=== PATIENT | male | born 1955 | race Caucasian/White ===

== ENCOUNTER 2018-02-16 09:00 | Outpatient (RCR) | payer OTHER, SELFPAY ==
--- NOTE | 2018-01-04 08:58 | HP.PTEVAL_ITS ---
Patient's Visit Information ROBERTA MOLINA is a 62 year old M referred to Physical Therapy by NITHIN CAST with a diagnosis of SEVERE BILATERAL KNEE PAIN DUE TO OSTEOARTHRITIS. Date of Evaluation: 01/04/18 Physical Therapist: Jamie Bazzi PT, - Visit Plan Frequency: 2x /Week Duration: 4 Weeks Plan: Aquatic PT for ROM ,strength BLE quads /hams ,flexablity,conditioning - Subjective Subjective: This 62 y/o male presents to physicial therapy with severe bilteral knee pain due to OA. Patient has had knee pain many years which has progressivelly worsre. Patient is a canditate with TKR but need to loss weight before surgery. Patient unable to squat,kneeling,standing min,walking 5min , geeting up from chair. Ptient has difficulty with stairs with rails with one steps at time. Sleeping okay at night with sleep pap. Denies paratrhesia/ tingling..Stmptoms better with MEDS.Patient has comorbities with multple myeloma.Patient affects quality of life and and ADL'S. SOCIAL: . VOCATION: retired - Pain Bilateral Knee Pain Intensity (Out of 10): 8 Pain Intensity Range: 10 - Objective POSTURE: mild foward posture ,hips knees flexed,mild valgus. GAIT: Ambulates with foward posture ,hips/knees flexed 2 point gait with slow cadance. EDEMA: 2 + bilateral lower legs ,left knee greater than right ,patient does use compression stockings. PALAPTION: medial joint line. FLEXABLITY: hams mod tight. AROM: 0-115 degrees R,0-120 degrees L. MMT: quads/hams 4-/5,hip 4-/5 flexion,susanna 3+/5 ankle 4/5 - Special Tests R Knee Valgus - MCL: Negative R Knee Varus - LCL: Negative R Knee Patellar Apprehension - PFS: Negative R Knee Patellar Grind - PFS: Negative L Knee Valgus - MCL: Negative L Knee Varus - LCL: Negative L Knee Patellar Apprehension - PFS: Negative L Knee Patellar Grind - PFS: Negative - Goals Goal 1:: Independant with Aquatic PT Goal Time Frame: 4-6 Weeks Goal 2:: Decrease knee pain by 50% or greater to improve function with walking and standing. Goal Time Frame: 4-6 Weeks Goal 3:: Patient improve AROM 5-10 degrres to improve function with walking . Goal Time Frame: 4-6 Weeks Goal 4:: Patient increase strength quads/hams 4/5 to improve function walking and standing. Goal Time Frame: 4-6 Weeks Goal 5:: Patient improve ADL'S and function with standing and walking with min limiations. Goal Time Frame: 4-6 Weeks - Rehabilitation Potential Physical Therapy Diagnosis: This patient has multiple comorbities to include multiple myeloma ,CHF as well as swevere knee pain from DJD with decrease ROM , pain ,strength deficitis which impairs ADL'S with walking and standing Rehabilitation Potential: Good - Anticipated Interventions Patient/Client Instruction: Educate patient on: Condition, Plan of Care For the Purpose of:: To decrease pain, To increase ROM, To improve muscle performance and motor function, To improve ability to perform ADL's, To increase tolerance to activity/condition/position, To improve ability of physical actions for home/community/work/leisure, To improve gait and locomotor functions, To improve health of tissue, To decrease soft tissue restriction, To increase flexibility/ROM, To improve endurance, To improve ability to perform tasks related to life management Therapeutic Exercise to Include: Strength training, Flexibilty training, Gait and locomotor training, In an aquatic setting, Passive ROM, Active ROM Comment: knee For the Purpose of:: To decrease pain, To decrease swelling/inflammation, To increase ROM, To improve muscle performance and motor function, To improve ability to perform ADL's, To increase tolerance to activity/condition/position, To improve performance and independence with ADL's, To improve ability of physical actions for home/community/work/leisure, To improve gait and locomotor functions, To improve health of tissue, To decrease soft tissue restriction, To increase flexibility/ROM, To improve endurance, To improve health and function, To foster healthy habits, To improve ability to perform tasks related to life management Thank you for the opportunity to evaluate your patient. For Medicare and Medicare HMO plans, please review the plan of care and approve it. It will need to be FAXED BACK to us at [phone] for Medicare purposes. Please let me know if there are questions or concerns regarding this plan of care. Physician Signature: Date:
--- NOTE | 2018-02-16 10:46 | HP.PTDCSUM ---
HP - PT D/C Summary It has been my pleasure to treat ROBERTA MOLINA under orders from NITHIN BRENNAN, for the diagnosis of SEVERE BILATERAL KNEE PAIN DUE TO OSTEOARTHRITIS for a total of 9 visit(s). Discharge Date: 02/16/18 Please see the following information for a summary of their discharge status. - Subjective Subjective: NO adverse symptoms after progressions in yesterday's AT visit. - Pain Bilateral Knee Pain Intensity (Out of 10): 7 Lumbar Spine Pain Intensity (Out of 10): 6 Cerv. Spine Pain Intensity (Out of 10): 3 - Overall Improvement % Improvement: 50 - Objective Objective/Function: POSTURE: mild foward posture. GAIT: mild foward antalgic gait with cane. EDEMA:2+ ankle. AROM:0-120 SUPINE KNEE FLEXION. MMT: 4/5 QUADS/HAMS ,HIP 4-/5 . STAIRS: ascend/desend 4 steps with rails - Goals Goal 1:: Independant with Aquatic PT Goal Progress: Goal Met Goal 2:: Decrease knee pain by 50% or greater to improve function with walking and standing. Goal Progress: Progressing Goal 3:: Patient improve AROM 5-10 degrres to improve function with walking . Goal Progress: Progressing Goal 4:: Patient increase strength quads/hams 4/5 to improve function walking and standing. Goal Progress: Progressing Goal 5:: Patient improve ADL'S and function with standing and walking with min limiations. Goal Progress: Progressing - Plan Plan: D/C TO HOME PROGRAM [facility] - D/C Information Discharge Comments: Inderpendant with [facility]. NEEDS TKR If there are questions or concerns regarding this patient's physical therapy, please feel free to call me at [phone]. Thank you for the referral of this patient. Sincerely, Jamie Bazzi, PT,
== END 2018-02-16 19:00 | disposition home or self-care (01) ==
LOC: PT 09:00
DX: M25.569 Pain in unspecified knee (principal)
CPT/HCPCS: 97113; 97162; G8978; G8979

== ENCOUNTER 2018-08-26 02:06 | Observation (INO) | payer OTHER, SELFPAY ==
[2018-08-26] VITALS (17 sets, daily range): BP systolic 108–171; BP diastolic 56–85; PULSE 55–92; RESP 16–30; TEMP 36.6–37.8; O2SAT 94–99; BMI 53.1; BMI 51.1
[2018-08-26 02:31] LABS: Bedside Glucose 140 mg/dL (70-110)
--- NOTE | 2018-08-26 02:33 | CT_ITS ---
HISTORY: Altered Mental Status,fever,recent chemo for multiple myeloma,elevated bpHx:htn,diabetes,a-fib,chf TECHNIQUE: Multiple axial images were obtained of the brain without intravenous contrast. A radiation dose optimization technique was used for this scan. IV Contrast dosage and agent: None. COMPARISON: None FINDINGS: Normal ventricles. Vague areas of decreased attenuation of the left cerebral deep white matter compatible with small vessel chronic ischemic change. No associated mass-effect or sulcal effacement. No intracranial mass, hemorrhage, or acute disease identified. Posterior fossa structures are unremarkable. No suspicious extra-axial fluid collection. Carotid and vertebrobasilar atherosclerotic calcifications. Probable remote fracture of the distal nasal bones. No dominant calvarial lesion in this patient with history of multiple myeloma CT/Brain/Head without Contrast IMPRESSION: 1. No hemorrhage or acute disease identified. 2. White matter chronic ischemic changes. 3. If symptoms persist and remain unexplained, further correlation with MR is recommended. 4. Carotid and vertebrobasilar atherosclerotic calcifications. Individualized dose optimization techniques were used for this CT. at 0410 Reported and signed by: Phi Ram MD Electronically Signed: Phi Ram, at 4:08 EST Tel , Service support ,
--- NOTE | 2018-08-26 02:33 | EKG12_ITS ---
Test Reason : ALT LOC Blood Pressure : / mmHG Vent. Rate : 077 BPM Atrial Rate : 077 BPM P-R Int : 124 ms QRS Dur : 192 ms QT Int : 504 ms P-R-T Axes : 117 267 050 degrees QTc Int : 570 ms Suspect arm lead reversal, interpretation assumes no reversal Normal sinus rhythm Right bundle branch block Septal infarct , age undetermined Lateral infarct , age undetermined Possible Inferior infarct , age undetermined Abnormal ECG Confirmed by GENARO CHRISTIE, ARIS ([id number]), photography editor ETHEL SANDOVAL ([id number]) on 08/30/2018 11:38:10 AM Referred By: JUS Confirmed By:ARIS LAM MD
--- NOTE | 2018-08-26 02:38 | ED.RN ---
NO OLD EKGS IN MUSE
[2018-08-26 02:55] LABS: Absolute Lymphocyte Count 1.63 X10^3/ul (0.83-4.51); Absolute Neutrophil Count 9.8 X10^3/uL (2.0-7.7); Basophil# 0.01 X10^3/uL; Basophil% 0.1 % (0-1); Eosinophil# 0.05 X10^3/uL; Eosinophils% 0.4 % (0-5); Hematocrit 41.2 % (40-54); Lymphocyte # 1.63 X10^3/ul (4.0); Lymphocyte % 13.2 % (19-41); Mean Corp Hgb Conc 31.6 g/gl (32-36); Mean Corpuscular Hgb 32.5 pg (27.0-32.0); Mean Platelet Vol. 11.6 fl (6.2-12.0); Monocyte# 0.82 X10^3/uL; Monocyte% 6.7 % (0-10); Neutrophil # 9.78 X10^3/uL (2.7-7.7); Neutrophil % 79.4 % (47-70); Platelet Count 146 K/mm3 (150-450); RBC Distribution Width CV 15.3 % (11.6-14.6); RBC Distribution Width SD 57.6 fl (35.1-43.9); White Blood Count 12.3 K/mm3 (4.4-11.0)
[2018-08-26 02:56] LABS: POSITIVE COUNT NO; POSITIVE DIFFERENTIAL NO; POSITIVE MORPHOLOGY NO
[2018-08-26] MEDS: Naloxone 0.4 MG/ML Syringe IV (02:56)
[2018-08-26 03:06] LABS: AST(SGOT) 28 U/L (15-37); Alanine Aminotransfer ALT/SGPT 25 U/L (16-61); Albumin, Serum 3.4 g/dL (3.2-5.0); Alkaline Phosphatase 46 U/L (45-117); Anion Gap 6 (5-15); BUN 18 mg/dL (7-18); BUN/Creat Ratio 16.8 RATIO (10-20); Calcium,Total 8.3 mg/dL (8.5-10.1); Chloride 101 mmol/L (98-107); Creatinine, Serum 1.07 mg/dL (0.70-1.30); EST Glomerular Filtration Rate 74 mL/min (>60); Est Glom Filt Rate - Afr Amer 89 mL/min (>60); Estimated Creatinine Clearance 67.48 ml/min; Globulin 3.3 g/dL (2.2-4.2); Glucose 120 mg/dL (74-106); Potassium 3.8 mmol/L (3.5-5.1); Protein, Total 6.7 g/dL (6.4-8.2); Sodium Level 139 mmol/L (136-145)
[2018-08-26 03:07] LABS: Lactic Acid 1.8 mmol/L (0.4-2.0)
[2018-08-26 03:15] LABS: Allen Test POS; Base Excess 8 mmol/L (-2 to +2); Bicarbonate 31.1 mmol/L (22-26); Blood Gas Specimen Type ART; O2 Delivery Device Nasal Can; PO2 84 mmHG (75-100); SITE R Radial; SO2 97 % (95-99); Time Given 310; Total Carbon Dioxide 32 mmol/L; pCO2 39.2 mmHg (35-45); pH 7.51 (7.35-7.45)
--- NOTE | 2018-08-26 03:30 | RAD_ITS ---
HISTORY: PT WITH ALTERED LOC, FEVER. RECENT CHEMO FOR MULTIPLE MYELOMA. SLOW TO ANSWER QUESTIONS BUT A+OX3. EXAM: XR Chest 1 View: Portable COMPARISON: None FINDINGS: Limited portable technique. EKG leads in place. Moderate enlargement of the cardiac silhouette. Pericardial effusion not excluded. Right hemidiaphragm not visualized. Possible small right pleural effusion. No vascular congestion or pulmonary consolidation. Surgical clips within the upper abdomen. Question hiatal hernia. No pneumothorax. RAD/Chest 1 View (Portable) IMPRESSION: 1. Moderate enlargement of the cardiac silhouette. Possible right pleural effusion. 2. No pneumonia or overt CHF. 3. Consider further correlation with cardiac echo. at 5525 Reported and signed by: Phi Ram MD Electronically Signed: Phi Ram, at 4:14 EST Tel , Service support ,
[2018-08-26 03:46] LABS: Mucous, Urine 0 SEEN /hpf (<or=2+); Red Blood Cells-Urine 0 SEEN /hpf (0-5); White Blood Cells 0 SEEN /hpf (0-5)
[2018-08-26 03:47] LABS: Color, Urine Yellow (Yellow); Glucose, Dipstick Normal (Normal); Ketone-Dipstick Negative (Negative); Leukocyte Esterase-Dipstick Negative /ul (Negative); Nitrite-Dipstick Negative (Negative); Occult Blood-Urine Negative /ul (Negative); Protein-Dipstick Negative (Negative); Urine Bilirubin Dipstick Negative (Negative); Urine Clarity Clear (Clear); Urine Urobilinogen Normal (Normal)
--- NOTE | 2018-08-26 03:48 | NURSING ---
PATIENT IS A LOT MORE ALERT AND ANSWERING QUESTIONS MORE QUICKLY WITHOUT PROMPTING. FAMILY IS AT THE BEDSIDE.
[2018-08-26 03:52] LABS: Bacteria RARE /hpf (None Seen); Squamous Epithelial Cells - UA 0-5 SEEN /hpf (0-5)
--- NOTE | 2018-08-26 04:41 | ED.RN ---
Addendum entered by Meng Salas 08/26/18 05:19: FAXED INFORMATION REQUESTED BY KASEY, CONCERNING THIS ADMISSION Original Note: [facility], PER KASEY, ADMIN ON DUTY, THEY ARE UNABLE TO TAKE A TRANSFER AT THIS TIME
--- NOTE | 2018-08-26 04:49 | HP.PCM_ITS ---
Problem List (1) Acute encephalopathy Status: Acute History of Present Illness Date of Admission: 08/26/18 Chief Complaint: unreponsiveness The patient is a 63 year old M with a significant history of ABI on home CPAP; psoriatic arthritis on methadone; multiple myeloma. Diabetes mellitus; hypertension; congestive heart failure; cardioMEM implant; A. fib on Xarelto who presented with decreased response. Family stated that patient was not responding to verbal commands and looked frozen in positions; and one time was tilted to one side. 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 By nighttime about 6 hours after loading in the cold, patient was having shaking chills. He sat in front of the heat and had blankets on but he was still shivering. The EMS found the patient's temperature was 99.2. At the emergency department patient was found to have a T-max of 100.0. At emergency department patient was given Narcan and he began to yawn and was breathing harder. He reported to the emergency department doctor after Narcan administration that he feels agitated. It was assumed that he was withdraw form narcotics because of narcan administration. ED doctor reported pinpoint pupils of patient As stated above patient takes methadone. He also takes gabapentin. Patient has attempted to take an at the ED Family reports of multiple cellulitis with blisters of bilateral legs for which patient has been on multiple antibiotics in the past. Family reported that for since one month patient has not been able to raise his right shoulders right fully and has been complaining of pain in same extremity. Patient follows up with PCP; trade show coordinator and oncologist. Patient's multiple myeloma history in remission but he receives chemotherapy shot every week. His last chemotherapy shot was on 08/22/2018. [facility] doctor called the [facility] to admit patient. However the [facility] did not have any available beds so patient was admitted to the hospital. Past Medical History Past Medical History (Chronic Problems): Chronic Problems (Last Reviewed 08/26/18 @ 06:22 by Len Trinh MD) Degenerative disc disease, cervical (Chronic) Anterolisthesis (Chronic) DDD (degenerative disc disease), lumbar (Chronic) Sleep apnea (Chronic) Psoriasis (Chronic) Morbid obesity (Chronic) Localized, primary osteoarthritis of lower leg (Chronic) Impaired glucose tolerance (Chronic) Hypercholesteremia (Chronic) GERD (gastroesophageal reflux disease) (Chronic) Essential hypertension (Chronic) Cellulitis and abscess of leg (Chronic) Medical History: Medical History (Last Reviewed 08/26/18 @ 06:22 by Len Trinh MD) Degenerative disc disease, cervical (Chronic) M50.30 Anterolisthesis (Chronic) M43.10 DDD (degenerative disc disease), lumbar (Chronic) M51.36 Allergies No Known Allergies Allergy (Verified 08/26/18 02:08) Home Medications: Ambulatory Orders Medication Instructions Recorded Acetaminophen [Tylenol] 975 mg PO TID PRN PRN 08/26/18 Acitretin 25 mg PO DAILY 08/26/18 Allopurinol [Zyloprim] 400 mg PO DAILYCM 08/26/18 Amiodarone HCl 200 mg PO DAILY 08/26/18 Atorvastatin Calcium [Lipitor] 10 mg PO QHS 08/26/18 Calcium Carbonate/Vitamin D3 1 each PO BID 08/26/18 [Calcium 500-Vit D3 200 Tablet] Calcium Carbonate/Vitamin D3 1 each PO DAILY 08/26/18 [Calcium 500-Vit D3 200 Tablet] Carvedilol 12.5 mg PO BID 08/26/18 Cetirizine HCl [Zyrtec] 10 mg PO DAILY 08/26/18 Cholecalciferol (VIT D3) [Vitamin 2,000 unit PO DAILY 08/26/18 D] Clobetasol Propionate [Clobex] 118 ml TP BID 08/26/18 Clobetasol Propionate/Emoll 30 gm TP BID 08/26/18 [Clobetasol Emollient 0.05% Crm] Ferrous Sulfate [Iron] 325 mg PO TID 08/26/18 Fluoxetine [Prozac] 20 mg PO DAILY 08/26/18 Fluticasone 0.05% [Flonase Nasal 2 spray NASAL DAILY 08/26/18 [place]] Gabapentin [Neurontin] 400 mg PO BIDCM 08/26/18 Guaifenesin Dm [Robitussin Dm] 10 ml PO Q6H PRN PRN 08/26/18 Insulin Glargine,Hum.rec.anlog 10 unit SC QHS 08/26/18 [Lantus] Isosorbide Mononitrate [Isosorbide 30 mg PO QHS 08/26/18 Mononitrate ER] Magnesium Oxide 420 mg PO TID 08/26/18 Methadone HCl [(None)] 10 mg PO Q12H 08/26/18 Multivitamin [Multiple Vitamins] 1 each PO DAILY 08/26/18 Multivitamins,Therapeutic 1 tab PO DAILY 08/26/18 [Multivitamin] Omeprazole 40 mg PO BIDCM 08/26/18 Potassium Chloride [K-Dur] 20 meq PO TIDCM 08/26/18 Rivaroxaban [Xarelto] 20 mg PO DAILY 08/26/18 Tamsulosin HCl [Flomax] 0.4 mg PO QHS 08/26/18 Torsemide [Demadex] 40 mg PO DAILY 08/26/18 Triamcinolone 0.1% Cream [Kenalog] 1 applic TOPICAL BID 08/26/18 Surgical History: appendectomy Lives: With Family Smoking Status: Former smoker - *Family History Maternal Family History: Family History (Last Updated 08/26/18 @ 07:06 by Len Trinh MD) Father Hypertension Mother Diabetes Review of Systems Constitutional: Reports: Chills, Fever, Weakness HEENT: Denies: Head Aches, Sinus Congestion, Sinus Drainage Cardiovascular: Denies: Chest Pain, Palpitations Respiratory: Denies: Cough, Shortness of breath at rest, Sputum production Gastrointestinal: Denies: Abdominal Pain, Nausea, Vomiting Genitourinary: Denies: Dysuria Musculoskeletal: Denies: Joint Pain, Joint Tenderness Skin: Denies: Rash, Wounds Neurological: Denies: Numbness, Tingling, Focal weakness Psychiatric: Denies: Anxiety, Depression, Homicidal Ideations, Suicidal Ideations Hematologic/ Lymphatic: Denies: Easy Bruising, Easy Bleeding VTE Information - Inpt Only VTE Present on Admission: No VTE Mechan Device Prophylaxis: None VTE Pharm Prophylaxis ordered?: No Reason prophylaxis not ordered:: Treatment Not Indicated - On Xarelto Patient Problems: Active and Suspected Problems (Last Reviewed 08/26/18 @ 06:22 by Len Trinh MD) Acute encephalopathy (Acute) - Physical Exam General: Oriented x3, Cooperative, Lethargic - Falls back to sleep during history but it is also very early in the morning., - HEENT: Atraumatic, PERRLA, EOMI, Normocephalic Neck: Supple, No JVD, Negative Carotid Bruits Lungs: Clear to auscultation, Normal air movement Cardiovascular: Regular rate, No murmurs Abdomen: Bowel Sounds Present, Soft, Non Tender Extremities: Capillary Refill Less than 3 Seconds, Edema - bilateral legs and feet., - - Decreased ROM of right upper extremities. Skin: Ulcer/ Wound - Multiple excoriations on bilateral legs, - - erythema of bilateral legs. Musculoskeletal: No Tenderness to Palpation of Joints or Extremities Neurological: Neuro grossly intact Psych/Mental Status: Normal Affect, Appropriate Vital Signs Temp Pulse Resp BP Pulse Ox 99.2 F H 76 18 141/62 H 95 08/26/18 03:48 08/26/18 04:24 08/26/18 04:24 08/26/18 04:24 08/26/18 04:24 Oxygen Flow Rate (L/min) 2 Oxygen Delivery Method Nasal Cannula Weight: 158.6 kg Body Mass Index (BMI) 53.1 Finger Stick Blood Glucose 140 Laboratory Tests Past 24 Hrs 08/26/18 08/26/18 08/26/18 02:28 02:28 02:28 WBC 12.3 H RBC 4.00 L Hgb 13.0 Hct 41.2 MCV 103.0 H MCH 32.5 H MCHC 31.6 L RDW 15.3 H RDW Differential 57.6 H Plt Count 146 L MPV 11.6 Immature Gran % (Auto) 0.200 Neut % (Auto) 79.4 H Lymph % (Auto) 13.2 L Mckenzie % (Auto) 6.7 Eos % (Auto) 0.4 Baso % (Auto) 0.1 Absolute Neuts (auto) 9.8 H Absolute Lymphs (auto) 1.63 Total Counted Not Reportable Specimen Type Sample Site pH Bicarbonate Actual POC Total CO2 Base Excess O2 Saturation ABG pCO2 ABG pO2 Enmanuel Test O2 Delivery Device Liter Flow Blood Gas Notified Whom Blood Gas Notified Time Sodium 139 Potassium 3.8 Chloride 101 Carbon Dioxide 32.0 Anion Gap 6 BUN 18 Creatinine 1.07 Estim Creat Clear Calc 67.48 Est GFR (MDRD) Af Amer 89 Est GFR (MDRD) Non-Af 74 BUN/Creatinine Ratio 16.8 Glucose 120 H Lactic Acid 1.8 Calcium 8.3 L Total Bilirubin 0.40 AST 28 ALT 25 Alkaline Phosphatase 46 Total Protein 6.7 Albumin 3.4 Globulin 3.3 Albumin/Globulin Ratio 1.0 Urine Color Urine Clarity Urine pH Ur Specific [place] Urine Protein Urine Glucose (UA) Urine Ketones Urine Occult Blood Urine Nitrite Urine Bilirubin Urine Urobilinogen Ur Leukocyte Esterase Urine RBC Urine WBC Ur Squamous Epith Cells Urine Bacteria Urine Mucus 08/26/18 08/26/18 03:09 03:40 WBC RBC Hgb Hct MCV MCH MCHC RDW RDW Differential Plt Count MPV Immature Gran % (Auto) Neut % (Auto) Lymph % (Auto) Mckenzie % (Auto) Eos % (Auto) Baso % (Auto) Absolute Neuts (auto) Absolute Lymphs (auto) Total Counted Specimen Type ART Sample Site R Radial pH 7.51 H Bicarbonate Actual 31.1 H POC Total CO2 32 Base Excess 8 H O2 Saturation 97 ABG pCO2 39.2 ABG pO2 84 Enmanuel Test POS O2 Delivery Device Nasal Can Liter Flow 2.0 Blood Gas Notified Whom ED Blood Gas Notified Time 310 Sodium Potassium Chloride Carbon Dioxide Anion Gap BUN Creatinine Estim Creat Clear Calc Est GFR (MDRD) Af Amer Est GFR (MDRD) Non-Af BUN/Creatinine Ratio Glucose Lactic Acid Calcium Total Bilirubin AST ALT Alkaline Phosphatase Total Protein Albumin Globulin Albumin/Globulin Ratio Urine Color Yellow Urine Clarity Clear Urine pH 8.0 Ur Specific [place] 1.010 Urine Protein Negative Urine Glucose (UA) Normal Urine Ketones Negative Urine Occult Blood Negative Urine Nitrite Negative Urine Bilirubin Negative Urine Urobilinogen Normal Ur Leukocyte Esterase Negative Urine RBC 0 SEEN Urine WBC 0 SEEN Ur Squamous Epith Cells 0-5 SEEN Urine Bacteria RARE Urine Mucus 0 SEEN POC Glucose 08/26/18 02:25 POC Glucose 140 H Assessment/Plan All Active Problems (Last Reviewed 08/26/18 @ 06:22 by Len Trinh MD) Acute encephalopathy (Acute) Segmental and somatic dysfunction of thoracic region (Acute) Segmental and somatic dysfunction of lumbar region (Acute) Segmental and somatic dysfunction of cervical region (Acute) The patient is a 63 year old M with a significant history of ABI on home CPAP; psoriatic arthritis on methadone; multiple myeloma. Diabetes mellitus; hypertension; congestive heart failure; cardioMEM implant; A. fib on Xarelto who presented with decreased response; low-grade fever and chills in the setting of chronic methadone and gabapentin use. Acute encephalopathy Likely due to overdose of methadone Clinical monitoring As needed Narcan ordered. Gabapentin and methadone will be held at this time. Consider decreasing dose of gabapentin and methadone upon discharge. Fever and chills T-max on admission was 100.0. Patient reportedly had a temperature of 99.2 or 99.6 measured by paramedics No source of infection noted at this time. Chills was transient. Urinalysis was unremarkable Chest x-ray showed increased cardiac silhouette with no noted infiltrate Blood cultures are pending. Bilateral leg shows redness with multiple excoriations on the left side with no indications for infection. Clinical monitoring. Right shoulder pain. No indication for infection. Patient to follow-up outpatient with PCP and trade show coordinator Hypertension Blood pressure at admission was within goal. Continue home Coreg and Imdur Trend blood pressure and adjust blood pressure medication as necessary. Psoriasis Acitretin continued. Clobetasol and triamcinolone continued. Diabetes mellitus Blood glucose on admission was 120 on BMP; acceptable. On home Lantus 10 units at night. We will not order Lantus at this time. Correction scale insulin ordered Excoriations on left leg and left knee Bactroban ordered. CHF Patient is a known CHF patient. Records at the [facility]. likely reduced ejection fraction due to extensive cardiomegaly. Family does not know ejection fraction. CardioMEM in place which transfer readings to providers Independent review of x-ray shows extensive cardiac silhouette. Coreg and Imdur continued Chronic A. fib Amiodarone and Xarelto continued. Gout Allopurinol continued Multiple myeloma Outpatient management. BPH Flomax continued. Hyperlipidemia Lipitor continued GERD Protonix continued Depression Prozac continued DVT prophylaxis Not indicated in the setting of Xarelto use for A. fib. Code Visit OBSV E&M: 21677 Initial observation care L3
--- NOTE | 2018-08-26 04:54 | ED.DCSUM_ITS ---
- ER Visit Summary Date of Service: 08/26/18 Chief Complaint: Altered mental status History of Present Illness: The patient is a 63 M who presents with altered mental status. Only noted at 3 hours ago. They state essentially he was unresponsive. He was not responding to questions. His blood sugar was 128. He has had one episode of recent diarrhea but otherwise review of systems is negative per the family no fever chest pain cough abdominal pain. They asked him if he was dizzy earlier and he stated no. does note that he has often been lethargic at night and spoken to his multiple physicians regarding this without any clear explanation. He is on methadone and gabapentin. He also has a history of multiple myeloma and received a maintenance medication and steroids earlier this week. Physical Examination: Temperature 100.0 vitals otherwise unremarkable Moist mucous membranes Pinpoint pupils Patient is somnolent but arousable to voice he has no focal or lateralizing neurological deficits and NIH stroke scale is 0 patient repetitively falls asleep during exam and questioning Heart is regular rate and rhythm Lungs are clear to auscultation Abdomen soft nontender Test Results: EKG shows sinus rhythm at a rate of 77 with a right bundle branch block no acute ischemic changes. Labs notable for platelets 146, glucose 120, hepatic function urinalysis lactic acid all normal. ABG normal. Chest x-ray shows cardiomegaly and possible right effusion. CT the head shows no acute disease. Emergency Department Course and Treatment: Patient exhibiting signs of an opioid toxidrome. He is on daily opiates so I did not give any large dose of Narcan he was given 0.4 mg of Narcan. Even with low-dose he showed some withdrawal symptoms of tremulousness, anxiety, yawning. However his mental status did significantly improve. At his workup is otherwise unremarkable as above. I do believe his altered mental status is related to polypharmacy and sedating medications. On reevaluation he is again somnolent. Family is concerned about being able to care for him at home and current condition. We did speak to the [facility]. They have no beds available. Patient will be admitted here. Treatment Plan: [] Disposition: Admit Impression: Altered mental status Opioid toxicity This note was generated with [employer] dictation software. It may contain incorrect words, spelling, and punctuation that were not noted in review of the chart prior to signing ED Disposition - Plan for ED Patient: Chief Complaint: Alt LOC Referrals: NOT,DEFINED [Primary Care Provider] -
[2018-08-26 06:55] LABS: Bedside Glucose 120 mg/dL (70-110)
[2018-08-26] MEDS: FLUoxetine 20 MG Capsule PO (08:16)
[2018-08-26] MEDS: Rivaroxaban 20 MG Tablet PO (08:16)
[2018-08-26] MEDS: Carvedilol 12.5 MG Tablet PO ×2 (08:16→21:48)
[2018-08-26] MEDS: Calcium Carb/Vitamin D 1 TABLET Tablet PO ×2 (08:16→16:51)
[2018-08-26] MEDS: Pantoprazole Sodium 40 MG Tablet PO ×2 (08:16→16:50)
[2018-08-26] MEDS: Amiodarone 200 MG Tablet PO (08:16)
[2018-08-26] MEDS: Allopurinol 100 MG Tablet 200 MG PO ×2 (08:16→16:50)
[2018-08-26] MEDS: Loratadine 10 MG Tablet PO (08:16)
[2018-08-26] MEDS: Fluticasone 0.05% 1 SPRAY NASAL.SRY 2 SPRAY NASAL (08:17)
[2018-08-26] MEDS: Clobetasol Propionate 0.05% Cream 1 APPLIC TOPICAL ×2 (08:18→21:47)
[2018-08-26] MEDS: Triamcinolone 0.5% Cream 1 APPLIC TOPICAL ×2 (08:22→21:49)
[2018-08-26] MEDS: Acetaminophen 325 MG Tablet 650 MG PO (09:14)
[2018-08-26] MEDS: Insulin Lispro 100 UNIT/ML INSULN.PEN SQ (12:48)
[2018-08-26 12:51] LABS: Bedside Glucose 165 mg/dL (70-110)
--- NOTE | 2018-08-26 15:45 | PN_ITS ---
Patient Problems: Active and Suspected Problems (Last Reviewed 08/26/18 @ 06:22 by Len Trinh MD) Acute encephalopathy (Acute) Subjective: Feels much better now. Was still very sleepy this am but much less this pm. No changes in doses recently of his pain meds and wears CPAP at home. - Physical Exam General: Alert, Oriented x3, Cooperative, No apparent distress, - - up in chair non-toxic HEENT: Atraumatic, PERRLA, EOMI, Normocephalic, EAC Clear Oral: Moist Mucosa, No Gingival or Mucosal Lesions/ Ulcerations, - - dentures in place, mallampati 4, no thrush Neck: Supple, No JVD, Negative Carotid Bruits, Negative Hepatojugular Reflux, No Nodes, Trachea Midline, Thyroid Normal Size and Texture - thick neck with lg circumfrence Lungs: Clear to auscultation, Normal air movement, No rhonchi, No wheeze, No rales Cardiovascular: Regular rate, Regular Rhythm, Normal S1, Normal S2, No murmurs, No Ectopic Activity, No rub noted, No Gallop, - - distant 22 body habitus Abdomen: Bowel Sounds Present, Soft, Non Tender, Non-Distended, No Hepato- splenomegaly, Obese, No hernias noted Extremities: No clubbing, No cyanosis, Edema - 2-3 + B LE-chronic Skin: No rashes, No breakdown Musculoskeletal: No Tenderness to Palpation of Joints or Extremities, No Muscle Wasting, Arthritic Changes Lymphatic: No Cervical, Supraclavicular, or Inguinal Adenopathy Neurological: Cranial nerves II-XII grossly intact, Deep Tendon Reflexes 2+/4 and Symmetrical, Neuro grossly intact Psych/Mental Status: Normal Affect, Appropriate, - - very pleasant, Alert and oriented to time, place, person, mood and affect Vital Signs Temp Pulse Resp BP Pulse Ox 97.9 F 58 L 16 141/84 H 98 08/26/18 08:27 08/26/18 08:27 08/26/18 08:27 08/26/18 08:27 08/26/18 08:27 Oxygen Flow Rate (L/min) 2 Oxygen Delivery Method Nasal Cannula Weight: 152.5 kg Body Mass Index (BMI) 51.1 Finger Stick Blood Glucose 140 Intake and Output for Last 24 Hours 08/24/18 08/25/18 08/26/18 23:59 23:59 23:59 Intake Total 300 / 300 Balance 300 / 300 Laboratory Tests Past 24 Hrs 08/26/18 08/26/18 08/26/18 02:28 02:28 02:28 WBC 12.3 H RBC 4.00 L Hgb 13.0 Hct 41.2 MCV 103.0 H MCH 32.5 H MCHC 31.6 L RDW 15.3 H RDW Differential 57.6 H Plt Count 146 L MPV 11.6 Immature Gran % (Auto) 0.200 Neut % (Auto) 79.4 H Lymph % (Auto) 13.2 L [place] % (Auto) 6.7 Eos % (Auto) 0.4 Baso % (Auto) 0.1 Absolute Neuts (auto) 9.8 H Absolute Lymphs (auto) 1.63 Total Counted Not Reportable Specimen Type Sample Site pH Bicarbonate Actual POC Total CO2 Base Excess O2 Saturation ABG pCO2 ABG pO2 [place] Test O2 Delivery Device Liter Flow Blood Gas Notified Whom Blood Gas Notified Time Sodium 139 Potassium 3.8 Chloride 101 Carbon Dioxide 32.0 Anion Gap 6 BUN 18 Creatinine 1.07 Estim Creat Clear Calc 67.48 Est GFR (MDRD) Af Amer 89 Est GFR (MDRD) Non-Af 74 BUN/Creatinine Ratio 16.8 Glucose 120 H Lactic Acid 1.8 Calcium 8.3 L Total Bilirubin 0.40 AST 28 ALT 25 Alkaline Phosphatase 46 Total Protein 6.7 Albumin 3.4 Globulin 3.3 Albumin/Globulin Ratio 1.0 Urine Color Urine Clarity Urine pH Ur Specific [place] Urine Protein Urine Glucose (UA) Urine Ketones Urine Occult Blood Urine Nitrite Urine Bilirubin Urine Urobilinogen Ur Leukocyte Esterase Urine RBC Urine WBC Ur Squamous Epith Cells Urine Bacteria Urine Mucus 08/26/18 08/26/18 03:09 03:40 WBC RBC Hgb Hct MCV MCH MCHC RDW RDW Differential Plt Count MPV Immature Gran % (Auto) Neut % (Auto) Lymph % (Auto) [place] % (Auto) Eos % (Auto) Baso % (Auto) Absolute Neuts (auto) Absolute Lymphs (auto) Total Counted Specimen Type ART Sample Site R Radial pH 7.51 H Bicarbonate Actual 31.1 H POC Total CO2 32 Base Excess 8 H O2 Saturation 97 ABG pCO2 39.2 ABG pO2 84 [place] Test POS O2 Delivery Device Nasal Can Liter Flow 2.0 Blood Gas Notified Whom ED Blood Gas Notified Time 310 Sodium Potassium Chloride Carbon Dioxide Anion Gap BUN Creatinine Estim Creat Clear Calc Est GFR (MDRD) Af Amer Est GFR (MDRD) Non-Af BUN/Creatinine Ratio Glucose Lactic Acid Calcium Total Bilirubin AST ALT Alkaline Phosphatase Total Protein Albumin Globulin Albumin/Globulin Ratio Urine Color Yellow Urine Clarity Clear Urine pH 8.0 Ur Specific [place] 1.010 Urine Protein Negative Urine Glucose (UA) Normal Urine Ketones Negative Urine Occult Blood Negative Urine Nitrite Negative Urine Bilirubin Negative Urine Urobilinogen Normal Ur Leukocyte Esterase Negative Urine RBC 0 SEEN Urine WBC 0 SEEN Ur Squamous Epith Cells 0-5 SEEN Urine Bacteria RARE Urine Mucus 0 SEEN POC Glucose 08/26/18 08/26/18 08/26/18 12:45 06:50 02:25 POC Glucose 165 H 120 H 140 H Medical Necessity - Tobacco Use Smoking Status: Former smoker Assessment/Plan All Active Problems (Last Reviewed 08/26/18 @ 06:22 by Len Trinh MD) Acute encephalopathy (Acute) Segmental and somatic dysfunction of thoracic region (Acute) Segmental and somatic dysfunction of lumbar region (Acute) Segmental and somatic dysfunction of cervical region (Acute) 1. Acute Toxic/Metabolic Encephalopathy -suspected from medication issues -Methadone and Gabapentin at home--> pt denies any recent dose changes at home -may need to slightly reduce dose upon d/c -pt state he wears his home CPAP 2. Fever/Chills -blood cx pending -afebrile since admission -WBC with mild elevation -recheck in am -doubt infectiojn 3. R Shld pain -no acute issues 4. Thrombocytopenia -on chemo--> related -recheck in am 5. HTN/HPL -continue home meds 6. Psoriasis -topical creams ordered 7. DM-2 -Lantus 10 u qhs--> order placed -BGT as and hs 8. HF -compensated--> uncertain if systolic/diastolic or both -no records here 9. PAF -currently NSR -continue Amio and NOAC 10. H/O Gout -continue allopurinol 11. Multiple Myeloma -treatment q Tuesday at [place] 12. BPH -continue Flomax 13. Depression -continue Prozac 14. GERD -Continue PPI 15. Chronic Pain 2/2 DDD/Knee OA -restart Methadone at 5 mg BID (home dose 10 mg BID for at least a year now) -restart gabapentin 400 mg BID 16. ABI - bringing in home CPAP--> will order 17. DVT Prophylaxis -NOAC
[2018-08-26] MEDS: Gabapentin 400 MG Capsule PO (16:51)
[2018-08-26 18:06] LABS: Bedside Glucose 119 mg/dL (70-110)
[2018-08-26] MEDS: Mupirocin Ointment 22gm Tube 1 APPLIC TOPICAL (21:47)
[2018-08-26] MEDS: Atorvastatin Calcium 10 MG Tablet PO (21:48)
[2018-08-26] MEDS: Tamsulosin HCl 0.4 MG Capsule PO (21:48)
[2018-08-26] MEDS: Isosorbide Mononitrate 30 MG Tablet PO (21:48)
[2018-08-26] MEDS: 0.9% NaCl Peripheral Flush Adult/Peds IV (21:52)
[2018-08-26 23:00] LABS: Bedside Glucose 122 mg/dL (70-110)
[2018-08-27] VITALS (7 sets, daily range): BP systolic 145–161; BP diastolic 67–97; PULSE 47–65; RESP 16–18; TEMP 36.6–37.2; O2SAT 95–99
[2018-08-27] MEDS: Acetaminophen 325 MG Tablet 650 MG PO (00:16)
[2018-08-27 07:01] LABS: Bedside Glucose 119 mg/dL (70-110)
[2018-08-27] MEDS: Pantoprazole Sodium 40 MG Tablet PO (07:37)
[2018-08-27] MEDS: Carvedilol 12.5 MG Tablet PO (07:37)
[2018-08-27] MEDS: Loratadine 10 MG Tablet PO (07:37)
[2018-08-27] MEDS: Allopurinol 100 MG Tablet 200 MG PO (07:37)
[2018-08-27] MEDS: Calcium Carb/Vitamin D 1 TABLET Tablet PO (07:37)
[2018-08-27] MEDS: Amiodarone 200 MG Tablet PO (07:38)
[2018-08-27] MEDS: FLUoxetine 20 MG Capsule PO (07:38)
[2018-08-27] MEDS: Rivaroxaban 20 MG Tablet PO (07:38)
[2018-08-27] MEDS: Fluticasone 0.05% 1 SPRAY NASAL.SRY 2 SPRAY NASAL (07:39)
[2018-08-27] MEDS: Gabapentin 400 MG Capsule PO (07:40)
[2018-08-27 08:20] LABS: Absolute Lymphocyte Count 0.86 X10^3/ul (0.83-4.51); Absolute Neutrophil Count 7.9 X10^3/uL (2.0-7.7); Basophil# 0.01 X10^3/uL; Basophil% 0.1 % (0-1); Eosinophil# 0.12 X10^3/uL; Eosinophils% 1.3 % (0-5); Hemoglobin 12.2 g/dl (13.0-16.5); Lymphocyte # 0.86 X10^3/ul (4.0); Mean Corp Hgb Conc 31.3 g/gl (32-36); Mean Corpuscular Hgb 32.5 pg (27.0-32.0); Mean Platelet Vol. 11.2 fl (6.2-12.0); Monocyte# 0.67 X10^3/uL; Neutrophil # 7.87 X10^3/uL (2.7-7.7); Neutrophil % 82.5 % (47-70); Platelet Count 139 K/mm3 (150-450); RBC Distribution Width CV 15.5 % (11.6-14.6); RBC Distribution Width SD 58.6 fl (35.1-43.9); Red Blood Count 3.75 M/mm3 (4.6-6.2); White Blood Count 9.5 K/mm3 (4.4-11.0)
[2018-08-27 08:21] LABS: POSITIVE COUNT NO; POSITIVE DIFFERENTIAL NO; POSITIVE MORPHOLOGY NO
[2018-08-27 09:11] LABS: Anion Gap 6 (5-15); BUN 13 mg/dL (7-18); BUN/Creat Ratio 14.5 RATIO (10-20); Calcium,Total 8.7 mg/dL (8.5-10.1); Chloride 105 mmol/L (98-107); EST Glomerular Filtration Rate 91 mL/min (>60); Est Glom Filt Rate - Afr Amer 110 mL/min (>60); Estimated Creatinine Clearance 80.22 ml/min; Glucose 170 mg/dL (74-106); Potassium 3.7 mmol/L (3.5-5.1); Sodium Level 141 mmol/L (136-145)
--- NOTE | 2018-08-27 09:14 | PN_ITS ---
Patient Problems: Active and Suspected Problems (Last Reviewed 08/26/18 @ 06:22 by Len Trinh MD) Acute encephalopathy (Acute) Subjective: Feels well. No issues overnight. Wore CPAP and slept well. Anxious to go home. - Physical Exam General: Alert, Oriented x3, Cooperative, No apparent distress, - - sitting up in chair HEENT: Atraumatic, PERRLA, EOMI, Normocephalic Oral: Moist Mucosa, No Gingival or Mucosal Lesions/ Ulcerations, - - Mallampati 4, no thrush Neck: Supple, No JVD, Negative Carotid Bruits, Negative Hepatojugular Reflux, No Nodes, Trachea Midline, Thyroid Normal Size and Texture, - - lg neck circumfrence Lungs: Clear to auscultation, Normal air movement, No rhonchi, No wheeze, No rales, - - distant 2/2 body habitus Cardiovascular: Regular rate, Regular Rhythm, Normal S1, Normal S2, No murmurs, No Ectopic Activity, No rub noted, No Gallop, - - distant 2/2 Body habitus Abdomen: Bowel Sounds Present, Soft, Non Tender, Non-Distended, No Hepato- splenomegaly, Obese Extremities: No clubbing, No cyanosis, Edema Skin: No rashes, - - venous stasis skin changes B LE Musculoskeletal: No Tenderness to Palpation of Joints or Extremities, No Muscle Wasting, Arthritic Changes Lymphatic: No Cervical, Supraclavicular, or Inguinal Adenopathy Neurological: Cranial nerves II-XII grossly intact, - - ROMERO symmetrically B UE/LE Psych/Mental Status: Normal Affect, Appropriate, - - very pleasant, Alert and oriented to time, place, person, mood and affect Vital Signs Temp Pulse Resp BP Pulse Ox 99 F 64 18 145/67 H 97 08/27/18 07:33 08/27/18 07:33 08/27/18 07:33 08/27/18 07:33 08/27/18 07:33 Oxygen Flow Rate (L/min) 2 Oxygen Delivery Method Room Air Weight: 152.5 kg Body Mass Index (BMI) 51.1 Finger Stick Blood Glucose 140 Intake and Output for Last 24 Hours 08/25/18 08/26/18 08/27/18 23:59 23:59 23:59 Intake Total 300 / 300 500 / 500 Balance 300 / 300 500 / 500 Laboratory Tests Past 24 Hrs 08/27/18 08/27/18 08:00 08:00 WBC 9.5 RBC 3.75 L Hgb 12.2 L Hct 39.0 L MCV 104.0 H MCH 32.5 H MCHC 31.3 L RDW 15.5 H RDW Differential 58.6 H Plt Count 139 L MPV 11.2 Immature Gran % (Auto) 0.100 Neut % (Auto) 82.5 H Lymph % (Auto) 9.0 L [place] % (Auto) 7.0 Eos % (Auto) 1.3 Baso % (Auto) 0.1 Absolute Neuts (auto) 7.9 H Absolute Lymphs (auto) 0.86 Total Counted Not Reportable Sodium Pending Potassium Pending Chloride Pending Carbon Dioxide Pending Anion Gap Pending BUN Pending Creatinine Pending Est GFR (MDRD) Af Amer Pending Est GFR (MDRD) Non-Af Pending BUN/Creatinine Ratio Pending Glucose Pending Calcium Pending POC Glucose 08/27/18 08/26/18 08/26/18 06:54 21:51 16:48 POC Glucose 119 H 122 H 119 H 08/26/18 12:45 POC Glucose 165 H Medical Necessity - Tobacco Use Smoking Status: Former smoker Assessment/Plan All Active Problems (Last Reviewed 08/26/18 @ 06:22 by Len Trinh MD) Acute encephalopathy (Acute) Segmental and somatic dysfunction of thoracic region (Acute) Segmental and somatic dysfunction of lumbar region (Acute) Segmental and somatic dysfunction of cervical region (Acute) 1. Acute Toxic/Metabolic Encephalopathy -suspected from medication issues -Methadone and Gabapentin at home--> pt denies any recent dose changes at home -may need to slightly reduce dose upon d/c -pt state he wears his home CPAP 2. Fever/Chills -blood cx pending-->infection highly doubtful -afebrile since admission -WBC normalized -doubt infection 3. R Shld pain -no acute issues 4. Thrombocytopenia -relatively stable 5. HTN/HPL -continue home meds 6. Psoriasis -topical creams ordered 7. DM-2 -Lantus 10 u qhs -BGT as and hs -blood sugars good 8. HF -compensated--> uncertain if systolic/diastolic or both -no records here 9. PAF -currently NSR -continue Amio and NOAC 10. H/O Gout -continue allopurinol 11. Multiple Myeloma -treatment q Tuesday at [place] 12. BPH -continue Flomax 13. Depression -continue Prozac 14. GERD -Continue PPI 15. Chronic Pain 2/2 DDD/Knee OA -continue Methadone at 7.5 mg BID (home dose 10 mg BID for at least a year now)--> at D/C -continue gabapentin 400 mg BID 16. ABI - bringing in home CPAP--> will order 17. DVT Prophylaxis -NOAC 18. Disposition -D/C Home
--- NOTE | 2018-08-27 09:37 | DS.PCM_ITS ---
Discharge Date and Diagnosis - Problem List Patient Problems: Active and Suspected Problems (Last Reviewed 08/26/18 @ 06:22 by Len Trinh MD) Acute encephalopathy (Acute) Date of Admission: 08/26/18 Date of Discharge: 08/27/18 - Primary Discharge Diagnosis Active and Suspected Problems (Last Reviewed 08/26/18 @ 06:22 by Len Trinh MD) Acute encephalopathy (Acute) - Secondary Discharge Diagnosis Chronic Problems (Last Reviewed 08/26/18 @ 06:22 by Len Trinh MD) Degenerative disc disease, cervical (Chronic) Anterolisthesis (Chronic) DDD (degenerative disc disease), lumbar (Chronic) Sleep apnea (Chronic) Psoriasis (Chronic) Morbid obesity (Chronic) Localized, primary osteoarthritis of lower leg (Chronic) Impaired glucose tolerance (Chronic) Hypercholesteremia (Chronic) GERD (gastroesophageal reflux disease) (Chronic) Essential hypertension (Chronic) Cellulitis and abscess of leg (Chronic) Hospital Course and Treatment Imaging Results: CXR- cardiomegaly/no PNA/no CHF CT Head-no hemorrhage or acute disease/White matter changes c/w chronic ischemic changes NONE Operations: None Procedures: None, EKG Summary of Care Provided: The patient is a 63 year old M who presented to the ED on 08/26/18 after family noted that pt was not responding to verbal commands and looked as if he was frozen in positions and tilted to one side. 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 He was afebrile when the EMS picked him up and in the ED. He is on Methadone and gabapentin at home for chronic pain. Narcan was given in the ED and he did improve although he was agitated from opiate withdrawal. EKG/CT head and CXR were all done and no acute abnormalities were noted. Blood cx were pending at d/c but suspicion was very low for infection and pt was never on ABX during his stay. He was sleepy the initial am he was admitted but by afternoon was feeling like he was back to himself. His Methadone was restarted at 50 % of his home dose and he was discharge on 75% of his home dose with instruction to f/u with his Methadone prescriber regarding this incident. He was discharged in good condition. [] Patient Problems: Active and Suspected Problems (Last Reviewed 08/26/18 @ 06:22 by Len Trinh MD) Acute encephalopathy (Acute) - Physical Exam Vital Signs Temp Pulse Resp BP Pulse Ox 99 F 64 18 145/67 H 97 08/27/18 07:33 08/27/18 07:33 08/27/18 07:33 08/27/18 07:33 08/27/18 07:33 Oxygen Flow Rate (L/min) 2 Oxygen Delivery Method Room Air Weight: 152.5 kg Body Mass Index (BMI) 51.1 Finger Stick Blood Glucose 140 Intake and Output for Last 24 Hours 08/25/18 08/26/18 08/27/18 23:59 23:59 23:59 Intake Total 300 / 300 500 / 500 Balance 300 / 300 500 / 500 Laboratory Tests Past 24 Hrs 08/27/18 08/27/18 08:00 08:00 WBC 9.5 RBC 3.75 L Hgb 12.2 L Hct 39.0 L MCV 104.0 H MCH 32.5 H MCHC 31.3 L RDW 15.5 H RDW Differential 58.6 H Plt Count 139 L MPV 11.2 Immature Gran % (Auto) 0.100 Neut % (Auto) 82.5 H Lymph % (Auto) 9.0 L [place] % (Auto) 7.0 Eos % (Auto) 1.3 Baso % (Auto) 0.1 Absolute Neuts (auto) 7.9 H Absolute Lymphs (auto) 0.86 Total Counted Not Reportable Sodium 141 Potassium 3.7 Chloride 105 Carbon Dioxide 30.0 Anion Gap 6 BUN 13 Creatinine 0.90 Estim Creat Clear Calc 80.22 Est GFR (MDRD) Af Amer 110 Est GFR (MDRD) Non-Af 91 BUN/Creatinine Ratio 14.5 Glucose 170 H Calcium 8.7 POC Glucose 08/27/18 08/26/18 08/26/18 06:54 21:51 16:48 POC Glucose 119 H 122 H 119 H 08/26/18 12:45 POC Glucose 165 H Discharge Diet: Low fat/ Low Cholesterol, Carb Control Diet Discharge Activity: Return to Normal Activity Return to work on:: 08/28/18 May resume sexual activity in: No Restrictions Call your doctor if you observe: Fever of 101 or Higher, Numbness or Tingling, Shortness of breath, Dizziness, Fainting spells Home Medications: Medications to take at Discharge Acetaminophen [Tylenol] 975 mg PO TID PRN PRN 08/26/18 Acitretin 25 mg PO DAILY 08/26/18 Allopurinol [Zyloprim] 400 mg PO DAILYCM 08/26/18 Amiodarone HCl 200 mg PO DAILY 08/26/18 Atorvastatin Calcium [Lipitor] 10 mg PO QHS 08/26/18 Calcium Carbonate/Vitamin D3 [Calcium 500-Vit D3 200 Tablet] 1 each PO BID 08/26/18 Calcium Carbonate/Vitamin D3 [Calcium 500-Vit D3 200 Tablet] 1 each PO DAILY 08/26/18 Carvedilol 12.5 mg PO BID 08/26/18 Cetirizine HCl [Zyrtec] 10 mg PO DAILY 08/26/18 Cholecalciferol (VIT D3) [Vitamin D] 2,000 unit PO DAILY 08/26/18 Clobetasol Propionate [Clobex] 118 ml TP BID 08/26/18 Clobetasol Propionate/Emoll [Clobetasol Emollient 0.05% Crm] 30 gm TP BID 08/26/18 Ferrous Sulfate [Iron] 325 mg PO TID 08/26/18 Fluoxetine [Prozac] 20 mg PO DAILY 08/26/18 Fluticasone 0.05% [Flonase Nasal [place]] 2 spray NASAL DAILY 08/26/18 Gabapentin [Neurontin] 400 mg PO BIDCM 08/26/18 Guaifenesin Dm [Robitussin Dm] 10 ml PO Q6H PRN PRN 08/26/18 Insulin Glargine,Hum.rec.anlog [Lantus] 10 unit SC QHS 08/26/18 Isosorbide Mononitrate [Isosorbide Mononitrate ER] 30 mg PO QHS 08/26/18 Magnesium Oxide 420 mg PO TID 08/26/18 Methadone HCl [(None)] 7.5 mg PO Q12H 08/26/18 Multivitamin [Multiple Vitamins] 1 each PO DAILY 08/26/18 Multivitamins,Therapeutic [Multivitamin] 1 tab PO DAILY 08/26/18 Omeprazole 40 mg PO BIDCM 08/26/18 Potassium Chloride [K-Dur] 20 meq PO TIDCM 08/26/18 Rivaroxaban [Xarelto] 20 mg PO DAILY 08/26/18 Tamsulosin HCl [Flomax] 0.4 mg PO QHS 08/26/18 Torsemide [Demadex] 40 mg PO DAILY 08/26/18 Triamcinolone 0.1% Cream [Kenalog] 1 applic TOPICAL BID 08/26/18 Primary Care Physician: NOT,DEFINED [NON-STAFF] - Medical Necessity - Tobacco Use Smoking Status: Former smoker Meaningful Use Info Meaningful Use Diagnoses (Choose all that apply): None applicable Code Visit Inpatient E&M: 29813 Disch Hosp
--- NOTE | 2018-08-27 09:47 | PCM.DC ---
- Discharge Diagnoses Current Active Problems: Current Active and Chronic Problems (Last Reviewed 08/26/18 @ 06:22 by Len Trinh MD) Acute encephalopathy (Acute) You will use the following diet at home:: Calorie/Carbohydrate Controlled (specify 1200, 1400, etc), Cardiac Your food should be the consistency of: Regular Your liquids should be the consistency of: Regular/Thin Discharge Activity: Return to Normal Activity Return to work on:: 08/28/18 May resume sexual activity in: No Restrictions Call your doctor if you observe: Fever of 101 or Higher, Numbness or Tingling, Shortness of breath, Dizziness, Fainting spells Allergies/Adverse Reactions: Allergies No Known Allergies Allergy (Verified 08/26/18 02:08) Medications to take at Discharge Acetaminophen [Tylenol] 975 mg PO TID PRN PRN 08/26/18 Acitretin 25 mg PO DAILY 08/26/18 Allopurinol [Zyloprim] 400 mg PO DAILYCM 08/26/18 Amiodarone HCl 200 mg PO DAILY 08/26/18 Atorvastatin Calcium [Lipitor] 10 mg PO QHS 08/26/18 Calcium Carbonate/Vitamin D3 [Calcium 500-Vit D3 200 Tablet] 1 each PO BID 08/26/18 Calcium Carbonate/Vitamin D3 [Calcium 500-Vit D3 200 Tablet] 1 each PO DAILY 08/26/18 Carvedilol 12.5 mg PO BID 08/26/18 Cetirizine HCl [Zyrtec] 10 mg PO DAILY 08/26/18 Cholecalciferol (VIT D3) [Vitamin D3] 2,000 unit PO DAILY 08/26/18 Clobetasol Propionate [Clobex] 118 ml TP BID 08/26/18 Clobetasol Propionate/Emoll [Clobetasol Emollient 0.05% Crm] 30 gm TP BID 08/26/18 Ferrous Sulfate [Iron] 325 mg PO TID 08/26/18 Fluoxetine [Prozac] 20 mg PO DAILY 08/26/18 Fluticasone 0.05% [Flonase Nasal [place]] 2 spray NASAL DAILY 08/26/18 Gabapentin [Neurontin] 400 mg PO BIDCM 08/26/18 Guaifenesin Dm [Robitussin Dm] 10 ml PO Q6H PRN PRN 08/26/18 Insulin Glargine,Hum.rec.anlog [Lantus] 10 unit SC QHS 08/26/18 Isosorbide Mononitrate [Isosorbide Mononitrate ER] 30 mg PO QHS 08/26/18 Magnesium Oxide 420 mg PO TID 08/26/18 Multivitamin [Multiple Vitamins] 1 each PO DAILY 08/26/18 Multivitamins,Therapeutic [Multivitamin] 1 tab PO DAILY 08/26/18 Omeprazole 40 mg PO BIDCM 08/26/18 Potassium Chloride [K-Dur] 20 meq PO TIDCM 08/26/18 Rivaroxaban [Xarelto] 20 mg PO DAILY 08/26/18 Tamsulosin HCl [Flomax] 0.4 mg PO QHS 08/26/18 Torsemide [Demadex] 40 mg PO DAILY 08/26/18 Triamcinolone 0.1% Cream [Kenalog] 1 applic TOPICAL BID 08/26/18 Acitretin [Soriatane] 25 mg PO DAILY capsule 08/27/18 Gabapentin [Neurontin] 400 mg PO BIDCM capsule 08/27/18 Methadone HCl 7.5 mg PO BID tablet 08/27/18 Primary Care Physician: NOT,DEFINED [NON-STAFF] - Test Results: Test results from this visit will be discussed in further detail at your follow-up appointment, if applicable.
== END 2018-08-27 11:30 | disposition home or self-care (01) ==
LOC: ED 02:50 → MS3 06:05
PROVIDERS: Admitting Provider Hospitalist; Emergency Provider Emergency Medicine; Visit Provider Internal Medicine
DX: G93.40 Encephalopathy, unspecified (principal); M50.30 Other cervical disc degeneration, unspecified cervical region; K21.9 Gastro-esophageal reflux disease without esophagitis; E66.01 Morbid (severe) obesity due to excess calories; L40.9 Psoriasis, unspecified; C90.00 Multiple myeloma not having achieved remission; R29.700 NIHSS score 0; E11.9 Type 2 diabetes mellitus without complications; I11.0 Hypertensive heart disease with heart failure; I50.9 Heart failure, unspecified; L40.50 Arthropathic psoriasis, unspecified; M99.01 Segmental and somatic dysfunction of cervical region; M99.03 Segmental and somatic dysfunction of lumbar region; M99.02 Segmental and somatic dysfunction of thoracic region; G47.33 Obstructive sleep apnea (adult) (pediatric); M10.9 Gout, unspecified; N40.0 Benign prostatic hyperplasia without lower urinary tract symptoms; E78.5 Hyperlipidemia, unspecified; F32.9 Major depressive disorder, single episode, unspecified; Z68.43 Body mass index [BMI] 50.0-59.9, adult; Z71.3 Dietary counseling and surveillance; Z79.899 Other long term (current) drug therapy; Z79.01 Long term (current) use of anticoagulants; Z87.891 Personal history of nicotine dependence; Z79.891 Long term (current) use of opiate analgesic; D69.59 Other secondary thrombocytopenia; T45.1X5A Adverse effect of antineoplastic and immunosuppressive drugs, initial encounter; I48.0 Paroxysmal atrial fibrillation; G89.29 Other chronic pain
CPT/HCPCS: 36415; 36600; 70450; 71045; 80048; 80053; 81001; 82803; 82962; 83605; 85025; 87040; 93005; 96374; 97110; 97116; 97162; 97166; 99218; 99285; A4216; G0378; G8978; G8979; G8987; G8988; J2310

== ENCOUNTER 2019-04-24 10:28 | Outpatient (RCR) | payer OTHER, SELFPAY ==
[2018-09-21 10:33] VITALS: BMI 51.1
== END 2019-04-24 19:00 | disposition home or self-care (01) ==
LOC: PT 10:28
DX: M48.062 Spinal stenosis, lumbar region with neurogenic claudication (principal)

== ENCOUNTER 2019-12-07 13:15 | Inpatient (IN) | payer MEDICARE, OTHER, SELFPAY ==
[2019-08-01 10:28] VITALS: BMI 51.1
[2019-12-07 13:18] VITALS: BP 162/81; PULSE 95; RESP 22; TEMP 36.7; O2SAT 97; BMI 57.9
--- NOTE | 2019-12-07 13:46 | VDLE_ITS ---
Reason For Study: pain RIGHT LEFT GSV is normal. GSV is normal. CFV is compressible, spontaneous, phasic, CFV is compressible, spontaneous, phasic, competent and demonstrates normal competent, and demonstrates normal augmentation. augmentation. FV is compressible, spontaneous, phasic, FV is compressible, spontaneous, phasic, competent and demonstrates normal competent and demonstrates normal augmentation. augmentation. POP V is compressible, spontaneous, phasic, POP V is compressible, spontaneous, phasic, competent and demonstrates normal competent and demonstrates normal augmentation. augmentation. T/P Trunk is compressible. T/P Trunk is compressible. PTV is compressible. PTV is compressible. RT PerV is compressible. LT PerV is compressible. Procedure Exam performed portable in ED. The exam was diagnostic. A preliminary report was called and/or faxed to the pt's RN. Interpretation Summary No evidence for acute deep venous thrombosis bilateral lower extremities with patent and compressible bilateral great saphenous veins. Ordering Physician: Brandee Isaacs Performed By: Kaleb German RVT
--- NOTE | 2019-12-07 13:48 | ED.VIS.GEN ---
History of Present Illness Chief Complaint: Lower Extremity Injury Detail of Chief Complaint: Bilateral lower extremity pain and swelling Informant: Patient Onset: Days Context: Gradual Onset Narrative: Patient presents with a 3-day history of increasing pain and swelling to his lower extremities. He points to mid thigh and states everything from that point to distal is painful and more swollen. He has a hard time ambulating secondary to pain. Patient was previously on methadone but had some sort of a reaction to it. He has been taken off of all narcotics. He is been taking Tylenol as well as gabapentin. Patient is currently on Xarelto. He denies recent fall. - Past Medical History (1) Segmental and somatic dysfunction of cervical region Status: Chronic (2) Segmental and somatic dysfunction of lumbar region Status: Chronic (3) Segmental and somatic dysfunction of thoracic region Status: Chronic (4) Anterolisthesis Status: Chronic (5) Essential hypertension Status: Chronic (6) GERD (gastroesophageal reflux disease) Status: Chronic (7) Hypercholesteremia Status: Chronic (8) Morbid obesity Status: Chronic (9) Psoriasis Status: Chronic (10) Sleep apnea Status: Chronic Past Medical History - Allergies and Home Meds Allergies/Adverse Reactions: Allergies No Known Allergies Allergy (Verified 12/07/19 13:18) Primary Care Physician: Care Physician,No Primary [NON-STAFF] - Prior records reviewed: Yes Surgical History: appendectomy Lives: With Family Smoking Status: Former smoker Review of Systems General: Denies: Chills, Fever Eyes: Denies: Visual changes - bilaterally ENT: Denies: Bilateral ear pain Cardiovascular: Denies: Chest pain Respiratory: Denies: Dyspnea, Cough Gastrointestinal: Denies: Abdominal pain, Nausea, Vomiting, Diarrhea Musculoskeletal: Reports: Swelling, Extremity Pain. Denies: Neck pain, Back pain Skin: Denies: Rash Neurological: Denies: Headache Allergy: Denies: Uticaria Physical Exam Vital Signs/Narrative: Vital Signs Temp Pulse Resp BP Pulse Ox 12/07/19 13:18 98.1 F 95 22 H 162/81 H 97 Inital Vital Signs reviewed: Yes General: Well nourished, Well developed Head: Normocephalic ENT: Moist mucous membranes Neck: Supple Cardiovascular: Regular rate, Regular rhythm Respiratory: No distress, CTA bilaterally Abdomen: Soft, Nontender Back: - - Mild tenderness in the low lumbar region. Extremities: - - Mild tenderness throughout the lower portion of the lower legs and distal portion of the thighs bilaterally. No focal tenderness at the knee itself. No erythema or warmth. Moderate edema noted. Neurological: Alert, Oriented x3 Psychological: Normal affect Diagnostic/Tx/Re-eval Laboratory Results 12/07/19 12/07/19 12/07/19 14:27 14:27 14:27 WBC 11.6 H RBC 4.18 L Hgb 13.3 Hct 41.6 MCV 99.5 H MCH 31.8 MCHC 32.0 RDW Std Deviation 55.8 H RDW Coeff of Will 15.4 H Plt Count 207 MPV 11.5 Immature Gran % (Auto) 0.700 Neut % (Auto) 77.1 H Lymph % (Auto) 7.6 L [place] % (Auto) 12.6 H Eos % (Auto) 1.7 Baso % (Auto) 0.3 Absolute Neuts (auto) 8.9 H Absolute Lymphs (auto) 0.88 Nucleated RBC % 0 Sodium 141 Potassium 3.5 Chloride 106 Carbon Dioxide 29.0 Anion Gap 6 BUN 18 Creatinine 1.08 Estim Creat Clear Calc 65.97 Est GFR (MDRD) Af Amer 88 Est GFR (MDRD) Non-Af 73 BUN/Creatinine Ratio 16.7 Glucose 146 H Calcium 9.0 B-Natriuretic Peptide 43.2 - Medical Decision Making Patient was given Tylenol for pain. He declines any narcotic due to problems with him in the past. Venous ultrasound of the bilateral lower extremities is unremarkable. Test results discussed with patient and family at bedside. At this time he is unable to get up and ambulate. I have concerns about him falling at home. I will discuss with hospitalist regarding admission and physical therapy evaluation. ED Disposition - Plan for ED Patient: Disposition: Acute Care Hospital [facility] Diagnosis: Unable to ambulate Referrals: Care Physician,No Primary [NON-STAFF] -
[2019-12-07] MEDS: Acetaminophen 500 MG Tablet 1000 MG PO (14:31)
[2019-12-07 14:33] LABS: Absolute Lymphocyte Count 0.88 X10^3/uL (0.83-4.51); Absolute Neutrophil Count 8.9 X10^3/uL (2.0-7.7); Basophil# 0.03 X10^3/uL; Basophil% 0.3 % (0-1); Eosinophils% 1.7 % (0-5); Hematocrit 41.6 % (40-54); Hemoglobin 13.3 g/dL (13.0-16.5); Lymphocyte # 0.88 X10^3/ul (4.0); Lymphocyte % 7.6 % (19-41); Mean Corpuscular Hgb 31.8 pg (27.0-32.0); Mean Corpuscular Volume 99.5 fL (80-94); Mean Platelet Vol. 11.5 fl (6.2-12.0); Monocyte# 1.45 X10^3/uL; Monocyte% 12.6 % (0-10); NRBC Flagged by Analyzer 0 % (0-5); Neutrophil # 8.91 X10^3/uL (2.7-7.7); Neutrophil % 77.1 % (47-70); Platelet Count 207 K/mm3 (150-450); RBC Distribution Width CV 15.4 % (11.6-14.6); RBC Distribution Width SD 55.8 fl (35.1-43.9); Red Blood Count 4.18 M/mm3 (4.6-6.2); White Blood Count 11.6 K/mm3 (4.4-11.0)
[2019-12-07 14:41] LABS: Anion Gap 6 (5-15); BUN 18 mg/dL (7-18); BUN/Creat Ratio 16.7 RATIO (10-20); Chloride 106 mmol/L (98-107); Creatinine, Serum 1.08 mg/dL (0.70-1.30); EST Glomerular Filtration Rate 73 mL/min (>60); Est Glom Filt Rate - Afr Amer 88 mL/min (>60); Estimated Creatinine Clearance 65.97 ml/min; Glucose 146 mg/dL (74-106); Potassium 3.5 mmol/L (3.5-5.1); Sodium Level 141 mmol/L (136-145)
[2019-12-07 14:52] LABS: BNP,B-Type NATRIURETIC PEPTIDE 43.2 pg/mL (0-100)
[2019-12-07 16:25] VITALS: BMI 57.9
--- NOTE | 2019-12-07 16:38 | PCM.HP.STD ---
Problem List (1) Bilateral lower extremity pain Status: Acute (2) PAF (paroxysmal atrial fibrillation) Status: Chronic (3) Chronic pain syndrome Status: Chronic (4) CHF (congestive heart failure) Status: Acute Qualifiers: Heart failure type: unspecified Heart failure chronicity: chronic Qualified Code(s): I50.9 - Heart failure, unspecified (5) BPH (benign prostatic hyperplasia) Status: Chronic Qualifiers: Lower urinary tract symptom presence: unspecified whether lower urinary tract symptoms present Qualified Code(s): N40.0 - Benign prostatic hyperplasia without lower urinary tract symptoms (6) Anemia Status: Chronic Qualifiers: Anemia type: unspecified type Qualified Code(s): D64.9 - Anemia, unspecified (7) Gout Status: Chronic Qualifiers: Gout site: unspecified site Gout etiology: unspecified cause Chronicity: unspecified Qualified Code(s): M10.9 - Gout, unspecified (8) Degenerative disc disease, cervical Status: Chronic (9) DDD (degenerative disc disease), lumbar Status: Chronic (10) Sleep apnea Status: Chronic Qualifiers: Sleep apnea type: unspecified type Qualified Code(s): G47.30 - Sleep apnea, unspecified (11) Psoriasis Status: Chronic (12) Morbid obesity Status: Chronic (13) Hypercholesteremia Status: Chronic (14) GERD (gastroesophageal reflux disease) Status: Chronic Qualifiers: Esophagitis presence: esophagitis presence not specified Qualified Code(s): K21.9 - Gastro-esophageal reflux disease without esophagitis (15) Essential hypertension Status: Chronic History of Present Illness Date of Admission: 12/07/19 Chief Complaint: BL LE pain x 3 days The patient is a 64 y/o M w/ PMHx: Chronic CHF, Chronic back pain following w/ Pain management w/ pending Tuesday routine injection, HTN, HLD, GERD, BPH, Fe Deficiency anemia, Gout, PAF, Diabetes mellitus type II, Multiple myeloma who presents to the [facility] ED on 12/07/19 with history of severe onset BL LE constant shooting BL LE pain, rates 7-10/10, worse with usage and standing he notes with no recent increased LE edema or weight gain, nor any recent lumbar back injury but notes could not even make it to the restroom or wipe himself secondary to the severity of the pain with attempted standing prompting eventual ED presentation. Difficult description per discussion with patient, not specifically radicular but not the best historian regarding the pain. In the ED work-up included T 98.1, HR 95, BP 162/81, RR 22, 97% on RA, CBC w/ WBC 11.6, Hgb 13.3, Plts 207 with L shift, BMP with glucose 136 otherwise unremarkable, BMP 43.2, DVT ultrasound bilateral extremities with no obvious DVT and again on Xarelto therapy. ED patient ministered Tylenol 1000 mg p.o. x1. Patient explicitly requested avoidance of any narcotic therapy. He notes that he was previously on methadone and had a severe reaction and has been attempting to avoid any narcotic therapy. Past Medical History Past Medical History (Chronic Problems): Chronic Problems (Last Reviewed 09/21/18 @ 10:30 by Mayela Mac) PAF (paroxysmal atrial fibrillation) (Chronic) Chronic pain syndrome (Chronic) BPH (benign prostatic hyperplasia) (Chronic) Anemia (Chronic) Gout (Chronic) Segmental and somatic dysfunction of thoracic region (Chronic) Segmental and somatic dysfunction of lumbar region (Chronic) Segmental and somatic dysfunction of cervical region (Chronic) Degenerative disc disease, cervical (Chronic) Anterolisthesis (Chronic) DDD (degenerative disc disease), lumbar (Chronic) Sleep apnea (Chronic) Psoriasis (Chronic) Morbid obesity (Chronic) Localized, primary osteoarthritis of lower leg (Chronic) Impaired glucose tolerance (Chronic) Hypercholesteremia (Chronic) GERD (gastroesophageal reflux disease) (Chronic) Essential hypertension (Chronic) Cellulitis and abscess of leg (Chronic) Medical History: Medical History (Last Reviewed 09/21/18 @ 10:30 by Mayela Mac) Degenerative disc disease, cervical (Chronic) M50.30 Anterolisthesis (Chronic) M43.10 DDD (degenerative disc disease), lumbar (Chronic) M51.36 Allergies No Known Allergies Allergy (Verified 12/07/19 13:18) Home Medications: Ambulatory Orders Medication Instructions Recorded Acetaminophen [Tylenol] 975 mg PO TID PRN PRN 08/26/18 Allopurinol [Zyloprim] 200 mg PO QHS 08/26/18 Amiodarone HCl 200 mg PO DAILY 08/26/18 Atorvastatin Calcium [Lipitor] 10 mg PO QHS 08/26/18 Cholecalciferol (VIT D3) [Vitamin 1,000 unit PO DAILY 08/26/18 D3] Ferrous Sulfate [Iron] 325 mg PO BID 08/26/18 Insulin Glargine,Hum.rec.anlog 12 unit SC QHS 08/26/18 [Lantus] Magnesium Oxide 420 mg PO TID 08/26/18 Multivitamin [Multiple Vitamins] 1 tab PO DAILY 08/26/18 Potassium Chloride [K-Dur] 40 meq PO BID 08/26/18 Rivaroxaban [Xarelto] 20 mg PO DAILY 08/26/18 Tamsulosin HCl [Flomax] 0.4 mg PO QHS 08/26/18 Torsemide [Demadex] 40 mg PO BID 08/26/18 Acyclovir [Zovirax] 400 mg PO BID 12/07/19 Allopurinol [Zyloprim] 300 mg PO DAILY 12/07/19 Calcium (Elemental) [Os-Jason 500] 500 mg PO BID 12/07/19 Carvedilol [Coreg] 12.5 mg PO BID 12/07/19 Omeprazole 40 mg PO BID 12/07/19 Surgical History: appendectomy, - - Hiatal hernia repair, appendectomy, left lower extremity surgery, cataract surgery. Psychiatric History: No pertinent psych hx Lives: With Family - Patient notes that his lives with him as well as 1 of his children, two recently have transition out of the house. Smoking Status: Former smoker - Patient quit cigarette tobacco usage approximate 30 years prior with prior to this 1 to 2 pack/day since he was a teenager and occasionally chewed in the past. Tobacco Use: Non-smoker Alcohol: Occasional Drugs: None - *Family History Maternal Family History: Family History (Last Reviewed 09/21/18 @ 10:30 by Mayela Mac) Father Hypertension Mother Diabetes History Items: Diabetes Paternal Family History: Family History (Last Reviewed 09/21/18 @ 10:30 by Mayela Mac) Father Hypertension Mother Diabetes History Items: Hypertension Review of Systems Constitutional: Reports: Malaise, Weakness, Fatigue. Denies: Anorexia, Chills, Fever, Weight Change HEENT: Denies: Head Aches, Sinus Congestion, Sinus Drainage Cardiovascular: Denies: Chest Pain, Palpitations Respiratory: Denies: Cough, Shortness of breath at rest, Sputum production Gastrointestinal: Denies: Abdominal Pain, Nausea, Vomiting Genitourinary: Denies: Dysuria Musculoskeletal: Reports: Back Pain, Joint Pain, Leg Pain. Denies: Joint Tenderness Skin: Reports: Skin Changes. Denies: Rash, Wounds Neurological: Denies: Numbness, Tingling, Focal weakness Psychiatric: Denies: Anxiety, Depression, Homicidal Ideations, Suicidal Ideations Hematologic/ Lymphatic: Reports: Easy Bruising, Easy Bleeding VTE Information - Inpt Only VTE Present on Admission: No VTE Mechan Device Prophylaxis: SCD's VTE Pharm Prophylaxis ordered?: No Reason prophylaxis not ordered:: Treatment Not Indicated - Continue home eliquis. Patient Problems: Active and Suspected Problems (Last Reviewed 09/21/18 @ 10:30 by Mayela Mac) Unable to ambulate (Acute) Bilateral lower extremity pain (Acute) CHF (congestive heart failure) (Acute) Subjective: Seated upright in ED bed, no acute distress, notes pain is lessened if he is not on his legs but still ongoing continuous discomfort. Objective: Physical Examination: General: awake, alert, oriented x 3 and cooperative, seated upright in the ED bed in no apparent distress notes ongoing discomfort of legs, although lessened is not standing. Skin: normal color, turgor, no icterus, cyanosis except notable bilateral lower extremities venous stasis skin changes. HEENT: AT/NC, EOMI, PERRLA, MMM, no carotid bruits or JVD noted; the, thickened neck makes examination difficult. Lungs: CTA bilaterally, moderate effort, moderate decrease BL bases, no rales, ronchi or wheezing. Heart: Regular rate and rhythm; no gallop, rub audible. Abdomen: soft, morbidly obese, NTTP, ND, normal BS, no obvious HSM; however, habitus makes examination very difficult. Extremities: no cyanosis, clubbing, some mild chronic not markedly pitting edema to the ankles and distal shins, not severe, not increased from baseline. Neurological: patient awake, alert, oriented x 3; cognitive function intact; pupils equally reactive to light and accomodation; cranial nerves II-XII grossly normal, moving all 4 extremities but severely lessened lower extremity activity secondary to severity of bilateral lower extremity pain, strength accordingly severely globally decreased. Psychiatric: affect appears fatigued, otherwise normal, no acute evidence of depressive or anxiety feelings. - Physical Exam Vitals/I&O's: Vital Signs Temp Pulse Resp BP Pulse Ox 98.1 F 95 22 H 162/81 H 97 12/07/19 13:18 12/07/19 13:18 12/07/19 13:18 12/07/19 13:18 12/07/19 13:18 Oxygen Delivery Method Room Air Weight: 381 lb Body Mass Index (BMI) 57.9 Finger Stick Blood Glucose 140 Laboratory Results 12/07/19 14:27: WBC 11.6 H, RBC 4.18 L, Hgb 13.3, Hct 41.6, MCV 99.5 H, MCH 31.8, MCHC 32.0, RDW Std Deviation 55.8 H, RDW Coeff of Will 15.4 H, Plt Count 207, MPV 11.5, Immature Gran % (Auto) 0.700, Neut % (Auto) 77.1 H, Lymph % (Auto) 7.6 L, [place] % (Auto) 12.6 H, Eos % (Auto) 1.7, Baso % (Auto) 0.3, Absolute Neuts (auto) 8.9 H, Absolute Lymphs (auto) 0.88, Nucleated RBC % 0 12/07/19 14:27: Sodium 141, Potassium 3.5, Chloride 106, Carbon Dioxide 29.0, Anion Gap 6, BUN 18, Creatinine 1.08, Estim Creat Clear Calc 65.97, Est GFR (MDRD) Af Amer 88, Est GFR (MDRD) Non-Af 73, BUN/Creatinine Ratio 16.7, Glucose 146 H, Calcium 9.0 12/07/19 14:27: B-Natriuretic Peptide 43.2 Assessment/Plan All Active Problems (Last Reviewed 09/21/18 @ 10:30 by Mayela Mac) Acute encephalopathy (Acute) Unable to ambulate (Acute) Bilateral lower extremity pain (Acute) CHF (congestive heart failure) (Acute) The patient is a 64 y/o M w/ PMHx: Chronic CHF, Chronic back pain following w/ Pain management w/ pending Tuesday routine injection, HTN, HLD, GERD, BPH, Fe Deficiency anemia, Gout, PAF, Diabetes mellitus type II, Multiple myeloma who presents to the [facility] ED on 12/07/19 with history of severe onset BL LE constant shooting BL LE pain, rates 7-10/10, worse with usage and standing he notes with no recent increased LE edema or weight gain, nor any recent lumbar back injury but notes could not even make it to the restroom or wipe himself secondary to the severity of the pain with attempted standing prompting eventual ED presentation. 1. Acute intractable bilateral lower extremity pain, unclear specific etiology: Patient with significant underlying comorbidities, unclear if radicular in nature as patient is compress to stooling, will admit to medical surgical floor, maintain on fall precautions, obtain ANIKA/PVRs, initiate on Medrol Dosepak as possibly radicular, increase patient gabapentin TID regimen, initiate and maintain on low-dose Toradol regimen especially given concurrent Xarelto regimen x5, PT/OT/case management consultation for discharge planning. 2. Chronic back pain: Following with pain management, not on narcotic therapy, routine injections with next pending this Tuesday, will defer narcotic therapy per patient request, maintained currently on low-dose Toradol however need be cautious given the Xarelto usage, PT/OT consultations as noted. 3. PAF: We will continue patient home Xarelto and amiodarone regimen. 4. Chronic anemia, iron deficiency: Admission hemoglobin 13.3, stable, continue iron supplementation. 5. Diabetes mellitus type II: Will continue home insulin regimen, ADA diet, accu checks w/ ISS. 6. Morbid Obesity: Weight loss and lifestyle changes encouraged, nutrition consulted. 7. Hypertension: Continue home regimen including Coreg, torsemide, PRN hydralazine. 8. Hyperlipidemia: Continue home statin regimen. 9. GERD: We will continue home PPI. 10. Gout: We will continue home allopurinol regimen. 11. BPH: We will continue patient on Flomax regimen. 12. History of multiple myeloma: Unclear interventions, noted in history, not on any medication regimen, labs including calcium currently appear appropriate. 13. DVT prophylaxis: SCDs if able to tolerate given lower extremity acute presentation as noted #1, continue home Xarelto regimen. 14. CODE status: Patient LALA is his and living will is not in place, encouraged discussions with case management for assistance. Discussed CODE status at length including difference between FULL code, DNR-CCA and DNR-CC status. Following discussions about the differences in these status, requested full CODE STATUS but notes that if anything needed to be prolonged before then transition to comfort measures only. Advanced Care Planning Face to Face Time: 16 minutes. Code Visit OBSV E&M: 40502 Initial observation care L3 Procedures: 39500 Advncd Care Plan 30 Min
[2019-12-07 16:58] VITALS: BP 123/75; PULSE 68; RESP 14; O2SAT 93
[2019-12-07 17:15] VITALS: BMI 57.2
--- NOTE | 2019-12-07 17:20 | ART_ITS ---
Reason For Study: BLE Pain Procedure A bilateral lower extremity continuous wave Doppler with analog waveform analysis and ankle brachial indexes. Left Segmental Pressures Left brachial= 153mmHg. Left posterior tibial artery = 179mmHg. Left dorsalis pedis artery = 175mmHg. Left digit = 105 mmHg. Right Segmental Pressures Right brachial= 153mmHg. Right posterior tibial artery = 175mmHg. Right dorsalis pedis artery = 173mmHg. Right digit = 69 mmHg. Indices The right ankle brachial index by the posterior tibial artery is 1.14. The right ankle brachial index by the dorsalis pedis is 1.13. The right digital-brachial index is 0.45. The left ankle brachial index by the posterior tibial artery is 1.17. The left ankle brachial index by the dorsalis pedis is 1.14. The left digital-brachial index is 0.69. Interpretation Summary Resting ankle-brachial indices appear bilaterally normal. Abnormal right digital brachial index of 0.45 consistent with possible small vessel disease or temperature effect. Borderline left digital brachial index of 0.69. Clinical correlation would be appropriate. Ordering Physician: Katerin Lee Referring Physician: [facility] Performed By: Svetlana Benítez RDCS/FRANSISCO
[2019-12-07 17:25] VITALS: O2SAT 94
[2019-12-07 17:31] VITALS: BP 135/76; PULSE 75; RESP 18; TEMP 36.6; O2SAT 93
[2019-12-07 17:46] LABS: Bedside Glucose 135 mg/dL (70-110)
[2019-12-07] MEDS: Gabapentin 400 MG Capsule PO (18:19)
[2019-12-07] MEDS: Ketorolac 15 MG/ML Vial IV ×2 (18:20→22:38)
[2019-12-07] MEDS: 0.9% Saline Lock 10 ML Syringe IV ×2 (18:20→22:42)
[2019-12-07] MEDS: Rivaroxaban 20 MG Tablet PO (19:52)
[2019-12-07] MEDS: MethylPREDNISolone DosePak 4 MG BOX PO ×2 (19:59→22:32)
[2019-12-07] MEDS: Atorvastatin Calcium 10 MG Tablet PO (22:33)
[2019-12-07] MEDS: Acyclovir 200 MG Capsule 400 MG PO (22:35)
[2019-12-07] MEDS: Carvedilol 12.5 MG Tablet PO (22:35)
[2019-12-07] MEDS: Calcium (Elemental) 500 MG Tablet PO (22:36)
[2019-12-07] MEDS: Ferrous Sulfate 325 MG Tablet PO (22:36)
[2019-12-07] MEDS: Tamsulosin HCl 0.4 MG Capsule PO (22:36)
[2019-12-07] MEDS: Allopurinol 100 MG Tablet 200 MG PO (22:37)
[2019-12-07] MEDS: Pantoprazole Sodium 40 MG Tablet PO (22:37)
[2019-12-07] MEDS: Nystatin Powder 15gm Bottle 1 APPLIC TOPICAL (22:41)
[2019-12-07] MEDS: Insulin Lispro 100 UNIT/ML INSULN.PEN SC (22:50)
[2019-12-07 22:51] LABS: Bedside Glucose 170 mg/dL (70-110)
[2019-12-07 22:56] VITALS: BP 154/95; PULSE 79; RESP 18; TEMP 37.1; O2SAT 95
[2019-12-07 23:49] VITALS: PULSE 79; RESP 18; O2SAT 95
[2019-12-08] VITALS (8 sets, daily range): BP systolic 142–151; BP diastolic 72–92; PULSE 61–93; RESP 16–23; TEMP 36.6–37.2; O2SAT 84–97
[2019-12-08] MEDS: Acetaminophen 325 MG Tablet 650 MG PO (03:35)
--- NOTE | 2019-12-08 05:48 | CPS ---
Patients pulse ox was 84% during check. FACE BOSS increased flow meter to 2.5L to bleed into AutoPAP machine.
[2019-12-08] MEDS: Ketorolac 15 MG/ML Vial IV ×2 (06:32→13:42)
[2019-12-08] MEDS: 0.9% Saline Lock 10 ML Syringe IV ×2 (06:32→13:42)
[2019-12-08] MEDS: Insulin Lispro 100 UNIT/ML INSULN.PEN SC ×4 (06:37→21:50)
--- NOTE | 2019-12-08 06:37 | CPS ---
Patient was placed on [employer] PAP machine. Pt. did not know home CPAP settings. AutoPAP was therefore setup with EPAP pressures cycling between a low of 15 and 20. Patient did well overnight on these settings, but did require a bled of 2.5L in the middle of the night. Patients pulse ox was reading 92% on 2.5L bled in at 06:17
[2019-12-08 06:51] LABS: Bedside Glucose 169 mg/dL (70-110)
[2019-12-08 07:10] LABS: Absolute Lymphocyte Count 0.64 X10^3/uL (0.83-4.51); Absolute Neutrophil Count 9.3 X10^3/uL (2.0-7.7); Basophil# 0.01 X10^3/uL; Basophil% 0.1 % (0-1); Eosinophil# 0.02 X10^3/uL; Eosinophils% 0.2 % (0-5); Hematocrit 37.7 % (40-54); Hemoglobin 11.6 g/dL (13.0-16.5); Lymphocyte # 0.64 X10^3/ul (4.0); Mean Corp Hgb Conc 30.8 g/dL (32-36); Mean Corpuscular Hgb 30.5 pg (27.0-32.0); Mean Corpuscular Volume 99.2 fL (80-94); Mean Platelet Vol. 11.6 fl (6.2-12.0); Monocyte# 0.61 X10^3/uL; Monocyte% 5.7 % (0-10); NRBC Flagged by Analyzer 0 % (0-5); Neutrophil # 9.26 X10^3/uL (2.7-7.7); Neutrophil % 87.2 % (47-70); Platelet Count 188 K/mm3 (150-450); RBC Distribution Width CV 15.3 % (11.6-14.6); RBC Distribution Width SD 55.6 fl (35.1-43.9); White Blood Count 10.6 K/mm3 (4.4-11.0)
[2019-12-08 07:56] LABS: Anion Gap 6 (5-15); BUN 18 mg/dL (7-18); BUN/Creat Ratio 18.5 RATIO (10-20); Calcium,Total 8.5 mg/dL (8.5-10.1); Chloride 106 mmol/L (98-107); Creatinine, Serum 0.97 mg/dL (0.70-1.30); EST Glomerular Filtration Rate 82 mL/min (>60); Est Glom Filt Rate - Afr Amer 100 mL/min (>60); Estimated Creatinine Clearance 73.45 ml/min; Glucose 176 mg/dL (74-106); Potassium 4.3 mmol/L (3.5-5.1); Sodium Level 138 mmol/L (136-145)
[2019-12-08] MEDS: Gabapentin 400 MG Capsule PO ×3 (08:45→17:00)
[2019-12-08] MEDS: Carvedilol 12.5 MG Tablet PO ×2 (08:45→21:48)
[2019-12-08] MEDS: Ferrous Sulfate 325 MG Tablet PO ×2 (08:45→17:00)
[2019-12-08] MEDS: Pantoprazole Sodium 40 MG Tablet PO ×2 (08:45→21:53)
[2019-12-08] MEDS: Calcium (Elemental) 500 MG Tablet PO ×2 (08:46→17:01)
[2019-12-08] MEDS: Acyclovir 200 MG Capsule 400 MG PO ×2 (08:46→21:47)
[2019-12-08] MEDS: Amiodarone 200 MG Tablet PO (08:46)
[2019-12-08] MEDS: Allopurinol 300 MG Tablet PO (08:47)
[2019-12-08] MEDS: Nystatin Powder 15gm Bottle 1 APPLIC TOPICAL ×2 (08:47→21:49)
[2019-12-08] MEDS: MethylPREDNISolone DosePak 4 MG BOX PO ×4 (08:49→21:50)
[2019-12-08 11:31] LABS: Bedside Glucose 175 mg/dL (70-110)
--- NOTE | 2019-12-08 13:48 | PCM.PN.HOSP ---
Patient Problems: Active and Suspected Problems (Last Reviewed 09/21/18 @ 10:30 by Mayela Mac) Unable to ambulate (Acute) Bilateral lower extremity pain (Acute) CHF (congestive heart failure) (Acute) Reason for Visit: Bilateral lower extremity pain from mid thigh downward. Denies any new neurological symptoms including numbness, tingling or electric sensation. Has chronic back pain but denies any exacerbation. Patient denies new urinary symptoms but has chronic dribbling of urine. Had multiple MRI of the back and it showed degenerative changes, last one about a year or 2 years ago Vitals/I&O's: Vital Signs Temp Pulse Resp BP Pulse Ox 97.9 F 83 18 142/92 H 95 12/08/19 08:40 12/08/19 08:40 12/08/19 08:40 12/08/19 08:40 12/08/19 08:40 Oxygen Flow Rate (L/min) 2.5 Oxygen Delivery Method Room Air Weight: 378 lb 15.594 oz Body Mass Index (BMI) 57.2 Finger Stick Blood Glucose 140 Intake and Output for Last 24 Hours 12/06/19 12/07/19 12/08/19 23:59 23:59 23:59 Intake Total 1397 / 1397 Output Total 450 / 450 Balance 947 / 947 General: Alert, Oriented x3, Cooperative, - - Morbid obesity HEENT: Atraumatic, PERRLA, EOMI, Normocephalic Oral: - - Cannot visualize deep oropharyngeal structures. Neck: Supple, No JVD, Negative Carotid Bruits Lungs: Clear to auscultation, No rhonchi, No wheeze, No rales, Diminished Cardiovascular: Regular rate, Regular Rhythm, Normal S1, Normal S2, No murmurs Abdomen: Bowel Sounds Present, Soft, Non Tender Extremities: No edema, Capillary Refill Less than 3 Seconds Skin: No rashes, No breakdown Musculoskeletal: Arthritic Changes, Tenderness - Tenderness in the thigh muscle. Neurological: Cranial nerves II-XII grossly intact, Neuro grossly intact Psych/Mental Status: Normal Affect, Appropriate Laboratory Results 12/07/19 14:27: WBC 11.6 H, RBC 4.18 L, Hgb 13.3, Hct 41.6, MCV 99.5 H, MCH 31.8, MCHC 32.0, RDW Std Deviation 55.8 H, RDW Coeff of Will 15.4 H, Plt Count 207, MPV 11.5, Immature Gran % (Auto) 0.700, Neut % (Auto) 77.1 H, Lymph % (Auto) 7.6 L, Hemphill % (Auto) 12.6 H, Eos % (Auto) 1.7, Baso % (Auto) 0.3, Absolute Neuts (auto) 8.9 H, Absolute Lymphs (auto) 0.88, Nucleated RBC % 0 12/07/19 14:27: Sodium 141, Potassium 3.5, Chloride 106, Carbon Dioxide 29.0, Anion Gap 6, BUN 18, Creatinine 1.08, Estim Creat Clear Calc 65.97, Est GFR (MDRD) Af Amer 88, Est GFR (MDRD) Non-Af 73, BUN/Creatinine Ratio 16.7, Glucose 146 H, Calcium 9.0 12/07/19 14:27: B-Natriuretic Peptide 43.2 12/07/19 17:38: POC Glucose 135 H 12/07/19 22:47: POC Glucose 170 H 12/08/19 06:37: POC Glucose 169 H 12/08/19 06:49: WBC 10.6, RBC 3.80 L, Hgb 11.6 L, Hct 37.7 L, MCV 99.2 H, MCH 30.5, MCHC 30.8 L, RDW Std Deviation 55.6 H, RDW Coeff of Will 15.3 H, Plt Count 188, MPV 11.6, Immature Gran % (Auto) 0.800, Neut % (Auto) 87.2 H, Lymph % (Auto) 6.0 L, Hemphill % (Auto) 5.7, Eos % (Auto) 0.2, Baso % (Auto) 0.1, Absolute Neuts (auto) 9.3 H, Absolute Lymphs (auto) 0.64 L, Nucleated RBC % 0 12/08/19 06:49: Sodium 138, Potassium 4.3, Chloride 106, Carbon Dioxide 26.0, Anion Gap 6, BUN 18, Creatinine 0.97, Estim Creat Clear Calc 73.45, Est GFR (MDRD) Af Amer 100, Est GFR (MDRD) Non-Af 82, BUN/Creatinine Ratio 18.5, Glucose 176 H, Calcium 8.5 12/08/19 11:23: POC Glucose 175 H Current Medications Acetaminophen (Tylenol) 650 mg PO Q6H PRN PRN PRN Reason: Pain Score 1-10/Temp > 100.7 F Last Admin: 12/08/19 03:35 Dose: 650 mg Documented by: Acyclovir (Zovirax) 400 mg PO BID [facility] Last Admin: 12/08/19 08:46 Dose: 400 mg Documented by: Al Hydroxide/Mg Hydroxide (Mylanta Ii) 30 ml PO Q6H PRN PRN PRN Reason: Gastric Burning Albuterol Sulfate (Ventolin Aerosols) 2.5 mg INHALATION Q2H PRN PRN PRN Reason: Shortness of Breath/Wheezing Allopurinol (Zyloprim) 300 mg PO DAILY [facility] Last Admin: 12/08/19 08:47 Dose: 300 mg Documented by: Allopurinol (Zyloprim) 200 mg PO QHS [facility] Last Admin: 12/07/19 22:37 Dose: 200 mg Documented by: Amiodarone HCl (Cordarone) 200 mg PO DAILY [facility] Last Admin: 12/08/19 08:46 Dose: 200 mg Documented by: Atorvastatin Calcium (Lipitor) 10 mg PO QHS [facility] Last Admin: 12/07/19 22:33 Dose: 10 mg Documented by: [facility]cium Carbon[facility] (Os-Jason 500) [facility] Last Admin: 12/08/19 08:46 Dose: 500 mg Documented by: Carvedilol (Coreg) 12.5 mg PO BID [facility] Last Admin: 12/08/19 08:45 Dose: 12.5 mg Documented by: Cholecalciferol (Vitamin D (25mcg)) 1,000 unit PO DAILY [facility] Last Admin: 12/08/19 08:44 Dose: 1,000 unit Documented by: Ferrous Sulfate (Ferrous Sulfate) 325 mg PO BIDCM [facility] Last Admin: 12/08/19 08:45 Dose: 325 mg Documented by: Gabapentin (Neurontin) 400 mg PO TIDCM [facility] Last Admin: 12/08/19 11:24 Dose: 400 mg Documented by: Glucagon () 1 mg IM .X1 PRN PRN Reason: Hypoglycemia Guaifenesin (Robitussin) 20 ml PO Q4H PRN PRN PRN Reason: COUGH Hydralazine HCl (Apresoline Iv) 10 mg IV Q4H PRN PRN PRN Reason: SBP > 160 Sodium Chloride () 250 mls @ 15 mls/hr IV .[id number] PRN PRN Reason: Saline Flush Sodium Chloride () 250 mls @ 15 mls/hr IV .[id number] PRN PRN Reason: Additional IVPB Infusion Dextrose (Dextrose 10%-Water) 250 mls @ 999 mls/hr IV .Q16M PRN; Protocol PRN Reason: HYPOGLYCEMIA Insulin Glargine (Lantus ([facility])) 12 units SC QHS [facility] Last Admin: 12/07/19 22:51 Dose: 12 u Documented by: Insulin Human Lispro (Humalog Kwikpen ([facility])) [facility]; Protocol Last Admin: 12/08/19 11:24 Dose: 1 u Documented by: Ketorolac Tromethamine (Toradol ([facility])) 15 mg IV Q8 [facility] Stop: 12/08/19 22:01 Last Admin: 12/08/19 13:42 Dose: 15 mg Documented by: Magnesium Hydroxide (Milk Of Magnesia) 30 ml PO DAILY PRN PRN PRN Reason: Constipation Melatonin (Melatonin) 3 mg PO QHS PRN PRN PRN Reason: INSOMNIA Methylprednisolone (Medrol Dosepak) 4 mg PO 0800,1200,1700 [facility]; Taper Stop: 12/12/19 08:59 Last Admin: 12/08/19 11:24 Dose: 4 mg Documented by: Nitroglycerin (Nitrostat) 0.4 mg SUBLINGUAL Q5M PRN PRN Reason: CARDIAC/CHEST PAIN Nystatin (Mycostatin Powder) 1 applic TOPICAL BID [facility]; Protocol Last Admin: 12/08/19 08:47 Dose: 1 applicatio Documented by: Ondansetron HCl (Zofran) 4 mg IV Q8H PRN PRN PRN Reason: NAUSEA/VOMITING Pantoprazole Sodium (Protonix) 40 mg PO BID [facility] Last Admin: 12/08/19 08:45 Dose: 40 mg Documented by: Potassium Chloride (K[facility]Dur) [facility] Last Admin: 12/08/19 08:45 Dose: 40 meq Documented by: Prochlorperazine Edisylate (Compazine Iv) 5 mg IV Q4H PRN PRN PRN Reason: Breakthrough nausea/vomiting Psyllium Hydrophilic Mucilloid (Metamucil) 1 packet PO DAILY PRN PRN PRN Reason: Constipation Rivaroxaban (Xarelto) 20 mg PO DAILY@1700 [facility] Last Admin: 12/07/19 19:52 Dose: 20 mg Documented by: Senna/Docusate Sodium (Senokot-S, Beatriz-Colace) 2 tablet PO BID PRN PRN PRN Reason: Constipation Sodium Chloride () 10 - 40 ml IV UD PRN PRN Reason: SALINE FLUSH Last Admin: 12/08/19 13:42 Dose: 10 ml Documented by: Tamsulosin HCl (Flomax) 0.4 mg PO QHS [facility] Last Admin: 12/07/19 22:36 Dose: 0.4 mg Documented by: Throat Lozenges (Cepacol Sore Throat Lozenge) 1 lozenge MUCOUS MEM Q2H PRN PRN PRN Reason: SORE THROAT Medical Necessity - Tobacco Use Smoking Status: Former smoker Tobacco Use: Non-smoker Assessment/Plan All Active Problems (Last Reviewed 09/21/18 @ 10:30 by Mayela Mac) Acute encephalopathy (Acute) Unable to ambulate (Acute) Bilateral lower extremity pain (Acute) CHF (congestive heart failure) (Acute) The patient is a 64 y/o M with history of CHF, Chronic back pain following w/ Pain management w, HTN, HLD, GERD, BPH, Fe Deficiency anemia, Gout, PAF, Diabetes mellitus type II, Multiple myeloma who was admitted with severe, sudden onset bilateral lower thigh pain with radiation to foot, 7/10 intensity worse with walking and standing. Patient denies any new back pain or exacerbation of chronic back pain but has chronic degenerative changes. 1. Acute intractable bilateral lower extremity pain, unclear specific etiology: Patient is being admitted on MedSurg floor. CPK, aldolase, LFT, DARION and CRP ordered. Check magnesium, phosphorus level. Atorvastatin discontinued. Discontinue Toradol. Patient is on Medrol Dosepak. Patient had venous Doppler of lower extremities which is negative for DVT. On pain medication, gabapentin, low-dose Toradol. Started on Flexeril. PT OT ordered. Cystitis/UTI: Patient started on ampicillin by PCP for presumed UTI. Patient has burning micturition. No outpatient UA or urine culture available. UA with urine culture ordered. Started empirically on IV ceftriaxone after urine collection. 2. Chronic back pain: Patient had multiple MRIs in the back. He denies new neurological symptoms or bladder or bowel incontinence or acute back pain. 3. PAF: home Xarelto and amiodarone regimen. 4. Chronic anemia, iron deficiency: H&H is stable. 5. Diabetes mellitus type II: continue home insulin regimen, ADA diet, accu checks w/ ISS. 6. Morbid Obesity: Exhibit Electrician consulted. 7. Hypertension: On Coreg, torsemide, PRN hydralazine. 8. Hyperlipidemia: Discontinue atorvastatin. 9. GERD: We will continue home PPI. 10. Gout: continue home allopurinol regimen. 11. BPH: continue patient on Flomax regimen. 12. History of multiple myeloma: Outpatient follow-up 13. DVT prophylaxis: Xarelto 14. CODE status: Full code Total time of the visit including total time spent in counseling or coordination of care, (more than 50% of the total time, spent in obtaining medical information from nurses and other ancillary care providers), discussion with nursing staff, review of labs and imaging is 30 minutes Code Visit Inpatient E&M: 48230 Subs Hosp L3
[2019-12-08 14:24] LABS: AST(SGOT) 12 U/L (15-37); Alanine Aminotransfer ALT/SGPT 31 U/L (16-61); Albumin, Serum 2.8 g/dL (3.2-5.0); Alkaline Phosphatase 55 U/L (45-117); Bilirubin, Direct 0.07 mg/dL (0.00-0.30); CPK Total, Creatine Kinase 52 U/L (39-308); Globulin 4.1 g/dL (2.2-4.2); Protein, Total 6.9 g/dL (6.4-8.2)
[2019-12-08] MEDS: cycloBENZAPRine HCl 10 MG Tablet PO ×2 (14:28→21:47)
[2019-12-08] MEDS: Furosemide 80 MG Tablet PO ×2 (14:28→21:47)
[2019-12-08 14:31] LABS: Color, Urine Yellow (Yellow); Glucose, Dipstick Normal (Normal); Ketone-Dipstick Negative (Negative); Leukocyte Esterase-Dipstick 25 /ul (Negative); Nitrite-Dipstick Negative (Negative); Occult Blood-Urine 50 /ul (Negative); Protein-Dipstick 15 mg/dl (Negative); Urine Bilirubin Dipstick Negative (Negative); Urine Clarity Sl. Cloudy (Clear); Urine Urobilinogen Normal (Normal)
[2019-12-08] MEDS: Ceftriaxone 1 GM/50 ML BAG IV (14:36)
[2019-12-08 14:41] LABS: Bacteria RARE /hpf (None Seen); Mucous, Urine RARE /hpf (<or=2+); Red Blood Cells-Urine 0-5 SEEN /hpf (0-5); Squamous Epithelial Cells - UA 0-5 SEEN /hpf (0-5); White Blood Cells 0-5 SEEN /hpf (0-5)
[2019-12-08 14:52] LABS: Magnesium 2.4 mg/dL (1.6-2.6); Phosphorus 2.5 mg/dL (2.5-4.9)
[2019-12-08] MEDS: Rivaroxaban 20 MG Tablet PO (17:00)
[2019-12-08 17:10] LABS: Bedside Glucose 210 mg/dL (70-110)
[2019-12-08] MEDS: Tamsulosin HCl 0.4 MG Capsule PO (21:48)
[2019-12-08] MEDS: Allopurinol 100 MG Tablet 200 MG PO (21:51)
[2019-12-08 22:16] LABS: Bedside Glucose 181 mg/dL (70-110)
[2019-12-09 02:40] VITALS: BP 137/82; PULSE 72; RESP 20; TEMP 36.3; O2SAT 93
[2019-12-09] MEDS: cycloBENZAPRine HCl 10 MG Tablet PO ×3 (06:04→21:41)
[2019-12-09] MEDS: Insulin Lispro 100 UNIT/ML INSULN.PEN SC ×4 (06:54→21:58)
[2019-12-09 07:00] LABS: Bedside Glucose 193 mg/dL (70-110)
[2019-12-09 07:36] VITALS: BP 136/81; PULSE 67; RESP 16; TEMP 36.4; O2SAT 95
[2019-12-09 07:38] VITALS: O2SAT 96
[2019-12-09 07:46] LABS: Absolute Lymphocyte Count 0.66 X10^3/uL (0.83-4.51); Absolute Neutrophil Count 10.9 X10^3/uL (2.0-7.7); Basophil# 0.02 X10^3/uL; Basophil% 0.2 % (0-1); Eosinophil# 0.04 X10^3/uL; Eosinophils% 0.3 % (0-5); Hemoglobin 12.6 g/dL (13.0-16.5); Lymphocyte # 0.66 X10^3/ul (4.0); Lymphocyte % 5.2 % (19-41); Mean Corp Hgb Conc 33.2 g/dL (32-36); Mean Corpuscular Hgb 32.6 pg (27.0-32.0); Mean Corpuscular Volume 98.2 fL (80-94); Mean Platelet Vol. 11.5 fl (6.2-12.0); Monocyte% 7.8 % (0-10); NRBC Flagged by Analyzer 0 % (0-5); Neutrophil # 10.91 X10^3/uL (2.7-7.7); Neutrophil % 85.6 % (47-70); Platelet Count 209 K/mm3 (150-450); RBC Distribution Width CV 15.5 % (11.6-14.6); RBC Distribution Width SD 55.5 fl (35.1-43.9); Red Blood Count 3.87 M/mm3 (4.6-6.2); White Blood Count 12.7 K/mm3 (4.4-11.0)
[2019-12-09] MEDS: Allopurinol 300 MG Tablet PO (07:49)
[2019-12-09] MEDS: Pantoprazole Sodium 40 MG Tablet PO ×2 (07:49→21:44)
[2019-12-09] MEDS: Calcium (Elemental) 500 MG Tablet PO ×2 (07:49→16:28)
[2019-12-09] MEDS: Furosemide 80 MG Tablet PO ×2 (07:49→21:43)
[2019-12-09] MEDS: Acyclovir 200 MG Capsule 400 MG PO ×2 (07:49→21:41)
[2019-12-09] MEDS: DULoxetine Hcl 60 MG Capsule PO (07:49)
[2019-12-09] MEDS: Carvedilol 12.5 MG Tablet PO ×2 (07:50→21:42)
[2019-12-09] MEDS: Amiodarone 200 MG Tablet PO (07:50)
[2019-12-09] MEDS: Ferrous Sulfate 325 MG Tablet PO ×2 (07:50→16:28)
[2019-12-09] MEDS: Gabapentin 400 MG Capsule PO ×3 (07:50→16:28)
[2019-12-09] MEDS: MethylPREDNISolone DosePak 4 MG BOX PO ×4 (07:50→21:45)
[2019-12-09] MEDS: Nystatin Powder 15gm Bottle 1 APPLIC TOPICAL ×2 (07:51→21:43)
--- NOTE | 2019-12-09 07:54 | NURSING ---
all am meds given at this time as pt takes at home per pt request. pain 05/19, will adm ordered tylenol and send communication to dr schwab.
[2019-12-09] MEDS: Acetaminophen 325 MG Tablet 650 MG PO (08:00)
[2019-12-09 08:12] LABS: Anion Gap 8 (5-15); BUN 22 mg/dL (7-18); BUN/Creat Ratio 21.2 RATIO (10-20); Calcium,Total 8.5 mg/dL (8.5-10.1); Chloride 105 mmol/L (98-107); Creatinine, Serum 1.04 mg/dL (0.70-1.30); EST Glomerular Filtration Rate 76 mL/min (>60); Est Glom Filt Rate - Afr Amer 92 mL/min (>60); Estimated Creatinine Clearance 68.51 ml/min; Glucose 180 mg/dL (74-106); Sodium Level 140 mmol/L (136-145)
[2019-12-09] MEDS: Ketorolac 15 MG/ML Vial IM (08:45)
[2019-12-09] MEDS: 0.9% Saline Lock 10 ML Syringe IV ×3 (09:24→10:48)
--- NOTE | 2019-12-09 09:38 | RAD_ITS ---
STUDY: X-RAY - LEFT KNEE REASON FOR EXAM: Male, 64 years old. Intractable bilateral leg pain -- knee and thigh pain, unable to walk -- x 4 days -- NKI TECHNIQUE: 4 view(s) of the knee. COMPARISON: None. FINDINGS: Normal visualized distal femur. Normal visualized proximal tibia and fibula. Normal proximal tibiofibular articulation. There is moderate degenerative arthrosis of the medial femorotibial compartment with moderate joint space narrowing. Normal lateral femorotibial compartment. There is moderate degenerative arthrosis of the patellofemoral articulation. There is a moderate volume joint effusion. Nonspecific soft tissue swelling of the anterior, medial and lateral knee. RAD/Knee 4 or More Views IMPRESSION: 1. Moderate sized joint effusion. No demonstrated fracture. 2. Tricompartmental osteoarthrosis. 3. Nonspecific soft tissue swelling. Electronically Signed: Osorio Pritchett MD ([facility]) at 12:42 EST , Service support ,
--- NOTE | 2019-12-09 09:40 | RAD_ITS ---
STUDY: X-RAY - RIGHT KNEE REASON FOR EXAM: Male, 64 years old. Intractable bilateral leg pain -- knee and thigh pain, unable to walk -- x 4 days -- NKI TECHNIQUE: 4 view(s) of the knee. COMPARISON: None. FINDINGS: Normal visualized distal femur. Normal visualized proximal tibia and fibula. Normal proximal tibiofibular articulation. There is moderate degenerative arthrosis of the medial femorotibial compartment with moderate joint space narrowing. There is mild degenerative arthrosis of the lateral femorotibial compartment. There is moderate degenerative arthrosis of the patellofemoral articulation. There is a moderate volume joint effusion. There is mild anterior soft tissue swelling. RAD/Knee 4 or More Views IMPRESSION: 1. Moderate joint effusion. No demonstrated fracture. 2. Tricompartmental osteoarthrosis. 3. Lateral and anterior soft tissue swelling. Electronically Signed: Osorio Pritchett MD ([place]) at 12:41 EST , Service support ,
[2019-12-09] MEDS: oxyCODONE CR 15 MG Tablet PO ×2 (10:44→21:53)
[2019-12-09] MEDS: Ceftriaxone 1 GM/50 ML BAG IV (10:45)
[2019-12-09] MEDS: Magnesium Oxide 400 MG Tablet PO (10:45)
--- NOTE | 2019-12-09 12:32 | PN_ITS ---
Patient Problems: Active and Suspected Problems (Last Reviewed 09/21/18 @ 10:30 by Mayela Mac) Unable to ambulate (Acute) Bilateral lower extremity pain (Acute) CHF (congestive heart failure) (Acute) Reason for Visit: Bilateral lower extremity pain Objective: Patient is still complaining of pain, intermittently 8 to 10 x 10 intensity currently around the knee joint and lower thigh. Denies any new or excessive back pain. No neurological symptoms. On physical exam General: Alert, Oriented x3, Cooperative, Morbid obesity HEENT: Atraumatic, PERRLA, EOMI, Normocephalic Oral: - - Cannot visualize deep oropharyngeal structures. Neck: Supple, No JVD, Negative Carotid Bruits Lungs: Clear to auscultation, No rhonchi, No wheeze, No rales, air entry bilateral lung bases diminished Cardiovascular: Regular rate, Regular Rhythm, Normal S1, Normal S2, No murmurs Abdomen: Bowel Sounds Present, Soft, Non Tender Extremities: mild ankle edema, Capillary Refill Less than 3 Seconds Skin: No rashes, No breakdown Musculoskeletal: Arthritic Changes, Tenderness around knee joint and lower thigh. Lower extremity, power 4/5 mainly secondary to pain. Neurological: Cranial nerves II-XII grossly intact, Neuro grossly intact Psych/Mental Status: Normal Affect, Appropriate Vitals/I&O's: Vital Signs Temp Pulse Resp BP Pulse Ox 97.6 F L 67 16 136/81 H 96 12/09/19 07:36 12/09/19 07:36 12/09/19 07:36 12/09/19 07:36 12/09/19 07:38 Oxygen Flow Rate (L/min) 2.5 Oxygen Delivery Method Room Air Weight: 378 lb 8.539 oz Body Mass Index (BMI) 57.2 Finger Stick Blood Glucose 140 Intake and Output for Last 24 Hours 12/07/19 12/08/19 12/09/19 23:59 23:59 23:59 Intake Total 1831.75 / 1831.75 Output Total 570 / 1070 750 / 750 Balance 1261.75 / 761.75 -750 / -750 Microbiology Past 72 Hours 12/08/19 14:10 Urine, Clean Catch Urine Culture - Preliminary Gram negative leslie Laboratory Results 12/08/19 13:51: Total Bilirubin 0.20, Direct Bilirubin 0.07, AST 12 L, ALT 31, Alkaline Phosphatase 55, Total Creatine Kinase 52, C-React Prot Ext Range 44.40 H, Total Protein 6.9, Albumin 2.8 L, Globulin 4.1 12/08/19 13:51: Aldolase Pending 12/08/19 13:51: DARION Screen Pending, DELISA-1 Antibody Pending, SS-A/Ro IgG Antibody Pending, SS-B/La IgG Antibody Pending, Sm (Michelle) Antibody Pending, SKIN CARE THERAPIST Antibody Pending, Scl-70 Scleroderma Ab Pending, Double Strand DNA Ab Pending, Centromere B Antibody Pending 12/08/19 13:51: Phosphorus 2.5, Magnesium 2.4 12/08/19 14:10: Urine Color Yellow, Urine Clarity Sl. Cloudy, Urine pH 5.0, Ur Specific [place] 1.020, Urine Protein 15 H, Urine Glucose (UA) Normal, Urine Ketones Negative, Urine Occult Blood 50 H, Urine Nitrite Negative, Urine Bilirubin Negative, Urine Urobilinogen Normal, Ur Leukocyte Esterase 25 H, Urine RBC 0-5 SEEN, Urine WBC 0-5 SEEN, Ur Squamous Epith Cells 0-5 SEEN, Urine Bacteria RARE, Urine Mucus RARE 12/08/19 16:58: POC Glucose 210 H 12/08/19 21:42: POC Glucose 181 H 12/09/19 06:48: POC Glucose 193 H 12/09/19 07:17: WBC 12.7 H, RBC 3.87 L, Hgb 12.6 L, Hct 38.0 L, MCV 98.2 H, MCH 32.6 H, MCHC 33.2 D, RDW Std Deviation 55.5 H, RDW Coeff of Will 15.5 H, Plt Count 209, MPV 11.5, Immature Gran % (Auto) 0.900, Neut % (Auto) 85.6 H, Lymph % (Auto) 5.2 L, [place] % (Auto) 7.8, Eos % (Auto) 0.3, Baso % (Auto) 0.2, Absolute Neuts (auto) 10.9 H, Absolute Lymphs (auto) 0.66 L, Nucleated RBC % 0 12/09/19 07:17: Sodium 140, Potassium 4.0, Chloride 105, Carbon Dioxide 27.0, Anion Gap 8, BUN 22 H, Creatinine 1.04, Estim Creat Clear Calc 68.51, Est GFR (MDRD) Af Amer 92, Est GFR (MDRD) Non-Af 76, BUN/Creatinine Ratio 21.2 H, Glucose 180 H, Calcium 8.5 Current Medications Acetaminophen (Tylenol) 650 mg PO Q6H PRN PRN PRN Reason: Pain Score 1-10/Temp > 100.7 F Last Admin: 12/09/19 08:00 Dose: 650 mg Documented by: Acyclovir (Zovirax) 400 mg PO BID [facility] Last Admin: 12/09/19 07:49 Dose: 400 mg Documented by: Albuterol Sulfate (Ventolin Aerosols) 2.5 mg INHALATION Q2H PRN PRN PRN Reason: Shortness of Breath/Wheezing Allopurinol (Zyloprim) 300 mg PO DAILY [facility] Last Admin: 12/09/19 07:49 Dose: 300 mg Documented by: Allopurinol (Zyloprim) 200 mg PO QHS [facility] Last Admin: 12/08/19 21:51 Dose: 200 mg Documented by: Amiodarone HCl (Cordarone) 200 mg PO DAILY [facility] Last Admin: 12/09/19 07:50 Dose: 200 mg Documented by: Calcium Carbon[facility] ([facility]Nahid [facility]) [facility] Last Admin: 12/09/19 07:49 Dose: 500 mg Documented by: Carvedilol (Coreg) 12.5 mg PO BID [facility] Last Admin: 12/09/19 07:50 Dose: 12.5 mg Documented by: Cholecalciferol (Vitamin D (25mcg)) 1,000 unit PO DAILY [facility] Last Admin: 12/09/19 07:49 Dose: 1,000 unit Documented by: Cyclobenzaprine HCl (Flexeril) 10 mg PO TID [facility] Last Admin: 12/09/19 06:04 Dose: 10 mg Documented by: Duloxetine HCl (Cymbalta) 60 mg PO DAILY [facility] Last Admin: 12/09/19 07:49 Dose: 60 mg Documented by: Ferrous Sulfate (Ferrous Sulfate) 325 mg PO BIDCM [facility] Last Admin: 12/09/19 07:50 Dose: 325 mg Documented by: Furosemide (Lasix) 80 mg PO BID [facility] Last Admin: 12/09/19 07:49 Dose: 80 mg Documented by: Gabapentin (Neurontin) 400 mg PO TIDCM [facility] Last Admin: 12/09/19 10:58 Dose: 400 mg Documented by: Glucagon () 1 mg IM .X1 PRN PRN Reason: Hypoglycemia Guaifenesin (Robitussin) 20 ml PO Q4H PRN PRN PRN Reason: COUGH Hydralazine HCl (Apresoline Iv) 10 mg IV Q4H PRN PRN PRN Reason: SBP > 160 Sodium Chloride () 250 mls @ 15 mls/hr IV .[id number] PRN PRN Reason: Saline Flush Last Infusion: 12/08/19 17:04 Dose: 0 mls/hr Documented by: Sodium Chloride () 250 mls @ 15 mls/hr IV .[id number] PRN PRN Reason: Additional IVPB Infusion Dextrose (Dextrose 10%-Water) 250 mls @ 999 mls/hr IV .Q16M PRN; Protocol PRN Reason: HYPOGLYCEMIA Ceftriaxone Sodium (Rocephin) 1 gm in 50 mls @ 100 mls/hr IV Q24 [facility] Last Admin: 12/09/19 10:45 Dose: 100 mls/hr Documented by: Insulin Glargine (Lantus (Bk)) 12 units SC QHS [facility] Last Admin: 12/08/19 21:48 Dose: 12 u Documented by: Insulin Human Lispro (Humalog Kwikpen ([facility])) 0 unit SC ACHS [facility]; Protocol Last Admin: 12/09/19 10:57 Dose: 2 u Documented by: Magnesium Ox[facility] ([facility]-Ox 400) [facility] Last Admin: 12/09/19 10:45 Dose: 400 mg Documented by: Melatonin (Melatonin) 3 mg PO QHS PRN PRN PRN Reason: INSOMNIA Methylprednisolone (Medrol Dosepak) 4 mg PO 0800,1200,1700,2200 [facility]; Taper Stop: 12/12/19 08:59 Last Admin: 12/09/19 10:58 Dose: 4 mg Documented by: Nitroglycerin (Nitrostat) 0.4 mg SUBLINGUAL Q5M PRN PRN Reason: CARDIAC/CHEST PAIN Nystatin (Mycostatin Powder) 1 applic TOPICAL BID [facility]; Protocol Last Admin: 12/09/19 07:51 Dose: 1 applicatio Documented by: Ondansetron HCl (Zofran) 4 mg IV Q8H PRN PRN PRN Reason: NAUSEA/VOMITING Oxycodone HCl (Oxyir) 10 mg PO Q4H PRN PRN PRN Reason: Pain Score 6-10/10 Oxycodone HCl (Oxycontin) 15 mg PO BID [facility] Last Admin: 12/09/19 10:44 Dose: 15 mg Documented by: Pantoprazole Sodium (Protonix) 40 mg PO BID [facility] Last Admin: 12/09/19 07:49 Dose: 40 mg Documented by: Potassium Chloride (K-Dur) [facility] Last Admin: 12/09/19 07:50 Dose: 40 meq Documented by: Prochlorperazine Edisylate (Compazine Iv) 5 mg IV Q4H PRN PRN PRN Reason: Breakthrough nausea/vomiting Psyllium Hydrophilic Mucilloid (Metamucil) 1 packet PO DAILY PRN PRN PRN Reason: Constipation Rivaroxaban (Xarelto) 20 mg PO DAILY@1700 [facility] Last Admin: 12/08/19 17:00 Dose: 20 mg Documented by: Senna/Docusate Sodium (Senokot-S, Beatriz-Colace) 2 tablet PO BID PRN PRN PRN Reason: Constipation Sodium Chloride () 10 - 40 ml IV UD PRN PRN Reason: SALINE FLUSH Last Admin: 12/09/19 10:48 Dose: 10 ml Documented by: Tamsulosin HCl (Flomax) 0.4 mg PO QHS [facility] Last Admin: 12/08/19 21:48 Dose: 0.4 mg Documented by: Throat Lozenges (Cepacol Sore Throat Lozenge) 1 lozenge MUCOUS MEM Q2H PRN PRN PRN Reason: SORE THROAT Medical Necessity - Tobacco Use Smoking Status: Former smoker Tobacco Use: Non-smoker Assessment/Plan All Active Problems (Last Reviewed 09/21/18 @ 10:30 by Mayela Mac) Acute encephalopathy (Acute) Unable to ambulate (Acute) Bilateral lower extremity pain (Acute) CHF (congestive heart failure) (Acute) The patient is a 64 y/o M with history of CHF, Chronic back pain following w/ Pain management w, HTN, HLD, GERD, BPH, Fe Deficiency anemia, Gout, PAF, Diabetes mellitus type II, Multiple myeloma who was admitted with severe, sudden onset bilateral lower thigh pain with radiation to foot, 7/10 intensity worse with walking and standing. Patient denies any new back pain or exacerbation of chronic back pain but has chronic degenerative changes. 1. Acute intractable bilateral lower extremity pain, unclear specific etiology: Patient is being admitted on [facility] floor. CPK, aldolase, LFT, DARION and CRP ordered. Check magnesium, phosphorus level. Atorvastatin discontinued. Discontinue Toradol. Patient is on Medrol Dosepak. Patient had venous Doppler of lower extremities which is negative for DVT. On pain medication, gabapentin, low-dose Toradol. Started on Flexeril. PT OT to continue. On 12/08: Bilateral knee x-ray was done. It shows chronic degenerative joint disease to bone although official report pending. Mild leukocytosis secondary to steroid. CK level is normal. Aldolase pending. LFT within normal limit. CRP elevated. Autoimmune antibodies pending. Patient follows pain management. Started on oxycodone controlled release 50 mg twice daily and oxycodone IR 10 mg every 4 hourly as needed. Cystitis/UTI: Patient started on ampicillin by PCP for presumed UTI. Patient has burning micturition. No outpatient UA or urine culture available. UA with urine culture ordered. Started empirically on IV ceftriaxone after urine collection. Urine culture shows gram-negative leslie less than 1000; count may be low secondary to post antibiotic urine collection. Continue antibiotic for 5 days. 2. Chronic back pain: Patient had multiple MRIs in the back. He denies new neurological symptoms or bladder or bowel incontinence or acute back pain. No new pain. 3. PAF: home Xarelto and amiodarone regimen. 4. Chronic anemia, iron deficiency: H&H is stable. 5. Diabetes mellitus type II: continue home insulin regimen, ADA diet, accu checks w/ ISS. 6. Morbid Obesity: Non Destructive Evaluation Technician consulted. 7. Hypertension: On Coreg, torsemide, PRN hydralazine. 8. Hyperlipidemia: Discontinue atorvastatin. 9. GERD: We will continue home PPI. 10. Gout: continue home allopurinol regimen. 11. BPH: continue patient on Flomax regimen. 12. History of multiple myeloma: Outpatient follow-up 13. DVT prophylaxis: Xarelto 14. CODE status: Full code Total time of the visit including total time spent in counseling or coordination of care, (more than 50% of the total time, spent in obtaining medical information from nurses and other ancillary care providers), discussion with nursing staff, review of labs and imaging is 30 minutes Discharge plan: PT and OT and possible discharge to SNF if recommended by physi nahid therapist. Outpatient orthopedic surgery follow-up for bilateral knee severe arthritis Code Visit Inpatient E&M: 40154 Subs Hosp L2
[2019-12-09] MEDS: oxyCODONE 5 MG Tablet 10 MG PO (14:25)
[2019-12-09 14:30] VITALS: BP 129/72; PULSE 70; RESP 16; TEMP 36.7; O2SAT 93
[2019-12-09] MEDS: Rivaroxaban 20 MG Tablet PO (16:27)
[2019-12-09 17:31] LABS: Bedside Glucose 161 mg/dL (70-110)
[2019-12-09 20:00] VITALS: BP 141/84; PULSE 80; RESP 16; TEMP 36.9; O2SAT 98
[2019-12-09] MEDS: Tamsulosin HCl 0.4 MG Capsule PO (21:44)
[2019-12-09] MEDS: Allopurinol 100 MG Tablet 200 MG PO (21:44)
[2019-12-09 22:36] LABS: Bedside Glucose 155 mg/dL (70-110)
[2019-12-10 00:06] LABS: Bedside Glucose 205 mg/dL (70-110)
[2019-12-10 02:00] VITALS: BP 122/78; PULSE 76; PULSE 80; RESP 16; TEMP 37; O2SAT 95
[2019-12-10] MEDS: oxyCODONE 5 MG Tablet 10 MG PO ×3 (02:49→19:49)
[2019-12-10] MEDS: cycloBENZAPRine HCl 10 MG Tablet PO ×3 (05:48→21:31)
[2019-12-10 06:34] LABS: Absolute Lymphocyte Count 0.75 X10^3/uL (0.83-4.51); Absolute Neutrophil Count 11.5 X10^3/uL (2.0-7.7); Basophil# 0.02 X10^3/uL; Basophil% 0.1 % (0-1); Eosinophil# 0.09 X10^3/uL; Eosinophils% 0.7 % (0-5); Hematocrit 38.6 % (40-54); Hemoglobin 12.2 g/dL (13.0-16.5); Lymphocyte # 0.75 X10^3/ul (4.0); Lymphocyte % 5.5 % (19-41); Mean Corp Hgb Conc 31.6 g/dL (32-36); Mean Corpuscular Hgb 31.6 pg (27.0-32.0); Mean Platelet Vol. 11.4 fl (6.2-12.0); Monocyte# 1.14 X10^3/uL; Monocyte% 8.4 % (0-10); NRBC Flagged by Analyzer 0 % (0-5); Neutrophil # 11.53 X10^3/uL (2.7-7.7); Neutrophil % 84.5 % (47-70); Platelet Count 202 K/mm3 (150-450); RBC Distribution Width CV 15.7 % (11.6-14.6); RBC Distribution Width SD 57.7 fl (35.1-43.9); Red Blood Count 3.86 M/mm3 (4.6-6.2); White Blood Count 13.6 K/mm3 (4.4-11.0)
[2019-12-10 06:44] LABS: Anion Gap 8 (5-15); BUN 27 mg/dL (7-18); BUN/Creat Ratio 24.8 RATIO (10-20); Calcium,Total 8.8 mg/dL (8.5-10.1); Chloride 103 mmol/L (98-107); Creatinine, Serum 1.09 mg/dL (0.70-1.30); EST Glomerular Filtration Rate 72 mL/min (>60); Est Glom Filt Rate - Afr Amer 87 mL/min (>60); Estimated Creatinine Clearance 65.37 ml/min; Glucose 169 mg/dL (74-106); Magnesium 2.2 mg/dL (1.6-2.6); Potassium 3.8 mmol/L (3.5-5.1); Sodium Level 140 mmol/L (136-145)
[2019-12-10 07:50] LABS: Bedside Glucose 150 mg/dL (70-110)
--- NOTE | 2019-12-10 08:20 | PN_ITS ---
Patient Problems: Active and Suspected Problems (Last Reviewed 09/21/18 @ 10:30 by Mayela Mac) Unable to ambulate (Acute) Bilateral lower extremity pain (Acute) CHF (congestive heart failure) (Acute) Reason for Visit: Follow-up on bilateral lower extremities pain Subjective: Patient was seen and examined. He complains of severe pain in the posterior right knee. He denies fever, chills. Objective: Physical exam: Vitals/I&O's: Vital Signs Temp Pulse Resp BP Pulse Ox 98.6 F 80 16 122/78 H 95 12/10/19 02:00 12/10/19 02:00 12/10/19 02:00 12/10/19 02:00 12/10/19 02:00 Oxygen Flow Rate (L/min) 2.5 Oxygen Delivery Method CPAP Weight: 171.7 kg Body Mass Index (BMI) 57.2 Finger Stick Blood Glucose 140 Intake and Output for Last 24 Hours 12/08/19 12/09/19 12/10/19 23:59 23:59 23:59 Intake Total 1831.75 / 1831.75 550 / 550 Output Total 570 / 1070 1390 / 1390 1200 / 1200 Balance 1261.75 / 761.75 -840 / -840 -1200 / -1200 General: Alert, Oriented x3, Cooperative, No apparent distress, - - morbidly obese HEENT: Atraumatic, PERRLA, EOMI, Normocephalic Oral: Moist Mucosa Neck: Supple Lungs: Clear to auscultation, Normal air movement Cardiovascular: Regular rate, Regular Rhythm, Normal S1, Normal S2, No murmurs Abdomen: Bowel Sounds Present, Soft, Non Tender, Non-Distended, No Hepato- splenomegaly Extremities: Edema - +2-3, bilaterally with erythema of bilateral duvall, no differential warmth, likely hyperpigmentation from chronic venous stasis Skin: No rashes, No breakdown Musculoskeletal: No Tenderness to Palpation of Joints or Extremities Lymphatic: No Cervical, Supraclavicular, or Inguinal Adenopathy Neurological: Cranial nerves II-XII grossly intact, Neuro grossly intact Psych/Mental Status: Normal Affect, Appropriate Microbiology Past 72 Hours 12/08/19 14:10 Urine, Clean Catch Urine Culture - Preliminary Gram negative leslie Laboratory Results 12/09/19 10:56: POC Glucose 205 H 12/09/19 16:19: POC Glucose 161 H 12/09/19 21:57: POC Glucose 155 H 12/10/19 06:07: WBC 13.6 H, RBC 3.86 L, Hgb 12.2 L, Hct 38.6 L, MCV 100.0 H, MCH 31.6, MCHC 31.6 L, RDW Std Deviation 57.7 H, RDW Coeff of Will 15.7 H, Plt Count 202, MPV 11.4, Immature Gran % (Auto) 0.800, Neut % (Auto) 84.5 H, Lymph % (Auto) 5.5 L, [place] % (Auto) 8.4, Eos % (Auto) 0.7, Baso % (Auto) 0.1, Absolute Neuts (auto) 11.5 H, Absolute Lymphs (auto) 0.75 L, Nucleated RBC % 0 12/10/19 06:07: Sodium 140, Potassium 3.8, Chloride 103, Carbon Dioxide 29.0, Anion Gap 8, BUN 27 H, Creatinine 1.09, Estim Creat Clear Calc 65.37, Est GFR (MDRD) Af Amer 87, Est GFR (MDRD) Non-Af 72, BUN/Creatinine Ratio 24.8 H, Glucose 169 H, Calcium 8.8, Magnesium 2.2 12/10/19 06:49: POC Glucose 150 H Current Medications Acetaminophen (Tylenol) 650 mg PO Q6H PRN PRN PRN Reason: Pain Score 1-10/Temp > 100.7 F Last Admin: 12/09/19 08:00 Dose: 650 mg Documented by: Acyclovir (Zovirax) 400 mg PO BID [facility] Last Admin: 12/09/19 21:41 Dose: 400 mg Documented by: Albuterol Sulfate (Ventolin Aerosols) 2.5 mg INHALATION Q2H PRN PRN PRN Reason: Shortness of Breath/Wheezing Allopurinol (Zyloprim) 300 mg PO DAILY [facility] Last Admin: 12/09/19 07:49 Dose: 300 mg Documented by: Allopurinol (Zyloprim) 200 mg PO QHS [facility] Last Admin: 12/09/19 21:44 Dose: 200 mg Documented by: Amiodarone HCl (Cordarone) 200 mg PO DAILY [facility] Last Admin: 03/01/20 07:50 Dose: 200 mg Documented by: Calcium Carbonate (Os-Jason 500) [facility] Last Admin: 12/09/19 16:28 Dose: 500 mg Documented by: Carvedilol (Coreg) 12.5 mg PO BID [facility] Last Admin: 12/09/19 21:42 Dose: 12.5 mg Documented by: Cholecalciferol (Vitamin D (25mcg)) 1,000 unit PO DAILY [facility] Last Admin: 12/09/19 07:49 Dose: 1,000 unit Documented by: Cyclobenzaprine HCl (Flexeril) 10 mg PO TID [facility] Last Admin: 12/10/19 05:48 Dose: 10 mg Documented by: Duloxetine HCl (Cymbalta) 60 mg PO DAILY [facility] Last Admin: 12/09/19 07:49 Dose: 60 mg Documented by: Ferrous Sulfate (Ferrous Sulfate) [facility] Last Admin: 12/09/19 16:28 Dose: 325 mg Documented by: Furosemide (Lasix) 80 mg PO BID [facility] Last Admin: 12/09/19 21:43 Dose: 80 mg Documented by: Gabapentin (Neurontin) 400 mg PO TIDCM [facility] Last Admin: 12/09/19 16:28 Dose: 400 mg Documented by: Glucagon () 1 mg IM .X1 PRN PRN Reason: Hypoglycemia Guaifenesin (Robitussin) 20 ml PO Q4H PRN PRN PRN Reason: COUGH Hydralazine HCl (Apresoline Iv) 10 mg IV Q4H PRN PRN PRN Reason: SBP > 160 Sodium Chloride () 250 mls @ 15 mls/hr IV .[id number] PRN PRN Reason: Saline Flush Last Infusion: 12/08/19 17:04 Dose: 0 mls/hr Documented by: Sodium Chloride () 250 mls @ 15 mls/hr IV .[id number] PRN PRN Reason: Additional IVPB Infusion Dextrose (Dextrose 10%-Water) 250 mls @ 999 mls/hr IV .Q16M PRN; Protocol PRN Reason: HYPOGLYCEMIA Ceftriaxone Sodium (Rocephin) 1 gm in 50 mls @ 100 mls/hr IV Q24 [facility] Last Infusion: 12/09/19 11:15 Dose: Infused Documented by: Insulin Glargine (Lantus (Bkc)) 12 units SC QHS [facility] Last Admin: 12/09/19 21:58 Dose: 12 u Documented by: Insulin Human Lispro (Humalog Kwikpen ([facility])) 0 unit SC [facility]; Protocol Last Admin: 12/10/19 07:54 Dose: Not Given Documented by: Magnesium Oxide (Mag-Ox 400) [facility] Last Admin: 12/09/19 10:45 Dose: 400 mg Documented by: Melatonin (Melatonin) 3 mg PO QHS PRN PRN PRN Reason: INSOMNIA Methylprednisolone (Medrol Dosepak) 4 mg PO 0800,1200,2200 [facility]; Taper Stop: 12/12/19 08:59 Last Admin: 12/09/19 21:45 Dose: 4 mg Documented by: Nitroglycerin (Nitrostat) 0.4 mg SUBLINGUAL Q5M PRN PRN Reason: CARDIAC/CHEST PAIN Nystatin (Mycostatin Powder) 1 applic TOPICAL BID [facility]; Protocol Last Admin: 12/09/19 21:43 Dose: 1 applicatio Documented by: Ondansetron HCl (Zofran) 4 mg IV Q8H PRN PRN PRN Reason: NAUSEA/VOMITING Oxycodone HCl (Oxyir) 10 mg PO Q4H PRN PRN PRN Reason: Pain Score 6-10/10 Last Admin: 12/10/19 02:49 Dose: 10 mg Documented by: Oxycodone HCl (Oxycontin) 15 mg PO BID [facility] Last Admin: 12/09/19 21:53 Dose: 15 mg Documented by: Pantoprazole Sodium (Protonix) 40 mg PO BID [facility] Last Admin: 12/09/19 21:44 Dose: 40 mg Documented by: Potassium Chloride (K-Dur) [facility] Last Admin: 12/09/19 16:28 Dose: 40 meq Documented by: Prochlorperazine Edisylate (Compazine Iv) 5 mg IV Q4H PRN PRN PRN Reason: Breakthrough nausea/vomiting Psyllium Hydrophilic Mucilloid (Metamucil) 1 packet PO DAILY PRN PRN PRN Reason: Constipation Rivaroxaban (Xarelto) 20 mg PO DAILY@1700 [facility] Last Admin: 12/09/19 16:27 Dose: 20 mg Documented by: Senna/Docusate Sodium (Senokot-S, Beatriz-Colace) 2 tablet PO BID PRN PRN PRN Reason: Constipation Sodium Chloride () 10 - 40 ml IV UD PRN PRN Reason: SALINE FLUSH Last Admin: 12/09/19 10:48 Dose: 10 ml Documented by: Tamsulosin HCl (Flomax) 0.4 mg PO QHS [facility] Last Admin: 12/09/19 21:44 Dose: 0.4 mg Documented by: Throat Lozenges (Cepacol Sore Throat Lozenge) 1 lozenge MUCOUS MEM Q2H PRN PRN PRN Reason: SORE THROAT Medical Necessity - Tobacco Use Smoking Status: Former smoker Tobacco Use: Non-smoker Assessment/Plan All Active Problems (Last Reviewed 09/21/18 @ 10:30 by Mayela Mac) Acute encephalopathy (Acute) Unable to ambulate (Acute) Bilateral lower extremity pain (Acute) CHF (congestive heart failure) (Acute) 1. Acute intractable bilateral lower extremities pain, right knee more painful than left, history of gout, on allopurinol DVT ruled out. History of the knee showed chronic disease changes with moderate effusion of both knees Less likely to be septic arthritis, patient is on IV ceftriaxone for UTI Orthopedics consulted, s/p bilateral arthrocentesis Continue on Medrol Dosepak for now pending results of arthrocentesis 2. Gram negative rods cystitis, continue on IV ceftriaxone 3. Asthma atrial fibrillation, continue on Xarelto, carvedilol, amiodarone 4. Type II DM, blood sugars are controlled, continue on Lantus with insulin sliding scale 5. Hypertension, continue on Coreg 6. Morbid obesity, BMI 57.6, lifestyle modification recommended 7. DVT PPx- Xarelto Code Visit Inpatient E&M: 61297 Subs Hosp L2
[2019-12-10 09:00] VITALS: BP 136/66; PULSE 78; RESP 18; TEMP 36.6; O2SAT 99
[2019-12-10] MEDS: Ferrous Sulfate 325 MG Tablet PO ×2 (09:14→16:05)
[2019-12-10] MEDS: MethylPREDNISolone DosePak 4 MG BOX PO ×3 (09:14→21:31)
[2019-12-10] MEDS: Acyclovir 200 MG Capsule 400 MG PO ×2 (09:14→21:31)
[2019-12-10] MEDS: Magnesium Oxide 400 MG Tablet PO (09:15)
[2019-12-10] MEDS: Furosemide 80 MG Tablet PO ×2 (09:15→21:31)
[2019-12-10] MEDS: oxyCODONE CR 15 MG Tablet PO ×2 (09:15→21:33)
[2019-12-10] MEDS: Allopurinol 300 MG Tablet PO (09:16)
[2019-12-10] MEDS: Amiodarone 200 MG Tablet PO (09:16)
[2019-12-10] MEDS: Calcium (Elemental) 500 MG Tablet PO ×2 (09:16→16:05)
[2019-12-10] MEDS: Pantoprazole Sodium 40 MG Tablet PO ×2 (09:16→21:31)
[2019-12-10] MEDS: DULoxetine Hcl 60 MG Capsule PO (09:16)
[2019-12-10] MEDS: Gabapentin 400 MG Capsule PO ×3 (09:16→16:05)
[2019-12-10] MEDS: Carvedilol 12.5 MG Tablet PO ×2 (09:16→21:31)
[2019-12-10] MEDS: Nystatin Powder 15gm Bottle 1 APPLIC TOPICAL ×2 (09:17→21:31)
[2019-12-10] MEDS: Ceftriaxone 1 GM/50 ML BAG IV (09:54)
[2019-12-10] MEDS: 0.9% Saline Lock 10 ML Syringe IV (09:55)
[2019-12-10 11:32] VITALS: O2SAT 93
[2019-12-10 11:56] LABS: Bedside Glucose 142 mg/dL (70-110)
[2019-12-10 13:40] LABS: Body Fluid QC Type(s) BF2Q; Source- Body Fluid SYNOVIAL
[2019-12-10] MEDS: Bupivacaine Mpf 0.5% 30 ML VIAL INFILT (13:40)
[2019-12-10] MEDS: MethylPREDNISolone Acetate 40 MG/ML Vial 80 MG IM (13:40)
[2019-12-10 13:46] VITALS: BP 149/85; PULSE 88; RESP 18; TEMP 36.2; O2SAT 97
--- NOTE | 2019-12-10 14:03 | CON.PCM_ITS ---
Reason for Consult Date of Consultation: 12/10/19 Reason for Consultation: bilateral knee pain History of Present Illness: The patient is a 64 year old M obese diabetic with multiple myeloma and history of gout with known [id number] arthritis in his knees had increased pain in his knees over the past week. He has had injections in the remote past denies fevers chills. He has been treated with oral steroids and pain medication. No injury. Past Medical History Past Medical History (Chronic Problems): Chronic Problems (Last Reviewed 09/21/18 @ 10:30 by Mayela Mac) PAF (paroxysmal atrial fibrillation) (Chronic) Chronic pain syndrome (Chronic) BPH (benign prostatic hyperplasia) (Chronic) Anemia (Chronic) Gout (Chronic) Segmental and somatic dysfunction of thoracic region (Chronic) Segmental and somatic dysfunction of lumbar region (Chronic) Segmental and somatic dysfunction of cervical region (Chronic) Degenerative disc disease, cervical (Chronic) Anterolisthesis (Chronic) DDD (degenerative disc disease), lumbar (Chronic) Sleep apnea (Chronic) Psoriasis (Chronic) Morbid obesity (Chronic) Localized, primary osteoarthritis of lower leg (Chronic) Impaired glucose tolerance (Chronic) Hypercholesteremia (Chronic) GERD (gastroesophageal reflux disease) (Chronic) Essential hypertension (Chronic) Cellulitis and abscess of leg (Chronic) Medical History: Medical History (Last Reviewed 09/21/18 @ 10:30 by Mayela Mac) Degenerative disc disease, cervical (Chronic) M50.30 Anterolisthesis (Chronic) M43.10 DDD (degenerative disc disease), lumbar (Chronic) M51.36 Allergies No Known Allergies Allergy (Verified 12/07/19 13:18) Home Medications: Ambulatory Orders Medication Instructions Recorded Acetaminophen [Tylenol] 975 mg PO TID PRN PRN 08/26/18 Allopurinol [Zyloprim] 200 mg PO QHS 08/26/18 Amiodarone HCl 200 mg PO DAILY 08/26/18 Atorvastatin Calcium [Lipitor] 10 mg PO QHS 08/26/18 Cholecalciferol (VIT D3) [Vitamin 1,000 unit PO DAILY 08/26/18 D3] Ferrous Sulfate [Iron] 325 mg PO BID 08/26/18 Insulin Glargine,Hum.rec.anlog 12 unit SC QHS 08/26/18 [Lantus] Magnesium Oxide 420 mg PO TID 08/26/18 Multivitamin [Multiple Vitamins] 1 tab PO DAILY 08/26/18 Potassium Chloride [K-Dur] 40 meq PO BID 08/26/18 Rivaroxaban [Xarelto] 20 mg PO DAILY 08/26/18 Tamsulosin HCl [Flomax] 0.4 mg PO QHS 08/26/18 Torsemide [Demadex] 40 mg PO BID 08/26/18 Acyclovir [Zovirax] 400 mg PO BID 12/07/19 Allopurinol [Zyloprim] 300 mg PO DAILY 12/07/19 Calcium (Elemental) [Os-Jason 500] 500 mg PO BID 12/07/19 Carvedilol [Coreg] 12.5 mg PO BID 12/07/19 Omeprazole 40 mg PO BID 12/07/19 Ampicillin [Omnipen-N] 500 mg PO Q6H 12/08/19 Duloxetine HCl 60 mg PO DAILY 12/08/19 Gabapentin [Neurontin] 400 mg PO BID 12/08/19 Surgical History: appendectomy, - - Hiatal hernia repair, appendectomy, left lower extremity surgery, cataract surgery. Psychiatric History: No pertinent psych hx Lives: With Family - Patient notes that his lives with him as well as 1 of his children, two recently have transition out of the house. Smoking Status: Former smoker Tobacco Use: Non-smoker Alcohol: Occasional Drugs: None - *Family History Maternal Family History: Family History (Last Reviewed 09/21/18 @ 10:30 by Mayela Mac) Father Hypertension Mother Diabetes History Items: Diabetes Paternal Family History: Family History (Last Reviewed 09/21/18 @ 10:30 by Mayela Mac) Father Hypertension Mother Diabetes History Items: Hypertension Patient Problems: Active and Suspected Problems (Last Reviewed 09/21/18 @ 10:30 by Mayela Mac) Unable to ambulate (Acute) Bilateral lower extremity pain (Acute) CHF (congestive heart failure) (Acute) Objective: X-ray is bilateral knees show [id number] DJD - Physical Exam Vitals/I&O's: Vital Signs Temp Pulse Resp BP Pulse Ox 97.1 F L 88 18 149/85 H 97 12/10/19 13:46 12/10/19 13:46 12/10/19 13:46 12/10/19 13:46 12/10/19 13:46 Oxygen Flow Rate (L/min) 2.5 Oxygen Delivery Method Room Air Weight: 378 lb 8.539 oz Body Mass Index (BMI) 57.2 Finger Stick Blood Glucose 140 Intake and Output for Last 24 Hours 12/08/19 12/09/19 12/10/19 23:59 23:59 23:59 Intake Total 1831.75 / 1831.75 550 / 550 650 / 650 Output Total 570 / 1070 1390 / 1390 1999 Balance 1261.75 / 761.75 -840 / -840 -1350 / -1350 General: Alert, Oriented x3, Cooperative, No apparent distress Extremities: - - No erythema. No increased warmth there is joint effusion in both compartments soft no ligament laxity Range of motion 0-95 bilaterally intact extensor mechanism bilaterally Microbiology Past 72 Hours 12/08/19 14:10 Urine, Clean Catch Urine Culture - Final Gram negative leslie Laboratory Results 12/09/19 10:56: POC Glucose 205 H 12/09/19 16:19: POC Glucose 161 H 12/09/19 21:57: POC Glucose 155 H 12/10/19 06:07: WBC 13.6 H, RBC 3.86 L, Hgb 12.2 L, Hct 38.6 L, MCV 100.0 H, MCH 31.6, MCHC 31.6 L, RDW Std Deviation 57.7 H, RDW Coeff of Will 15.7 H, Plt Count 202, MPV 11.4, Immature Gran % (Auto) 0.800, Neut % (Auto) 84.5 H, Lymph % (Auto) 5.5 L, [place] % (Auto) 8.4, Eos % (Auto) 0.7, Baso % (Auto) 0.1, Absolute Neuts (auto) 11.5 H, Absolute Lymphs (auto) 0.75 L, Nucleated RBC % 0 12/10/19 06:07: Sodium 140, Potassium 3.8, Chloride 103, Carbon Dioxide 29.0, Anion Gap 8, BUN 27 H, Creatinine 1.09, Estim Creat Clear Calc 65.37, Est GFR (MDRD) Af Amer 87, Est GFR (MDRD) Non-Af 72, BUN/Creatinine Ratio 24.8 H, Glucose 169 H, Calcium 8.8, Magnesium 2.2 12/10/19 06:49: POC Glucose 150 H 12/10/19 11:48: POC Glucose 142 H 12/10/19 13:00: Fluid Crystals SEE PATH REV, Fluid Crystal Source SYNOVIAL, Fl Crystal Path Review Will follow Current Medications Acetaminophen (Tylenol) 650 mg PO Q6H PRN PRN PRN Reason: Pain Score 1-10/Temp > 100.7 F Last Admin: 12/09/19 08:00 Dose: 650 mg Documented by: Acyclovir (Zovirax) 400 mg PO BID [facility] Last Admin: 12/10/19 09:14 Dose: 400 mg Documented by: Albuterol Sulfate (Ventolin Aerosols) 2.5 mg INHALATION Q2H PRN PRN PRN Reason: Shortness of Breath/Wheezing Allopurinol (Zyloprim) 300 mg PO DAILY [facility] Last Admin: 12/10/19 09:16 Dose: 300 mg Documented by: Allopurinol (Zyloprim) 200 mg PO QHS [facility] Last Admin: 12/09/19 21:44 Dose: 200 mg Documented by: Amiodarone HCl (Cordarone) 200 mg PO DAILY [facility] Last Admin: 12/10/19 09:16 Dose: 200 mg Documented by: [facility]Jason 500[facility] Last Admin: 12/10/19 09:16 Dose: 500 mg Documented by: Carvedilol (Coreg) 12.5 mg PO BID [facility] Last Admin: 12/10/19 09:16 Dose: 12.5 mg Documented by: Cholecalciferol (Vitamin D (25mcg)) 1,000 unit PO DAILY [facility] Last Admin: 12/10/19 09:16 Dose: 1,000 unit Documented by: Cyclobenzaprine HCl (Flexeril) 10 mg PO TID [facility] Last Admin: 12/10/19 13:41 Dose: 10 mg Documented by: Duloxetine HCl (Cymbalta) 60 mg PO DAILY [facility] Last Admin: 12/10/19 09:16 Dose: 60 mg Documented by: Ferrous Sulfate (Ferrous Sulfate) 325 mg PO BIDCM [facility] Last Admin: 12/10/19 09:14 Dose: 325 mg Documented by: Furosemide (Lasix) 80 mg PO BID [facility] Last Admin: 12/10/19 09:15 Dose: 80 mg Documented by: Gabapentin (Neurontin) 400 mg PO TIDCM [facility] Last Admin: 12/10/19 12:20 Dose: 400 mg Documented by: Glucagon () 1 mg IM .X1 PRN PRN Reason: Hypoglycemia Guaifenesin (Robitussin) 20 ml PO Q4H PRN PRN PRN Reason: COUGH Hydralazine HCl (Apresoline Iv) 10 mg IV Q4H PRN PRN PRN Reason: SBP > 160 Sodium Chloride () 250 mls @ 15 mls/hr IV .[id number] PRN PRN Reason: Saline Flush Last Infusion: 12/08/19 17:04 Dose: 0 mls/hr Documented by: Sodium Chloride () 250 mls @ 15 mls/hr IV .[id number] PRN PRN Reason: Additional IVPB Infusion Dextrose (Dextrose 10%-Water) 250 mls @ 999 mls/hr IV .Q16M PRN; Protocol PRN Reason: HYPOGLYCEMIA Ceftriaxone Sodium (Rocephin) 1 gm in 50 mls @ 100 mls/hr IV Q24 [facility] Last Infusion: 12/10/19 10:24 Dose: Infused Documented by: Insulin Glargine (Lantus ([facility])) 12 units SC QHS [facility] Last Admin: 12/09/19 21:58 Dose: 12 u Documented by: Insulin Human Lispro (Humalog Kwikpen ([facility])) 0 unit SC ACHS [facility]; Protocol Last Admin: 12/10/19 11:57 Dose: Not Given Documented by: Magn[facility] ([facility]-Ox 400) [facility] Last Admin: 12/10/19 09:15 Dose: 400 mg Documented by: Melatonin (Melatonin) 3 mg PO QHS PRN PRN PRN Reason: INSOMNIA Methylprednisolone (Medrol Dosepak) 4 mg PO 0800,1200,2200 [facility]; Taper Stop: 12/12/19 08:59 Last Admin: 12/10/19 12:20 Dose: 4 mg Documented by: Nitroglycerin (Nitrostat) 0.4 mg SUBLINGUAL Q5M PRN PRN Reason: CARDIAC/CHEST PAIN Nystatin (Mycostatin Powder) 1 applic TOPICAL BID [facility]; Protocol Last Admin: 12/10/19 09:17 Dose: 1 applicatio Documented by: Ondansetron HCl (Zofran) 4 mg IV Q8H PRN PRN PRN Reason: NAUSEA/VOMITING Oxycodone HCl (Oxyir) 10 mg PO Q4H PRN PRN PRN Reason: Pain Score 6-10/10 Last Admin: 12/10/19 13:44 Dose: 10 mg Documented by: Oxycodone HCl (Oxycontin) 15 mg PO BID [facility] Last Admin: 12/10/19 09:15 Dose: 15 mg Documented by: Pantoprazole Sodium (Protonix) 40 mg PO BID [facility] Last Admin: 12/10/19 09:16 Dose: 40 mg Documented by: Potassium Chlor[facility] (K-Dur) [facility] Last Admin: 12/10/19 09:14 Dose: 40 meq Documented by: Prochlorperazine Edisylate (Compazine Iv) 5 mg IV Q4H PRN PRN PRN Reason: Breakthrough nausea/vomiting Psyllium Hydrophilic Mucilloid (Metamucil) 1 packet PO DAILY PRN PRN PRN Reason: Constipation Rivaroxaban (Xarelto) 20 mg PO DAILY@1700 [facility] Last Admin: 12/09/19 16:27 Dose: 20 mg Documented by: Senna/Docusate Sodium (Senokot-S, Beatriz-Colace) 2 tablet PO BID PRN PRN PRN Reason: Constipation Sodium Chloride () 10 - 40 ml IV UD PRN PRN Reason: SALINE FLUSH Last Admin: 12/10/19 09:55 Dose: 10 ml Documented by: Tamsulosin HCl (Flomax) 0.4 mg PO QHS [facility] Last Admin: 12/09/19 21:44 Dose: 0.4 mg Documented by: Throat Lozenges (Cepacol Sore Throat Lozenge) 1 lozenge MUCOUS MEM Q2H PRN PRN PRN Reason: SORE THROAT Assessment/Plan All Active Problems (Last Reviewed 09/21/18 @ 10:30 by Mayela Mac) Acute encephalopathy (Acute) Unable to ambulate (Acute) Bilateral lower extremity pain (Acute) CHF (congestive heart failure) (Acute) After verbal consent obtained aspiration arthrocentesis of bilateral knees was performed from the superior lateral position with the leg extended 120 cc of sli ghtly cloudy yellow synovial was aspirated from the right knee 150 cc was aspirated from the left they were injected through the operation needle with 40 mg Depo-Medrol and 4 cc of 0.5% Marcaine plain. Aspirate had a consistency of gout and was sent for crystal analysis. Dietary gout recommendation sheet will be faxed over to the nursing floor to be given to patient.
[2019-12-10 15:49] LABS: Body Fluid Mononuclear WBC % 50.4 %; Body Fluid Polynuclear WBC % 49.6 %; Red Cell Count/Body Fluid 0.003 10^6/ul
[2019-12-10] MEDS: Insulin Lispro 100 UNIT/ML INSULN.PEN SC ×2 (16:04→21:38)
[2019-12-10] MEDS: Rivaroxaban 20 MG Tablet PO (16:05)
[2019-12-10 16:10] LABS: Bedside Glucose 215 mg/dL (70-110)
[2019-12-10 16:13] LABS: White Blood Count/Body Fluid 16.286 10^3/uL
[2019-12-10 16:46] LABS: Appearance/Body Fluid CLOUDY; Auto B Fluid Analyzer BKGD Ct COUNTS W/IN LIMITS (W/IN LIMITS); Color/Body Fluid YELLOW; Source- Body Fluid OTHER
[2019-12-10 17:34] LABS: Lymphocytes 30 %; Monocytes 35 %; Neutrophil (Segs) 35 %
[2019-12-10 17:35] LABS: Body Fluid QC Type(s) BF3Q
[2019-12-10 19:43] VITALS: BP 126/82; PULSE 80; RESP 18; TEMP 36.9; O2SAT 95
[2019-12-10] MEDS: Tamsulosin HCl 0.4 MG Capsule PO (21:31)
[2019-12-10] MEDS: Allopurinol 100 MG Tablet 200 MG PO (21:31)
[2019-12-10 22:01] LABS: Bedside Glucose 193 mg/dL (70-110)
[2019-12-11 01:56] VITALS: BP 146/82; PULSE 61; RESP 18; TEMP 36.4; O2SAT 95
[2019-12-11] MEDS: oxyCODONE 5 MG Tablet 10 MG PO ×2 (02:13→14:40)
[2019-12-11] MEDS: cycloBENZAPRine HCl 10 MG Tablet PO ×2 (06:43→14:36)
[2019-12-11] MEDS: Insulin Lispro 100 UNIT/ML INSULN.PEN SC ×2 (06:45→11:10)
[2019-12-11 06:56] LABS: Bedside Glucose 167 mg/dL (70-110)
[2019-12-11 09:00] VITALS: BP 122/62; PULSE 77; RESP 17; TEMP 36.4; O2SAT 94
[2019-12-11] MEDS: 0.9% Saline Lock 10 ML Syringe IV (09:36)
[2019-12-11] MEDS: oxyCODONE CR 15 MG Tablet PO (09:36)
[2019-12-11] MEDS: Ceftriaxone 1 GM/50 ML BAG IV (09:36)
[2019-12-11] MEDS: Furosemide 80 MG Tablet PO (09:36)
[2019-12-11] MEDS: Magnesium Oxide 400 MG Tablet PO (09:36)
[2019-12-11] MEDS: Acyclovir 200 MG Capsule 400 MG PO (09:36)
[2019-12-11] MEDS: DULoxetine Hcl 60 MG Capsule PO (09:37)
[2019-12-11] MEDS: MethylPREDNISolone DosePak 4 MG BOX PO (09:37)
[2019-12-11] MEDS: Pantoprazole Sodium 40 MG Tablet PO (09:37)
[2019-12-11] MEDS: Gabapentin 400 MG Capsule PO ×2 (09:37→11:11)
[2019-12-11] MEDS: Ferrous Sulfate 325 MG Tablet PO (09:37)
[2019-12-11] MEDS: Calcium (Elemental) 500 MG Tablet PO (09:37)
[2019-12-11] MEDS: Carvedilol 12.5 MG Tablet PO (09:38)
[2019-12-11] MEDS: Amiodarone 200 MG Tablet PO (09:38)
[2019-12-11] MEDS: Nystatin Powder 15gm Bottle 1 APPLIC TOPICAL (09:38)
[2019-12-11] MEDS: Allopurinol 300 MG Tablet PO (09:38)
[2019-12-11 10:19] LABS: ANTINUCLEAR ANTIBODIES DIRECT Negative (Negative)
[2019-12-11 11:30] LABS: Bedside Glucose 173 mg/dL (70-110)
--- NOTE | 2019-12-11 14:00 | CASEMGMT ---
RN KACIE Face to Face with patient for initial transition planning/care coordination assessment. RN CM introduced self and role at [facility]. Patient sitting in chair, alert and oriented, family at bedside. Patient willing to participate in assessment and is able to answer all questions appropriately. Care providers, pharmacy, and demographics verified. Patient wishes to discharge home, denies need for home health at this time. Patient states he has no further needs or concerns at this time. CM to follow for discharge planning needs that may arise. [place], [facility] Prescription Benefit: yes Living Will/HPOA: none LNOK: , daughter, son Living Arrangements: Patient lives with family in ranch style home with 2 steps to enter the home. Patient states he is independent at home. Transportation: self, family DME/HHC: patient has shower chair, raised toilet, cane, walker, rollator, wheelchair, grab bars, hand held shower, scooter chair. Disposition Plan: Patient to discharge home with family support and follow-up plans in place. Mary WILLIAMSON, RN, CM
[2019-12-11 14:35] VITALS: BP 137/83; PULSE 76; RESP 18; TEMP 36.8; O2SAT 97
--- NOTE | 2019-12-11 15:40 | PCM.DC ---
- Discharge Diagnoses Current Active Problems: Current Active and Chronic Problems (Last Reviewed 09/21/18 @ 10:30 by Mayela Mac) Unable to ambulate (Acute) Bilateral lower extremity pain (Acute) PAF (paroxysmal atrial fibrillation) (Chronic) Chronic pain syndrome (Chronic) CHF (congestive heart failure) (Acute) BPH (benign prostatic hyperplasia) (Chronic) Anemia (Chronic) Gout (Chronic) Reason(s) for Visit for Discharge Instructions: Bilateral knee pain You will use the following diet at home:: Calorie/Carbohydrate Controlled (specify 1200, 1400, etc), Cardiac Your food should be the consistency of: Regular Your liquids should be the consistency of: Regular/Thin Discharge Activity: Return to Normal Activity Instructions: What Is Gout?, Treating Gout Attacks, Eating to Prevent Gout, Uric Acid Synovial Fluid, Reducing Knee Pain and Swelling, Back Exercises: Knee Lift, Understanding Urinary Tract Infections (UTIs) Additional Instructions: Continue to follow a low fat, low salt, low cab diet. Continue to be active. Allergies/Adverse Reactions: Allergies No Known Allergies Allergy (Verified 12/07/19 13:18) Medications to take at Discharge Allopurinol [Zyloprim] 200 mg PO QHS 08/26/18 Amiodarone HCl 200 mg PO DAILY 08/26/18 Atorvastatin Calcium [Lipitor] 10 mg PO QHS 08/26/18 Cholecalciferol (VIT D3) [Vitamin D3] 1,000 unit PO DAILY 08/26/18 Ferrous Sulfate [Iron] 325 mg PO BID 08/26/18 Insulin Glargine,Hum.rec.anlog [Lantus] 12 unit SC QHS 08/26/18 Magnesium Oxide 420 mg PO TID 08/26/18 Multivitamin [Multiple Vitamins] 1 tab PO DAILY 08/26/18 Potassium Chloride [K-Dur] 40 meq PO BID 08/26/18 Rivaroxaban [Xarelto] 20 mg PO DAILY 08/26/18 Tamsulosin HCl [Flomax] 0.4 mg PO QHS 08/26/18 Torsemide [Demadex] 40 mg PO BID 08/26/18 Acyclovir [Zovirax] 400 mg PO BID 12/07/19 Allopurinol [Zyloprim] 300 mg PO DAILY 12/07/19 Calcium (Elemental) [Os-Jason 500] 500 mg PO BID 12/07/19 Carvedilol [Coreg] 12.5 mg PO BID 12/07/19 Omeprazole 40 mg PO BID 12/07/19 Duloxetine HCl 60 mg PO DAILY 12/08/19 Gabapentin [Neurontin] 400 mg PO BID 12/08/19 Acetaminophen [Tylenol Extra Strength] 1,000 mg PO TID 30 Days #90 tab 12/11/19 Cefdinir [Omnicef [equiv]] 300 mg PO Q12H 4 Days #8 cap 12/11/19 The following prescriptions were given: Cefdinir [Omnicef [equiv]] 300 mg PO Q12H 4 Days #8 cap Transmission Status: Pending to [facility] Acetaminophen [Tylenol Extra Strength] 1,000 mg PO TID 30 Days #90 tab Transmission Status: Pending to [facility] Please follow up with your Primary Care Physician in: within 1-2 weeks Test Results: Test results from this visit will be discussed in further detail at your follow-up appointment, if applicable. Please Follow Up With: Len Chanel DO When: scheduled as needed Proposed Discharge Date: 12/11/19
--- NOTE | 2019-12-11 15:43 | PCM.DC.SUM ---
Discharge Date and Diagnosis Date of Admission: 12/07/19 Date of Discharge: 12/11/19 - Primary Discharge Diagnosis Active and Suspected Problems (Last Reviewed 09/21/18 @ 10:30 by Mayela Mac) Acute intractable bilateral knee pain Bilateral knee effusions Gram-negative leslie UTI - Secondary Discharge Diagnosis Chronic Problems (Last Reviewed 09/21/18 @ 10:30 by Mayela Mac) PAF (paroxysmal atrial fibrillation) (Chronic) Chronic pain syndrome (Chronic) BPH (benign prostatic hyperplasia) (Chronic) Anemia (Chronic) Gout (Chronic) Segmental and somatic dysfunction of thoracic region (Chronic) Segmental and somatic dysfunction of lumbar region (Chronic) Segmental and somatic dysfunction of cervical region (Chronic) Degenerative disc disease, cervical (Chronic) Anterolisthesis (Chronic) DDD (degenerative disc disease), lumbar (Chronic) Sleep apnea (Chronic) Psoriasis (Chronic) Morbid obesity (Chronic) Localized, primary osteoarthritis of lower leg (Chronic) Impaired glucose tolerance (Chronic) Hypercholesteremia (Chronic) GERD (gastroesophageal reflux disease) (Chronic) Essential hypertension (Chronic) Cellulitis and abscess of leg (Chronic) Hospital Course and Treatment Imaging Results: Clinical Impression(s) from Imaging Studies Knee X-Ray 12/09/19 09:38 IMPRESSION: 1. Moderate sized joint effusion. No demonstrated fracture. 2. Tricompartmental osteoarthrosis. 3. Nonspecific soft tissue swelling. Electronically Signed: Osorio Pritchett MD (Brooks) at 12:42 EST , Service support , Knee X-Ray 12/09/19 09:40 IMPRESSION: 1. Moderate joint effusion. No demonstrated fracture. 2. Tricompartmental osteoarthrosis. 3. Lateral and anterior soft tissue swelling. Electronically Signed: Osorio Pritchett MD (Brooks) at 12:41 EST , Service support , Orthopedics Operations: None Procedures: - - Bilateral knee arthro-synthesis 12/10/19 Summary of Care Provided: The patient is a 64 year old M multiple comorbidities including morbid obesity, chronic CHF, ABI, type II DM, history of multiple myeloma who presented with bilateral knee pain ongoing for 3 days. Patient has previously been on methadone and had a severe reaction and did not want to be on any narcotic medication. Admitted and managed as intractable bilateral lower extremity pain of unclear etiology. He was managed on low-dose Toradol as well as gabapentin. Per ultrasound of both lower extremities was negative for acute DVT. He was started on Medrol Dosepak, Flexeril with no improvement in his pain. Patient had x-rays of the knee which showed bilateral chronic degenerative joint disease with moderate joint effusion. Patient had work-up for CK, aldolase, LFTs, CRP and autoimmune profile which were negative. He was started on OxyContin and oxycodone for intractable pain. Orthopedics was consulted and performed bedside bilateral knee arthrocentesis with steroid injection to the knee. Helped improve pain to the knees. Patient was also managed as acute UTI started on IV ceftriaxone. He was given a prescription for outpatient therapy to assist with his bilateral knee osteoarthritis. He was continued on his allopurinol for gout. He will finish off his Medrol Dosepak. He will complete 1 week of antibiotics with oral cefdinir for 4 more days. Patient explicitly requested avoidance of any narcotic therapy. He notes that he was previously on methadone and had a severe reaction and has been attempting to avoid ANY NARCOTIC TREATMENT Subjective: On the day of discharge, patient was seen and examined. He denied any new complaints. Pain is much improved. Objective: Physical exam: General: Alert, Oriented x3, Cooperative, No apparent distress, - - morbidly obese HEENT: Atraumatic, PERRLA, EOMI, Normocephalic Oral: Moist Mucosa Neck: Supple Lungs: Clear to auscultation, Normal air movement Cardiovascular: Regular rate, Regular Rhythm, Normal S1, Normal S2, No murmurs Abdomen: Bowel Sounds Present, Soft, Non Tender, Non-Distended, No Hepato-splenomegaly Extremities: Edema - +2-3, bilaterally with erythema of bilateral duvall, no differential warmth, likely hyperpigmentation from chronic venous stasis Skin: No rashes, No breakdown Musculoskeletal: No Tenderness to Palpation of Joints or Extremities Lymphatic: No Cervical, Supraclavicular, or Inguinal Adenopathy Neurological: Cranial nerves II-XII grossly intact, Neuro grossly intact Psych/Mental Status: Normal Affect, Appropriate - Physical Exam Vitals/I&O's: Vital Signs Temp Pulse Resp BP Pulse Ox 98.2 F 76 18 137/83 H 97 12/11/19 14:35 12/11/19 14:35 12/11/19 14:35 12/11/19 14:35 12/11/19 14:35 Oxygen Flow Rate (L/min) 2 Oxygen Delivery Method Room Air Weight: 173.3 kg Body Mass Index (BMI) 57.2 Finger Stick Blood Glucose 140 Intake and Output for Last 24 Hours 12/09/19 12/10/19 12/11/19 23:59 23:59 23:59 Intake Total 550 / 550 1300 / 1300 830 / 830 Output Total 1390 / 1390 3800 / 3800 1575 / 1575 Balance -840 / -840 -2500 / -2500 -745 / -745 Microbiology Past 72 Hours 12/10/19 13:00 Fluid - Synovial (joint) Gram Stain - Final 12/10/19 13:00 Fluid - Synovial (joint) Body Fluid Culture - Preliminary No growth-Final to follow 12/08/19 14:10 Urine, Clean Catch Urine Culture - Final Gram negative leslie Laboratory Results 12/08/19 13:51: DARION Screen Negative 12/10/19 13:00: Fluid Source OTHER, Fluid Color YELLOW, Fluid Appearance CLOUDY, Fluid WBC 16.286, Fluid RBC 0.003, Fluid Tot Cell Count 16.400, Fld Polynuclear WBCs # 7.790, Fld Polynuclear WBCs % 49.6, Fluid Mononuclear WBCs 7.930, Fld Mononuclear WBCs % 50.4, Fluid Neutrophils 35, Fluid Lymphocytes 30, Fluid Monocytes 35, Fl Pathologist Comment May follow, Fluid Comment 2 Not Reportable 12/10/19 16:00: POC Glucose 215 H 12/10/19 21:37: POC Glucose 193 H 12/11/19 06:45: POC Glucose 167 H 12/11/19 11:10: POC Glucose 173 H Current Medications Acetaminophen (Tylenol) 650 mg PO Q6H PRN PRN PRN Reason: Pain Score 1-10/Temp > 100.7 F Last Admin: 12/09/19 08:00 Dose: 650 mg Documented by: Acyclovir (Zovirax) 400 mg PO BID LEYDA Last Admin: 12/11/19 09:36 Dose: 400 mg Documented by: Albuterol Sulfate (Ventolin Aerosols) 2.5 mg INHALATION Q2H PRN PRN PRN Reason: Shortness of Breath/Wheezing Allopurinol (Zyloprim) 300 mg PO DAILY [facility] Last Admin: 12/11/19 09:38 Dose: 300 mg Documented by: Allopurinol (Zyloprim) 200 mg PO QHS [facility] Last Admin: 12/10/19 21:31 Dose: 200 mg Documented by: Amiodarone HCl (Cordarone) 200 mg PO DAILY [facility] Last Admin: 12/11/19 09:38 Dose: 200 mg Documented by: [facility]Jason 500[facility] Last Admin: 12/11/19 09:37 Dose: 500 mg Documented by: Carvedilol (Coreg) 12.5 mg PO BID [facility] Last Admin: 12/11/19 09:38 Dose: 12.5 mg Documented by: Cholecalciferol (Vitamin D (25mcg)) 1,000 unit PO DAILY [facility] Last Admin: 12/11/19 09:38 Dose: 1,000 unit Documented by: Cyclobenzaprine HCl (Flexeril) 10 mg PO TID [facility] Last Admin: 12/11/19 14:36 Dose: 10 mg Documented by: Duloxetine HCl (Cymbalta) 60 mg PO DAILY [facility] Last Admin: 12/11/19 09:37 Dose: 60 mg Documented by: Ferrous Sulf[facility] ([facility]ous Sulfate) [facility] Last Admin: 12/11/19 09:37 Dose: 325 mg Documented by: Furosemide (Lasix) 80 mg PO BID [facility] Last Admin: 12/11/19 09:36 Dose: 80 mg Documented by: Gabapentin (Neurontin) 400 mg PO TIDCM [facility] Last Admin: 12/11/19 11:11 Dose: 400 mg Documented by: Glucagon () 1 mg IM .X1 PRN PRN Reason: Hypoglycemia Guaifenesin (Robitussin) 20 ml PO Q4H PRN PRN PRN Reason: COUGH Hydralazine HCl (Apresoline Iv) 10 mg IV Q4H PRN PRN PRN Reason: SBP > 160 Sodium Chloride () 250 mls @ 15 mls/hr IV .[id number] PRN PRN Reason: Saline Flush Last Infusion: 12/08/19 17:04 Dose: 0 mls/hr Documented by: Sodium Chloride () 250 mls @ 15 mls/hr IV .[id number] PRN PRN Reason: Additional IVPB Infusion Dextrose (Dextrose 10%-Water) 250 mls @ 999 mls/hr IV .Q16M PRN; Protocol PRN Reason: HYPOGLYCEMIA Ceftriaxone Sodium (Rocephin) 1 gm in 50 mls @ 100 mls/hr IV Q24 [facility] Last Infusion: 12/11/19 10:06 Dose: Infused Documented by: Insulin Glargine (Lantus ([facility])) 12 units SC QHS [facility] Last Admin: 12/10/19 21:38 Dose: 12 u Documented by: Insulin Human Lispro (Humalog Kwikpen ([facility])) 0 unit SC ACHS [facility]; Protocol Last Admin: 12/11/19 11:10 Dose: 1 u Documented by: Magn[facility] (Mag-Ox 400) [facility] Last Admin: 12/11/19 09:36 Dose: 400 mg Documented by: Melatonin (Melatonin) 3 mg PO QHS PRN PRN PRN Reason: INSOMNIA Methylprednisolone (Medrol Dosepak) 4 mg PO 0800,2200 [facility]; Taper Stop: 12/12/19 08:59 Last Admin: 12/11/19 09:37 Dose: 4 mg Documented by: Nitroglycerin (Nitrostat) 0.4 mg SUBLINGUAL Q5M PRN PRN Reason: CARDIAC/CHEST PAIN Nystatin (Mycostatin Powder) 1 applic TOPICAL BID [facility]; Protocol Last Admin: 12/11/19 09:38 Dose: 1 applicatio Documented by: Ondansetron HCl (Zofran) 4 mg IV Q8H PRN PRN PRN Reason: NAUSEA/VOMITING Oxycodone HCl (Oxyir) 10 mg PO Q4H PRN PRN PRN Reason: Pain Score 6-10/10 Last Admin: 12/11/19 14:40 Dose: 10 mg Documented by: Oxycodone HCl (Oxycontin) 15 mg PO BID [facility] Last Admin: 12/11/19 09:36 Dose: 15 mg Documented by: Pantoprazole Sodium (Protonix) 40 mg PO BID [facility] Last Admin: 12/11/19 09:37 Dose: 40 mg Documented by: Potassium Chloride (K-Dur) [facility] Last Admin: 12/11/19 09:37 Dose: 40 meq Documented by: Prochlorperazine Edisylate (Compazine Iv) 5 mg IV Q4H PRN PRN PRN Reason: Breakthrough nausea/vomiting Psyllium Hydrophilic Mucilloid (Metamucil) 1 packet PO DAILY PRN PRN PRN Reason: Constipation Rivaroxaban (Xarelto) 20 mg PO DAILY@1700 [facility] Last Admin: 12/10/19 16:05 Dose: 20 mg Documented by: Senna/Docusate Sodium (Senokot-S, Beatriz-Colace) 2 tablet PO BID PRN PRN PRN Reason: Constipation Sodium Chloride () 10 - 40 ml IV UD PRN PRN Reason: SALINE FLUSH Last Admin: 12/11/19 09:36 Dose: 10 ml Documented by: Tamsulosin HCl (Flomax) 0.4 mg PO QHS [facility] Last Admin: 12/10/19 21:31 Dose: 0.4 mg Documented by: Throat Lozenges (Cepacol Sore Throat Lozenge) 1 lozenge MUCOUS MEM Q2H PRN PRN PRN Reason: SORE THROAT Discharge Diet: Low fat/ Low Cholesterol, 2000 mg Sodium Diet, Carb Control Diet Discharge Activity: Return to Normal Activity Home Medications: Medications to take at Discharge Allopurinol [Zyloprim] 200 mg PO QHS 08/26/18 Amiodarone HCl 200 mg PO DAILY 08/26/18 Atorvastatin Calcium [Lipitor] 10 mg PO QHS 08/26/18 Cholecalciferol (VIT D3) [Vitamin D3] 1,000 unit PO DAILY 08/26/18 Ferrous Sulfate [Iron] 325 mg PO BID 08/26/18 Insulin Glargine,Hum.rec.anlog [Lantus] 12 unit SC QHS 08/26/18 Magnesium Oxide 420 mg PO TID 08/26/18 Multivitamin [Multiple Vitamins] 1 tab PO DAILY 08/26/18 Potassium Chloride [K-Dur] 40 meq PO BID 08/26/18 Rivaroxaban [Xarelto] 20 mg PO DAILY 08/26/18 Tamsulosin HCl [Flomax] 0.4 mg PO QHS 08/26/18 Torsemide [Demadex] 40 mg PO BID 08/26/18 Acyclovir [Zovirax] 400 mg PO BID 12/07/19 Allopurinol [Zyloprim] 300 mg PO DAILY 12/07/19 Calcium (Elemental) [Os-Jason 500] 500 mg PO BID 12/07/19 Carvedilol [Coreg] 12.5 mg PO BID 12/07/19 Omeprazole 40 mg PO BID 12/07/19 Duloxetine HCl 60 mg PO DAILY 12/08/19 Gabapentin [Neurontin] 400 mg PO BID 12/08/19 Acetaminophen [Tylenol Extra Strength] 1,000 mg PO TID 30 Days #90 tab 12/11/19 Cefdinir [Omnicef [equiv]] 300 mg PO Q12H 4 Days #8 cap 12/11/19 Following Prescrptions Were Given to Patient: Cefdinir [Omnicef [equiv]] 300 mg PO Q12H 4 Days #8 cap Transmission Status: Received by [facility] Acetaminophen [Tylenol Extra Strength] 1,000 mg PO TID 30 Days #90 tab Transmission Status: Received by [facility] - Please follow up with your Primary Care Physician in: within 1-2 weeks Please Follow Up With: Len Chanel DO When: scheduled as needed Patient Instructions: Uric Acid Synovial Fluid, Understanding Urinary Tract Infections (UTIs), What Is Gout?, Treating Gout Attacks, Reducing Knee Pain and Swelling, Eating to Prevent Gout, Back Exercises: Knee Lift Disposition: Home Minutes spent on discharge:: 40 Patient Condition:: Stable Medical Necessity - Tobacco Use Smoking Status: Former smoker Tobacco Use: Non-smoker Meaningful Use Info Meaningful Use Diagnoses (Choose all that apply): None applicable Code Visit Inpatient E&M: 74866 Disch Hosp
[2019-12-11 17:06] LABS: Bedside Glucose 149 mg/dL (70-110)
[2019-12-11 18:34] LABS: Aldolase 8.8 U/L (3.3-10.3)
[2019-12-12 10:18] LABS: Pathologist Review Reviewed
[2019-12-12 10:19] LABS: Pathologist Comment/Body Fluid Reviewed
--- NOTE | 2019-12-13 15:51 | CASEMGMT ---
Addendum entered by Neeta Cesar 12/13/19 16:07: Discharge instructions and summary faxed to [facility] at this time. Original Note: REECE HESTER Discharge Follow-Up Phone Call. Lucy: Franck Strata: 3 Discharge Date: 12/11/19 Adm Dx: Intractable BL LE pain Call to pt to inquire about how he has been doing since being discharged from the hospital. Pt states, My leg still hurts a little, but it is better than it was. Pt reports the ES Tylenol has been helping to alleviate the discomfort some. He states he did get the antibiotic before leaving the hospital and denies having any questions about it or the other medications. REECE HESTER instructed pt on the importance of taking the antibiotic through completion and he voices understanding. He denies having any questions about the other discharge instructions. Pt did inquire if his records could be faxed to the [place]. REECE HESTER informed pt that this would be done. Pt voices appreciation. REECE HESTER thanked pt for choosing [facility]. Salina WILLIAMSON RN, CM
== END 2019-12-11 17:06 | disposition home or self-care (01) | DRG 556 ==
LOC: ED 16:49 → MS3 16:57
PROVIDERS: Internal Medicine; Orthopaedic Surgery; Admitting Provider Family Medicine; Emergency Provider Emergency Medicine; Visit Provider Internal Medicine
DX: M79.605 Pain in left leg (principal); Z68.43 Body mass index [BMI] 50.0-59.9, adult; M79.604 Pain in right leg; M54.9 Dorsalgia, unspecified; I48.0 Paroxysmal atrial fibrillation; D50.9 Iron deficiency anemia, unspecified; E11.9 Type 2 diabetes mellitus without complications; E66.01 Morbid (severe) obesity due to excess calories; E78.5 Hyperlipidemia, unspecified; N40.0 Benign prostatic hyperplasia without lower urinary tract symptoms; K21.9 Gastro-esophageal reflux disease without esophagitis; M10.9 Gout, unspecified; N30.90 Cystitis, unspecified without hematuria; B96.89 Other specified bacterial agents as the cause of diseases classified elsewhere; G89.4 Chronic pain syndrome; I11.0 Hypertensive heart disease with heart failure; I50.9 Heart failure, unspecified; G47.33 Obstructive sleep apnea (adult) (pediatric); M17.0 Bilateral primary osteoarthritis of knee; M25.462 Effusion, left knee; M25.461 Effusion, right knee; M99.03 Segmental and somatic dysfunction of lumbar region; Z79.02 Long term (current) use of antithrombotics/antiplatelets; Z85.79 Personal history of other malignant neoplasms of lymphoid, hematopoietic and related tissues; Z79.4 Long term (current) use of insulin; M99.02 Segmental and somatic dysfunction of thoracic region; Z87.891 Personal history of nicotine dependence; M99.01 Segmental and somatic dysfunction of cervical region; M51.36 Other intervertebral disc degeneration, lumbar region; E78.00 Pure hypercholesterolemia, unspecified
CPT/HCPCS: 36415; 73564; 80048; 80076; 81001; 82085; 82550; 82962; 83735; 83880; 84100; 85025; 86038; 86140; 86225; 86235; 87070; 87075; 87086; 87088; 87205; 89050; 89060; 93922; 93970; 94660; 97110; 97116; 97162; 97166; 97530; 97535; 97802; 99251; 99284; 99406; J7050; A4216; G0463

== ENCOUNTER 2019-12-17 13:08 | Emergency (ER) | payer MEDICARE, OTHER, SELFPAY ==
[2019-12-17 13:08] VITALS: BP 158/87; PULSE 89; RESP 18; TEMP 36.1; O2SAT 98; BMI 59.3
--- NOTE | 2019-12-17 13:42 | ED.VISSUMM ---
- ER Visit Summary Date of Service: 12/17/19 Chief Complaint: [Bilateral knee pain] History of Present Illness: The patient is a 64 M [presents to the emergency department complaint of bilateral knee pain is been severe for several weeks. Patient was admitted about 2 weeks ago for difficulty ambulating and was seen by orthopedics and had both knees drained. The fluid was negative for crystals however initially it was thought that his symptoms were due to gout. Patient was treated with steroids. Patient also had steroids injected into the knees at the time of the arthrocentesis. Patient was to follow-up with rheumatology today but they would not see him because they could not get the medical records from his last visit to our ER. Patient still continues to complain of pain with walking that severe. He denies any falls or injuries. Patient states that he has severe arthritis in both knees and is [id number] but cannot have surgery until he loses weight. Patient states that he has had a hard time losing weight because he cannot move because of his knees being painful. Patient also with history of CHF, hypertension, gout, A. fib, history of multiple myeloma that is in remission. Patient is on rivaroxaban.] Physical Examination: [HEENT-PERRLA, EOMI. Cranial nerves II through XII grossly intact. TMs clear. Mucous membranes moist. No adenopathy. Cardiovascular-regular rate and rhythm without murmur or ectopy Lungs-clear to auscultation, chest wall stable without crepitus or subcu emphysema Abdomen-normoactive bowel sounds, soft, nontender, no rebound or rigidity, no peritoneal signs. Extremities-intact ?4, normal range of motion, normal pulses. Patient has small effusions bilateral knees. Patient has very large but body habitus. She got pain with range of motion flexion extension of the knees. No evidence of cellulitis. He is neurovascular intact distally. No warmth noted. Test Results: [None indicated] Emergency Department Course and Treatment: [Discussed possible treatment options with patient including admission and evaluation by social work for possible placement to rehab facility. I also discussed treating his pain and [facility]. At this time he does not want to be admitted and would just like to have his pain treated and he will make [facility] for [facility].] Treatment Plan: [facility] Patient will be given a prescription for oxycodone.] Disposition: [Discharged home in stable condition] Impression: [Exacerbation of chronic knee pain] This note was generated with [employer] dictation software. It may contain incorrect words, spelling, and punctuation that were not noted in review of the chart prior to signing ED Disposition - Plan for ED Patient: [facility] [Primary [facility] Provider] -
--- NOTE | 2019-12-17 13:46 | ED.DEP ---
ED Disposition - Plan for ED Patient: Instructions: KNEE PAIN, Uncertain Cause Prescriptions: Oxycodone HCl/Acetaminophen [Percocet 5/325] 1 tablet PO Q6H PRN PRN 3 Days #12 tablet PRN Reason: Pain Transmission Status: Sent to [facility] [Primary [facility] Provider] - 3-5 Days
--- NOTE | 2019-12-17 14:58 | ED.RN ---
pt's family was expressing concerns about pt being able to be at home safely. social services specialist involved
--- NOTE | 2019-12-17 15:00 | CM.ED ---
SOCIAL WORK INFORMANT: RNRAZA REASON FOR REFERRAL: RESOURCES/HOME HEALTH REFERRAL MET WITH PATIENT AND FAMILY IN ROOM. INTRODUCED ROLE. FAMILY INQUIRING ABOUT HOME HEALTH SERVICES AND DME. PATIENT HOPING TO HAVE A BEDSIDE COMMODE FOR HOME GOING. PATIENT PROVIDED WITH INFORMATION ON HOME HEALTH AND GIVEN LIST OF AGENCIES. FAMILY AND PATIENT REQUESTED REFERRAL TO [facility]. INFORMED FAMILY THIS WORKER WILL OBTAIN SCRIPT FOR DR. CHILEL FOR BEDSIDE COMMODE. FAMILY/PATIENT OK WITH OBTAINING NEEDED DME THROUGH [facility]. FAMILY INQUIRED ABOUT OTHER DME AND STATES [facility]. ALL QUESTIONS ANSWERED. INTERVENTIONS: CALL TO MICHELE WITH [facility], LEFT MESSAGE REGARDING REFERRAL. SCRIPT FOR BARIATRIC BEDSIDE COMMODE OBTAINED FROM DR. CHILEL AND FAXED/CALLED TO [facility]. FAMILY ABLE TO MOLDER CLOSED MOLDS COMMODE AFTER DISCHARGE. RESOURCES ON ADDITIONAL TANGIBLE PERSONAL PROPERTY [employer] SERVICES PROVIDED IF NEEDED IN THE FUTURE. REQUEST FOR INFORMATION SIGNED BY PATIENT AND CLINICAL INFORMATION FROM HOSPITAL FAXED TO [facility] PER PATIENT'S REQUEST FOR FOLLOW UP APPOINTMENT TOMORROW. PLAN: HOME WITH RESOURCES PROVIDED. Woo FIGUEREDO MSW, DIESEL AUTOMOTIVE TECHNICIAN.
[2019-12-17 15:37] VITALS: BP 148/90; PULSE 66; RESP 17; O2SAT 93
== END 2019-12-17 15:38 | disposition home or self-care (01) ==
LOC: ED 13:49
PROVIDERS: Emergency Provider Emergency Medicine
DX: M25.561 Pain in right knee (principal); M25.562 Pain in left knee; G89.29 Other chronic pain; M17.0 Bilateral primary osteoarthritis of knee; I11.0 Hypertensive heart disease with heart failure; I50.9 Heart failure, unspecified; I48.91 Unspecified atrial fibrillation; M10.9 Gout, unspecified; K21.9 Gastro-esophageal reflux disease without esophagitis; Z79.01 Long term (current) use of anticoagulants; Z79.4 Long term (current) use of insulin; Z79.899 Other long term (current) drug therapy; C90.01 Multiple myeloma in remission
CPT/HCPCS: 99282

== ENCOUNTER 2021-09-23 22:31 | Emergency (ER) | payer OTHER, SELFPAY ==
[2021-09-23 22:32] VITALS: BP 137/114; PULSE 98; RESP 21; TEMP 38.3; O2SAT 91; BMI 58.6
--- NOTE | 2021-09-23 22:56 | EKG12_ITS ---
Test Reason : WEAKNESS Blood Pressure : / mmHG Vent. Rate : 096 BPM Atrial Rate : 096 BPM P-R Int : 170 ms QRS Dur : 138 ms QT Int : 378 ms P-R-T Axes : 062 -83 030 degrees QTc Int : 477 ms Sinus rhythm with Premature atrial complexes Left axis deviation Right bundle branch block Abnormal ECG Confirmed by DANNY CHRISTIE, SHANIA ([id number]), social media editor BOBY COLINDRES ([id number]) on 09/25/2021 10:44:23 AM Referred By: MIKEY Confirmed By:SHANIA DELGADO MD
--- NOTE | 2021-09-23 22:56 | RAD_ITS ---
STUDY: X-RAY CHEST REASON FOR EXAM: Male, 66 years old. cough TECHNIQUE: Single AP portable view of the chest. COMPARISON: 08/26/2018 FINDINGS: The lungs are clear and expanded. There is no demonstrated pleural abnormality. There is mild cardiac enlargement. Normal mediastinum and lance. Normal visualized pulmonary arteries. Normal visualized aortic arch and descending thoracic aorta. Normal visualized thoracic spine. Normal visualized ribs, clavicles, and shoulders. There is no demonstrated abnormality of the visualized soft tissue structures of the upper abdomen. RAD/Chest 1 View (Portable) IMPRESSION: Cardiomegaly. Lungs are clear. Electronically Signed: Melecio Briones DO at 23:38 EST Tel , Service support ,
[2021-09-23 23:03] LABS: Absolute Neutrophil Count 6.8 X10^3/uL (2.0-7.7); Basophil# 0.02 X10^3/uL; Basophil% 0.2 % (0-1); Eosinophil# 0.04 X10^3/uL; Eosinophils% 0.5 % (0-5); Hematocrit 42.4 % (40-54); Hemoglobin 13.8 g/dL (13.0-16.5); Lymphocyte % 6.8 % (19-41); Mean Corp Hgb Conc 32.5 g/dL (32-36); Mean Corpuscular Hgb 32.7 pg (27.0-32.0); Mean Corpuscular Volume 100.5 fL (80-94); Mean Platelet Vol. 10.9 fl (6.2-12.0); Monocyte# 1.34 X10^3/uL; Monocyte% 15.2 % (0-10); NRBC Flagged by Analyzer 0 % (0-5); Neutrophil # 6.75 X10^3/uL (2.7-7.7); Neutrophil % 76.8 % (47-70); POSITIVE DIFFERENTIAL YES; Platelet Count 197 K/mm3 (150-450); RBC Distribution Width CV 15.6 % (11.6-14.6); RBC Distribution Width SD 57.2 fl (35.1-43.9); Red Blood Count 4.22 M/mm3 (4.6-6.2); White Blood Count 8.8 K/mm3 (4.4-11.0)
[2021-09-23] MEDS: Acetaminophen 500 MG Tablet 1000 MG PO (23:03)
[2021-09-23 23:09] LABS: Differential Indicated SCAN CRITERIA MET
--- NOTE | 2021-09-23 23:34 | ED.RN ---
Multiple attempts tried to get labs. Unsuccessful. Lab called and asked to come up and draw remaining labs.
[2021-09-23 23:36] VITALS: BP 137/77; PULSE 92; RESP 24; O2SAT 92
[2021-09-23 23:41] LABS: BNP,B-Type NATRIURETIC PEPTIDE 46.8 pg/mL (0-100)
[2021-09-24 00:06] VITALS: TEMP 37.7; O2SAT 93
[2021-09-24 00:18] VITALS: BP 137/77; PULSE 92; RESP 24; TEMP 37.7; O2SAT 93
[2021-09-24 00:48] LABS: Anion Gap 4 (5-15); BUN 13 mg/dL (7-18); Calcium,Total 8.5 mg/dL (8.5-10.1); Chloride 103 mmol/L (98-107); Creatinine, Serum 1.08 mg/dL (0.70-1.30); EST Glomerular Filtration Rate 72 mL/min (>60); Est Glom Filt Rate - Afr Amer 88 mL/min (>60); Estimated Creatinine Clearance 64.21 ml/min; Glucose 157 mg/dL (74-106); Magnesium 2.1 mg/dL (1.6-2.6); Potassium 4.2 mmol/L (3.5-5.1); Sodium Level 137 mmol/L (136-145); Troponin-I HS 10 pg/mL (3.0-78.0)
[2021-09-24 00:53] LABS: Lactic Acid 0.7 mmol/L (0.4-1.9)
[2021-09-24 01:00] VITALS: BP 97/58; PULSE 89; RESP 18; TEMP 37.7; O2SAT 92
[2021-09-24 02:20] VITALS: BP 106/62; PULSE 92; RESP 24; TEMP 37; O2SAT 96
[2021-09-24 02:23] VITALS: O2SAT 91
--- NOTE | 2021-09-24 02:35 | EX.ED.DYSGE1 ---
HPI History of Present Illness Chief Complaint: Weakness Narrative Narrative: Patient is a 66-year-old male who states for the past 3 to 4 days he has had congestion and cough and shortness of breath as well as generalized weakness. Son states that today the patient was walking towards the bathroom and because of his weakness and shortness of breath sensation collapsed to the ground. Son states that the patient seemed out of it for a few seconds and because of this EMS was called. Son denies any type of seizure activity. Patient denies any known sick contacts but states he is also not vaccinated against Covid. Therefore with his increasing generalized weakness as well as cough and congestion he presents for evaluation [facility] Medical History (Updated 09/24/21 @ 02:[address] Rafael Mcdonald, DO) Anterolisthesis DDD (degenerative disc disease), lumbar Degenerative disc disease, cervical Home Medications allopurinol 200 mg PO QHS 08/26/18 [History Last Taken 12/06/19] amiodarone 200 mg PO DAILY 08/26/18 [History Last Taken 12/07/19] atorvastatin 10 mg PO QHS 08/26/18 [History Last Taken 12/06/19] cholecalciferol (vitamin D3) [Vitamin D3] 1,000 unit PO DAILY 08/26/18 [History Last Taken 12/07/19] ferrous sulfate [Iron (ferrous sulfate)] 325 mg PO BID 08/26/18 [History Last Taken 12/07/19] insulin glargine [Lantus U-100 Insulin] 12 unit SUBCUT QHS 08/26/18 [History Last Taken 12/06/19] magnesium oxide 420 mg PO TID 08/26/18 [History Last Taken 12/07/19] multivitamin [Multiple Vitamins] 1 tab PO DAILY 08/26/18 [History Last Taken 12/07/19] potassium chloride [Klor-Con M20] 40 meq PO BID 08/26/18 [History Last Taken 12/07/19] rivaroxaban [Xarelto] 20 mg PO DAILY 08/26/18 [History Last Taken 12/06/19] tamsulosin [Flomax] 0.4 mg PO QHS 08/26/18 [History Last Taken 12/06/19] torsemide 40 mg PO BID 08/26/18 [History Last Taken 12/07/19] acyclovir 400 mg PO BID 12/07/19 [History Last Taken 12/07/19] allopurinol 300 mg PO DAILY 12/07/19 [History Last Taken 12/07/19] calcium carbonate 500 mg PO BID 12/07/19 [History Last Taken 12/07/19] carvedilol 12.5 mg PO BID 12/07/19 [History Last Taken 12/07/19] omeprazole 40 mg PO BID 12/07/19 [History Last Taken 12/07/19] duloxetine 60 mg PO DAILY 12/08/19 [History Last Taken Unknown] gabapentin 400 mg PO BID 12/08/19 [History Last Taken Unknown] azelastine 2 spray INTRANASAL BID #30 ml 09/24/21 [Rx Last Taken Unknown] azelastine 2 spray INTRANASAL BID #30 ml 09/24/21 [Rx Last Taken Unknown] benzonatate 200 mg PO TID PRN #30 cap 09/24/21 [Rx Last Taken Unknown] benzonatate 200 mg PO TID PRN #30 cap 09/24/21 [Rx Last Taken Unknown] Allergy/AdvReac Type Severity Reaction Status Date / Time No Known Allergies Allergy Verified 09/23/21 22:36 Family History Father Hypertension Mother Diabetes Social History (Updated 09/21/18 @ 10:[address] Christina Love, [place]) Smoking Status: Former smoker alcohol intake: current alcohol intake frequency: 0-2 drinks per day substance use type: does not use what type of physical activity do you participate in: walking frequency: 1-2 times per week [facility] ED Constitutional Constitutional ED: Reports chills and fever(s) ENT ENT ED: Reports rhinorrhea and sore throat Cardiovascular Cardiovascular: Denies chest pain Respiratory/Chest Respiratory/Chest: Reports dyspnea; Denies cough Gastrointestinal Gastrointestinal: Reports nausea; Denies abdominal pain, diarrhea or vomiting Genitourinary Genitourinary ED: Denies dysuria Musculoskeletal Musculoskeletal: Reports myalgias Integumentary Denies rash Neurologic Neurologic: Denies headache(s) Hematologic/Lymphatic Hematologic/Lymphatic: Denies easy bleeding or easy bruising EXAM Physical Exam Const Vital Signs: 09/23/21 22:32 09/23/21 22:39 09/23/21 23:36 Temperature 101.0 F H Temperature Source Oral Pulse Rate 98 92 Respiratory Rate 21 H 24 H Respiratory Effort Short of Breath Respiratory Pattern Tachypnea Blood Pressure 137/114 H 137/77 H Blood Pressure Mean 121 97 Pulse Ox 91 92 Oxygen Delivery Method Room Air Room Air 09/24/21 00:06 09/24/21 00:18 09/24/21 01:00 Temperature 99.8 F H 99.8 F H 99.8 F H Temperature Source Oral Oral Oral Pulse Rate 92 89 Respiratory Rate 24 H 18 Respiratory Effort Respiratory Pattern Blood Pressure 137/77 H 97/58 L Blood Pressure Mean 97 71 Pulse Ox 93 93 92 Oxygen Delivery Method Room Air Room Air Room Air 09/24/21 02:20 09/24/21 02:52 Temperature 98.6 F Temperature Source Oral Pulse Rate 92 89 Respiratory Rate 24 H 18 Respiratory Effort Respiratory Pattern Blood Pressure 106/62 Blood Pressure Mean 76 Pulse Ox 96 95 Oxygen Delivery Method Room Air Positive well nourished, well developed and obese General Appearance ED: well developed Nutritional Appearance: obese HEENT Reports moist mucous membranes HEENT Narrative: Cobblestoning the posterior pharynx consistent with sinus drainage but no airway edema or compromise Eyes PERRL and EOMs intact bilaterally Neck supple and no JVD Neck Narrative: Positive anterior cervical lymphadenopathy Chest Wall palpation of chest normal Resp Resp Narrative: Patient has mild tachypnea and his breath sounds are diminished throughout with diffuse expiratory wheeze and faint rhonchi in bilateral bases Cardio regular rate and regular rhythm Rate: other Other Details: Radial pulses are plus 2 out of 4 bilaterally are equal and symmetric GI normal to inspection, nondistended, normoactive bowel sounds, non-tender, non-distended and no masses GI Narrative: No voluntary guarding or rigidity no pulsatile mass Auscultation: normoactive bowel sounds Palpation: soft Extremity Extremity Narrative: Trace to +1 pitting edema to the bilateral lower extremities. Negative Homans' sign bilaterally Neuro oriented x3 and CN's II-XII intact bilaterally Sensorium / Orientation: alert Motor Exam: strength 5/5 throughout Psych mental status grossly normal Skin Skin Narrative: Patient has chronic stasis changes to bilateral lower legs but no secondary changes to suggest infection MDM MDM MDM Narrative Medical decision making narrative: Patient presented to the ER awake and alert in no acute respiratory distress but he was febrile at 101. With his report of congestion cough and shortness of breath there is concern he may have pneumonia or have developed Covid. Secondary to this a work-up was obtained. Patient's white blood cell count is normal he has no elevation to his proBNP and his lactic acid is also normal. Covid and influenza swabs were negative and chest x-ray revealed no acute infiltrate or fluid overload. EKG showed sinus rhythm and patient's troponin is normal going against any type of cardiac damage. He was given a small fluid bolus as well as Tylenol and his temperature improved and he reported feeling better. The patient's oxygen level has maintained above 90% on room air. He was ambulated and was able to walk with a walker and his pulse ox remained above 90%. Therefore at this time he is not hypoxic and therefore not requiring supplemental oxygen he is able to ambulate and he has no signs of fluid overload sepsis or cardiac damage. Therefore at this time I do feel patient has a viral infection leading to his symptoms but as they are not causing cardiac damage the need for supplemental oxygen or severe weakness where he cannot ambulate there is no need to keep him in the hospital and he can be discharged home Lab Data Attestation: I reviewed the patient's lab results. Labs: Laboratory Results - last 24 hr 09/23/21 09/23/21 09/23/21 22:40 22:40 22:40 WBC 8.8 RBC 4.22 L Hgb 13.8 Hct 42.4 MCV 100.5 H MCH 32.7 H MCHC 32.5 RDW Std Deviation 57.2 H RDW Coeff of Will 15.6 H Plt Count 197 MPV 10.9 Immature Gran % (Auto) 0.500 Neut % (Auto) 76.8 H Lymph % (Auto) 6.8 L [place] % (Auto) 15.2 H Eos % (Auto) 0.5 Baso % (Auto) 0.2 Absolute Neuts (auto) 6.8 Absolute Lymphs (auto) 0.60 L Nucleated RBC % 0 Sodium Cancelled Potassium Cancelled Chloride Cancelled Carbon Dioxide Cancelled Anion Gap Cancelled BUN Cancelled Creatinine Cancelled Estim Creat Clear Calc Cancelled Est GFR (MDRD) Af Amer Cancelled Est GFR (MDRD) Non-Af Cancelled BUN/Creatinine Ratio Cancelled Glucose Cancelled Lactic Acid Calcium Cancelled Magnesium Cancelled Troponin I High Sens Cancelled B-Natriuretic Peptide 46.8 09/23/21 09/24/21 09/24/21 23:05 00:19 00:19 WBC RBC Hgb Hct MCV MCH MCHC RDW Std Deviation RDW Coeff of Will Plt Count MPV Immature Gran % (Auto) Neut % (Auto) Lymph % (Auto) [place] % (Auto) Eos % (Auto) Baso % (Auto) Absolute Neuts (auto) Absolute Lymphs (auto) Nucleated RBC % Sodium 137 Potassium 4.2 Chloride 103 Carbon Dioxide 30.0 Anion Gap 4 L BUN 13 Creatinine 1.08 Estim Creat Clear Calc 64.21 Est GFR (MDRD) Af Amer 88 Est GFR (MDRD) Non-Af 72 BUN/Creatinine Ratio 12.0 Glucose 157 H Lactic Acid Cancelled 0.7 Calcium 8.5 Magnesium 2.1 Troponin I High Sens 10 B-Natriuretic Peptide Radiography Diagnostic Testing: Clinical Impression(s) from Imaging Studies Chest X-Ray 09/23/21 22:56 IMPRESSION: Cardiomegaly. Lungs are clear. Electronically Signed: Melecio Briones DO at 23:38 EST Tel , Service support , Discharge Plan Triage Chief Complaint: Weakness ED Provider: Rafael Mcdonald Dx/Rx/DC Orders Clinical Impression: Viral upper respiratory illness Instructions: ED URI, Viral W/ Wheezing (Adult) Prescriptions: New benzonatate 200 mg capsule 200 mg PO TID PRN (Reason: cough) Qty: 30 RF: 0 azelastine 137 mcg (0.1 %) aerosol,spray 2 spray intranasal BID Qty: 30 RF: 0 azelastine 137 mcg (0.1 %) aerosol,spray 2 spray intranasal BID Qty: 30 RF: 0 benzonatate 200 mg capsule 200 mg PO TID PRN (Reason: cough) Qty: 30 RF: 0 No Action atorvastatin 10 MG tablet 10 mg PO QHS RF: 0 amiodarone 200 MG tablet 200 mg PO DAILY RF: 0 allopurinol 100 MG tablet 200 mg PO QHS RF: 0 tamsulosin [Flomax] 0.4 MG capsule 0.4 mg PO QHS RF: 0 rivaroxaban [Xarelto] 20 MG tablet 20 mg PO DAILY RF: 0 multivitamin [Multiple Vitamins] 1 EACH tablet 1 tab PO DAILY RF: 0 insulin glargine [Lantus U-100 Insulin] 100 UNIT/ML solution 12 unit subcut QHS RF: 0 magnesium oxide 420 MG tablet 420 mg PO TID RF: 0 torsemide 20 MG tablet 40 mg PO BID RF: 0 potassium chloride [Klor-Con M20] 20 MEQ tablet 40 meq PO BID RF: 0 ferrous sulfate [Iron (ferrous sulfate)] 325 MG tablet 325 mg PO BID RF: 0 cholecalciferol (vitamin D3) [Vitamin D3] 1,000 UNIT tablet 1,000 unit PO DAILY RF: 0 carvedilol 12.5 MG tablet 12.5 mg PO BID RF: 0 acyclovir 400 MG tablet 400 mg PO BID RF: 0 omeprazole 40 MG capsule,delayed release(DR/EC) 40 mg PO BID RF: 0 calcium carbonate 500 MG tablet 500 mg PO BID RF: 0 allopurinol 300 MG tablet 300 mg PO DAILY RF: 0 gabapentin 400 MG capsule 400 mg PO BID RF: 0 duloxetine 60 MG capsule,delayed release(DR/EC) 60 mg PO DAILY RF: 0 [facility] [place] [facility] [Primary Care Provider] - Activity Restrictions/Additional Instructions: Please use your walker to help with ambulation and continue to take Tylenol 3-4 times a day for the next few days to keep your fever under control Disposition Disposition: Home, Self Care Discharge Date/Time: 09/24/21 02:52
[2021-09-24 02:52] VITALS: PULSE 89; RESP 18; O2SAT 95
== END 2021-09-24 02:52 | disposition home or self-care (01) ==
PROVIDERS: Emergency Provider Emergency Medicine
DX: J06.9 Acute upper respiratory infection, unspecified (principal); Z20.822 Contact with and (suspected) exposure to COVID-19; R59.0 Localized enlarged lymph nodes; R55 Syncope and collapse; R06.02 Shortness of breath; E66.9 Obesity, unspecified; Z79.4 Long term (current) use of insulin; Z79.01 Long term (current) use of anticoagulants; Z79.899 Other long term (current) drug therapy; Z87.891 Personal history of nicotine dependence
CPT/HCPCS: 36415; 71045; 80048; 83605; 83735; 83880; 84484; 85025; 87426; 87804; 93005; 96360; 96361; 99285; A4216

== ENCOUNTER 2021-09-27 10:09 | Inpatient (IN) | payer OTHER, SELFPAY ==
[2021-09-27] VITALS (18 sets, daily range): BP systolic 94–142; BP diastolic 47–80; PULSE 69–90; RESP 19–26; TEMP 36.9–38.4; O2SAT 90–96; BMI 59.3; BMI 55.9
--- NOTE | 2021-09-27 10:24 | EKG12_ITS ---
Test Reason : SOB Blood Pressure : / mmHG Vent. Rate : 086 BPM Atrial Rate : 086 BPM P-R Int : 154 ms QRS Dur : 144 ms QT Int : 402 ms P-R-T Axes : 052 -68 026 degrees QTc Int : 481 ms Normal sinus rhythm Right bundle branch block Left anterior fascicular block Bifascicular block Abnormal ECG Confirmed by DANNY CHRISTIE, SHANIA ([id number]), graphics editor BOBY COLINDRES ([id number]) on 09/28/2021 9:45:05 AM Referred By: RU Confirmed By:SHANIA DELGADO MD
--- NOTE | 2021-09-27 10:25 | EX.ED.DYSGE1 ---
HPI History of Present Illness Chief Complaint: Weakness Detail of Chief Complaint: Weakness and shortness of breath Informant: patient and EMS Narrative Narrative: Patient brought to the emergency department by EMS from home. Patient apparently slid out of his chair this morning around 5 AM and could not get back up. Family members found him on the ground and they were unable to help him up so they called EMS. Patient has been sick and was seen in the emergency department 2 days ago for upper respiratory infection and tested negative for Covid and influenza at that time. Patient continues to cough and bring up some yellow sputum. He has had fevers. Generally feels weak. Patient states that others in the home have similar symptoms. Patient has been vaccinated against Covid but has not had the booster. [facility] Medical History (Updated 09/27/21 @ 12:[address] Octavia Burroughs DO) Anterolisthesis DDD (degenerative disc disease), lumbar Degenerative disc disease, cervical Home Medications Lantus U-100 Insulin 12 unit SUBCUT QHS 08/26/18 [History Last Taken 12/06/19] Xarelto 20 mg PO DAILY 08/26/18 [History Last Taken 12/06/19] allopurinol 200 mg PO QHS 08/26/18 [History Last Taken 12/06/19] amiodarone 200 mg PO DAILY 08/26/18 [History Last Taken 12/07/19] atorvastatin 10 mg PO QHS 08/26/18 [History Last Taken 12/06/19] cholecalciferol (vitamin D3) [Vitamin D3] 1,000 unit PO DAILY 08/26/18 [History Last Taken 12/07/19] ferrous sulfate [Iron (ferrous sulfate)] 325 mg PO BID 08/26/18 [History Last Taken 12/07/19] magnesium oxide 420 mg PO TID 08/26/18 [History Last Taken 12/07/19] multivitamin [Multiple Vitamins] 1 tab PO DAILY 08/26/18 [History Last Taken 12/07/19] potassium chloride [Klor-Con M20] 40 meq PO BID 08/26/18 [History Last Taken 12/07/19] tamsulosin [Flomax] 0.4 mg PO QHS 08/26/18 [History Last Taken 12/06/19] torsemide 40 mg PO BID 08/26/18 [History Last Taken 12/07/19] acyclovir 400 mg PO BID 12/07/19 [History Last Taken 12/07/19] allopurinol 300 mg PO DAILY 12/07/19 [History Last Taken 12/07/19] calcium carbonate 500 mg PO BID 12/07/19 [History Last Taken 12/07/19] carvedilol 12.5 mg PO BID 12/07/19 [History Last Taken 12/07/19] omeprazole 40 mg PO BID 12/07/19 [History Last Taken 12/07/19] duloxetine 60 mg PO DAILY 12/08/19 [History Last Taken Unknown] gabapentin 400 mg PO BID 12/08/19 [History Last Taken Unknown] azelastine 2 spray INTRANASAL BID #30 ml 09/24/21 [Rx Last Taken Unknown] azelastine 2 spray INTRANASAL BID #30 ml 09/24/21 [Rx Last Taken Unknown] benzonatate 200 mg PO TID PRN #30 cap 09/24/21 [Rx Last Taken Unknown] benzonatate 200 mg PO TID PRN #30 cap 09/24/21 [Rx Last Taken Unknown] Allergy/AdvReac Type Severity Reaction Status Date / Time No Known Allergies Allergy Verified 09/27/21 10:15 Family History Father Hypertension Mother Diabetes Social History (Updated 09/21/18 @ 10:[address] Christina Love, [place]) Smoking Status: Former smoker alcohol intake: current alcohol intake frequency: 0-2 drinks per day substance use type: does not use what type of physical activity do you participate in: walking frequency: 1-2 times per week ROS ROS ED Constitutional Constitutional ED: Reports systems reviewed and no addt'l complaints, except as documented and fever(s); Denies body ache(s), change in weight or chills Eyes Eyes: Denies acute decrease in peripheral vision, change in vision, double vision or loss of vision ENT ENT ED: Reports none; Denies ear pain, lip swelling, loss taste/smell, neck pain, otalgia or sore throat Cardiovascular Cardiovascular: Reports none; Denies abdominal pain, chest pain with activity, leg edema, lightheadedness, palpitations, rapid heart rate or syncope Respiratory/Chest Respiratory/Chest: Reports none, cough, dyspnea, dyspnea on exertion and sputum; Denies change in mental status, dry cough, hemoptysis, shortness of breath at rest or shortness of breath with exertion Gastrointestinal Gastrointestinal: Reports none; Denies abdominal pain, change in stool character, diarrhea, hematemesis, hematochezia, melena, rectal bleeding or vomiting Genitourinary Genitourinary ED: Reports none; Denies abdominal discomfort, anuria, dysuria, genital pain or polyuria Musculoskeletal Musculoskeletal: Reports none; Denies arthralgias, back pain, difficulty walking, extremity pain, muscle weakness or myalgias Integumentary Reports none; Denies abscess or rash Neurologic Neurologic: Reports none; Denies abnormal gait, confusion, focal weakness, frequent falls, headache(s), loss of vision, numbness, paresthesias, radicular pain, vertigo or weakness Psychiatric Psychiatric: Reports systems reviewed and no addt'l complaints, except as documented and none; Denies behavioral changes, confusion, difficulty concentrating, hallucinations, suicidal ideation, tactile hallucinations or visual hallucinations Endocrine Endocrinology: Denies none, cold intolerance, excessive sweating, fatigue or heat intolerance Hematologic/Lymphatic Hematologic/Lymphatic: Reports none; Denies anemia, easy bleeding or easy bruising Allergic/Immunologic Allergic/Immunologic ED: Denies as per HPI, none, lip swelling, mouth swelling, throat swelling, tongue swelling or hives EXAM Physical Exam Const Vital Signs: 09/27/21 10:10 09/27/21 10:17 09/27/21 10:18 Temperature 99.5 F H 99.5 F H Temperature Source Temporal Temporal Pulse Rate 85 85 Respiratory Rate 25 H 25 H Respiratory Effort Short of Breath Labored Respiratory Pattern Tachypnea Blood Pressure 118/64 Blood Pressure Mean 82 Pulse Ox 95 95 Oxygen Delivery Method Non-Rebreather Non-Rebreather Oxygen Flow Rate (L/min) 15 15 09/27/21 10:41 09/27/21 10:42 09/27/21 11:36 Temperature 99.8 F H Temperature Source Temporal Pulse Rate 86 90 Respiratory Rate 25 H 24 H Respiratory Effort Respiratory Pattern Tachypnea Blood Pressure 118/72 Blood Pressure Mean 87 Pulse Ox 91 92 Oxygen Delivery Method Nasal Cannula Nasal Cannula Oxygen Flow Rate (L/min) 5 6 09/27/21 12:00 09/27/21 13:00 Temperature 99.8 F H 99.1 F Temperature Source Temporal Temporal Pulse Rate 89 83 Respiratory Rate 24 H 26 H Respiratory Effort Respiratory Pattern Blood Pressure 123/47 H 135/72 H Blood Pressure Mean 72 93 Pulse Ox 91 93 Oxygen Delivery Method Nasal Cannula Nasal Cannula Oxygen Flow Rate (L/min) 6 6 Positive well nourished and well developed General Appearance ED: well developed and NAD HEENT Reports TM's clear and moist mucous membranes normocephalic and atraumatic; Negative for trauma or tenderness Tympanic Membrane ED: Yes TM's clear Eyes PERRL and EOMs intact bilaterally General Eye ED: Negative for pale conjunctiva or scleral icterus Neck no lymphadenopathy, supple and no JVD General: Negative for tenderness Chest Wall inspection of chest normal and palpation of chest normal Chest: Negative for tenderness Resp normal respiratory effort and clear to auscultation bilaterally Effort and Inspection: Negative for respiratory distress or pain with movement Auscultation: rales, rhonchi and wheezes; Negative for diminished lung sounds Cardio regular rate, regular rhythm, S1 normal heart sound, S2 normal heart sound and no murmurs Peripheral Pulses: pulses 2+ throughout GI normal to inspection, nondistended, normoactive bowel sounds, soft to palpation, non-tender, non-distended and no masses GI Narrative: Patient is morbidly obese. Abdomen nontender. Back/Spine no CVA tenderness and no thoracic nor lumbar tenderness Extremity normal to inspection General Extremety ED: Negative for edema General Extremity: Negative for edema Neuro oriented x3, CN's II-XII intact bilaterally, no sensory deficits noted and gait normal Sensorium / Orientation: awake, alert, oriented to person, oriented to place and oriented to time Motor Exam: strength 5/5 throughout and strength abnormal Psych mental status grossly normal Skin no rashes or lesions noted and no wounds MDM MDM MDM Narrative Medical decision making narrative: IV line established on arrival. Patient placed on a cardiac technician. PCR Covid test was positive. Patient received a DuoNeb aerosol on arrival. Patient was given Decadron p.o. Case will be discussed with hospitalist evaluate for admission Lab Data Attestation: I reviewed the patient's lab results. Labs: Laboratory Results - last 24 hr 09/27/21 09/27/21 09/27/21 10:32 11:26 11:26 WBC 5.0 RBC 4.05 L Hgb 12.6 L Hct 39.1 L MCV 96.5 H MCH 31.1 MCHC 32.2 RDW Std Deviation 53.8 H RDW Coeff of Will 15.0 H Plt Count 159 MPV 10.4 Immature Gran % (Auto) 0.400 Neut % (Auto) 78.0 H Lymph % (Auto) 11.3 L [place] % (Auto) 10.1 H Eos % (Auto) 0.2 Baso % (Auto) 0.0 Absolute Neuts (auto) 3.9 Absolute Lymphs (auto) 0.57 L Nucleated RBC % 0 Sodium 135 L Potassium 3.3 L Chloride 101 Carbon Dioxide 26.0 Anion Gap 8 BUN 22 H Creatinine 1.20 Estim Creat Clear Calc 57.79 Est GFR (MDRD) Af Amer 78 Est GFR (MDRD) Non-Af 64 BUN/Creatinine Ratio 18.3 Glucose 145 H Lactic Acid Calcium 8.7 Troponin I High Sens 16 B-Natriuretic Peptide COVID-19 ([facility]) Positive 09/27/21 09/27/21 11:26 11:26 WBC RBC Hgb Hct MCV MCH MCHC RDW Std Deviation RDW Coeff of Will Plt Count MPV Immature Gran % (Auto) Neut % (Auto) Lymph % (Auto) [place] % (Auto) Eos % (Auto) Baso % (Auto) Absolute Neuts (auto) Absolute Lymphs (auto) Nucleated RBC % Sodium Potassium Chloride Carbon Dioxide Anion Gap BUN Creatinine Estim Creat Clear Calc Est GFR (MDRD) Af Amer Est GFR (MDRD) Non-Af BUN/Creatinine Ratio Glucose Lactic Acid 0.7 Calcium Troponin I High Sens B-Natriuretic Peptide 29.9 COVID-19 ([facility]) Radiography Chest X-Ray - ED: 1 View Diagnostic Testing: Clinical Impression(s) from Imaging Studies Chest X-Ray 09/27/21 11:40 IMPRESSION: Mild congestive heart failure. Electronically Signed: Alec Sepulveda MD at 12:13 EST Tel , Service support , 1 view chest x-ray obtained interpreted by myself as increased markings to both lung bases with cardiomegaly. Radiology felt patient had mild CHF. EKG Initial EKG: Attestation: I personally reviewed and interpreted this EKG as follows: Comments: Sinus rhythm with a rate of 86 bpm with a right bundle branch block and left anterior fascicular block Discharge Plan Dx/Rx/DC Orders Clinical Impression: COVID-19, Hypoxemia Disposition Disposition: Acute Care Hospital [facility]
[2021-09-27] MEDS: Ipratropium/Albuterol Sulfate 3 ML AMPUL.NEB INHALATION (10:41)
--- NOTE | 2021-09-27 10:45 | ED.RN ---
UNABLE TO OBTAIN BLOOD WORK X 2. CALLED LAB.
[2021-09-27 11:38] LABS: Absolute Lymphocyte Count 0.57 X10^3/uL (0.83-4.51); Absolute Neutrophil Count 3.9 X10^3/uL (2.0-7.7); Eosinophil# 0.01 X10^3/uL; Eosinophils% 0.2 % (0-5); Hematocrit 39.1 % (40-54); Hemoglobin 12.6 g/dL (13.0-16.5); Lymphocyte # 0.57 X10^3/ul (0.83-4.51); Lymphocyte % 11.3 % (19-41); Mean Corp Hgb Conc 32.2 g/dL (32-36); Mean Corpuscular Hgb 31.1 pg (27.0-32.0); Mean Corpuscular Volume 96.5 fL (80-94); Mean Platelet Vol. 10.4 fl (6.2-12.0); Monocyte# 0.51 X10^3/uL; Monocyte% 10.1 % (0-10); NRBC Flagged by Analyzer 0 % (0-5); Neutrophil # 3.93 X10^3/uL (2.7-7.7); POSITIVE DIFFERENTIAL YES; Platelet Count 159 K/mm3 (150-450); RBC Distribution Width SD 53.8 fl (35.1-43.9); Red Blood Count 4.05 M/mm3 (4.6-6.2)
[2021-09-27 11:39] LABS: Differential Indicated SCAN CRITERIA MET
--- NOTE | 2021-09-27 11:40 | RAD_ITS ---
STUDY: X-RAY CHEST REASON FOR EXAM: Male, 66 years old. SOB TECHNIQUE: Single AP portable view of the chest. COMPARISON: 09/23/2021 FINDINGS: The lungs are clear and expanded. There is no demonstrated pleural abnormality. There is severe cardiac enlargement. Normal mediastinum and lance. 63 Normal visualized aortic arch and descending thoracic aorta. Normal visualized thoracic spine. Normal visualized ribs, clavicles, and shoulders. There is no demonstrated abnormality of the visualized soft tissue structures of the upper abdomen. RAD/Chest 1 View (Portable) IMPRESSION: Mild congestive heart failure. Electronically Signed: Alec Sepulveda MD at 12:13 EST Tel , Service support ,
[2021-09-27 11:55] LABS: BNP,B-Type NATRIURETIC PEPTIDE 29.9 pg/mL (0-100)
[2021-09-27 11:58] LABS: Anion Gap 8 (5-15); BUN 22 mg/dL (7-18); BUN/Creat Ratio 18.3 RATIO (10-20); Calcium,Total 8.7 mg/dL (8.5-10.1); Chloride 101 mmol/L (98-107); EST Glomerular Filtration Rate 64 mL/min (>60); Est Glom Filt Rate - Afr Amer 78 mL/min (>60); Estimated Creatinine Clearance 57.79 ml/min; Glucose 145 mg/dL (74-106); Potassium 3.3 mmol/L (3.5-5.1); Sodium Level 135 mmol/L (136-145); Troponin-I HS 16 pg/mL (3.0-78.0)
[2021-09-27 12:17] LABS: Lactic Acid 0.7 mmol/L (0.4-1.9)
--- NOTE | 2021-09-27 13:09 | HP.PCM.HOS_ITS ---
HPI - General General Date of Admission: 09/27/21 HPI Narrative ROBERTA MOLINA, is a 66 M who presents with an extensive PMH as outlined. He was admitted via the ED on 09/27/2021 with a complaint of weakness and shortness of breath which started ~ 5-6 days ago. He had a negative rapid COVID test and negative influenza screen 2 days ago. He continued feeling weak and shortness of breath at home. He is vaccinated for covid, before December 2020. His family members found him on the floor today, and they couldnt get him up. They therefore brought him to the ED. he had a cough but denied any chest pain, palpitations, dizziness, nausea vomiting. Review of systems otherwise negative. Upon review in the ED, temperature was 99.8 Fahrenheit with respiratory rate of 24, pulse rate of 90 and blood pressure of 118/72. He was saturating at 92% on 6 L of oxygen. Covid PCR test was positive. CBC showed WBC of 5 with hemoglobin of 12.6 and platelets of 159. Chemistry showed sodium of 135 with potassium of 3.3 and creatinine of 1.2. Chest x-ray showed evidence of mild congestive heart failure. He has been admitted to manage acute hypoxic respiratory failure due to COVID-19 pneumonia. [facility] Medical History (Updated 09/27/21 @ 15:15 by Shantel Bhatt) Anterolisthesis DDD (degenerative disc disease), lumbar Degenerative disc disease, cervical Diabetes Hypertension Home Medications Lantus U-100 Insulin 12 unit SUBCUT QHS 08/26/18 [History Last Taken 12/06/19] Xarelto 20 mg PO DAILY 08/26/18 [History Last Taken 12/06/19] allopurinol 200 mg PO QHS 08/26/18 [History Last Taken 12/06/19] amiodarone 200 mg PO DAILY 08/26/18 [History Last Taken 12/07/19] atorvastatin 10 mg PO QHS 08/26/18 [History Last Taken 12/06/19] cholecalciferol (vitamin D3) [Vitamin D3] 1,000 unit PO DAILY 08/26/18 [History Last Taken 12/07/19] ferrous sulfate [Iron (ferrous sulfate)] 325 mg PO BID 08/26/18 [History Last Taken 12/07/19] magnesium oxide 420 mg PO TID 08/26/18 [History Last Taken 12/07/19] multivitamin [Multiple Vitamins] 1 tab PO DAILY 08/26/18 [History Last Taken 12/07/19] potassium chloride [Klor-Con M20] 40 meq PO BID 08/26/18 [History Last Taken 12/07/19] tamsulosin [Flomax] 0.4 mg PO QHS 08/26/18 [History Last Taken 12/06/19] torsemide 40 mg PO BID 08/26/18 [History Last Taken 12/07/19] acyclovir 400 mg PO BID 12/07/19 [History Last Taken 12/07/19] allopurinol 300 mg PO DAILY 12/07/19 [History Last Taken 12/07/19] calcium carbonate 500 mg PO BID 12/07/19 [History Last Taken 12/07/19] carvedilol 12.5 mg PO BID 12/07/19 [History Last Taken 12/07/19] omeprazole 40 mg PO BID 12/07/19 [History Last Taken 12/07/19] duloxetine 60 mg PO DAILY 12/08/19 [History Last Taken Unknown] gabapentin 400 mg PO BID 12/08/19 [History Last Taken Unknown] azelastine 2 spray INTRANASAL BID #30 ml 09/24/21 [Rx Last Taken Unknown] azelastine 2 spray INTRANASAL BID #30 ml 09/24/21 [Rx Last Taken Unknown] benzonatate 200 mg PO TID PRN #30 cap 09/24/21 [Rx Last Taken Unknown] benzonatate 200 mg PO TID PRN #30 cap 09/24/21 [Rx Last Taken Unknown] Allergy/AdvReac Type Severity Reaction Status Date / Time No Known Allergies Allergy Verified 09/27/21 10:15 Family History Father Hypertension Mother Diabetes Surgical History (Updated 09/27/21 @ 15:16 by Shantel Bhatt) History of appendectomy Social History Smoking Status: Former smoker alcohol intake: current alcohol intake frequency: 0-2 drinks per day substance use type: does not use what type of physical activity do you participate in: walking frequency: 1-2 times per week ROS Review of Systems ROS Unobtainable: Denies due to encephalopathy Constitutional Constitutional: Reports fatigue, malaise and weakness; Denies chills or fever(s) Eyes Eyes: Denies change in vision ENT HEENT: Reports sore throat; Denies dysphagia, headache(s), hearing loss, nasal congestion, nasal discharge or sinus pressure Cardiovascular Cardiovascular: Reports dyspnea on exertion, orthopnea and paroxysmal nocturnal dyspnea; Denies chest pain, edema, lightheadedness, palpitations, rapid heart rate or syncope Respiratory/Chest Respiratory/Chest: Reports cough, dyspnea, productive cough, shortness of breath at rest and shortness of breath with exertion; Denies excessive phlegm production, hemoptysis or wheezing Gastrointestinal Gastrointestinal: Denies abdominal pain, coffee ground emesis, constipation, diarrhea, nausea or vomiting Genitourinary Genitourinary: Denies burning urination or dysuria Neurologic Neurologic: Denies confusion, dizziness, focal weakness, headache(s), numbness or syncope Psychiatric Psychiatric: Denies anxiety Hematologic/Lymphatic Hematologic/Lymphatic: Reports anemia Vital Signs Vital Signs Vital Signs: 09/27/21 10:10 09/27/21 10:17 09/27/21 10:18 Temperature 99.5 F H 99.5 F H Temperature Source Temporal Temporal Pulse Rate 85 85 Respiratory Rate 25 H 25 H Respiratory Effort Short of Breath Labored Respiratory Pattern Tachypnea Blood Pressure 118/64 Blood Pressure Mean 82 Pulse Ox 95 95 Oxygen Delivery Method Non-Rebreather Non-Rebreather Oxygen Flow Rate (L/min) 15 15 09/27/21 10:41 09/27/21 10:42 09/27/21 11:36 Temperature 99.8 F H Temperature Source Temporal Pulse Rate 86 90 Respiratory Rate 25 H 24 H Respiratory Effort Respiratory Pattern Tachypnea Blood Pressure 118/72 Blood Pressure Mean 87 Pulse Ox 91 92 Oxygen Delivery Method Nasal Cannula Nasal Cannula Oxygen Flow Rate (L/min) 5 6 09/27/21 12:00 09/27/21 13:00 Temperature 99.8 F H 99.1 F Temperature Source Temporal Temporal Pulse Rate 89 83 Respiratory Rate 24 H 26 H Respiratory Effort Respiratory Pattern Blood Pressure 123/47 H 135/72 H Blood Pressure Mean 72 93 Pulse Ox 91 93 Oxygen Delivery Method Nasal Cannula Nasal Cannula Oxygen Flow Rate (L/min) 6 6 Weight Weight: 389 lb 15.964 oz Body Mass Index (BMI) 59.3 Physical Exam Const alert and oriented x3 Constitutional Narrative: super morbid obesity General Appearance: cooperative Orientation / Consciousness: lethargic HEENT normocephalic, head/scalp atraumatic and moist oral mucous membranes Eyes PERRL, EOMs intact bilaterally and conjunctivae normal Neck no lymphadenopathy Resp Resp Narrative: Tachypneic. Diminished breath sounds bibasilarly. No wheezes no crackles. on 6L of oxygen by nasal canula Cardio regular rate, regular rhythm, S1 normal heart sound and S2 normal heart sound GI normal to inspection, nondistended, normoactive bowel sounds, soft to palpation, non-tender and non-distended Extremity normal to inspection, full ROM and no clubbing, cyanosis or edema Peripheral Pulses: Yes pulses 2+ throughout Skin no rashes or lesions noted Neuro oriented x3, CN's II-XII intact bilaterally and moves all extremities Sensorium / Orientation: awake and alert Psych affect normal Results Lab / Micro Data Result Diagrams: 09/27/21 11:26 09/27/21 11:26 Labs: Laboratory Results - last 24 hr 09/27/21 10:32: COVID-19 (ARTURO) Positive 09/27/21 11:26: WBC 5.0, RBC 4.05 L, Hgb 12.6 L, Hct 39.1 L, MCV 96.5 H, MCH 31.1, MCHC 32.2, RDW Std Deviation 53.8 H, RDW Coeff of Will 15.0 H, Plt Count 159, MPV 10.4, Immature Gran % (Auto) 0.400, Neut % (Auto) 78.0 H, Lymph % (Auto) 11.3 L, [place] % (Auto) 10.1 H, Eos % (Auto) 0.2, Baso % (Auto) 0.0, Absolute Neuts (auto) 3.9, Absolute Lymphs (auto) 0.57 L, Nucleated RBC % 0 09/27/21 11:26: Sodium 135 L, Potassium 3.3 L, Chloride 101, Carbon Dioxide 2 6.0, Anion Gap 8, BUN 22 H, Creatinine 1.20, Estim Creat Clear Calc 57.79, Est GFR (MDRD) Af Amer 78, Est GFR (MDRD) Non-Af 64, BUN/Creatinine Ratio 18.3, Glucose 145 H, Calcium 8.7, Troponin I High Sens 16 09/27/21 11:26: B-Natriuretic Peptide 29.9 09/27/21 11:26: Lactic Acid 0.7 Radiology Impression Chest X-Ray 09/27/21 11:40 IMPRESSION: Mild congestive heart failure. Electronically Signed: Alec Sepulveda MD at 12:13 EST Tel , Service support , Assessment & Plan Assessment/Plan (1) Hypoxemia: (2) COVID-19: PLAN: #Acute hypoxic respiratory failure due to COVID-19 pneumonia * Admit to PCU * Start on remdesivir and Decadron. * Breathing treatments with bronchodilators. * Titrate oxygen to maintain saturation above 90%. * Diuresed with IV Lasix as chest x-ray showed evidence of mild congestive heart failure * #A. fib: Currently rate controlled. On amiodarone and carvedilol. Also on Xar elto #GERD: On PPI #Type 2 diabetes mellitus: On Lantus 12 units nightly. Insulin sliding scale. Accu-Cheks AC at bedtime. #Chronic heart failure. * EF unknown as no echo on file * Chest x-ray showed evidence of mild congestive heart failure. * BNP was only 29, so no evidence of heart failure though CXR showed fluid overload * Will diurese with IV Lasix for now in light of respiratory failure and CXR findings. * #Super morbid obesity: Complicates acute care, recovery and expected prognosis #BPH: on flomax #Hyperlipidemia: On statin DVT prophylaxis: Not indicated as patient is on Xarelto CODE STATUS: Full code * Patient counseled extensively about different types of CODE STATUS including full code, DNR CCA and DNR CCA. Patient elects to be full code. * Total jevn-ep-thdg time 17 minutes. Charges/Coding Visit Charges Inpatient E&M: 23721 Init Hosp L3 Procedures Hospitalists Procedures: 10351 Advncd Care Plan 30 Min
[2021-09-27] MEDS: dexAMETHasone 4 MG Tablet 6 MG PO (13:44)
--- NOTE | 2021-09-27 13:51 | NURSING ---
LEFT A MESSAGE WITH JOHNNA MONTEIRO ADMISSION LINE THAT PT NEEDS ADMITTED
--- NOTE | 2021-09-27 15:04 | PCS.PANDOC ---
PANDEMIC DOCUMENTATION INITIATED: Date: 05/25/2021 Time: 190
[2021-09-27 16:17] LABS: CPK Total, Creatine Kinase 390 U/L (39-308); LDH 354 U/L (87-241)
[2021-09-27 16:57] LABS: Lactic Acid 1.1 mmol/L (0.4-1.9)
[2021-09-27 17:03] LABS: Procalcitonin 0.15 ng/mL (0.00-0.09)
[2021-09-27] MEDS: Acetaminophen 325 MG Tablet 650 MG PO (17:06)
[2021-09-27] MEDS: Gabapentin 400 MG Capsule PO (17:07)
[2021-09-27] MEDS: Calcium (Elemental) 500 MG Tablet PO (17:07)
[2021-09-27] MEDS: Rivaroxaban 20 MG Tablet PO (17:07)
[2021-09-27] MEDS: Ferrous Sulfate 325 MG Tablet PO (17:07)
[2021-09-27] MEDS: Tamsulosin HCl 0.4 MG Capsule PO (17:07)
[2021-09-27] MEDS: Furosemide 40 MG/4 ML Vial IV (17:07)
[2021-09-27] MEDS: Potassium Chloride Oral Tablet 20 MEQ 40 MEQ PO (17:07)
[2021-09-27] MEDS: Azelastine HCl NASAL.SRY 2 SPRAY NASAL (21:13)
[2021-09-27] MEDS: Atorvastatin Calcium 10 MG Tablet PO (21:14)
[2021-09-27] MEDS: Carvedilol 12.5 MG Tablet PO (21:14)
[2021-09-27] MEDS: Acyclovir 200 MG Capsule 400 MG PO (21:14)
[2021-09-27] MEDS: Pantoprazole Sodium 40 MG Tablet PO (21:14)
[2021-09-27] MEDS: Allopurinol 100 MG Tablet 200 MG PO (21:15)
[2021-09-27] MEDS: Magnesium Chloride 64 MG Delay Rel.Tablet 128 MG PO (21:19)
[2021-09-27] MEDS: Benzonatate 100 MG Capsule 200 MG PO (23:56)
[2021-09-28] VITALS (23 sets, daily range): BP systolic 102–131; BP diastolic 48–79; PULSE 61–84; RESP 14–27; TEMP 36.4–37.1; O2SAT 90–97
[2021-09-28 00:36] LABS: Bedside Glucose 267 mg/dL (70-110)
[2021-09-28 06:46] LABS: Absolute Lymphocyte Count 0.41 X10^3/uL (0.83-4.51); Absolute Neutrophil Count 3.7 X10^3/uL (2.0-7.7); Hematocrit 39.4 % (40-54); Hemoglobin 12.7 g/dL (13.0-16.5); Lymphocyte # 0.41 X10^3/ul (0.83-4.51); Lymphocyte % 9.1 % (19-41); Mean Corp Hgb Conc 32.2 g/dL (32-36); Mean Corpuscular Hgb 31.2 pg (27.0-32.0); Mean Corpuscular Volume 96.8 fL (80-94); Mean Platelet Vol. 10.7 fl (6.2-12.0); Monocyte# 0.41 X10^3/uL; Monocyte% 9.1 % (0-10); NRBC Flagged by Analyzer 0 % (0-5); Neutrophil # 3.67 X10^3/uL (2.7-7.7); Neutrophil % 81.4 % (47-70); POSITIVE DIFFERENTIAL YES; Platelet Count 179 K/mm3 (150-450); RBC Distribution Width CV 14.7 % (11.6-14.6); RBC Distribution Width SD 52.8 fl (35.1-43.9); Red Blood Count 4.07 M/mm3 (4.6-6.2); White Blood Count 4.5 K/mm3 (4.4-11.0)
[2021-09-28 07:14] LABS: Differential Indicated SCAN CRITERIA MET
[2021-09-28 07:15] LABS: Anion Gap 6 (5-15); BUN 22 mg/dL (7-18); BUN/Creat Ratio 21.4 RATIO (10-20); Calcium,Total 9.3 mg/dL (8.5-10.1); Chloride 103 mmol/L (98-107); Creatinine, Serum 1.03 mg/dL (0.70-1.30); EST Glomerular Filtration Rate 76 mL/min (>60); Est Glom Filt Rate - Afr Amer 92 mL/min (>60); Estimated Creatinine Clearance 67.33 ml/min; Glucose 201 mg/dL (74-106); Potassium 4.5 mmol/L (3.5-5.1); Sodium Level 137 mmol/L (136-145)
[2021-09-28] MEDS: Magnesium Chloride 64 MG Delay Rel.Tablet 128 MG PO ×3 (09:51→21:29)
[2021-09-28] MEDS: 0.9% Saline Lock 10 ML Syringe IV ×2 (09:51→16:33)
[2021-09-28] MEDS: Carvedilol 12.5 MG Tablet PO (09:51)
[2021-09-28] MEDS: Calcium (Elemental) 500 MG Tablet PO ×2 (09:51→16:32)
[2021-09-28] MEDS: Acyclovir 200 MG Capsule 400 MG PO ×2 (09:51→21:29)
[2021-09-28] MEDS: Allopurinol 300 MG Tablet PO (09:51)
[2021-09-28] MEDS: Cholecalciferol (VIT D3) 25 MCG TABLET (1,000 UNITS) PO (09:51)
[2021-09-28] MEDS: Amiodarone 200 MG Tablet PO (09:52)
[2021-09-28] MEDS: Multivitamins,Therapeutic Tablet 1 TABLET PO (09:52)
[2021-09-28] MEDS: Azelastine HCl NASAL.SRY 2 SPRAY NASAL ×2 (09:52→21:28)
[2021-09-28] MEDS: Potassium Chloride Oral Tablet 20 MEQ 40 MEQ PO ×2 (09:52→16:32)
[2021-09-28] MEDS: Ferrous Sulfate 325 MG Tablet PO ×2 (09:52→16:31)
[2021-09-28] MEDS: dexAMETHasone 4 MG Tablet 6 MG PO (09:52)
[2021-09-28] MEDS: Furosemide 40 MG/4 ML Vial IV ×2 (09:52→16:33)
[2021-09-28] MEDS: Pantoprazole Sodium 40 MG Tablet PO ×2 (09:52→21:29)
[2021-09-28] MEDS: Gabapentin 400 MG Capsule PO ×2 (09:52→16:32)
[2021-09-28] MEDS: DULoxetine Hcl 60 MG Capsule PO (09:52)
[2021-09-28] MEDS: Benzonatate 100 MG Capsule 200 MG PO (10:04)
[2021-09-28] MEDS: Acetaminophen 325 MG Tablet 650 MG PO (10:04)
--- NOTE | 2021-09-28 10:30 | CASEMGMT ---
REECE HESTER Assessment: Initial transition planning/care coordination assessment. REECE HESTER introduced self and role at [facility], pt voices understanding and consents to assessment. Pt is on 15L nc, speaks in full sentences with no distress. Pt is A/Ox4 and answers all questions appropriately. Pt is vaccinated for COVID and states is also positive and states no concerns getting groceries/resources. Care providers, pharmacy, and demographics verified. Presentation: Pt c/o weakness and slid off chair, unable to get up with sat in 70's, seen in ED 3 days ago for same Admitting dx: COVID, resp failure [facility] Specialists: Pt states has multiple specialists, [facility]. [facility]acy: [facility]: [facility] A[facility]B Prescription Benefit: [facility] Living Will/HPOA: Pt has LW/HPOA and states his , Nataly Valencia, is HPOA. Pt is aware that they are not on file at [facility]. LNOK: Nataly Valencia, ; Felix Valencia, son Living Arrangements: Pt lives with , son, and daughters in 1 story home and states no concerns at home. Pt is independent with ADL's. Transportation: Pt states son drives and states no transportation concerns. DME/HHC: Pt has the following DME: walker and cpap thru [facility]. Pt denies need for any further DME, but states would like [facility] for home oxygen, if qualifies. Pt states no hx of SNF but has had HHC thru [facility] in past. Pt states no concerns with going home at time of discharge. Pt is retired. Pt states does not smoke cigarettes but occasionally drinks ETOH. Pt voices no further concerns/needs. CM to follow for home oxygen need, therapy notes, and any further discharge planning/needs. Advised pt to ask for CM if any further questions/concerns/needs, voices understanding. Pt Goal: Home Plan: Home, pending home oxygen testing, therapy. S[place]en REECE HESTER
[2021-09-28] MEDS: Rivaroxaban 20 MG Tablet PO (16:31)
[2021-09-28] MEDS: Tamsulosin HCl 0.4 MG Capsule PO (16:32)
--- NOTE | 2021-09-28 17:00 | PN.HOSP_ITS ---
Subjective Subjective short of breath. on 10l. Objective Data Objective Data Vital Signs: Vital Signs Temp Pulse Resp BP Pulse Ox 36.9 C 70 16 129/72 H 93 09/28/21 16:41 09/28/21 16:41 09/28/21 16:41 09/28/21 16:41 09/28/21 16:41 Oxygen Flow Rate (L/min) 13 Oxygen Delivery Method High Flow Weight: 166.95 kg Body Mass Index (BMI) 55.9 Intake & Output: Intake and Output for Last 24 Hours 09/26/21 09/27/21 09/28/21 23:59 23:59 23:59 Intake Total 360 / 360 Output Total 400 / 750 350 / 350 Balance -40 / -390 -350 / -350 Medical Nutrition Assessment Dietitian: Malnutrition Criteria Met Start: 09/28/21 11:48 Freq: Status: Active Protocol: Document 09/28/21 11:49 SLA (Rec: 09/28/21 11:49 [facility] [id number]) Nutrition Malnutrition Evidence of Malnutrition Exists Yes Malnutrition (severe): Acute Illness/Injury Evidenced By Suboptimal Energy Intake ( Severe),Weight Loss (Severe) Clinical Problem Acute Disease or Injury Related Malnutrition Etiology related to acute illness and weakened sense of smell making it difficult for pt to consume adequate nutrition to meet est nutritional needs Signs/Symptoms as evidenced by <50% po intake and wt loss 4.4% in past 10 days Status Active Problem Altered Nutrient-Related Laboratory Values Etiology related to diabetes and steroid administration Signs/Symptoms as evidenced by gluc 201 Status Active Problem Recommendation Dietitian Recommendations/Changes Will change diet to CHO Control/ Cardiac d/t pmhx Will provide 4 oz glucerna shake w/ meals tid for increased nutrition if consumed Lab / Micro Data Result Diagrams: 09/28/21 06:10 09/28/21 06:10 Labs: Laboratory Results - last 24 hr 09/27/21 16:15: Procalcitonin 0.15 H 09/27/21 21:17: POC Glucose 267 H 09/28/21 06:10: WBC 4.5, RBC 4.07 L, Hgb 12.7 L, Hct 39.4 L, MCV 96.8 H, MCH 31.2, MCHC 32.2, RDW Std Deviation 52.8 H, RDW Coeff of Will 14.7 H, Plt Count 179, MPV 10.7, Immature Gran % (Auto) 0.400, Neut % (Auto) 81.4 H, Lymph % (Auto) 9.1 L, [place] % (Auto) 9.1, Eos % (Auto) 0.0, Baso % (Auto) 0.0, Absolute Neuts (auto) 3.7, Absolute Lymphs (auto) 0.41 L, Nucleated RBC % 0, Differential Comment COMMENT 09/28/21 06:10: Sodium 137, Potassium 4.5, Chloride 103, Carbon Dioxide 28.0, Anion Gap 6, BUN 22 H, Creatinine 1.03, Estim Creat Clear Calc 67.33, Est GFR (MDRD) Af Amer 92, Est GFR (MDRD) Non-Af 76, BUN/Creatinine Ratio 21.4 H, Glucose 201 H, Calcium 9.3 Micro: Microbiology 09/28/21 10:00 Sputum, Expectorated/Coughed Gram Stain - Final 09/27/21 17:30 Urine, Clean Catch Legionella Antigen - Final 09/27/21 17:30 Urine, Clean Catch Streptococcus pneumoniae Antigen (M - Final Physical Exam Const alert and no apparent distress Resp normal respiratory effort and no retractions Resp Narrative: coarse breath sounds Cardio regular rate, regular rhythm, S1 normal heart sound and S2 normal heart sound GI normal to inspection, nondistended, normoactive bowel sounds and soft to palpation Extremity normal to inspection Assessment & Plan Assessment/Plan (1) Hypoxemia: (2) COVID-19: PLAN: 1. Acute hypoxic respiratory failure * due to COVID-19 pneumonia * Admit to PCU * Start on remdesivir and Decadron. * Breathing treatments with bronchodilators. * Titrate oxygen to maintain saturation above 90%. * Diuresed with IV Lasix as chest x-ray showed evidence of mild congestive heart failure * vaccinated with Moderna (no booster) * cardiomegaly on CXR, check echo * furosemide 2. Acute COVID 19 pneumonia * as above 3. A. fib: Currently rate controlled. On amiodarone and carvedilol. Also on Xarelto 5. GERD: On PPI 6. Type 2 diabetes mellitus: On Lantus 12 units nightly. Insulin sliding scale. Accu-Cheks AC at bedtime. 7. Chronic heart failure. * EF unknown as no echo on file * Chest x-ray showed evidence of mild congestive heart failure. * BNP was only 29, so no evidence of heart failure though CXR showed fluid overload * Will diurese with IV Lasix for now in light of respiratory failure and CXR findings. 8. Super morbid obesity: * Complicates acute care, recovery and expected prognosis 9. BPH: on flomax 10. Hyperlipidemia: On statin 11. DVT prophylaxis: Not indicated as patient is on Xarelto 12. CODE STATUS: Full code Charges/Coding Visit Charges Inpatient E&M: 55392 Subs Hosp L2
--- NOTE | 2021-09-28 17:05 | ECHOLC_ITS ---
Reason For Study: CHF Procedure This was a limited 2D transthoracic echocardiogram. The study was technically difficult. Contrast injection was performed. Limited views were obtained. Exam performed portable in patient room. The exam was abbreviated due to the COVID 19 protocol. Left Ventricle Based upon the contrast images obtained there appears to be grossly normal left ventricular wall motion and systolic function. The estimated ejection fraction is 55 %. Medication Diluted definity 7.0ml given slow IV push to enhance endocardial definition. ECHO/Echo Limited w/Contrast Interpretation Summary The study was technically difficult. Contrast injection was performed. Limited views were obtained. Based upon the contrast images obtained there appears to be grossly normal left ventricular wall motion and systolic function. The estimated ejection fraction is 55 %. Ordering Physician: Nithin Garner Referring Physician: [facility] Performed By: Renetta Almeida, DIANE, RVT
[2021-09-28] MEDS: Allopurinol 100 MG Tablet 200 MG PO (21:29)
[2021-09-28] MEDS: Atorvastatin Calcium 10 MG Tablet PO (21:29)
[2021-09-28 21:41] LABS: Bedside Glucose 264 mg/dL (70-110)
[2021-09-29] VITALS (26 sets, daily range): BP systolic 103–135; BP diastolic 53–78; PULSE 67–92; RESP 14–40; TEMP 35.6–37.7; O2SAT 90–96
--- NOTE | 2021-09-29 02:41 | CPS ---
Placed pt on own Cpap machine with a 15L oxygen bleed in at approx 10:30pm.. about an hour later RN called to tell me pt is satting in high 80s. Placed pt on hospital bipap around 11:30pm 70-80% fio2
[2021-09-29] MEDS: Magnesium Chloride 64 MG Delay Rel.Tablet 128 MG PO ×3 (06:10→22:00)
[2021-09-29] MEDS: Menthol/Lanolin/Calamine/Znox 113 GM Tube 1 APPLIC TOPICAL ×3 (06:16→22:07)
[2021-09-29] MEDS: Nystatin Powder 15gm Bottle 1 APPLIC TOPICAL ×3 (06:17→22:07)
[2021-09-29 06:40] LABS: Bedside Glucose 143 mg/dL (70-110)
[2021-09-29 07:27] LABS: Absolute Lymphocyte Count 0.35 X10^3/uL (0.83-4.51); Absolute Neutrophil Count 9.9 X10^3/uL (2.0-7.7); Hematocrit 39.2 % (40-54); Hemoglobin 12.9 g/dL (13.0-16.5); Lymphocyte # 0.35 X10^3/ul (0.83-4.51); Lymphocyte % 3.2 % (19-41); Mean Corp Hgb Conc 32.9 g/dL (32-36); Mean Corpuscular Hgb 31.9 pg (27.0-32.0); Mean Corpuscular Volume 96.8 fL (80-94); Mean Platelet Vol. 10.4 fl (6.2-12.0); Monocyte# 0.54 X10^3/uL; NRBC Flagged by Analyzer 0 % (0-5); Neutrophil # 9.92 X10^3/uL (2.7-7.7); Neutrophil % 91.2 % (47-70); POSITIVE DIFFERENTIAL YES; Platelet Count 184 K/mm3 (150-450); RBC Distribution Width CV 14.7 % (11.6-14.6); RBC Distribution Width SD 52.5 fl (35.1-43.9); Red Blood Count 4.05 M/mm3 (4.6-6.2); White Blood Count 10.9 K/mm3 (4.4-11.0)
[2021-09-29 07:29] LABS: Differential Indicated SCAN CRITERIA MET
[2021-09-29 08:18] LABS: ALB/GLOB Ratio 0.5 RATIO (0.9-2.4); AST(SGOT) 34 U/L (15-37); Alanine Aminotransfer ALT/SGPT 27 U/L (16-61); Albumin, Serum 2.3 g/dL (3.2-5.0); Alkaline Phosphatase 47 U/L (45-117); Anion Gap 6 (5-15); BUN 17 mg/dL (7-18); BUN/Creat Ratio 17.2 RATIO (10-20); Calcium,Total 9.1 mg/dL (8.5-10.1); Chloride 101 mmol/L (98-107); Creatinine, Serum 0.99 mg/dL (0.70-1.30); EST Glomerular Filtration Rate 80 mL/min (>60); Est Glom Filt Rate - Afr Amer 97 mL/min (>60); Estimated Creatinine Clearance 70.05 ml/min; Globulin 4.2 g/dL (2.2-4.2); Glucose 140 mg/dL (74-106); Potassium 4.7 mmol/L (3.5-5.1); Protein, Total 6.5 g/dL (6.4-8.2); Sodium Level 135 mmol/L (136-145)
[2021-09-29] MEDS: Potassium Chloride Oral Tablet 20 MEQ 40 MEQ PO ×2 (09:39→17:10)
[2021-09-29] MEDS: Furosemide 40 MG/4 ML Vial IV ×2 (09:39→17:10)
[2021-09-29] MEDS: Allopurinol 300 MG Tablet PO (09:39)
[2021-09-29] MEDS: dexAMETHasone 4 MG Tablet 6 MG PO (09:39)
[2021-09-29] MEDS: Acyclovir 200 MG Capsule 400 MG PO ×2 (09:40→22:01)
[2021-09-29] MEDS: Ferrous Sulfate 325 MG Tablet PO ×2 (09:40→17:10)
[2021-09-29] MEDS: Multivitamins,Therapeutic Tablet 1 TABLET PO (09:40)
[2021-09-29] MEDS: Pantoprazole Sodium 40 MG Tablet PO ×2 (09:40→22:05)
[2021-09-29] MEDS: 0.9% Saline Lock 10 ML Syringe IV (09:40)
[2021-09-29] MEDS: DULoxetine Hcl 60 MG Capsule PO (09:40)
[2021-09-29] MEDS: Carvedilol 12.5 MG Tablet PO ×2 (09:41→22:01)
[2021-09-29] MEDS: Calcium (Elemental) 500 MG Tablet PO ×2 (09:41→17:10)
[2021-09-29] MEDS: Cholecalciferol (VIT D3) 25 MCG TABLET (1,000 UNITS) PO (09:41)
[2021-09-29] MEDS: Amiodarone 200 MG Tablet PO (09:41)
[2021-09-29] MEDS: Azelastine HCl NASAL.SRY 2 SPRAY NASAL (09:42)
[2021-09-29] MEDS: Gabapentin 400 MG Capsule PO ×2 (09:42→17:10)
--- NOTE | 2021-09-29 15:08 | PN.HOSP_ITS ---
Subjective Subjective Worse overnight. On BiPAP. Objective Data Objective Data Vital Signs: Vital Signs Temp Pulse Resp BP Pulse Ox 36.6 C 72 37 H 135/78 H 91 09/29/21 14:58 09/29/21 14:58 09/29/21 14:58 09/29/21 14:58 09/29/21 14:58 Oxygen Flow Rate (L/min) 15 Oxygen Delivery Method Bi-pap Weight: 166.95 kg Body Mass Index (BMI) 55.9 Intake & Output: Intake and Output for Last 24 Hours 09/27/21 09/28/21 09/29/21 23:59 23:59 23:59 Intake Total 360 / 360 400 / 600 1200 / 1200 Output Total 400 / 750 1100 / 1350 250 / 250 Balance -40 / -390 -700 / -750 950 / 950 Medical Nutrition Assessment Dietitian: Malnutrition Criteria Met Start: 09/28/21 11:48 Freq: Status: Active Protocol: Document 09/28/21 11:49 LAZ (Rec: 09/28/21 11:49 SLA [id number]) Nutrition Malnutrition Evidence of Malnutrition Exists Yes Malnutrition (severe): Acute Illness/Injury Evidenced By Suboptimal Energy Intake ( Severe),Weight Loss (Severe) Clinical Problem Acute Disease or Injury Related Malnutrition Etiology related to acute illness and weakened sense of smell making it difficult for pt to consume adequate nutrition to meet est nutritional needs Signs/Symptoms as evidenced by <50% po intake and wt loss 4.4% in past 10 days Status Active Problem Altered Nutrient-Related Laboratory Values Etiology related to diabetes and steroid administration Signs/Symptoms as evidenced by gluc 201 Status Active Problem Recommendation Dietitian Recommendations/Changes Will change diet to CHO Control/ Cardiac d/t pmhx Will provide 4 oz glucerna shake w/ meals tid for increased nutrition if consumed Lab / Micro Data Result Diagrams: 09/29/21 07:10 09/29/21 07:10 Labs: Laboratory Results - last 24 hr 09/28/21 21:22: POC Glucose 264 H 09/29/21 06:20: POC Glucose 143 H 09/29/21 07:10: WBC 10.9, RBC 4.05 L, Hgb 12.9 L, Hct 39.2 L, MCV 96.8 H, MCH 31.9, MCHC 32.9, RDW Std Deviation 52.5 H, RDW Coeff of Will 14.7 H, Plt Count 1 84, MPV 10.4, Immature Gran % (Auto) 0.600, Neut % (Auto) 91.2 H, Lymph % (Auto) 3.2 L, [place] % (Auto) 5.0, Eos % (Auto) 0.0, Baso % (Auto) 0.0, Absolute Neuts (auto) 9.9 H, Absolute Lymphs (auto) 0.35 L, Nucleated RBC % 0 09/29/21 07:10: Sodium 135 L, Potassium 4.7, Chloride 101, Carbon Dioxide 28.0, Anion Gap 6, BUN 17, Creatinine 0.99, Estim Creat Clear Calc 70.05, Est GFR (MDRD) Af Amer 97, Est GFR (MDRD) Non-Af 80, BUN/Creatinine Ratio 17.2, Glucose 140 H, Calcium 9.1, Total Bilirubin 0.30, AST 34, ALT 27, Alkaline Phosphatase 47, Total Protein 6.5, Albumin 2.3 L, Globulin 4.2, Albumin/Globulin Ratio 0.5 L Micro: Microbiology 09/28/21 10:00 Sputum, Expectorated/Coughed Gram Stain - Final 09/28/21 10:00 Sputum, Expectorated/Coughed Respiratory Culture - Preliminary Staphylococcus aureus 09/27/21 11:26 Blood Culture (Wb) - Anticubital Left Blood Culture - Preliminary No growth in 48 hours. 09/27/21 17:30 Urine, Clean Catch Legionella Antigen - Final 09/27/21 17:30 Urine, Clean Catch Streptococcus pneumoniae Antigen (M - Final Radiography Diagnostic Testing: Radiology Impression Echocardiogram 09/28/21 17:05 Interpretation Summary The study was technically difficult. Contrast injection was performed. Limited views were obtained. Based upon the contrast images obtained there appears to be grossly normal left ventricular wall motion and systolic function. The estimated ejection fraction is 55 %. Ordering Physician: Nithin Garner Referring Physician: [facility] Performed By: eRnetta Almeida, DIANE, RVT Physical Exam Const alert Resp normal respiratory effort Cardio regular rate, regular rhythm, S1 normal heart sound and S2 normal heart sound GI normal to inspection, nondistended, normoactive bowel sounds, soft to palpation, non-tender and non-distended Extremity General Extremity: edema Assessment & Plan Assessment/Plan (1) Hypoxemia: (2) COVID-19: PLAN: 1. Acute hypoxic respiratory failure * due to COVID-19 pneumonia (rapid negative, PCR +) + staph pnuemonia +/- CHF * Admit to PCU * Start on remdesivir and Decadron. * Breathing treatments with bronchodilators. * Titrate oxygen to maintain saturation above 90%. * Diuresed with IV Lasix as chest x-ray showed evidence of mild congestive heart failure * vaccinated with Moderna (no booster) * cardiomegaly on CXR, check echo * add vanc. pulm toilet * concern could worsen * consult pulm 2. Acute COVID 19 pneumonia * as above 3. A. fib: Currently rate controlled. On amiodarone and carvedilol. Also on Xarelto 5. GERD: On PPI 6. Type 2 diabetes mellitus: On Lantus 12 units nightly. Insulin sliding scale. Accu-Cheks AC at bedtime. 7. Acute HFpEF * EF 55% * Chest x-ray showed evidence of mild congestive heart failure. * BNP was only 29, so no evidence of heart failure though CXR showed fluid overload * Will diurese with IV Lasix for now in light of respiratory failure and CXR findings. 8. Super morbid obesity: * Complicates acute care, recovery and expected prognosis 9. BPH: on flomax 10. Hyperlipidemia: On statin 11. DVT prophylaxis: Not indicated as patient is on Xarelto 12. CODE STATUS: Full code verified with patient that is what he wants. Charges/Coding Visit Charges Inpatient E&M: 55918 Subs Hosp L2
--- NOTE | 2021-09-29 15:51 | PHA.PHARE_ITS ---
Consult Type of Consult: New start Suspected Infection: Pneumonia Labs: Sodium 135 mmol/L (136-145) L 09/29/21 07:10 Potassium 4.7 mmol/L (3.5-5.1) 09/29/21 07:10 Chloride 101 mmol/L (98-107) 09/29/21 07:10 Carbon Dioxide 28.0 mmol/L (21.0-32.0) 09/29/21 07:10 Anion Gap 6 (5-15) 09/29/21 07:10 BUN 17 mg/dL (7-18) 09/29/21 07:10 Creatinine 0.99 mg/dL (0.70-1.30) 09/29/21 07:10 Est GFR (MDRD) Af Amer 97 mL/min (>60) 09/29/21 07:10 Est GFR (MDRD) Non-Af 80 mL/min (>60) 09/29/21 07:10 BUN/Creatinine Ratio 17.2 RATIO (10-20) 09/29/21 07:10 Glucose 140 mg/dL (74-106) H 09/29/21 07:10 Microbiology: Microbiology 09/28/21 10:00 Sputum, Expectorated/Coughed Gram Stain - Final 09/28/21 10:00 Sputum, Expectorated/Coughed Respiratory Culture - Pr eliminary Staphylococcus aureus 09/27/21 11:26 Blood Culture (Wb) - Anticubital Left Blood Culture - Preliminary No growth in 48 hours. 09/27/21 17:30 Urine, Clean Catch Legionella Antigen - Final 09/27/21 17:30 Urine, Clean Catch Streptococcus pneumoniae Antigen (M - Final Weight used for dosin.8 kg - Adjusted Body Weight Estimated Creatinine Clearance: 70 ml/min Goal Trough: 15-20 mcg/mL Pharmacy Plan for Drug Dosing: NEW START IV VANCOMYCIN Consulting Physician: DR. LOPEZ Indication: COVID PNA Goal Trough: 15-20 SrCr: 0.99 CrCl: 70.1 ML/MIN (ADJUSTED BODY WEIGHT) Comments: 2000MG LOADING DOSE TO BE GIVEN @ 1600 09/29/21 Vancomcyin Dose: 1500MG Q12H TO START @ 0400 09/30/21 Pending Level: VANCOMYCIN TROUGH @ 0330 10/01/21 Pharmacy Service will continue to monitor and adjust dosing as required. Labs to be done on [date and time ordered]: VANCOMYCIN TROUGH @ 0330 10/01/21
[2021-09-29] MEDS: Rivaroxaban 20 MG Tablet PO (17:10)
[2021-09-29] MEDS: Tamsulosin HCl 0.4 MG Capsule PO (17:17)
[2021-09-29 22:25] LABS: Bedside Glucose 219 mg/dL (70-110)
[2021-09-30] VITALS (43 sets, daily range): BP systolic 91–129; BP diastolic 47–100; PULSE 62–75; RESP 1–40; TEMP 35.6–37.3; O2SAT 86–97
[2021-09-30 05:06] LABS: Absolute Neutrophil Count 7.7 X10^3/uL (2.0-7.7); Basophil# 0.01 X10^3/uL; Basophil% 0.1 % (0-1); Hematocrit 40.3 % (40-54); Hemoglobin 13.4 g/dL (13.0-16.5); Lymphocyte % 3.5 % (19-41); Mean Corp Hgb Conc 33.3 g/dL (32-36); Mean Corpuscular Hgb 32.3 pg (27.0-32.0); Mean Corpuscular Volume 97.1 fL (80-94); Mean Platelet Vol. 10.2 fl (6.2-12.0); Monocyte# 0.52 X10^3/uL; NRBC Flagged by Analyzer 0 % (0-5); Neutrophil % 89.5 % (47-70); POSITIVE DIFFERENTIAL YES; Platelet Count 192 K/mm3 (150-450); RBC Distribution Width CV 14.6 % (11.6-14.6); RBC Distribution Width SD 52.7 fl (35.1-43.9); Red Blood Count 4.15 M/mm3 (4.6-6.2); White Blood Count 8.6 K/mm3 (4.4-11.0)
[2021-09-30 05:09] LABS: Differential Indicated SCAN CRITERIA MET
[2021-09-30] MEDS: Menthol/Lanolin/Calamine/Znox 113 GM Tube 1 APPLIC TOPICAL ×3 (05:23→20:14)
[2021-09-30] MEDS: Nystatin Powder 15gm Bottle 1 APPLIC TOPICAL ×3 (05:23→20:14)
[2021-09-30 05:27] LABS: ALB/GLOB Ratio 0.5 RATIO (0.9-2.4); AST(SGOT) 34 U/L (15-37); Alanine Aminotransfer ALT/SGPT 35 U/L (16-61); Albumin, Serum 2.3 g/dL (3.2-5.0); Alkaline Phosphatase 49 U/L (45-117); Anion Gap 8 (5-15); BUN 20 mg/dL (7-18); BUN/Creat Ratio 20.8 RATIO (10-20); Calcium,Total 9.1 mg/dL (8.5-10.1); Chloride 100 mmol/L (98-107); Creatinine, Serum 0.96 mg/dL (0.70-1.30); EST Glomerular Filtration Rate 83 mL/min (>60); Est Glom Filt Rate - Afr Amer 100 mL/min (>60); Estimated Creatinine Clearance 72.24 ml/min; Globulin 4.5 g/dL (2.2-4.2); Glucose 188 mg/dL (74-106); Potassium 4.8 mmol/L (3.5-5.1); Protein, Total 6.8 g/dL (6.4-8.2); Sodium Level 137 mmol/L (136-145)
[2021-09-30 05:44] LABS: Differential Comment SCANNED
--- NOTE | 2021-09-30 08:13 | NURSING ---
This RN called and gave report to REECE Mackenzie IN ICU.
--- NOTE | 2021-09-30 08:26 | NURSING ---
This RN called the pt's and daughter, Augustin and let them know the pt was being transferred to ICU and will be intubated.
[2021-09-30] MEDS: Furosemide 40 MG/4 ML Vial IV ×2 (10:04→17:14)
[2021-09-30] MEDS: Carvedilol 12.5 MG Tablet GT ×2 (10:05→20:15)
[2021-09-30] MEDS: Cholecalciferol (VIT D3) 25 MCG TABLET (1,000 UNITS) GT (10:05)
[2021-09-30] MEDS: Amiodarone 200 MG Tablet GT (10:05)
[2021-09-30] MEDS: DULoxetine Hcl 60 MG Capsule PO (10:06)
[2021-09-30] MEDS: Allopurinol 300 MG Tablet GT (10:07)
[2021-09-30] MEDS: Acyclovir 200 MG Capsule 400 MG GT ×2 (10:08→20:16)
[2021-09-30] MEDS: 0.9% Saline Lock 10 ML Syringe IV (10:08)
--- NOTE | 2021-09-30 11:39 | EX.PCM.CONCC ---
Assessment & Plan Assessment/Plan (1) Acute respiratory failure with hypoxia: (2) COVID-19: (3) CHF (congestive heart failure): QUALIFIERS: Heart failure type: unspecified Heart failure chronicity: chronic Qualified Code(s): I50.9 - Heart failure, unspecified (4) Morbid obesity: (5) Staphylococcus aureus pneumonia: (6) Sleep apnea: QUALIFIERS: Sleep apnea type: unspecified type Qualified Code(s): G47.30 - Sleep apnea, unspecified (7) PAF (paroxysmal atrial fibrillation): PLAN: RECOMMENDATIONS: 1. Continue Decadron (10/12/2021). Agree with Remdesivir. Await decision on baricitinib 2. High potential for intubation later today 3. [facility] 4. Continue systemic anticoagulation 5. Potentially increase diuretic therapy tomorrow 6. Continue vancomycin pending culture results IMPRESSIONS: 1. Acute hypoxic respiratory failure Multifactorial etiology is suspected. Patient does have COVID-19, sputum positive for staph aureus and significant lower extremity swelling suggestive of congestive heart failure. Patient has been receiving diuretics and Decadron therapy. Vancomycin was initiated yesterday after positive culture. Patient is requiring BiPAP rescue at this time with marginal response. [facility] to see if patient normally uses a higher EPAP setting as this may help the BiPAP be more effective. Could not exclude the need for intubation in the next 12 to 24 hours. Continue to wean oxygen as tolerated. Thankfully, patient was vaccinated, which should help his overall condition. 2. Acute diastolic CHF/A. fib Patient with significant lower extremity edema at baseline. Clinical suspicion for an element of pulmonary hypertension. Patient is already on amiodarone and carvedilol. Patient also is fully anticoagulated. Low clinical suspicion for concomitant PE complicating problem #1. We will continue to address rate control to optimize cardiac function. Potentially transition to 3 times daily Lasix tomorrow. 3. Diabetes mellitus type 2?insulin-dependent Patient is appropriately on Decadron secondary to problem #1. However, anticipate significant difficulty in controlling hyperglycemia given size and previous insulin requirements. Continue to check blood sugars. Will likely need to increase Lantus. Patient has been n.p.o. for 2 days secondary to BiPAP therapy. Anticipate control will be worse if patient requires tube feeds. 4. BPH/hyperlipidemia/super morbid obesity/psoriasis/ABI/chronic pain syndrome/decreased mobility Complicates care, management, recovery and prognosis. Patient would likely benefit from a Conway catheter given limited ability to move. Will verify patient's ABI settings. Will have to watch narcotics closely as patient is at risk for hypercapnic respiratory failure. If Conway placed, Flomax can likely be discontinued. TIME: 45 minutes critical care time spent addressing patient's acute hypoxic respiratory failure, CHF, diabetes mellitus, discussion of CODE STATUS, review of all data and collaboration with care team HPI Consult Data Date of Consult: 09/30/21 HPI Narrative HPI Narrative: ROBERTA MOLINA is a 66 M, with past medical history listed below, who presented to [facility] on 09/27/2021 secondary to sliding out of a chair and an inability to get up. Patient was brought in by EMS following family members finding him with an inability to get back into the chair. Patient had reportedly been having respiratory symptoms for 2 to 4 days prior to this event. Patient had tested negative for Covid and influenza at that time. Patient states he had a cough and was bringing up yellow sputum, subjective fevers and generalized weakness. Patient did state that other members of the family had similar type symptoms. Patient was vaccinated against COVID-19, but did not receive a booster. Patient is on anticoagulation at baseline and states this had been continued. [facility] In the ER, patient was noted to have a temperature of 99.8 ?F, tachypneic at 26 breaths/min and initially requiring a nonrebreather to maintain saturations. Blood pressure was adequate. Laboratory work-up showed a white blood cell count of 5, hemoglobin 12.6 and platelets of 159. Potassium was 3.3 with a creatinine of 1.2 and lactate of 0.7. BNP was within normal limits. Chest x-ray showed bilateral patchy infiltrates and EKG showed a sinus rhythm with no significant ST changes. Patient was noted to be PCR positive for COVID-19. Patient was given a DuoNeb, p.o. Decadron and admitted to the hospital for further evaluation. Since being on the floor, patient has had progressive worsening in overall status despite Remdesivir and Decadron therapy. Patient was given IV Lasix twice daily. Patient was noted to be in A. fib and was requiring increase Lantus secondary to hyperglycemia. Patient was placed on BiPAP secondary to hypoxia and today was transferred to the intensive care unit for further evaluation and possible intubation. Patient reports a complex past medical history. Patient does have a history of congestive heart failure with chronic lower extremity swelling. Patient had admitted to some increased salt intake recently, but felt that his legs were normal. Patient does state that he wears compression hose most of the time and these had not been continued. Patient also reports that he has obstructive sleep apnea. The patient states he wears a CPAP, but his states that she believes it is a BiPAP. This is routinely monitored by the [place] out of [facility]. They are not aware of his settings. Patient does have a smoking history, but states he normally only uses an inhaler when he is sick. Patient does not carry a formal diagnosis of asthma or COPD. Patient does not use supplemental oxygen at baseline. Patient does state that he is willing to do what ever it takes. Patient is aware that intubation may be necessary and is open for this intervention. Patient is also open for a PICC line. Patient's interview included patient's daughter, video call with other family members and his . Review of systems otherwise negative from a constitutional, HEENT, respiratory, cardiovascular, GI, genitourinary, musculoskeletal, skin, neurologic, psychiatric and hematologic system unless stated above. [facility] Medical History Anterolisthesis DDD (degenerative disc disease), lumbar Degenerative disc disease, cervical Diabetes Hypertension Home Medications Lantus U-100 Insulin 12 unit SUBCUT QHS 08/26/18 [History Last Taken 12/06/19] Xarelto 20 mg PO DAILY 08/26/18 [History Last Taken 09/26/21] allopurinol 200 mg PO QHS 08/26/18 [History Last Taken 09/25/21] amiodarone 200 mg PO DAILY 08/26/18 [History Last Taken 09/25/21] atorvastatin 10 mg PO QHS 08/26/18 [History Last Taken 09/25/21] cholecalciferol (vitamin D3) [Vitamin D3] 1,000 unit PO DAILY 08/26/18 [History Last Taken 09/25/21] ferrous sulfate [Iron (ferrous sulfate)] 325 mg PO BID 08/26/18 [History Last Taken 09/25/21] magnesium oxide 420 mg PO TID 08/26/18 [History Last Taken 09/25/21] multivitamin [Multiple Vitamins] 1 tab PO DAILY 08/26/18 [History Last Taken 09/25/21] potassium chloride [Klor-Con M20] 40 meq PO BID 08/26/18 [History Last Taken 09/25/21] tamsulosin [Flomax] 0.4 mg PO QHS 08/26/18 [History Last Taken 09/25/21] torsemide 40 mg PO BID 08/26/18 [History Last Taken 09/25/21] acyclovir 400 mg PO BID 12/07/19 [History Last Taken 09/25/21] allopurinol 300 mg PO DAILY 12/07/19 [History Last Taken 09/25/21] calcium carbonate 500 mg PO BID 12/07/19 [History Last Taken 09/25/21] carvedilol 12.5 mg PO BID 12/07/19 [History Last Taken 09/25/21] omeprazole 40 mg PO BID 12/07/19 [History Last Taken 09/25/21] duloxetine 60 mg PO DAILY 12/08/19 [History Last Taken 09/25/21] gabapentin 400 mg PO BID 12/08/19 [History Last Taken 09/25/21] azelastine 2 spray INTRANASAL BID #30 ml 09/24/21 [Rx Last Taken Unknown] benzonatate 200 mg PO TID PRN #30 cap 09/24/21 [Rx Last Taken Unknown] Allergy/AdvReac Type Severity Reaction Status Date / Time No Known Allergies Allergy Verified 09/27/21 10:15 Family History Father Hypertension Mother Diabetes Surgical History History of appendectomy Social History Smoking Status: Former smoker alcohol intake: current alcohol intake frequency: 0-2 drinks per day substance use type: does not use what type of physical activity do you participate in: walking frequency: 1-2 times per week ROS ROS Narrative See HPI Physical Exam Const alert and oriented x3 General Appearance: in distress Positive for moderate, anxious and appears older than stated age Nutritional Appearance: morbidly obese HEENT normocephalic and head/scalp atraumatic HEENT Narrative: Mallampati 4. Thick neck. Eyes Sclera: sclera abnormal Positive for bilateral Details: scleral injection Lymph Lymphatic: no lymphadenopathy noted Chest inspection of chest normal Chest: symmetrical chest wall rise; Negative for crepitus Resp Resp Narrative: On BiPAP Auscultation: diminished lung sounds; Negative for rales, rhonchi or wheezes Cardio regular rate, regular rhythm, S1 normal heart sound and S2 normal heart sound GI normal to inspection, nondistended, normoactive bowel sounds, soft to palpation, non-tender and non-distended Extremity Extremity Narrative: Mild lichenification of the lower extremities General Extremity: edema bilateral (3+) lower extremity; Negative for clubbing or cyanosis Skin Skin Narrative: Venous stasis changes bilateral lower extremities Neuro oriented x3, moves all extremities and no focal motor deficits Psych Mood & Affect: anxious and tearful Medical Records Data Medical Nutrition Assessment Dietitian: Malnutrition Criteria Met Start: 09/28/21 11:48 Freq: Status: Active Protocol: Document 09/30/21 10:11 (Rec: 09/30/21 10:11 [id number]) Nutrition Malnutrition Evidence of Malnutrition Exists Yes Malnutrition (severe): Acute Illness/Injury Evidenced By Suboptimal Energy Intake ( Severe),Weight Loss (Severe) Clinical Problem Acute Disease or Injury Related Malnutrition Etiology related to decreased appetite w/ acute illness, Signs/Symptoms as evidenced by estimated PO intake meeting less than <50% of estimated nutritional needs >5 days; unintentional wt loss of 10.9kg/6.3% since onset of acute illness (less than 2 weeks) Status Active Problem Altered Nutrient-Related Laboratory Values Etiology - Signs/Symptoms - Status Inactive Problem Recommendation Dietitian Recommendations/Changes NPO d/t resp. status. If pt is intubated, recommend Vital HP via OGT at goal rate of 70mL/hour w/ 50mL H2O flush every 4 hours to provide 1680 calories, 146 g protein, and 1704mL total fluid/day. Would start at 20mL/hour and increase by 15mL/hour every 8- 12 hours as tolerated until goal rate is achieved. If appropriate for PO diet, recommend CHO controlled/ cardiac diet. Lab / Micro Data Result Diagrams: 09/30/21 04:48 09/30/21 04:48 Labs: Laboratory Results - last 24 hr 09/29/21 21:55: POC Glucose 219 H 09/30/21 04:48: WBC 8.6, RBC 4.15 L, Hgb 13.4, Hct 40.3, MCV 97.1 H, MCH 32.3 H, MCHC 33.3, RDW Std Deviation 52.7 H, RDW Coeff of Will 14.6, Plt Count 192, MPV 10.2, Immature Gran % (Auto) 0.900, Neut % (Auto) 89.5 H, Lymph % (Auto) 3.5 L, [place] % (Auto) 6.0, Eos % (Auto) 0.0, Baso % (Auto) 0.1, Absolute Neuts (auto) 7.7, Absolute Lymphs (auto) 0.30 L, Nucleated RBC % 0, Differential Comment SCANNED 09/30/21 04:48: Sodium 137, Potassium 4.8, Chloride 100, Carbon Dioxide 29.0, Anion Gap 8, BUN 20 H, Creatinine 0.96, Estim Creat Clear Calc 72.24, Est GFR (MDRD) Af Amer 100, Est GFR (MDRD) Non-Af 83, BUN/Creatinine Ratio 20.8 H, Glucose 188 H, Calcium 9.1, Total Bilirubin 0.40, AST 34, ALT 35, Alkaline Phosphatase 49, Total Protein 6.8, Albumin 2.3 L, Globulin 4.5 H, Albumin/Globulin Ratio 0.5 L Micro: Microbiology 09/28/21 10:00 Sputum, Expectorated/Coughed Gram Stain - Final 09/28/21 10:00 Sputum, Expectorated/Coughed Respiratory Culture - Preliminary Staphylococcus aureus 09/27/21 11:26 Blood Culture (Wb) - Anticubital Left Blood Culture - Preliminary No growth in 48 hours. Charges/Coding Procedures Hospitalists Procedures: [id number] [facility]
--- NOTE | 2021-09-30 11:49 | PN.HOSP_ITS ---
Subjective Subjective worse overnight. Sats dropped to 86% on 100% FiO2. Transferred to ICU, where was able to be kept on BiPAP and weaned down to 95% FiO2. Objective Data Objective Data Vital Signs: Vital Signs Temp Pulse Resp BP Pulse Ox 36.1 C L 65 34 H 119/81 H 94 09/30/21 08:46 09/30/21 11:45 09/30/21 11:00 09/30/21 11:00 09/30/21 11:00 Oxygen Flow Rate (L/min) 15 Oxygen Delivery Method Bi-pap Weight: 163.7 kg Body Mass Index (BMI) 55.9 Intake & Output: Intake and Output for Last 24 Hours 09/28/21 09/29/21 09/30/21 23:59 23:59 23:59 Intake Total 400 / 600 1840 / 1940 765 / 765 Output Total 1100 / 1350 650 / 650 700 / 700 Balance -700 / -750 1190 / 1290 65 / 65 Medical Nutrition Assessment Dietitian: Malnutrition Criteria Met Start: 09/28/21 11:48 Freq: Status: Active Protocol: Document 09/30/21 10:11 AG (Rec: 09/30/21 10:11 [id number]) Nutrition Malnutrition Evidence of Malnutrition Exists Yes Malnutrition (severe): Acute Illness/Injury Evidenced By Suboptimal Energy Intake ( Severe),Weight Loss (Severe) Clinical Problem Acute Disease or Injury Related Malnutrition Etiology related to decreased appetite w/ acute illness, Signs/Symptoms as evidenced by estimated PO intake meeting less than <50% of estimated nutritional needs >5 days; unintentional wt loss of 10.9kg/6.3% since onset of acute illness (less than 2 weeks) Status Active Problem Altered Nutrient-Related Laboratory Values Etiology - Signs/Symptoms - Status Inactive Problem Recommendation Dietitian Recommendations/Changes NPO d/t resp. status. If pt is intubated, recommend Vital HP via OGT at goal rate of 70mL/hour w/ 50mL H2O flush every 4 hours to provide 1680 calories, 146 g protein, and 1704mL total fluid/day. Would start at 20mL/hour and increase by 15mL/hour every 8- 12 hours as tolerated until goal rate is achieved. If appropriate for PO diet, recommend CHO controlled/ cardiac diet. Lab / Micro Data Result Diagrams: 09/30/21 04:48 09/30/21 04:48 Labs: Laboratory Results - last 24 hr 09/29/21 21:55: POC Glucose 219 H 09/30/21 04:48: WBC 8.6, RBC 4.15 L, Hgb 13.4, Hct 40.3, MCV 97.1 H, MCH 32.3 H, MCHC 33.3, RDW Std Deviation 52.7 H, RDW Coeff of Will 14.6, Plt Count 192, MPV 10.2, Immature Gran % (Auto) 0.900, Neut % (Auto) 89.5 H, Lymph % (Auto) 3.5 L, [place] % (Auto) 6.0, Eos % (Auto) 0.0, Baso % (Auto) 0.1, Absolute Neuts (auto) 7.7, Absolute Lymphs (auto) 0.30 L, Nucleated RBC % 0, Differential Comment SCANNED 09/30/21 04:48: Sodium 137, Potassium 4.8, Chloride 100, Carbon Dioxide 29.0, Anion Gap 8, BUN 20 H, Creatinine 0.96, Estim Creat Clear Calc 72.24, Est GFR (MDRD) Af Amer 100, Est GFR (MDRD) Non-Af 83, BUN/Creatinine Ratio 20.8 H, Glucose 188 H, Calcium 9.1, Total Bilirubin 0.40, AST 34, ALT 35, Alkaline Phosphatase 49, Total Protein 6.8, Albumin 2.3 L, Globulin 4.5 H, Albumin/Globulin Ratio 0.5 L Micro: Microbiology 09/28/21 10:00 Sputum, Expectorated/Coughed Gram Stain - Final 09/28/21 10:00 Sputum, Expectorated/Coughed Respiratory Culture - Prel iminary Staphylococcus aureus 09/27/21 11:26 Blood Culture (Wb) - Anticubital Left Blood Culture - Preliminary No growth in 48 hours. 09/27/21 17:30 Urine, Clean Catch Legionella Antigen - Final 09/27/21 17:30 Urine, Clean Catch Streptococcus pneumoniae Antigen (M - Final Physical Exam Const alert and no apparent distress Resp normal respiratory effort and no retractions Resp Narrative: coarse BS bilaterally. Cardio regular rate, regular rhythm, S1 normal heart sound and S2 normal heart sound GI normal to inspection, nondistended, normoactive bowel sounds, soft to palpation, non-tender and non-distended Extremity normal to inspection Assessment & Plan Assessment/Plan (1) Hypoxemia: (2) COVID-19: PLAN: 1. Acute hypoxic respiratory failure * due to COVID-19 pneumonia (rapid negative, PCR +) + staph pnuemonia +/- CHF * Admit to PCU * Start on remdesivir and Decadron. * Breathing treatments with bronchodilators. * Titrate oxygen to maintain saturation above 90%. * Diuresed with IV Lasix as chest x-ray showed evidence of mild congestive heart failure * vaccinated with Moderna (no booster) * cardiomegaly on CXR, check echo * add vanc. pulm toilet * concern could worsen * consult pulm 2. Acute COVID 19 pneumonia * as above 3. A. fib: Currently rate controlled. On amiodarone and carvedilol. Also on Xarelto 5. GERD: On PPI 6. Type 2 diabetes mellitus: On Lantus 12 units nightly. Insulin sliding scale. Accu-Cheks AC at bedtime. 7. Acute HFpEF * EF 55% * Chest x-ray showed evidence of mild congestive heart failure. * BNP was only 29, so no evidence of heart failure though CXR showed fluid overload * Will diurese with IV Lasix for now in light of respiratory failure and CXR findings. 8. Super morbid obesity: * Complicates acute care, recovery and expected prognosis 9. BPH: on flomax 10. Hyperlipidemia: On statin 11. DVT prophylaxis: Not indicated as patient is on Xarelto 12. CODE STATUS: Full code verified with patient that is what he wants. Charges/Coding Visit Charges Inpatient E&M: 20237 Subs Hosp L2
[2021-09-30] MEDS: Ferrous Sulfate 325 MG Tablet GT (17:15)
[2021-09-30] MEDS: Potassium Chloride Oral Tablet 20 MEQ 40 MEQ GT (17:15)
[2021-09-30] MEDS: Gabapentin 400 MG Capsule GT (17:16)
[2021-09-30] MEDS: Calcium (Elemental) 500 MG Tablet GT (17:17)
[2021-09-30] MEDS: Rivaroxaban 20 MG Tablet GT (17:19)
[2021-09-30] MEDS: Atorvastatin Calcium 10 MG Tablet GT (20:15)
[2021-09-30] MEDS: Allopurinol 100 MG Tablet 200 MG GT (20:15)
[2021-10-01] VITALS (33 sets, daily range): BP systolic 80–147; BP diastolic 57–96; PULSE 60–75; RESP 14–42; TEMP 37.1–37.7; O2SAT 87–98
[2021-10-01] MEDS: Menthol/Lanolin/Calamine/Znox 113 GM Tube 1 APPLIC TOPICAL ×2 (04:19→23:26)
[2021-10-01] MEDS: Nystatin Powder 15gm Bottle 1 APPLIC TOPICAL ×2 (04:20→23:42)
[2021-10-01 04:30] LABS: Absolute Lymphocyte Count 0.36 X10^3/uL (0.83-4.51); Absolute Neutrophil Count 7.1 X10^3/uL (2.0-7.7); Basophil# 0.02 X10^3/uL; Basophil% 0.2 % (0-1); Eosinophil# 0.03 X10^3/uL; Eosinophils% 0.4 % (0-5); Hemoglobin 13.5 g/dL (13.0-16.5); Lymphocyte # 0.36 X10^3/ul (0.83-4.51); Lymphocyte % 4.3 % (19-41); Mean Corp Hgb Conc 32.9 g/dL (32-36); Mean Corpuscular Hgb 31.9 pg (27.0-32.0); Mean Corpuscular Volume 96.9 fL (80-94); Mean Platelet Vol. 10.4 fl (6.2-12.0); Monocyte# 0.82 X10^3/uL; Monocyte% 9.8 % (0-10); NRBC Flagged by Analyzer 0 % (0-5); Neutrophil # 7.07 X10^3/uL (2.7-7.7); Neutrophil % 84.5 % (47-70); POSITIVE DIFFERENTIAL YES; Platelet Count 215 K/mm3 (150-450); RBC Distribution Width CV 14.6 % (11.6-14.6); RBC Distribution Width SD 52.7 fl (35.1-43.9); Red Blood Count 4.23 M/mm3 (4.6-6.2); White Blood Count 8.4 K/mm3 (4.4-11.0)
[2021-10-01 04:46] LABS: Differential Indicated SCAN CRITERIA MET
[2021-10-01 04:52] LABS: ALB/GLOB Ratio 0.5 RATIO (0.9-2.4); AST(SGOT) 27 U/L (15-37); Alanine Aminotransfer ALT/SGPT 37 U/L (16-61); Albumin, Serum 2.3 g/dL (3.2-5.0); Alkaline Phosphatase 55 U/L (45-117); Anion Gap 8 (5-15); BUN 22 mg/dL (7-18); Chloride 102 mmol/L (98-107); Creatinine, Serum 0.88 mg/dL (0.70-1.30); EST Glomerular Filtration Rate 92 mL/min (>60); Est Glom Filt Rate - Afr Amer 111 mL/min (>60); Estimated Creatinine Clearance 78.81 ml/min; Globulin 4.4 g/dL (2.2-4.2); Glucose 171 mg/dL (74-106); Potassium 4.2 mmol/L (3.5-5.1); Protein, Total 6.7 g/dL (6.4-8.2); Sodium Level 142 mmol/L (136-145)
[2021-10-01 05:05] LABS: Differential Comment SCANNED
[2021-10-01] MEDS: Furosemide 40 MG/4 ML Vial IV ×3 (06:37→18:05)
[2021-10-01] MEDS: Propofol 10MG/Ml 1,000 MG/100 ML Bottle 10 MG CONT INF (09:55)
--- NOTE | 2021-10-01 10:06 | PCM.PN.INT ---
Assessment & Plan Assessment/Plan (1) Acute respiratory failure with hypoxia: (2) COVID-19: (3) CHF (congestive heart failure): QUALIFIERS: Heart failure type: unspecified Heart failure chronicity: chronic Qualified Code(s): I50.9 - Heart failure, unspecified (4) Morbid obesity: (5) Staphylococcus aureus pneumonia: (6) Sleep apnea: QUALIFIERS: Sleep apnea type: unspecified type Qualified Code(s): G47.30 - Sleep apnea, unspecified (7) PAF (paroxysmal atrial fibrillation): PLAN: RECOMMENDATIONS: 1. Continue Decadron (10/12/2021). Consult ID. Await decision on baricitinib 2. Propofol and fentanyl for sedation/vent synchrony. SAT/SBT per protocol 3. Possible need for paralyzation 4. Continue systemic anticoagulation 5. Increase diuretic therapy tomorrow 6. Defer antibiotic selection to infectious disease IMPRESSIONS: 1. Acute hypoxic respiratory failure Multifactorial etiology is suspected. Patient does have COVID-19, sputum positive for staph aureus and significant lower extremity swelling suggestive of congestive heart failure. Patient has been receiving diuretics and Decadron therapy. Vancomycin was initiated 2 days ago after positive culture. Patient is requiring BiPAP rescue at this time with marginal response. Transition to higher BiPAP settings were not successful. Patient successfully intubated. Titrate PEEP and FiO2 as necessary. Continue to wean oxygen as tolerated. Thankfully, patient was vaccinated, which should help his overall condition. Infectious disease will be consulted for antibiotic selection and possible baricitinib 2. Acute diastolic CHF/A. fib Patient with significant lower extremity edema at baseline. Clinical suspicion for an element of pulmonary hypertension. Patient is already on amiodarone and carvedilol. Patient also is fully anticoagulated. Low clinical suspicion for concomitant PE complicating problem #1. We will continue to address rate control to optimize cardiac function. Transition to 3 times daily Lasix 3. Diabetes mellitus type 2?insulin-dependent Patient is appropriately on Decadron secondary to problem #1. However, anticipate significant difficulty in controlling hyperglycemia given size and previous insulin requirements. Continue to check blood sugars. Will likely need to increase Lantus. Patient has been n.p.o. for 2 days secondary to BiPAP therapy. Start blood sugar checks. Okay to feed with tube feeds 4. BPH/hyperlipidemia/super morbid obesity/psoriasis/ABI/chronic pain syndrome/decreased mobility Complicates care, management, recovery and prognosis. Patient would likely benefit from a Conway catheter given limited ability to move. Will verify patient's ABI settings. Will have to watch narcotics closely as patient is at risk for hypercapnic respiratory failure. If Conway placed, Flomax can likely be discontinued. TIME: 55 minutes critical care time spent addressing patient's acute hypoxic respiratory failure, CHF, diabetes mellitus, discussion of CODE STATUS, review of all data and collaboration with care team Subjective Subjective Patient did okay overnight. No acute issues were reported. Patient subjectively felt unchanged compared to yesterday. Patient had remained on 100% FiO2 throughout the evening on BiPAP. No p.o. intake was taken. Objective Data Objective Data Intubation Indication: Hypoxic respiratory failure Consent was obtained from: Patient and family The patient was placed in the appropriate sniffing position. Preoxygenated sedation via BiPAP was provided for a minimum of 3 minutes. The patient had continuous cardiac as well as pulse oximetry monitoring during the procedure. Procedure sedation was provided by the administration of 20 mg of etomidate and 100 of socks. Video laryngoscopy was then performed using a number 4 blade, which revealed a grade 1 view. Mucosa was very dry with maceration and some dried blood. A 8 mm endotracheal tube was visualized advancing between the cords to the level of 25 cm at the lip. The stylette was then removed and discarded. Tube placement was confirmed by fogging in the tube along with equal and bilateral breath sounds. Colorimetric change was visualized on the CO2 meter. The cuff was then inflated and the tube secured using a commercially available device. A good pulse oximetry waveform was seen on the monitor throughout the procedure. A portable chest x-ray has been ordered to confirm appropriate placement. The patient tolerated the procedure well. Vital Signs: Vital Signs Temp Pulse Resp BP Pulse Ox 37.2 C 69 30 H 146/86 H 93 10/01/21 09:00 10/01/21 09:00 10/01/21 09:00 10/01/21 09:00 10/01/21 09:00 Oxygen Flow Rate (L/min) 15 Oxygen Delivery Method Bi-pap Weight: 160.2 kg Body Mass Index (BMI) 55.9 Intake & Output: Intake and Output for Last 24 Hours 09/29/21 09/30/21 10/01/21 23:59 23:59 23:59 Intake Total 1840 / 1940 1455 / 1455 640 / 640 Output Total 650 / 650 2450 / 2450 250 / 250 Balance 1190 / 1290 -995 / -995 390 / 390 Medical Nutrition Assessment Dietitian: Malnutrition Criteria Met Start: 09/28/21 11:48 Freq: Status: Active Protocol: Document 09/30/21 10:11 AG (Rec: 09/30/21 10:11 AG [id number]) Nutrition Malnutrition Evidence of Malnutrition Exists Yes Malnutrition (severe): Acute Illness/Injury Evidenced By Suboptimal Energy Intake ( Severe),Weight Loss (Severe) Clinical Problem Acute Disease or Injury Related Malnutrition Etiology related to decreased appetite w/ acute illness, Signs/Symptoms as evidenced by estimated PO intake meeting less than <50% of estimated nutritional needs >5 days; unintentional wt loss of 10.9kg/6.3% since onset of acute illness (less than 2 weeks) Status Active Problem Altered Nutrient-Related Laboratory Values Etiology - Signs/Symptoms - Status Inactive Problem Recommendation Dietitian Recommendations/Changes NPO d/t resp. status. If pt is intubated, recommend Vital HP via OGT at goal rate of 70mL/hour w/ 50mL H2O flush every 4 hours to provide 1680 calories, 146 g protein, and 1704mL total fluid/day. Would start at 20mL/hour and increase by 15mL/hour every 8- 12 hours as tolerated until goal rate is achieved. If appropriate for PO diet, recommend CHO controlled/ cardiac diet. Lab / Micro Data Result Diagrams: 10/01/21 04:20 10/01/21 04:20 Labs: Laboratory Results - last 24 hr 10/01/21 04:20: WBC 8.4, RBC 4.23 L, Hgb 13.5, Hct 41.0, MCV 96.9 H, MCH 31.9, MCHC 32.9, RDW Std Deviation 52.7 H, RDW Coeff of Will 14.6, Plt Count 215, MPV 10.4, Immature Gran % (Auto) 0.800, Neut % (Auto) 84.5 H, Lymph % (Auto) 4.3 L, [place] % (Auto) 9.8, Eos % (Auto) 0.4, Baso % (Auto) 0.2, Absolute Neuts (auto) 7.1, Absolute Lymphs (auto) 0.36 L, Nucleated RBC % 0, Differential Comment SCANNED 10/01/21 04:20: Sodium 142, Potassium 4.2, Chloride 102, Carbon Dioxide 32.0, Anion Gap 8, BUN 22 H, Creatinine 0.88, Estim Creat Clear Calc 78.81, Est GFR (MDRD) Af Amer 111, Est GFR (MDRD) Non-Af 92, BUN/Creatinine Ratio 25.0 H, Glucose 171 H, Calcium 9.0, Total Bilirubin 0.60, AST 27, ALT 37, Alkaline Phosphatase 55, Total Protein 6.7, Albumin 2.3 L, Globulin 4.4 H, Albumin/Globulin Ratio 0.5 L Micro: Microbiology 09/28/21 10:00 Sputum, Expectorated/Coughed Gram Stain - Final 09/28/21 10:00 Sputum, Expectorated/Coughed Respiratory Culture - Preliminary Staphylococcus aureus Alpha Hemolytic Streptococcus 09/27/21 11:26 Blood Culture (Wb) - Anticubital Left Blood Culture - Preliminary No growth in 48 hours. 09/27/21 17:30 Urine, Clean Catch Legionella Antigen - Final 09/27/21 17:30 Urine, Clean Catch Streptococcus pneumoniae Antigen (M - Final Physical Exam Const alert and oriented x3 Constitutional Narrative: Intubated following initial evaluation General Appearance: in distress Positive for moderate, anxious, appears older than stated age and on BiPAP Nutritional Appearance: morbidly obese HEENT normocephalic and head/scalp atraumatic HEENT Narrative: Mallampati 4. Thick neck. Eyes Sclera: sclera abnormal Positive for bilateral Details: scleral injection Lymph Lymphatic: no lymphadenopathy noted Chest inspection of chest normal Chest: symmetrical chest wall rise; Negative for crepitus Resp Resp Narrative: On BiPAP. Significant coughing noted Auscultation: diminished lung sounds; Negative for rales, rhonchi or wheezes Cardio regular rate, regular rhythm, S1 normal heart sound and S2 normal heart sound GI normal to inspection, nondistended, normoactive bowel sounds, soft to palpation, non-tender and non-distended Extremity Extremity Narrative: Mild lichenification of the lower extremities. Improved edema compared to yesterday General Extremity: edema bilateral (3+) lower extremity; Negative for clubbing or cyanosis Skin Skin Narrative: Venous stasis changes bilateral lower extremities Neuro oriented x3, moves all extremities and no focal motor deficits Psych Mood & Affect: anxious and tearful Charges/Coding Procedures Hospitalists Procedures: 09635 Critial Care 1st Hr
--- NOTE | 2021-10-01 10:20 | RAD_ITS ---
STUDY: X-RAY CHEST REASON FOR EXAM: Male, 66 years old. Placement tube TECHNIQUE: Single AP portable view of the chest. COMPARISON: Comparison is made with prior examination dated 09/27/2021. FINDINGS: An endotracheal tube is in situ. The tip is at 2.6 cm proximal to the prieto. The tip of the orogastric tube is in the region of the gastroesophageal junction. Stable bilateral pulmonary infiltrates. There is no demonstrated pleural abnormality. RAD/Chest 1 View (Portable) IMPRESSION: The tip of the endotracheal tube is at 2.6 cm approximately the prieto. The tip of the orogastric tube is in the region of the gastroesophageal junction. Electronically Signed: Hi Damico MD at 11:02 EST , Service support ,
--- NOTE | 2021-10-01 10:38 | RAD_ITS ---
STUDY: X-RAY CHEST REASON FOR EXAM: Male, 66 years old. Tube placement TECHNIQUE: Single AP portable view of the chest. COMPARISON: Comparison is made with prior study 10/01/2021 at 10:16 AM. FINDINGS: An endotracheal tube is visualized. The tip is at 4.7 cm proximal to the prieto. The tip of the orogastric tube is in the region of the gastroesophageal junction. Stable bilateral pulmonary infiltrates. RAD/Chest 1 View (Portable) IMPRESSION: The tip of the endotracheal tube is at 4.7 sinus proximal to the prieto. The tip of the orogastric tube is at the level of the gastroesophageal junction. Electronically Signed: Hi Damico MD at 10:57 EST , Service support ,
[2021-10-01] MEDS: Acyclovir 200 MG Capsule 400 MG GT ×2 (10:47→23:41)
[2021-10-01] MEDS: dexAMETHasone 4 MG Tablet 6 MG GT (10:47)
[2021-10-01] MEDS: Cholecalciferol (VIT D3) 25 MCG TABLET (1,000 UNITS) GT ×2 (10:48→10:53)
[2021-10-01] MEDS: Potassium Chloride Oral Tablet 20 MEQ 40 MEQ GT (10:49)
[2021-10-01] MEDS: Allopurinol 300 MG Tablet GT (10:51)
[2021-10-01] MEDS: DULoxetine Hcl 60 MG Capsule PO (10:51)
[2021-10-01] MEDS: Carvedilol 12.5 MG Tablet GT ×2 (10:52→23:41)
[2021-10-01] MEDS: Ferrous Sulfate 325 MG Tablet GT ×2 (10:52→18:05)
[2021-10-01] MEDS: Amiodarone 200 MG Tablet GT (10:52)
[2021-10-01] MEDS: Calcium (Elemental) 500 MG Tablet GT ×2 (10:52→18:09)
[2021-10-01] MEDS: Multivitamins,Therapeutic Tablet 1 TABLET GT (10:53)
[2021-10-01] MEDS: Gabapentin 400 MG Capsule GT ×2 (10:54→18:04)
--- NOTE | 2021-10-01 11:15 | NURSING ---
0950 etomidate 20mg given, 52 versed 2mg given, 53 succ 100mg given, 0954 pt intubated, 25 at the lip #8, 0955 propofol drip and fentanyl started per DEC, OG placed, 1015 succ 100mg given to obtain cxr.
[2021-10-01] MEDS: Insulin Lispro 100 UNIT/ML INSULN.PEN SC ×3 (12:28→23:42)
[2021-10-01 12:35] LABS: Bedside Glucose 163 mg/dL (70-110)
[2021-10-01] MEDS: Propofol 10MG/Ml 1,000 MG/100 ML Bottle 50.1 MG CONT INF ×2 (12:42→14:47)
--- NOTE | 2021-10-01 13:04 | PN.HOSP_ITS ---
Subjective Subjective Intubated this AM after failure to progress on BiPAP. Objective Data Objective Data Vital Signs: Vital Signs Temp Pulse Resp BP Pulse Ox 37.7 C H 75 15 92/65 96 10/01/21 13:00 10/01/21 13:00 10/01/21 13:00 10/01/21 13:00 10/01/21 13:00 Oxygen Flow Rate (L/min) 15 Oxygen Delivery Method Mechanical Ventilator Weight: 160.2 kg Body Mass Index (BMI) 55.9 Intake & Output: Intake and Output for Last 24 Hours 09/29/21 09/30/21 10/01/21 23:59 23:59 23:59 Intake Total 1840 / 1940 1455 / 1455 748.33 / 748.33 Output Total 650 / 650 2450 / 2450 1250 / 1250 Balance 1190 / 1290 -995 / -995 -501.67 / -501.67 Medical Nutrition Assessment Dietitian: Malnutrition Criteria Met Start: 09/28/21 11:48 Freq: Status: Active Protocol: Document 09/30/21 10:11 (Rec: 09/30/21 10:11 [id number]) Nutrition Malnutrition Evidence of Malnutrition Exists Yes Malnutrition (severe): Acute Illness/Injury Evidenced By Suboptimal Energy Intake ( Severe),Weight Loss (Severe) Clinical Problem Acute Disease or Injury Related Malnutrition Etiology related to decreased appetite w/ acute illness, Signs/Symptoms as evidenced by estimated PO intake meeting less than <50% of estimated nutritional needs >5 days; unintentional wt loss of 10.9kg/6.3% since onset of acute illness (less than 2 weeks) Status Active Problem Altered Nutrient-Related Laboratory Values Etiology - Signs/Symptoms - Status Inactive Problem Recommendation Dietitian Recommendations/Changes NPO d/t resp. status. If pt is intubated, recommend Vital HP via OGT at goal rate of 70mL/hour w/ 50mL H2O flush every 4 hours to provide 1680 calories, 146 g protein, and 1704mL total fluid/day. Would start at 20mL/hour and increase by 15mL/hour every 8- 12 hours as tolerated until goal rate is achieved. If appropriate for PO diet, recommend CHO controlled/ cardiac diet. Lab / Micro Data Result Diagrams: 10/01/21 04:20 10/01/21 04:20 Labs: Laboratory Results - last 24 hr 12/23/21 04:20: WBC 8.4, RBC 4.23 L, Hgb 13.5, Hct 41.0, MCV 96.9 H, MCH 31.9, MCHC 32.9, RDW Std Deviation 52.7 H, RDW Coeff of Will 14.6, Plt Count 215, MPV 10.4, Immature Gran % (Auto) 0.800, Neut % (Auto) 84.5 H, Lymph % (Auto) 4.3 L, [place] % (Auto) 9.8, Eos % (Auto) 0.4, Baso % (Auto) 0.2, Absolute Neuts (auto) 7.1, Absolute Lymphs (auto) 0.36 L, Nucleated RBC % 0, Differential Comment SCANNED 10/01/21 04:20: Sodium 142, Potassium 4.2, Chloride 102, Carbon Dioxide 32.0, Anion Gap 8, BUN 22 H, Creatinine 0.88, Estim Creat Clear Calc 78.81, Est GFR (MDRD) Af Amer 111, Est GFR (MDRD) Non-Af 92, BUN/Creatinine Ratio 25.0 H, Glucose 171 H, Calcium 9.0, Total Bilirubin 0.60, AST 27, ALT 37, Alkaline Phosphatase 55, Total Protein 6.7, Albumin 2.3 L, Globulin 4.4 H, Albumin/Globulin Ratio 0.5 L 10/01/21 12:26: POC Glucose 163 H Micro: Microbiology 09/28/21 10:00 Sputum, Expectorated/Coughed Gram Stain - Final 09/28/21 10:00 Sputum, Expectorated/Coughed Respiratory Culture - Preliminary Staphylococcus aureus Alpha Hemolytic Streptococcus 09/27/21 11:26 Blood Culture (Wb) - Anticubital Left Blood Culture - Preliminary No growth in 48 hours. 09/27/21 17:30 Urine, Clean Catch Legionella Antigen - Final 09/27/21 17:30 Urine, Clean Catch Streptococcus pneumoniae Antigen (M - Final Radiography Diagnostic Testing: Radiology Impression Chest X-Ray 10/01/21 10:20 IMPRESSION: The tip of the endotracheal tube is at 2.6 cm approximately the prieto. The tip of the orogastric tube is in the region of the gastroesophageal junction. Electronically Signed: Hi Damico MD at 11:02 EST , Service support , Chest X-Ray 10/01/21 10:38 IMPRESSION: The tip of the endotracheal tube is at 4.7 sinus proximal to the prieto. The tip of the orogastric tube is at the level of the gastroesophageal junction. Electronically Signed: Hi Damico MD at 10:57 EST , Service support , Physical Exam Const Constitutional Narrative: intubated and sedated. Resp normal respiratory effort, no retractions, no use of accessory muscles and clear to auscultation bilaterally Cardio regular rate, regular rhythm, S1 normal heart sound and S2 normal heart sound GI normal to inspection, nondistended, normoactive bowel sounds, soft to palpation and non-tender Assessment & Plan Assessment/Plan (1) Hypoxemia: (2) COVID-19: PLAN: 1. Acute hypoxic respiratory failure * due to COVID-19 pneumonia (rapid negative, PCR +) + staph pnuemonia +/- CHF * Admit to PCU * Decadron, correction was not ordered remdesivir * Breathing treatments with bronchodilators. * Titrate oxygen to maintain saturation above 90%. * Diuresed with IV Lasix as chest x-ray showed evidence of mild congestive heart failure * vaccinated with Moderna (no booster) * cardiomegaly on CXR, check echo 2. Acute COVID 19 pneumonia * as above * ID consult 3. A. fib: Currently rate controlled. On amiodarone and carvedilol. Also on Xarelto 5. GERD: On PPI 6. Type 2 diabetes mellitus: On Lantus 12 units nightly. Insulin sliding scale. Accu-Cheks AC at bedtime. 7. Acute HFpEF * EF 55% * Chest x-ray showed evidence of mild congestive heart failure. * BNP was only 29, so no evidence of heart failure though CXR showed fluid overload * diuresis 8. Super morbid obesity: * Complicates acute care, recovery and expected prognosis 9. BPH: on flomax 10. Hyperlipidemia: On statin 11. DVT prophylaxis: Not indicated as patient is on Xarelto 12. CODE STATUS: Full code verified with patient that is what he wants. Charges/Coding Visit Charges Inpatient E&M: 23444 Subs Hosp L2
[2021-10-01 14:11] LABS: Allen Test Positive; Base Excess 7 mmol/L (-2 to +2); Bicarbonate 32.3 mmol/L (22-26); Blood Gas Specimen Type ART; FI02 80; Mode AC; O2 Delivery Device Adult Vent; PEEP 14; PO2 77 mmHG (75-100); RR 14; SITE R Radial; SO2 95 % (95-99); Total Carbon Dioxide 34 mmol/L; Vt 500; pCO2 55.4 mmHg (35-45); pH 7.37 (7.35-7.45)
[2021-10-01] MEDS: Vital High Protein 1,000 ML 20 ML GT (14:15)
--- NOTE | 2021-10-01 15:41 | EKG12_ITS ---
Test Reason : EKG CHANGE Blood Pressure : / mmHG Vent. Rate : 075 BPM Atrial Rate : 075 BPM P-R Int : 000 ms QRS Dur : 132 ms QT Int : 440 ms P-R-T Axes : 000 -74 028 degrees QTc Int : 491 ms Sinus rhythm , PAC'S Right bundle branch block Left anterior fascicular block Bifascicular block Lateral infarct , age undetermined Confirmed by GENARO CHRISTIE, ARIS ([id number]), assistant production editor BOBY COLINDRES ([id number]) on 10/06/2021 10:15:23 AM Referred By: EUGENIO Confirmed By:ARIS LAM MD
[2021-10-01 16:00] LABS: Vancomycin, Trough Level 19.9 ug/mL (5.0-15.0)
[2021-10-01 17:05] LABS: Anion Gap 5 (5-15); BUN 29 mg/dL (7-18); BUN/Creat Ratio 19.9 RATIO (10-20); Calcium,Total 8.2 mg/dL (8.5-10.1); Chloride 103 mmol/L (98-107); Creatinine, Serum 1.46 mg/dL (0.70-1.30); EST Glomerular Filtration Rate 51 mL/min (>60); Est Glom Filt Rate - Afr Amer 62 mL/min (>60); Glucose 193 mg/dL (74-106); Phosphorus 3.6 mg/dL (2.5-4.9); Potassium 5.3 mmol/L (3.5-5.1); Sodium Level 137 mmol/L (136-145)
[2021-10-01] MEDS: Propofol 10MG/Ml 1,000 MG/100 ML Bottle 30.1 MG CONT INF (18:00)
[2021-10-01] MEDS: Rivaroxaban 20 MG Tablet GT (18:06)
[2021-10-01 19:06] LABS: Bedside Glucose 186 mg/dL (70-110)
--- NOTE | 2021-10-01 20:59 | PCM.RX.CS ---
Consult Pharmacy has been consulted to manage selected antiobiotic: Vancomycin Type of Consult: Follow-up Prior Doses of Antibiotics Received/Current Regimen: Medications Vancomycin HCl 1,500 mg/ (Sodium Chloride) 530 mls @ 250 mls/hr IV Q12H LEYDA Last Admin: 10/01/21 17:34 Dose: 250 mls/hr Documented by: Labs: Sodium 137 mmol/L (136-145) 10/01/21 16:15 Potassium 5.3 mmol/L (3.5-5.1) H 10/01/21 16:15 Chloride 103 mmol/L (98-107) 10/01/21 16:15 Carbon Dioxide 29.0 mmol/L (21.0-32.0) 10/01/21 16:15 Anion Gap 5 (5-15) 10/01/21 16:15 BUN 29 mg/dL (7-18) H 10/01/21 16:15 Creatinine 1.46 mg/dL (0.70-1.30) H 10/01/21 16:15 Est GFR (MDRD) Af Amer 62 mL/min (>60) 10/01/21 16:15 Est GFR (MDRD) Non-Af 51 mL/min (>60) L 10/01/21 16:15 BUN/Creatinine Ratio 19.9 RATIO (10-20) 10/01/21 16:15 Glucose 193 mg/dL (74-106) H 10/01/21 16:15 Vancomycin Trough 19.9 ug/mL (5.0-15.0) H 10/01/21 15:30 Microbiology: Microbiology 10/01/21 10:00 Sputum, Induced/[place] Gram Stain - Final 09/28/21 10:00 Sputum, Expectorated/Coughed Gram Stain - Final 09/28/21 10:00 Sputum, Expectorated/Coughed Respiratory Culture - Preliminary Staphylococcus aureus Alpha Hemolytic Streptococcus 09/27/21 11:26 Blood Culture (Wb) - Anticubital Left Blood Culture - Preliminary No growth in 48 hours. 09/27/21 17:30 Urine, Clean Catch Legionella Antigen - Final 09/27/21 17:30 Urine, Clean Catch Streptococcus pneumoniae Antigen (M - Final Goal Trough: 15-20 mcg/mL Pharmacy Plan for Drug Dosing: Trough at upper end of goal. Recommend to continue but recheck in 2 days. Pharmacy Service will continue to monitor and adjust dosing as required. Follow-Up Labs: Trough Vancomycin - 10/03 @ 1530
[2021-10-01] MEDS: Propofol 10MG/Ml 1,000 MG/100 ML Bottle 25 MG CONT INF (23:00)
[2021-10-01 23:36] LABS: Bedside Glucose 197 mg/dL (70-110)
[2021-10-01] MEDS: Atorvastatin Calcium 10 MG Tablet GT (23:41)
[2021-10-01] MEDS: Allopurinol 100 MG Tablet 200 MG GT (23:43)
[2021-10-02] VITALS (41 sets, daily range): BP systolic 91–117; BP diastolic 55–77; PULSE 51–71; RESP 13–19; TEMP 36.8–37.4; O2SAT 83–97
[2021-10-02] MEDS: Propofol 10MG/Ml 1,000 MG/100 ML Bottle 25 MG CONT INF ×6 (01:10→22:20)
[2021-10-02 01:16] LABS: Bedside Glucose 203 mg/dL (70-110)
[2021-10-02] MEDS: Furosemide 40 MG/4 ML Vial IV ×3 (03:27→18:29)
[2021-10-02] MEDS: 0.9% Saline Lock 10 ML Syringe IV (03:32)
[2021-10-02 03:45] LABS: Absolute Lymphocyte Count 0.27 X10^3/uL (0.83-4.51); Absolute Neutrophil Count 8.2 X10^3/uL (2.0-7.7); Basophil# 0.02 X10^3/uL; Basophil% 0.2 % (0-1); Eosinophil# 0.01 X10^3/uL; Eosinophils% 0.1 % (0-5); Hematocrit 39.2 % (40-54); Hemoglobin 12.8 g/dL (13.0-16.5); Lymphocyte # 0.27 X10^3/ul (0.83-4.51); Lymphocyte % 2.9 % (19-41); Mean Corp Hgb Conc 32.7 g/dL (32-36); Mean Corpuscular Hgb 32.9 pg (27.0-32.0); Mean Corpuscular Volume 100.8 fL (80-94); Mean Platelet Vol. 10.4 fl (6.2-12.0); Monocyte# 0.68 X10^3/uL; Monocyte% 7.2 % (0-10); NRBC Flagged by Analyzer 0 % (0-5); Neutrophil # 8.24 X10^3/uL (2.7-7.7); Neutrophil % 87.9 % (47-70); POSITIVE DIFFERENTIAL YES; Platelet Count 209 K/mm3 (150-450); RBC Distribution Width CV 14.8 % (11.6-14.6); RBC Distribution Width SD 54.8 fl (35.1-43.9); Red Blood Count 3.89 M/mm3 (4.6-6.2); White Blood Count 9.4 K/mm3 (4.4-11.0)
[2021-10-02 03:52] LABS: Differential Indicated SCAN CRITERIA MET
[2021-10-02 03:59] LABS: Differential Comment SCANNED
[2021-10-02 04:44] LABS: Anion Gap 8 (5-15); BUN 36 mg/dL (7-18); BUN/Creat Ratio 20.8 RATIO (10-20); Calcium,Total 7.8 mg/dL (8.5-10.1); Chloride 99 mmol/L (98-107); Creatinine, Serum 1.73 mg/dL (0.70-1.30); EST Glomerular Filtration Rate 42 mL/min (>60); Est Glom Filt Rate - Afr Amer 51 mL/min (>60); Estimated Creatinine Clearance 40.09 ml/min; Glucose 192 mg/dL (74-106); Potassium 5.3 mmol/L (3.5-5.1); Sodium Level 137 mmol/L (136-145)
[2021-10-02] MEDS: Insulin Lispro 100 UNIT/ML INSULN.PEN SC ×4 (05:10→22:33)
[2021-10-02 05:35] LABS: Bedside Glucose 180 mg/dL (70-110)
[2021-10-02] MEDS: Menthol/Lanolin/Calamine/Znox 113 GM Tube 1 APPLIC TOPICAL ×3 (05:53→22:17)
[2021-10-02] MEDS: Nystatin Powder 15gm Bottle 1 APPLIC TOPICAL ×3 (05:54→22:16)
--- NOTE | 2021-10-02 07:37 | PHA.PHARE_ITS ---
Consult Pharmacy has been consulted to manage selected antiobiotic: Vancomycin Type of Consult: Follow-up Prior Doses of Antibiotics Received/Current Regimen: currently on vanc 1500mg IV q12h Labs: Sodium 137 mmol/L (136-145) 10/02/21 03:30 Potassium 5.3 mmol/L (3.5-5.1) H 10/02/21 03:30 Chloride 99 mmol/L (98-107) 10/02/21 03:30 Carbon Dioxide 30.0 mmol/L (21.0-32.0) 10/02/21 03:30 Anion Gap 8 (5-15) 10/02/21 03:30 BUN 36 mg/dL (7-18) H 10/02/21 03:30 Creatinine 1.73 mg/dL (0.70-1.30) H 10/02/21 03:30 Est GFR (MDRD) Af Amer 51 mL/min (>60) L 10/02/21 03:30 Est GFR (MDRD) Non-Af 42 mL/min (>60) L 10/02/21 03:30 BUN/Creatinine Ratio 20.8 RATIO (10-20) H 10/02/21 03:30 Glucose 192 mg/dL (74-106) H 10/02/21 03:30 Vancomycin Trough 19.9 ug/mL (5.0-15.0) H 10/01/21 15:30 Microbiology: Microbiology 10/01/21 10:00 Sputum, Induced/[place] Gram Stain - Final 09/28/21 10:00 Sputum, Expectorated/Coughed Gram Stain - Final 09/28/21 10:00 Sputum, Expectorated/Coughed Respiratory Culture - Preliminary Staphylococcus aureus Alpha Hemolytic Streptococcus 09/27/21 11:26 Blood Culture (Wb) - Anticubital Left Blood Culture - Preliminary No growth in 48 hours. 09/27/21 17:30 Urine, Clean Catch Legionella Antigen - Final 09/27/21 17:30 Urine, Clean Catch Streptococcus pneumoniae Antigen (M - Final Weight used for dosin kg Estimated Creatinine Clearance: 61ML/MIN Goal Trough: 15-20 mcg/mL Pharmacy Plan for Drug Dosing: The patient's SCr has increased to 1.73 today (up from 0.88 and then 1.46 yes terday) so due to this acute increase in SCr will schedule a vanc trough level to be drawn before the next scheduled dose this afternoon, per [facility] vanc protocol. Will hold next dose until the result of that level is available. Pharmacy Service will continue to monitor and adjust dosing as required. Follow-Up Labs: Trough Vancomycin Labs to be done on [date and time ordered]: 10/02/21 15:30
[2021-10-02] MEDS: Acyclovir 200 MG Capsule 400 MG GT (08:14)
[2021-10-02] MEDS: Calcium (Elemental) 500 MG Tablet GT ×2 (08:14→17:09)
[2021-10-02] MEDS: Multivitamins,Therapeutic Tablet 1 TABLET GT (08:15)
[2021-10-02] MEDS: Allopurinol 300 MG Tablet GT (08:15)
[2021-10-02] MEDS: Carvedilol 12.5 MG Tablet GT ×2 (08:15→22:20)
[2021-10-02] MEDS: dexAMETHasone 4 MG Tablet 6 MG GT (08:16)
[2021-10-02] MEDS: Ferrous Sulfate 325 MG Tablet GT ×2 (08:16→17:09)
[2021-10-02] MEDS: Gabapentin 400 MG Capsule GT ×2 (08:17→17:09)
[2021-10-02] MEDS: Amiodarone 200 MG Tablet GT (08:18)
[2021-10-02] MEDS: DULoxetine Hcl 60 MG Capsule PO (08:52)
[2021-10-02] MEDS: Senna/Docusate Sodium 1 Tablet 2 TABLET GT ×2 (09:09→22:19)
[2021-10-02] MEDS: Chlorhexidine 15 ML PO ×2 (09:09→22:16)
--- NOTE | 2021-10-02 09:50 | PN.CC_ITS ---
Assessment & Plan Assessment/Plan (1) Acute respiratory failure with hypoxia: (2) COVID-19: (3) CHF (congestive heart failure): QUALIFIERS: Heart failure type: unspecified Heart failure chronicity: chronic Qualified Code(s): I50.9 - Heart failure, unspecified (4) Morbid obesity: (5) Staphylococcus aureus pneumonia: (6) Sleep apnea: QUALIFIERS: Sleep apnea type: unspecified type Qualified Code(s): G47.30 - Sleep apnea, unspecified (7) PAF (paroxysmal atrial fibrillation): PLAN: RECOMMENDATIONS: 1. Continue Decadron (10/12/2021). Await ID. Await decision on baricitinib 2. Propofol and fentanyl for sedation/vent synchrony. SAT/SBT per protocol 3. APRV versus paralyzation if oxygenation continues to worsen 4. Continue systemic anticoagulation 5. Decrease diuretic therapy given worsening renal function 6. Empiric Zosyn pending ID decision IMPRESSIONS: 1. Acute hypoxic respiratory failure Multifactorial etiology is suspected. Patient does have COVID-19, sputum positive for staph aureus and significant lower extremity swelling suggestive of congestive heart failure. Patient has been receiving diuretics and Decadron therapy. Vancomycin was initiated 2 days ago after positive culture. Following intubation, patient now with 3+ staph aureus and a gram-negative. Will add Zosyn for gram-negative coverage pending infectious disease evaluation. Defer to infectious disease on baricitinib. 2. Acute diastolic CHF/A. fib Patient with significant lower extremity edema at baseline. Clinical suspicion for an element of pulmonary hypertension. Patient is already on ami odarone and carvedilol. Patient also is fully anticoagulated. Low clinical suspicion for concomitant PE complicating problem #1. We will continue to address rate control to optimize cardiac function. Decrease diuresis given elevated creatinine 3. Diabetes mellitus type 2?insulin-dependent Patient is appropriately on Decadron secondary to problem #1. However, anticipate significant difficulty in controlling hyperglycemia given size and previous insulin requirements. Continue to check blood sugars. Will likely need to increase Lantus. Patient has been n.p.o. for 2 days secondary to BiPAP therapy. Continue blood sugar checks and tube feeds 4. BPH/hyperlipidemia/super morbid obesity/psoriasis/ABI/chronic pain syndrome/decreased mobility Complicates care, management, recovery and prognosis. Patient would likely benefit from a Conway catheter given limited ability to move. Discontinue Astelin given intubation. TIME: 35 minutes critical care time spent addressing patient's acute hypoxic respiratory failure, CHF, diabetes mellitus, discussion of CODE STATUS, review of all data and collaboration with care team Subjective Subjective TachPatient was okay overnight. Patient has been tolerating tube feeds, but no bowel movement is noted. Patient has had to go up on PEEP to maintain saturations. Objective Data Objective Data Vital Signs: Vital Signs Temp Pulse Resp BP Pulse Ox 36.9 C 63 14 105/66 97 10/02/21 07:00 10/02/21 07:39 10/02/21 07:21 10/02/21 07:00 10/02/21 07:21 Oxygen Flow Rate (L/min) 15 Oxygen Delivery Method Mechanical Ventilator Weight: 160 kg Body Mass Index (BMI) 55.9 Intake & Output: Intake and Output for Last 24 Hours 09/30/21 10/01/21 10/02/21 23:59 23:59 23:59 Intake Total 1455 / 1455 2147.83 / 2187.83 1089.00 / 1089.00 Output Total 2450 / 2450 1850 / 1850 100 / 100 Balance -995 / -995 297.83 / 337.83 989.00 / 989.00 Medical Nutrition Assessment Dietitian: Malnutrition Criteria Met Start: 09/28/21 11:48 Freq: Status: Active Protocol: Document 09/30/21 10:11 (Rec: 09/30/21 10:11 [id number]) Nutrition Malnutrition Evidence of Malnutrition Exists Yes Malnutrition (severe): Acute Illness/Injury Evidenced By Suboptimal Energy Intake ( Severe),Weight Loss (Severe) Clinical Problem Acute Disease or Injury Related Malnutrition Etiology related to decreased appetite w/ acute illness, Signs/Symptoms as evidenced by estimated PO intake meeting less than <50% of estimated nutritional needs >5 days; unintentional wt loss of 10.9kg/6.3% since onset of acute illness (less than 2 weeks) Status Active Problem Altered Nutrient-Related Laboratory Values Etiology - Signs/Symptoms - Status Inactive Problem Recommendation Dietitian Recommendations/Changes NPO d/t resp. status. If pt is intubated, recommend Vital HP via OGT at goal rate of 70mL/hour w/ 50mL H2O flush every 4 hours to provide 1680 calories, 146 g protein, and 1704mL total fluid/day. Would start at 20mL/hour and increase by 15mL/hour every 8- 12 hours as tolerated until goal rate is achieved. If appropriate for PO diet, recommend CHO controlled/ cardiac diet. Lab / Micro Data Result Diagrams: 10/02/21 03:30 10/02/21 03:30 Labs: Laboratory Results - last 24 hr 09/30/21 20:10: POC Glucose 186 H 10/01/21 12:26: POC Glucose 163 H 10/01/21 15:30: Vancomycin Trough 19.9 H 10/01/21 16:15: Sodium 137, Potassium 5.3 H, Chloride 103, Carbon Dioxide 29.0, Anion Gap 5, BUN 29 H, Creatinine 1.46 H, Estim Creat Clear Calc 47.50, Est GFR (MDRD) Af Amer 62, Est GFR (MDRD) Non-Af 51 L, BUN/Creatinine Ratio 19.9, Glucose 193 H, Calcium 8.2 L, Phosphorus 3.6, Magnesium 2.0 10/01/21 18:03: POC Glucose 197 H 10/01/21 23:40: POC Glucose 203 H 10/02/21 03:30: WBC 9.4, RBC 3.89 L, Hgb 12.8 L, Hct 39.2 L, MCV 100.8 H, MCH 32.9 H, MCHC 32.7, RDW Std Deviation 54.8 H, RDW Coeff of Will 14.8 H, Plt Count 209, MPV 10.4, Immature Gran % (Auto) 1.700 H, Neut % (Auto) 87.9 H, Lymph % (Auto) 2.9 L, [place] % (Auto) 7.2, Eos % (Auto) 0.1, Baso % (Auto) 0.2, Absolute Neuts (auto) 8.2 H, Absolute Lymphs (auto) 0.27 L, Nucleated RBC % 0, Differe ntial Comment SCANNED 10/02/21 03:30: Sodium 137, Potassium 5.3 H, Chloride 99, Carbon Dioxide 30.0, Anion Gap 8, BUN 36 H, Creatinine 1.73 H, Estim Creat Clear Calc 40.09, Est GFR (MDRD) Af Amer 51 L, Est GFR (MDRD) Non-Af 42 L, BUN/Creatinine Ratio 20.8 H, Glucose 192 H, Calcium 7.8 L 10/02/21 05:09: POC Glucose 180 H Micro: Microbiology 10/01/21 10:00 Sputum, Induced/Lukens Gram Stain - Final 10/01/21 10:00 Sputum, Induced/Lukens Respiratory Culture - Preliminary Staphylococcus aureus Gram negative leslie 09/28/21 10:00 Sputum, Expectorated/Coughed Gram Stain - Final 09/28/21 10:00 Sputum, Expectorated/Coughed Respiratory Culture - Preliminary Staphylococcus aureus Alpha Hemolytic Streptococcus 09/27/21 11:26 Blood Culture (Wb) - Anticubital Left Blood Culture - Preliminary No growth in 48 hours. 09/27/21 17:30 Urine, Clean Catch Legionella Antigen - Final 09/27/21 17:30 Urine, Clean Catch Streptococcus pneumoniae Antigen (M - Final ABG Data ABG results: ABG 10/01/21 14:02 Specimen Type ART Sample Site R Radial pH 7.37 Bicarbonate Actual 32.3 H Total CO2 34 Base Excess 7 H O2 Saturation 95 O2 % 80 ABG pCO2 55.4 H ABG pO2 77 Enmanuel Test Positive Respiration Rate 14 O2 Delivery Device Adult Vent Vent Mode AC Tidal Volume 500 POC PEEP 14 Radiography Diagnostic Testing: Radiology Impression Chest X-Ray 10/01/21 10:20 IMPRESSION: The tip of the endotracheal tube is at 2.6 cm approximately the prieto. The tip of the orogastric tube is in the region of the gastroesophageal junction. Electronically Signed: Hi Damico MD at 11:02 EST , Service support , Chest X-Ray 10/01/21 10:38 IMPRESSION: The tip of the endotracheal tube is at 4.7 sinus proximal to the prieto. The tip of the orogastric tube is at the level of the gastroesophageal junction. Electronically Signed: Hi Damico MD at 10:57 EST , Service support , Physical Exam Const Constitutional Narrative: Good vent synchrony General Appearance: appears older than stated age, intubated and patient mechanically ventilated Nutritional Appearance: morbidly obese HEENT normocephalic and head/scalp atraumatic HEENT Narrative: Mallampati 4. Thick neck. Eyes Sclera: sclera abnormal Positive for bilateral Details: scleral injection Lymph Lymphatic: no lymphadenopathy noted Chest inspection of chest normal Chest: symmetrical chest wall rise; Negative for crepitus Resp Auscultation: diminished lung sounds; Negative for rales, rhonchi or wheezes Cardio regular rate, regular rhythm, S1 normal heart sound and S2 normal heart sound GI normal to inspection, nondistended, normoactive bowel sounds, soft to palpation, non-tender and non-distended Extremity Extremity Narrative: Mild lichenification of the lower extremities. Improved edema compared to yesterday General Extremity: edema bilateral (3+) lower extremity; Negative for clubbing or cyanosis Skin Skin Narrative: Venous stasis changes bilateral lower extremities Neuro oriented x3, moves all extremities and no focal motor deficits Psych Mood & Affect: anxious and tearful Charges/Coding Procedures Hospitalists Procedures: 02301 Critial Care 1st Hr
--- NOTE | 2021-10-02 10:04 | PCM.CONS.GEN ---
Assessment & Plan Assessment/Plan (1) COVID-19: PLAN: Patient with acute respiratory failure with COVID-19 pneumonia, multiple comorbidities including morbid obesity and diabetes mellitus. I agree with low-dose dexamethasone. Patient does have MSSA isolated from his respiratory tract and currently on Zosyn. Will discontinue parenteral vancomycin. Given his worsening renal function we will also discontinue acyclovir. HPI Consult Data Date of Consult: 10/02/21 HPI Narrative HPI Narrative: ROBERTA MOLINA, is a 66 M who presents on September 27 with progressive shortness of breath and found to have acute respiratory failure. Patient is currently on a ventilator on high FiO2 requirements and high PEEP requirements. COVID-19 positive. Patient has multiple comorbidities including diabetes mellitus and morbid obesity. Patient has been vaccinated against COVID-19 earlier this year. Chest x-ray I personally reviewed shows cardiomegaly with bilateral interstitial infiltrates. Microbiology data reviewed. Patient currently on low-dose dexamethasone, parenteral vancomycin as well as Zosyn started this morning. Patient also appears to be on chronic acyclovir treatment which is continued. Of note patient has had worsening renal function over last 24 hours. [facility] Medical History Anterolisthesis DDD (degenerative disc disease), lumbar Degenerative disc disease, cervical Diabetes Hypertension Home Medications Lantus U-100 Insulin 12 unit SUBCUT QHS 08/26/18 [History Last Taken 12/06/19] Xarelto 20 mg PO DAILY 08/26/18 [History Last Taken 09/26/21] allopurinol 200 mg PO QHS 08/26/18 [History Last Taken 09/25/21] amiodarone 200 mg PO DAILY 08/26/18 [History Last Taken 09/25/21] atorvastatin 10 mg PO QHS 08/26/18 [History Last Taken 09/25/21] cholecalciferol (vitamin D3) [Vitamin D3] 1,000 unit PO DAILY 08/26/18 [History Last Taken 09/25/21] ferrous sulfate [Iron (ferrous sulfate)] 325 mg PO BID 08/26/18 [History Last Taken 09/25/21] magnesium oxide 420 mg PO TID 08/26/18 [History Last Taken 09/25/21] multivitamin [Multiple Vitamins] 1 tab PO DAILY 11/17/18 [History Last Taken 09/25/21] potassium chloride [Klor-Con M20] 40 meq PO BID 08/26/18 [History Last Taken 09/25/21] tamsulosin [Flomax] 0.4 mg PO QHS 08/26/18 [History Last Taken 09/25/21] torsemide 40 mg PO BID 08/26/18 [History Last Taken 09/25/21] acyclovir 400 mg PO BID 12/07/19 [History Last Taken 09/25/21] allopurinol 300 mg PO DAILY 12/07/19 [History Last Taken 09/25/21] calcium carbonate 500 mg PO BID 12/07/19 [History Last Taken 09/25/21] carvedilol 12.5 mg PO BID 12/07/19 [History Last Taken 09/25/21] omeprazole 40 mg PO BID 12/07/19 [History Last Taken 09/25/21] duloxetine 60 mg PO DAILY 12/08/19 [History Last Taken 09/25/21] gabapentin 400 mg PO BID 12/08/19 [History Last Taken 09/25/21] azelastine 2 spray INTRANASAL BID #30 ml 09/24/21 [Rx Last Taken Unknown] benzonatate 200 mg PO TID PRN #30 cap 09/24/21 [Rx Last Taken Unknown] Allergy/AdvReac Type Severity Reaction Status Date / Time No Known Allergies Allergy Verified 09/27/21 10:15 Family History Father Hypertension Mother Diabetes Surgical History History of appendectomy Social History Smoking Status: Former smoker alcohol intake: current alcohol intake frequency: 0-2 drinks per day substance use type: does not use what type of physical activity do you participate in: walking frequency: 1-2 times per week Physical Exam Narrative Patient sedated on the ventilator lungs with some scattered rhonchi heart exam S1-S2 abdomen is obese but soft. Medical Records Data Medical Nutrition Assessment Dietitian: Malnutrition Criteria Met Start: 09/28/21 11:48 Freq: Status: Active Protocol: Document 09/30/21 10:11 AG (Rec: 09/30/21 10:11 [id number]) Nutrition Malnutrition Evidence of Malnutrition Exists Yes Malnutrition (severe): Acute Illness/Injury Evidenced By Suboptimal Energy Intake ( Severe),Weight Loss (Severe) Clinical Problem Acute Disease or Injury Related Malnutrition Etiology related to decreased appetite w/ acute illness, Signs/Symptoms as evidenced by estimated PO intake meeting less than <50% of estimated nutritional needs >5 days; unintentional wt loss of 10.9kg/6.3% since onset of acute illness (less than 2 weeks) Status Active Problem Altered Nutrient-Related Laboratory Values Etiology - Signs/Symptoms - Status Inactive Problem Recommendation Dietitian Recommendations/Changes NPO d/t resp. status. If pt is intubated, recommend Vital HP via OGT at goal rate of 70mL/hour w/ 50mL H2O flush every 4 hours to provide 1680 calories, 146 g protein, and 1704mL total fluid/day. Would start at 20mL/hour and increase by 15mL/hour every 8- 12 hours as tolerated until goal rate is achieved. If appropriate for PO diet, recommend CHO controlled/ cardiac diet. Lab / Micro Data Result Diagrams: 10/02/21 03:30 10/02/21 03:30 Labs: Laboratory Results - last 24 hr 09/30/21 20:10: POC Glucose 186 H 10/01/21 12:26: POC Glucose 163 H 10/01/21 15:30: Vancomycin Trough 19.9 H 10/01/21 16:15: Sodium 137, Potassium 5.3 H, Chloride 103, Carbon Dioxide 29.0, Anion Gap 5, BUN 29 H, Creatinine 1.46 H, Estim Creat Clear Calc 47.50, Est GFR (MDRD) Af Amer 62, Est GFR (MDRD) Non-Af 51 L, BUN/Creatinine Ratio 19.9, Glucose 193 H, Calcium 8.2 L, Phosphorus 3.6, Magnesium 2.0 10/01/21 18:03: POC Glucose 197 H 10/01/21 23:40: POC Glucose 203 H 10/02/21 03:30: WBC 9.4, RBC 3.89 L, Hgb 12.8 L, Hct 39.2 L, MCV 100.8 H, MCH 32.9 H, MCHC 32.7, RDW Std Deviation 54.8 H, RDW Coeff of Will 14.8 H, Plt Count 209, MPV 10.4, Immature Gran % (Auto) 1.700 H, Neut % (Auto) 87.9 H, Lymph % (Auto) 2.9 L, [place] % (Auto) 7.2, Eos % (Auto) 0.1, Baso % (Auto) 0.2, Absolute Neuts (auto) 8.2 H, Absolute Lymphs (auto) 0.27 L, Nucleated RBC % 0, Differential Comment SCANNED 10/02/21 03:30: Sodium 137, Potassium 5.3 H, Chloride 99, Carbon Dioxide 30.0, Anion Gap 8, BUN 36 H, Creatinine 1.73 H, Estim Creat Clear Calc 40.09, Est GFR (MDRD) Af Amer 51 L, Est GFR (MDRD) Non-Af 42 L, BUN/Creatinine Ratio 20.8 H, Glucose 192 H, Calcium 7.8 L 10/02/21 05:09: POC Glucose 180 H Micro: Microbiology 10/01/21 10:00 Sputum, Induced/Lukens Gram Stain - Final 10/01/21 10:00 Sputum, Induced/Lukens Respiratory Culture - Preliminary Staphylococcus aureus Gram negative leslie 09/28/21 10:00 Sputum, Expectorated/Coughed Gram Stain - Final 09/28/21 10:00 Sputum, Expectorated/Coughed Respiratory Culture - Preliminary Staphylococcus aureus Alpha Hemolytic Streptococcus ABG Data ABG results: ABG 10/01/21 14:02 Specimen Type ART Sample Site R Radial pH 7.37 Bicarbonate Actual 32.3 H Total CO2 34 Base Excess 7 H O2 Saturation 95 O2 % 80 ABG pCO2 55.4 H ABG pO2 77 Enmanuel Test Positive Respiration Rate 14 O2 Delivery Device Adult Vent Vent Mode AC Tidal Volume 500 POC PEEP 14 Radiology Impression Chest X-Ray 10/01/21 10:20 IMPRESSION: The tip of the endotracheal tube is at 2.6 cm approximately the prieto. The tip of the orogastric tube is in the region of the gastroesophageal junction. Electronically Signed: Hi Damico MD at 11:02 EST , Service support , Chest X-Ray 10/01/21 10:38 IMPRESSION: The tip of the endotracheal tube is at 4.7 sinus proximal to the prieto. The tip of the orogastric tube is at the level of the gastroesophageal junction. Electronically Signed: Hi Damico MD at 10:57 EST , Service support ,
[2021-10-02 11:10] LABS: Bedside Glucose 213 mg/dL (70-110)
[2021-10-02] MEDS: Piperacil/Tazobactam 3.375 GM Q8 PREMIX IV ×2 (11:13→23:15)
--- NOTE | 2021-10-02 13:08 | PN.HOSP_ITS ---
Subjective Subjective Still requiring 100% FiO2. Objective Data Objective Data Vital Signs: Vital Signs Temp Pulse Resp BP Pulse Ox 37.3 C 63 14 111/72 96 10/02/21 12:00 10/02/21 12:00 10/02/21 12:00 10/02/21 12:00 10/02/21 12:00 Oxygen Flow Rate (L/min) 15 Oxygen Delivery Method Mechanical Ventilator Weight: 160 kg Body Mass Index (BMI) 55.9 Intake & Output: Intake and Output for Last 24 Hours 09/30/21 10/01/21 10/02/21 23:59 23:59 23:59 Intake Total 1455 / 1455 2147.83 / 2187.83 1297.25 / 1297.25 Output Total 2450 / 2450 1850 / 1850 600 / 600 Balance -995 / -995 297.83 / 337.83 697.25 / 697.25 Medical Nutrition Assessment Dietitian: Malnutrition Criteria Met Start: 09/28/21 11:48 Freq: Status: Active Protocol: Document 10/02/21 10:09 LAZ (Rec: 10/02/21 10:09 [facility] [id number]) Nutrition Malnutrition Evidence of Malnutrition Exists Yes Malnutrition (severe): Acute Illness/Injury Evidenced By Suboptimal Energy Intake ( Severe),Weight Loss (Severe) Clinical Problem Acute Disease or Injury Related Malnutrition Etiology related to decreased appetite w/ acute illness, Signs/Symptoms as evidenced by estimated PO intake meeting less than <50% of estimated nutritional needs >5 days; unintentional wt loss of ~10.9kg/6.3% since onset of acute illness (less than 2 weeks) Status Active Problem Altered Nutrient-Related Laboratory Values Etiology - Signs/Symptoms - Status Inactive Problem Recommendation Dietitian Recommendations/Changes NPO;Will continue Vital HP via OGT at goal rate of 70mL/hour w/ 50mL H2O flush every 4 hours to provide 1680 calories , 146 g protein, and 1704mL total fluid/day. Continue to increase by 15mL/hour every 8- 12 hours as tolerated until goal rate is achieved. Lab / Micro Data Result Diagrams: 10/02/21 03:30 10/02/21 03:30 Labs: Laboratory Results - last 24 hr 09/30/21 20:10: POC Glucose 186 H 10/01/21 15:30: Vancomycin Trough 19.9 H 10/01/21 16:15: Sodium 137, Potassium 5.3 H, Chloride 103, Carbon Dioxide 29.0, Anion Gap 5, BUN 29 H, Creatinine 1.46 H, Estim Creat Clear Calc 47.50, Est GFR (MDRD) Af Amer 62, Est GFR (MDRD) Non-Af 51 L, BUN/Creatinine Ratio 19.9, Glucose 193 H, Calcium 8.2 L, Phosphorus 3.6, Magnesium 2.0 10/01/21 18:03: POC Glucose 197 H 10/01/21 23:40: POC Glucose 203 H 10/02/21 03:30: WBC 9.4, RBC 3.89 L, Hgb 12.8 L, Hct 39.2 L, MCV 100.8 H, MCH 32.9 H, MCHC 32.7, RDW Std Deviation 54.8 H, RDW Coeff of Will 14.8 H, Plt Count 209, MPV 10.4, Immature Gran % (Auto) 1.700 H, Neut % (Auto) 87.9 H, Lymph % (Auto) 2.9 L, [place] % (Auto) 7.2, Eos % (Auto) 0.1, Baso % (Auto) 0.2, Absolute Neuts (auto) 8.2 H, Absolute Lymphs (auto) 0.27 L, Nucleated RBC % 0, Diffe rential Comment SCANNED 10/02/21 03:30: Sodium 137, Potassium 5.3 H, Chloride 99, Carbon Dioxide 30.0, Anion Gap 8, BUN 36 H, Creatinine 1.73 H, Estim Creat Clear Calc 40.09, Est GFR (MDRD) Af Amer 51 L, Est GFR (MDRD) Non-Af 42 L, BUN/Creatinine Ratio 20.8 H, Glucose 192 H, Calcium 7.8 L 10/02/21 05:09: POC Glucose 180 H 10/02/21 11:01: POC Glucose 213 H Micro: Microbiology 09/27/21 11:26 Blood Culture (Wb) - Anticubital Left Blood Culture - Final No growth in 5 days. 09/28/21 10:00 Sputum, Expectorated/Coughed Gram Stain - Final 09/28/21 10:00 Sputum, Expectorated/Coughed Respiratory Culture - Final Staphylococcus aureus Streptococcus pneumoniae 10/01/21 10:00 Sputum, Induced/Lukens Gram Stain - Final 10/01/21 10:00 Sputum, Induced/Lukens Respiratory Culture - Preliminary Staphylococcus aureus Gram negative leslie 09/27/21 17:30 Urine, Clean Catch Legionella Antigen - Final 09/27/21 17:30 Urine, Clean Catch Streptococcus pneumoniae Antigen (M - Final ABG Data ABG results: ABG 10/01/21 14:02 Specimen Type ART Sample Site R Radial pH 7.37 Bicarbonate Actual 32.3 H Total CO2 34 Base Excess 7 H O2 Saturation 95 O2 % 80 ABG pCO2 55.4 H ABG pO2 77 Enmanuel Test Positive Respiration Rate 14 O2 Delivery Device Adult Vent Vent Mode AC Tidal Volume 500 POC PEEP 14 Physical Exam Const no apparent distress Constitutional Narrative: intubated and sedated. Resp Resp Narrative: coarse breath sounds Cardio regular rate, regular rhythm and S1 normal heart sound GI normal to inspection, nondistended, normoactive bowel sounds, soft to palpation and non-tender Assessment & Plan Assessment/Plan (1) COVID-19: (2) Acute respiratory failure with hypoxia: (3) Gram-negative pneumonia: (4) Staphylococcus aureus pneumonia: PLAN: 1. Acute hypoxic respiratory failure * due to COVID-19 pneumonia (rapid negative, PCR +) + staph pnuemonia, strep pneumonia and gram negative pneumonia + obesity hypoventilation +/- CHF * Admit to PCU * Decadron, correction was not ordered remdesivir * Breathing treatments with bronchodilators. * Titrate oxygen to maintain saturation above 90%. * Diuresed with IV Lasix as chest x-ray showed evidence of mild congestive heart failure * vaccinated with Moderna (no booster) * cardiomegaly on CXR, check echo * 10/01: intubated * 10/02: 100% FiO2 2. Acute COVID 19 pneumonia * as above * ID consult * on dexamethasone 3. bacterial pneumonia * 2/2 Staph, GNR, strep * continue vanc and pip/tazo 3. A. fib: Currently rate controlled. On amiodarone and carvedilol. Also on Xarelto 5. GERD: On PPI 6. Type 2 diabetes mellitus: On Lantus 12 units nightly. Insulin sliding scale. Accu-Cheks AC at bedtime. 7. Acute HFpEF * EF 55% * Chest x-ray showed evidence of mild congestive heart failure. * BNP was only 29, so no evidence of heart failure though CXR showed fluid overload * diuresis 8. Super morbid obesity: * Complicates acute care, recovery and expected prognosis 9. BPH: on flomax 10. Hyperlipidemia: On statin 11. DVT prophylaxis: Not indicated as patient is on Xarelto 12. CODE STATUS: Full code previously verified with patient that is what he wants. Greater than 40 minutes of which greater than 50% of time was discussing with the patient's daughter who is at bedside. She had a lot of questions about a variety of issues. She is very concerned that his oxygen requirements may fluctuate throughout the day. Reassured her that that is not uncommon for oxyg en requirements to fluctuate during the day and to increase oxygen does not necessarily portend a an overall worse prognosis but would need more time to verify that. He at this point time is stable but his condition is very guarded and tenuous at present. I tried to reassure her to understand that there are medical providers who are following this patient and that if alarms to call off for her not to necessarily be concerned but to rely on the expertise of the people that are caring for her father to assess what may be a developing emergency or not. She was overall very concerned about waking the patient up. I told her with his sedation that that would not be happening. I told her that he may open his eyes and he may or may not recognize her. But the medication that he is on to sedate him would prohibit her from being fully awake. Charges/Coding Visit Charges Inpatient E&M: 98822 Subs Hosp L3
--- NOTE | 2021-10-02 13:54 | RAD_ITS ---
INDICATION: Change in oxygen status EXAMINATION/TECHNIQUE: X-RAY - XR Chest 1 View COMPARISON: 10/01/2021 FINDINGS: LIFE-SUPPORT AND LINES: 1. ET tube has been repositioned the interval, projecting along the inferior aspect of the aortic knob, however approximately 2.7 cm above the level of the prieto. 2. NG tube extends below the LEFT hemidiaphragm. 3. No pneumothorax. HEART AND VESSELS: Cardiac silhouette is large. There is vascular congestion. LUNGS AND PLEURAL SPACES: Bibasilar atelectasis and infiltrate greater on the RIGHT than LEFT with areas of airspace consolidation volume loss noted. Findings appear stable. No pulmonary mass is noted. MEDIASTINUM AND HILAR REGIONS: No masses adenopathy noted. No areas of calcification. Visualized upper airway is normal in position. BONY ELEMENTS: No acute bony changes noted. RAD/Chest 1 View (Portable) IMPRESSION: 1. ET tube is been repositioned, currently projecting approximately 2.7 cm above the prieto in normal position. 2. NG tube projects below LEFT hemidiaphragm. 3. No evidence of pneumothorax. 4. Stable cardiomegaly and vascular congestion and bibasilar and perihilar infiltrates. Electronically Signed: Alec Thompson MD at 14:32 EST Tel , Service support ,
[2021-10-02] MEDS: Rivaroxaban 20 MG Tablet GT (17:09)
[2021-10-02 17:11] LABS: Bedside Glucose 232 mg/dL (70-110)
[2021-10-02] MEDS: Allopurinol 100 MG Tablet 200 MG GT (22:19)
[2021-10-02] MEDS: Atorvastatin Calcium 10 MG Tablet GT (22:20)
[2021-10-03] VITALS (31 sets, daily range): BP systolic 99–129; BP diastolic 57–71; PULSE 47–90; RESP 14–19; TEMP 37.1–37.6; O2SAT 60–98
[2021-10-03 00:11] LABS: Bedside Glucose 235 mg/dL (70-110)
[2021-10-03] MEDS: Propofol 10MG/Ml 1,000 MG/100 ML Bottle 25 MG CONT INF ×6 (04:00→22:30)
--- NOTE | 2021-10-03 04:01 | NURSING ---
Propofol bottle not fully infused at 0300. Bottle changed at 0400.
[2021-10-03 04:08] LABS: Absolute Lymphocyte Count 0.42 X10^3/uL (0.83-4.51); Absolute Neutrophil Count 9.9 X10^3/uL (2.0-7.7); Basophil# 0.04 X10^3/uL; Basophil% 0.3 % (0-1); Eosinophil# 0.01 X10^3/uL; Eosinophils% 0.1 % (0-5); Hematocrit 39.1 % (40-54); Hemoglobin 11.9 g/dL (13.0-16.5); Lymphocyte # 0.42 X10^3/ul (0.83-4.51); Lymphocyte % 3.5 % (19-41); Mean Corp Hgb Conc 30.4 g/dL (32-36); Mean Corpuscular Hgb 30.8 pg (27.0-32.0); Mean Corpuscular Volume 101.3 fL (80-94); Mean Platelet Vol. 10.6 fl (6.2-12.0); Monocyte# 1.14 X10^3/uL; Monocyte% 9.6 % (0-10); NRBC Flagged by Analyzer 0 % (0-5); Neutrophil # 9.94 X10^3/uL (2.7-7.7); POSITIVE DIFFERENTIAL YES; Platelet Count 234 K/mm3 (150-450); RBC Distribution Width CV 14.6 % (11.6-14.6); RBC Distribution Width SD 54.7 fl (35.1-43.9); Red Blood Count 3.86 M/mm3 (4.6-6.2); White Blood Count 11.9 K/mm3 (4.4-11.0)
[2021-10-03 04:21] LABS: Differential Indicated SCAN CRITERIA MET
[2021-10-03 04:45] LABS: ALB/GLOB Ratio 0.5 RATIO (0.9-2.4); AST(SGOT) 12 U/L (15-37); Alanine Aminotransfer ALT/SGPT 26 U/L (16-61); Albumin, Serum 2.1 g/dL (3.2-5.0); Alkaline Phosphatase 49 U/L (45-117); Anion Gap 9 (5-15); BUN 48 mg/dL (7-18); BUN/Creat Ratio 22.2 RATIO (10-20); Chloride 103 mmol/L (98-107); Creatinine, Serum 2.16 mg/dL (0.70-1.30); EST Glomerular Filtration Rate 33 mL/min (>60); Est Glom Filt Rate - Afr Amer 39 mL/min (>60); Estimated Creatinine Clearance 32.11 ml/min; Glucose 232 mg/dL (74-106); Potassium 4.3 mmol/L (3.5-5.1); Protein, Total 6.1 g/dL (6.4-8.2); Sodium Level 142 mmol/L (136-145)
[2021-10-03 05:58] LABS: Differential Comment SCANNED
[2021-10-03] MEDS: Nystatin Powder 15gm Bottle 1 APPLIC TOPICAL ×3 (06:40→22:24)
[2021-10-03] MEDS: Menthol/Lanolin/Calamine/Znox 113 GM Tube 1 APPLIC TOPICAL ×3 (06:40→22:24)
[2021-10-03] MEDS: Insulin Lispro 100 UNIT/ML INSULN.PEN SC ×4 (06:43→22:33)
--- NOTE | 2021-10-03 06:52 | PN.CC_ITS ---
Assessment & Plan Assessment/Plan (1) Acute respiratory failure with hypoxia: (2) COVID-19: (3) CHF (congestive heart failure): QUALIFIERS: Heart failure type: unspecified Heart failure chronicity: chronic Qualified Code(s): I50.9 - Heart failure, unspecified (4) Morbid obesity: (5) Staphylococcus aureus pneumonia: (6) Sleep apnea: QUALIFIERS: Sleep apnea type: unspecified type Qualified Code(s): G47.30 - Sleep apnea, unspecified (7) PAF (paroxysmal atrial fibrillation): PLAN: RECOMMENDATIONS: 1. Continue Decadron (10/12/2021). No baricitinib per infectious disease 2. Propofol and fentanyl for sedation/vent synchrony. SAT/SBT per protocol 3. APRV versus paralyzation if oxygenation worsens 4. Continue systemic anticoagulation 5. Decrease diuretic therapy given worsening renal function 6. Anticipate 7 to 10 days of antibiotics IMPRESSIONS: 1. Acute hypoxic respiratory failure Multifactorial etiology is suspected. Patient does have COVID-19, sputum positive for staph aureus and significant lower extremity swelling suggestive of congestive heart failure. Patient has been receiving diuretics and Decadron therapy. Vancomycin was initiated 2 days ago after positive culture. Following intubation, patient now with 3+ staph aureus and a gram-negative. Patient has remained on Zosyn for the polymicrobial pneumonia including MSSA, pneumococcus and a gram-negative. Patient with some improvement over the last 24 hours. Unfortunately, diuretics will need to be held given renal function. 2. Acute diastolic CHF/A. fib Patient with significant lower extremity edema at baseline. Clinical suspicion for an element of pulmonary hypertension. Patient is already on amiodarone and carvedilol. Patient also is fully anticoagulated. Low clinical suspicion for concomitant PE complicating problem #1. We will continue to address rate control to optimize cardiac function. Discontinue diuresis given elevated creatinine 3. Diabetes mellitus type 2?insulin-dependent Patient is appropriately on Decadron secondary to problem #1. However, anticipate significant difficulty in controlling hyperglycemia given size and previous insulin requirements. Continue to check blood sugars. Will likely need to increase Lantus. Blood sugars have been relatively controlled thus far. Continue blood sugar checks and tube feeds 4. BPH/hyperlipidemia/super morbid obesity/psoriasis/ABI/chronic pain syndrome/decreased mobility Complicates care, management, recovery and prognosis. Patient would likely benefit from a Conway catheter given limited ability to move. Discontinue Astelin given intubation. TIME: 32 minutes critical care time spent addressing patient's acute hypoxic res piratory failure, CHF, diabetes mellitus, discussion of CODE STATUS, review of all data and collaboration with care team Subjective Subjective Patient did okay overnight. Patient has had some improvement in oxygen demands. Patient remains very sedated to accomplish vent synchrony. Patient's last bowel movement documented on 09/30/2021. Blood sugars have been controlled Objective Data Objective Data Vital Signs: Vital Signs Temp Pulse Resp BP Pulse Ox 37.1 C 54 L 14 105/58 L 93 10/03/21 02:00 10/03/21 04:57 10/03/21 04:57 10/03/21 02:00 10/03/21 04:57 Oxygen Flow Rate (L/min) 15 Oxygen Delivery Method Mechanical Ventilator Weight: 162.4 kg Body Mass Index (BMI) 55.9 Intake & Output: Intake and Output for Last 24 Hours 10/01/21 10/02/21 10/03/21 23:59 23:59 23:59 Intake Total 2147.83 / 2187.83 1875.00 / 2015.00 1502.83 / 1502.83 Output Total 1850 / 1850 725 / 1325 1050 / 1050 Balance 297.83 / 337.83 1150.00 / 690.00 452.83 / 452.83 Medical Nutrition Assessment Dietitian: Malnutrition Criteria Met Start: 09/28/21 11:48 Freq: Status: Active Protocol: Document 10/02/21 10:09 LAZ (Rec: 10/02/21 10:09 LAZ [id number]) Nutrition Malnutrition Evidence of Malnutrition Exists Yes Malnutrition (severe): Acute Illness/Injury Evidenced By Suboptimal Energy Intake ( Severe),Weight Loss (Severe) Clinical Problem Acute Disease or Injury Related Malnutrition Etiology related to decreased appetite w/ acute illness, Signs/Symptoms as evidenced by estimated PO intake meeting less than <50% of estimated nutritional needs >5 days; unintentional wt loss of ~10.9kg/6.3% since onset of acute illness (less than 2 weeks) Status Active Problem Altered Nutrient-Related Laboratory Values Etiology - Signs/Symptoms - Status Inactive Problem Recommendation Dietitian Recommendations/Changes NPO;Will continue Vital HP via OGT at goal rate of 70mL/hour w/ 50mL H2O flush every 4 hours to provide 1680 calories , 146 g protein, and 1704mL total fluid/day. Continue to increase by 15mL/hour every 8- 12 hours as tolerated until goal rate is achieved. Lab / Micro Data Result Diagrams: 10/03/21 03:50 10/03/21 03:50 Labs: Laboratory Results - last 24 hr 10/02/21 11:01: POC Glucose 213 H 10/02/21 17:02: POC Glucose 232 H 10/02/21 22:30: POC Glucose 235 H 10/03/21 03:50: WBC 11.9 H, RBC 3.86 L, Hgb 11.9 L, Hct 39.1 L, MCV 101.3 H, MCH 30.8, MCHC 30.4 L D, RDW Std Deviation 54.7 H, RDW Coeff of Will 14.6, Plt Count 234, MPV 10.6, Immature Gran % (Auto) 2.500 H, Neut % (Auto) 84.0 H, Lymph % (Auto) 3.5 L, [place] % (Auto) 9.6, Eos % (Auto) 0.1, Baso % (Auto) 0.3, Absolute Neuts (auto) 9.9 H, Absolute Lymphs (auto) 0.42 L, Nucleated RBC % 0, Differential Comment SCANNED 10/03/21 03:50: Sodium 142, Potassium 4.3, Chloride 103, Carbon Dioxide 30.0, Anion Gap 9, BUN 48 H, Creatinine 2.16 H, Estim Creat Clear Calc 32.11, Est GFR (MDRD) Af Amer 39 L, Est GFR (MDRD) Non-Af 33 L, BUN/Creatinine Ratio 22.2 H, Glucose 232 H, Calcium 8.0 L, Total Bilirubin 0.50, AST 12 L, ALT 26, Alkaline Phosphatase 49, Total Protein 6.1 L, Albumin 2.1 L, Globulin 4.0, Albumin/Globulin Ratio 0.5 L Micro: Microbiology 09/27/21 11:26 Blood Culture (Wb) - Anticubital Left Blood Culture - Final No growth in 5 days. 09/28/21 10:00 Sputum, Expectorated/Coughed Gram Stain - Final 09/28/21 10:00 Sputum, Expectorated/Coughed Respiratory Culture - Final Staphylococcus aureus Streptococcus pneumoniae 10/01/21 10:00 Sputum, Induced/Lukens Gram Stain - Final 10/01/21 10:00 Sputum, Induced/Lukens Respiratory Culture - Preliminary Staphylococcus aureus Gram negative leslie 09/27/21 17:30 Urine, Clean Catch Legionella Antigen - Final 09/27/21 17:30 Urine, Clean Catch Streptococcus pneumoniae Antigen (M - Final Radiography Diagnostic Testing: Radiology Impression Chest X-Ray 10/02/21 13:54 IMPRESSION: 1. ET tube is been repositioned, currently projecting approximately 2.7 cm above the prieto in normal position. 2. NG tube projects below LEFT hemidiaphragm. 3. No evidence of pneumothorax. 4. Stable cardiomegaly and vascular congestion and bibasilar and perihilar infiltrates. Electronically Signed: Alec Thompson MD at 14:32 EST Tel , Service support , Physical Exam Const Constitutional Narrative: Good vent synchrony General Appearance: appears older than stated age, intubated and patient mechanically ventilated Nutritional Appearance: morbidly obese HEENT normocephalic and head/scalp atraumatic HEENT Narrative: Mallampati 4. Thick neck. Eyes Sclera: sclera abnormal Positive for bilateral Details: scleral injection Lymph Lymphatic: no lymphadenopathy noted Chest inspection of chest normal Chest: symmetrical chest wall rise; Negative for crepitus Resp Auscultation: diminished lung sounds; Negative for rales, rhonchi or wheezes Cardio regular rate, regular rhythm, S1 normal heart sound and S2 normal heart sound GI normal to inspection, nondistended, normoactive bowel sounds, soft to palpation, non-tender and non-distended Extremity Extremity Narrative: Mild lichenification of the lower extremities. Stable edema compared to yesterday General Extremity: edema bilateral (3+) lower extremity; Negative for clubbing or cyanosis Skin Skin Narrative: Venous stasis changes bilateral lower extremities Neuro oriented x3, moves all extremities and no focal motor deficits Psych Mood & Affect: anxious and tearful Charges/Coding Procedures Hospitalists Procedures: 50301 Critial Care 1st Hr
[2021-10-03 06:55] LABS: Bedside Glucose 192 mg/dL (70-110)
[2021-10-03] MEDS: Piperacil/Tazobactam 3.375 GM Q8 PREMIX IV ×3 (07:05→22:00)
[2021-10-03] MEDS: Chlorhexidine 15 ML PO ×2 (09:37→21:15)
[2021-10-03] MEDS: Senna/Docusate Sodium 1 Tablet 2 TABLET GT (09:38)
[2021-10-03] MEDS: Gabapentin 400 MG Capsule GT ×2 (09:39→18:10)
[2021-10-03] MEDS: DULoxetine Hcl 60 MG Capsule PO (09:39)
[2021-10-03] MEDS: Multivitamins,Therapeutic Tablet 1 TABLET GT (09:40)
[2021-10-03] MEDS: Carvedilol 12.5 MG Tablet GT ×2 (09:40→22:23)
[2021-10-03] MEDS: Ferrous Sulfate 325 MG Tablet GT ×2 (09:41→18:10)
[2021-10-03] MEDS: Amiodarone 200 MG Tablet GT (09:41)
[2021-10-03] MEDS: Calcium (Elemental) 500 MG Tablet GT ×2 (09:42→18:10)
[2021-10-03] MEDS: Allopurinol 300 MG Tablet GT (09:42)
[2021-10-03] MEDS: Cholecalciferol (VIT D3) 25 MCG TABLET (1,000 UNITS) GT (09:42)
[2021-10-03] MEDS: dexAMETHasone 10 MG/ML Vial 6 MG IV (09:43)
[2021-10-03 11:45] LABS: Bedside Glucose 178 mg/dL (70-110)
--- NOTE | 2021-10-03 12:41 | PN.HOSP_ITS ---
Subjective Subjective Requiring 100% FiO2. Objective Data Objective Data Vital Signs: Vital Signs Temp Pulse Resp BP Pulse Ox 37.6 C H 60 14 118/65 96 10/03/21 12:00 10/03/21 12:03 10/03/21 12:03 10/03/21 12:00 10/03/21 12:03 Oxygen Flow Rate (L/min) 15 Oxygen Delivery Method Mechanical Ventilator Weight: 162.4 kg Body Mass Index (BMI) 55.9 Intake & Output: Intake and Output for Last 24 Hours 10/01/21 10/02/21 10/03/21 23:59 23:59 23:59 Intake Total 2147.83 / 2187.83 1875.00 / 2015.00 1724.08 / 1724.08 Output Total 1850 / 1850 725 / 1325 1050 / 1050 Balance 297.83 / 337.83 1150.00 / 690.00 674.08 / 674.08 Medical Nutrition Assessment Dietitian: Malnutrition Criteria Met Start: 09/28/21 11:48 Freq: Status: Active Protocol: Document 10/02/21 10:09 LAZ (Rec: 10/02/21 10:09 LAZ [id number]) Nutrition Malnutrition Evidence of Malnutrition Exists Yes Malnutrition (severe): Acute Illness/Injury Evidenced By Suboptimal Energy Intake ( Severe),Weight Loss (Severe) Clinical Problem Acute Disease or Injury Related Malnutrition Etiology related to decreased appetite w/ acute illness, Signs/Symptoms as evidenced by estimated PO intake meeting less than <50% of estimated nutritional needs >5 days; unintentional wt loss of ~10.9kg/6.3% since onset of acute illness (less than 2 weeks) Status Active Problem Altered Nutrient-Related Laboratory Values Etiology - Signs/Symptoms - Status Inactive Problem Recommendation Dietitian Recommendations/Changes NPO;Will continue Vital HP via OGT at goal rate of 70mL/hour w/ 50mL H2O flush every 4 hours to provide 1680 calories , 146 g protein, and 1704mL total fluid/day. Continue to increase by 15mL/hour every 8- 12 hours as tolerated until goal rate is achieved. Lab / Micro Data Result Diagrams: 10/03/21 03:50 10/03/21 03:50 Labs: Laboratory Results - last 24 hr 10/02/21 17:02: POC Glucose 232 H 10/02/21 22:30: POC Glucose 235 H 10/03/21 03:50: WBC 11.9 H, RBC 3.86 L, Hgb 11.9 L, Hct 39.1 L, MCV 101.3 H, MCH 30.8, MCHC 30.4 L D, RDW Std Deviation 54.7 H, RDW Coeff of Will 14.6, Plt Count 234, MPV 10.6, Immature Gran % (Auto) 2.500 H, Neut % (Auto) 84.0 H, Lymph % (Auto) 3.5 L, [place] % (Auto) 9.6, Eos % (Auto) 0.1, Baso % (Auto) 0.3, Absolute Neuts (auto) 9.9 H, Absolute Lymphs (auto) 0.42 L, Nucleated RBC % 0, Differential Comment SCANNED 10/03/21 03:50: Sodium 142, Potassium 4.3, Chloride 103, Carbon Dioxide 30.0, Anion Gap 9, BUN 48 H, Creatinine 2.16 H, Estim Creat Clear Calc 32.11, Est GFR (MDRD) Af Amer 39 L, Est GFR (MDRD) Non-Af 33 L, BUN/Creatinine Ratio 22.2 H, Gl ucose 232 H, Calcium 8.0 L, Total Bilirubin 0.50, AST 12 L, ALT 26, Alkaline Phosphatase 49, Total Protein 6.1 L, Albumin 2.1 L, Globulin 4.0, Albumin/Globulin Ratio 0.5 L 10/03/21 06:42: POC Glucose 192 H 10/03/21 11:27: POC Glucose 178 H Micro: Microbiology 10/01/21 10:00 Sputum, Induced/Lukens Gram Stain - Final 10/01/21 10:00 Sputum, Induced/Lukens Respiratory Culture - Final Staphylococcus aureus Serratia marcescens 09/27/21 11:26 Blood Culture (Wb) - Anticubital Left Blood Culture - Final No growth in 5 days. 09/28/21 10:00 Sputum, Expectorated/Coughed Gram Stain - Final 09/28/21 10:00 Sputum, Expectorated/Coughed Respiratory Culture - Final Staphylococcus aureus Streptococcus pneumoniae 09/27/21 17:30 Urine, Clean Catch Legionella Antigen - Final 09/27/21 17:30 Urine, Clean Catch Streptococcus pneumoniae Antigen (M - Final Radiography Diagnostic Testing: Radiology Impression Chest X-Ray 10/02/21 13:54 IMPRESSION: 1. ET tube is been repositioned, currently projecting approximately 2.7 cm above the prieto in normal position. 2. NG tube projects below LEFT hemidiaphragm. 3. No evidence of pneumothorax. 4. Stable cardiomegaly and vascular congestion and bibasilar and perihilar infiltrates. Electronically Signed: Alec Thompson MD at 14:32 EST Tel , Service support , Physical Exam Const Constitutional Narrative: intubatate and sedated Resp normal respiratory effort, no retractions, no use of accessory muscles and clear to auscultation bilaterally Cardio regular rate, regular rhythm, S1 normal heart sound and S2 normal heart sound GI normal to inspection, nondistended, normoactive bowel sounds, soft to palpation, non-tender and non-distended Extremity normal to inspection Assessment & Plan Assessment/Plan (1) COVID-19: (2) Acute respiratory failure with hypoxia: (3) Gram-negative pneumonia: (4) Staphylococcus aureus pneumonia: PLAN: 1. Acute hypoxic respiratory failure * due to COVID-19 pneumonia (rapid negative, PCR +) + staph pnuemonia, strep pneumonia and gram negative pneumonia + obesity hypoventilation +/- CHF * Admit to PCU * Decadron, correction was not ordered remdesivir * Breathing treatments with bronchodilators. * Titrate oxygen to maintain saturation above 90%. * Diuresed with IV Lasix as chest x-ray showed evidence of mild congestive heart failure * vaccinated with Moderna (no booster) * cardiomegaly on CXR, check echo * 10/01: intubated * 10/02: 100% FiO2 2. Acute COVID 19 pneumonia * as above * ID consult * on dexamethasone 3. bacterial pneumonia * 2/2 Staph, GNR, strep * continue vanc and pip/tazo 3. A. fib: Currently rate controlled. On amiodarone and carvedilol. Also on Xarelto 5. GERD: On PPI 6. Type 2 diabetes mellitus: On Lantus 12 units nightly. Insulin sliding scale. Accu-Cheks AC at bedtime. 7. Acute HFpEF * EF 55% * Chest x-ray showed evidence of mild congestive heart failure. * BNP was only 29, so no evidence of heart failure though CXR showed fluid overload * diuresis 8. Super morbid obesity: * Complicates acute care, recovery and expected prognosis 9. BPH: on flomax 10. Hyperlipidemia: On statin 11. DVT prophylaxis: Not indicated as patient is on Xarelto 12. CODE STATUS: Full code previously verified with patient that is what he wants. Greater than 35 minutes of which greater than 50% of time was discussing with the patient's daughter who is at bedside. She again had a lot of questions about a variety of issues. She is very concerned that his oxygen drops when he is moved. This previously was explained to her by nursing, then by me that this can happen. She is clearly overwhelmed and relays information to her siblings, who apparently have COVID 19. Charges/Coding Visit Charges Inpatient E&M: 80224 Subs Hosp L3
[2021-10-03 17:41] LABS: Bedside Glucose 257 mg/dL (70-110)
--- NOTE | 2021-10-03 20:00 | NURSING ---
Fentanyl running at 150 at start of shift. Verified with dayshift RN that that was the correct rate. Charting on MAR differs from current running rate.
[2021-10-03] MEDS: Vital High Protein 1,000 ML 50 ML GT (21:15)
[2021-10-03] MEDS: Rivaroxaban 20 MG Tablet GT (22:23)
[2021-10-03] MEDS: Allopurinol 100 MG Tablet 200 MG GT (22:23)
[2021-10-03] MEDS: Atorvastatin Calcium 10 MG Tablet GT (22:24)
[2021-10-03 23:05] LABS: Bedside Glucose 221 mg/dL (70-110)
[2021-10-04] VITALS (32 sets, daily range): BP systolic 106–126; BP diastolic 56–81; PULSE 52–92; RESP 14–26; TEMP 37.3–38.2; O2SAT 87–96
[2021-10-04] MEDS: Propofol 10MG/Ml 1,000 MG/100 ML Bottle 25 MG CONT INF ×7 (00:40→23:30)
[2021-10-04] MEDS: Piperacil/Tazobactam 3.375 GM Q8 PREMIX IV ×3 (06:35→22:45)
[2021-10-04] MEDS: Acetaminophen 650 MG/20 ML UDC GT (06:37)
[2021-10-04] MEDS: Menthol/Lanolin/Calamine/Znox 113 GM Tube 1 APPLIC TOPICAL ×3 (06:38→22:48)
[2021-10-04] MEDS: Nystatin Powder 15gm Bottle 1 APPLIC TOPICAL ×3 (06:38→22:48)
[2021-10-04] MEDS: Insulin Lispro 100 UNIT/ML INSULN.PEN SC ×4 (06:40→23:00)
[2021-10-04 07:09] LABS: Absolute Lymphocyte Count 0.29 X10^3/uL (0.83-4.51); Absolute Neutrophil Count 11.7 X10^3/uL (2.0-7.7); Basophil# 0.03 X10^3/uL; Basophil% 0.2 % (0-1); Eosinophil# 0.01 X10^3/uL; Eosinophils% 0.1 % (0-5); Hematocrit 38.4 % (40-54); Hemoglobin 12.4 g/dL (13.0-16.5); Lymphocyte # 0.29 X10^3/ul (0.83-4.51); Lymphocyte % 2.1 % (19-41); Mean Corp Hgb Conc 32.3 g/dL (32-36); Mean Corpuscular Volume 102.1 fL (80-94); Mean Platelet Vol. 11.2 fl (6.2-12.0); Monocyte# 1.16 X10^3/uL; Monocyte% 8.5 % (0-10); NRBC Flagged by Analyzer 0.1 % (0-5); Neutrophil # 11.72 X10^3/uL (2.7-7.7); Neutrophil % 86.2 % (47-70); POSITIVE DIFFERENTIAL YES; Platelet Count 228 K/mm3 (150-450); RBC Distribution Width CV 14.7 % (11.6-14.6); RBC Distribution Width SD 55.3 fl (35.1-43.9); Red Blood Count 3.76 M/mm3 (4.6-6.2); White Blood Count 13.6 K/mm3 (4.4-11.0)
[2021-10-04 07:10] LABS: Differential Indicated SCAN CRITERIA MET
--- NOTE | 2021-10-04 07:31 | PCM.PN.INT ---
Assessment & Plan Assessment/Plan (1) Acute respiratory failure with hypoxia: (2) COVID-19: (3) CHF (congestive heart failure): QUALIFIERS: Heart failure type: unspecified Heart failure chronicity: chronic Qualified Code(s): I50.9 - Heart failure, unspecified (4) Morbid obesity: (5) Staphylococcus aureus pneumonia: (6) Sleep apnea: QUALIFIERS: Sleep apnea type: unspecified type Qualified Code(s): G47.30 - Sleep apnea, unspecified (7) PAF (paroxysmal atrial fibrillation): PLAN: RECOMMENDATIONS: 1. Continue Decadron (10/12/2021). No baricitinib per infectious disease 2. Propofol and fentanyl for sedation/vent synchrony. SAT/SBT per protocol 3. APRV versus paralyzation if oxygenation worsens 4. Continue systemic anticoagulation 5. Holding diuretic therapy given worsening renal function. Await chemistries 6. Anticipate 7 to 10 days of antibiotics IMPRESSIONS: 1. Acute hypoxic respiratory failure Multifactorial etiology is suspected. Patient does have COVID-19, sputum positive for staph aureus and significant lower extremity swelling suggestive of congestive heart failure. Patient has been receiving diuretics and Decadron therapy. Vancomycin was initiated 2 days ago after positive culture. Following intubation, patient now with 3+ staph aureus and Serratia. Patient has remained on Zosyn for the polymicrobial pneumonia including MSSA, pneumococcus and Serratia. Unfortunately, diuretics will need to be held given renal function. Chemistries are still pending. 2. Acute diastolic CHF/A. fib Patient with significant lower extremity edema at baseline. Clinical suspicion for an element of pulmonary hypertension. Patient is already on amiodarone and carvedilol. Patient also is fully anticoagulated. Low clinical suspicion for concomitant PE complicating problem #1. We will continue to address rate control to optimize cardiac function. Discontinue diuresis given elevated creatinine 3. Diabetes mellitus type 2?insulin-dependent Patient is appropriately on Decadron secondary to problem #1. However, anticipate significant difficulty in controlling hyperglycemia given size and previous insulin requirements. Continue to check blood sugars. Will likely need to increase Lantus as blood sugars dictate. Blood sugars have been relatively controlled thus far. Continue blood sugar checks and tube feeds 4. BPH/hyperlipidemia/super morbid obesity/psoriasis/ABI/chronic pain syndrome/decreased mobility Complicates care, management, recovery and prognosis. Patient would likely benefit from a Conway catheter given limited ability to move. Discontinue Astelin given intubation. TIME: 34 minutes critical care time spent addressing patient's acute hypoxic respiratory failure, CHF, diabetes mellitus, discussion of CODE STATUS, review of all data and collaboration with care team Subjective Subjective Patient did okay overnight. No acute issues were reported. Patient overall is relatively stable. Still requiring significant FiO2 to maintain saturations. Patient is tolerating tube feeds. Objective Data Objective Data Vital Signs: Vital Signs Temp Pulse Resp BP Pulse Ox 37.3 C 63 17 111/58 L 91 10/04/21 00:00 10/04/21 07:00 10/04/21 07:00 10/04/21 07:00 10/04/21 07:00 Oxygen Flow Rate (L/min) 15 Oxygen Delivery Method Mechanical Ventilator Weight: 163.6 kg Body Mass Index (BMI) 55.9 Intake & Output: Intake and Output for Last 24 Hours 10/02/21 10/03/21 10/04/21 23:59 23:59 23:59 Intake Total 1875.00 / 2014. 3637.16 / 3677.16 858.42 / 858.42 Output Total 725 / 1325 2009 400 / 400 Balance 1150.00 / 690.00 1627.16 / 1667.16 458.42 / 458.42 Medical Nutrition Assessment Dietitian: Malnutrition Criteria Met Start: 09/28/21 11:48 Freq: Status: Active Protocol: Document 10/02/21 10:09 LAZ (Rec: 10/02/21 10:09 LAZ [id number]) Nutrition Malnutrition Evidence of Malnutrition Exists Yes Malnutrition (severe): Acute Illness/Injury Evidenced By Suboptimal Energy Intake ( Severe),Weight Loss (Severe) Clinical Problem Acute Disease or Injury Related Malnutrition Etiology related to decreased appetite w/ acute illness, Signs/Symptoms as evidenced by estimated PO intake meeting less than <50% of estimated nutritional needs >5 days; unintentional wt loss of ~10.9kg/6.3% since onset of acute illness (less than 2 weeks) Status Active Problem Altered Nutrient-Related Laboratory Values Etiology - Signs/Symptoms - Status Inactive Problem Recommendation Dietitian Recommendations/Changes NPO;Will continue Vital HP via OGT at goal rate of 70mL/hour w/ 50mL H2O flush every 4 hours to provide 1680 calories , 146 g protein, and 1704mL total fluid/day. Continue to increase by 15mL/hour every 8- 12 hours as tolerated until goal rate is achieved. Lab / Micro Data Result Diagrams: 10/04/21 04:20 10/03/21 03:50 Labs: Laboratory Results - last 24 hr 10/03/21 11:27: POC Glucose 178 H 10/03/21 17:25: POC Glucose 257 H 10/03/21 22:33: POC Glucose 221 H 10/04/21 04:20: WBC 13.6 H, RBC 3.76 L, Hgb 12.4 L, Hct 38.4 L, MCV 102.1 H, MCH 33.0 H, MCHC 32.3 D, RDW Std Deviation 55.3 H, RDW Coeff of Will 14.7 H, Plt Count 228, MPV 11.2, Immature Gran % (Auto) 2.900 H, Neut % (Auto) 86.2 H, Lymph % (Auto) 2.1 L, [place] % (Auto) 8.5, Eos % (Auto) 0.1, Baso % (Auto) 0.2, Absolute Neuts (auto) 11.7 H, Absolute Lymphs (auto) 0.29 L, Nucleated RBC % 0.1 Micro: Microbiology 10/01/21 10:00 Sputum, Induced/Lukens Gram Stain - Final 10/01/21 10:00 Sputum, Induced/Lukens Respiratory Culture - Final Staphylococcus aureus Serratia marcescens 09/27/21 11:26 Blood Culture (Wb) - Anticubital Left Blood Culture - Final No growth in 5 days. 09/28/21 10:00 Sputum, Expectorated/Coughed Gram Stain - Final 09/28/21 10:00 Sputum, Expectorated/Coughed Respiratory Culture - Final Staphylococcus aureus Streptococcus pneumoniae 09/27/21 17:30 Urine, Clean Catch Legionella Antigen - Final 09/27/21 17:30 Urine, Clean Catch Streptococcus pneumoniae Antigen (M - Final Physical Exam Const Constitutional Narrative: Good vent synchrony General Appearance: appears older than stated age, intubated and patient mechanically ventilated Nutritional Appearance: morbidly obese HEENT normocephalic and head/scalp atraumatic HEENT Narrative: Mallampati 4. Thick neck. Eyes Sclera: sclera abnormal Positive for bilateral Details: scleral injection Lymph Lymphatic: no lymphadenopathy noted Chest inspection of chest normal Chest: symmetrical chest wall rise; Negative for crepitus Resp Auscultation: diminished lung sounds; Negative for rales, rhonchi or wheezes Cardio regular rate, regular rhythm, S1 normal heart sound and S2 normal heart sound GI normal to inspection, nondistended, normoactive bowel sounds, soft to palpation, non-tender and non-distended Extremity Extremity Narrative: Mild lichenification of the lower extremities. Stable edema compared to yesterday General Extremity: edema bilateral (3+) lower extremity; Negative for clubbing or cyanosis Skin Skin Narrative: Venous stasis changes bilateral lower extremities Neuro oriented x3, moves all extremities and no focal motor deficits Psych Mood & Affect: anxious and tearful Charges/Coding Procedures Hospitalists Procedures: 88692 Critial Care 1st Hr
[2021-10-04 07:57] LABS: ALB/GLOB Ratio 0.5 RATIO (0.9-2.4); AST(SGOT) 17 U/L (15-37); Alanine Aminotransfer ALT/SGPT 19 U/L (16-61); Albumin, Serum 1.9 g/dL (3.2-5.0); Alkaline Phosphatase 46 U/L (45-117); Anion Gap 9 (5-15); BUN 45 mg/dL (7-18); BUN/Creat Ratio 24.2 RATIO (10-20); Calcium,Total 7.5 mg/dL (8.5-10.1); Chloride 100 mmol/L (98-107); Creatinine, Serum 1.86 mg/dL (0.70-1.30); EST Glomerular Filtration Rate 39 mL/min (>60); Est Glom Filt Rate - Afr Amer 47 mL/min (>60); Estimated Creatinine Clearance 37.28 ml/min; Glucose 198 mg/dL (74-106); Potassium 4.1 mmol/L (3.5-5.1); Protein, Total 5.9 g/dL (6.4-8.2); Sodium Level 138 mmol/L (136-145)
[2021-10-04 08:08] LABS: Differential Comment SCANNED
[2021-10-04 08:16] LABS: Bedside Glucose 194 mg/dL (70-110)
[2021-10-04] MEDS: Senna/Docusate Sodium 1 Tablet 2 TABLET GT ×2 (08:55→22:52)
[2021-10-04] MEDS: Cholecalciferol (VIT D3) 25 MCG TABLET (1,000 UNITS) GT (08:56)
[2021-10-04] MEDS: Calcium (Elemental) 500 MG Tablet GT ×2 (08:56→17:12)
[2021-10-04] MEDS: Carvedilol 12.5 MG Tablet GT ×2 (08:56→22:53)
[2021-10-04] MEDS: Polyethylene Glycol 3350 17 GM PACKET PO (08:56)
[2021-10-04] MEDS: DULoxetine Hcl 60 MG Capsule PO (08:56)
[2021-10-04] MEDS: Ferrous Sulfate 325 MG Tablet GT ×2 (08:56→17:13)
[2021-10-04] MEDS: Gabapentin 400 MG Capsule GT ×2 (08:56→17:13)
[2021-10-04] MEDS: Amiodarone 200 MG Tablet GT (08:56)
[2021-10-04] MEDS: dexAMETHasone 10 MG/ML Vial 6 MG IV (08:56)
[2021-10-04] MEDS: Multivitamins,Therapeutic Tablet 1 TABLET GT (08:56)
[2021-10-04] MEDS: Allopurinol 300 MG Tablet GT (08:57)
[2021-10-04] MEDS: Chlorhexidine 15 ML PO ×2 (08:57→22:48)
--- NOTE | 2021-10-04 09:36 | PN.HOSP_ITS ---
Subjective Subjective Still on high FiO2. tolerating tube feeds. Objective Data Objective Data Vital Signs: Vital Signs Temp Pulse Resp BP Pulse Ox 37.3 C 62 16 111/58 L 93 10/04/21 00:00 10/04/21 07:50 10/04/21 07:50 10/04/21 07:00 10/04/21 07:50 Oxygen Flow Rate (L/min) 15 Oxygen Delivery Method Mechanical Ventilator Weight: 163.6 kg Body Mass Index (BMI) 55.9 Intake & Output: Intake and Output for Last 24 Hours 10/02/21 10/03/21 10/04/21 23:59 23:59 23:59 Intake Total 1875.00 / 2014.00 3637.16 / 3677.16 900.50 / 900.50 Output Total 725 / 1325 2009 400 / 400 Balance 1150.00 / 690.00 1627.16 / 1667.16 500.50 / 500.50 Medical Nutrition Assessment Dietitian: Malnutrition Criteria Met Start: 09/28/21 11:48 Freq: Status: Active Protocol: Document 10/02/21 10:09 LAZ (Rec: 10/02/21 10:09 LAZ [id number]) Nutrition Malnutrition Evidence of Malnutrition Exists Yes Malnutrition (severe): Acute Illness/Injury Evidenced By Suboptimal Energy Intake ( Severe),Weight Loss (Severe) Clinical Problem Acute Disease or Injury Related Malnutrition Etiology related to decreased appetite w/ acute illness, Signs/Symptoms as evidenced by estimated PO intake meeting less than <50% of estimated nutritional needs >5 days; unintentional wt loss of ~10.9kg/6.3% since onset of acute illness (less than 2 weeks) Status Active Problem Altered Nutrient-Related Laboratory Values Etiology - Signs/Symptoms - Status Inactive Problem Recommendation Dietitian Recommendations/Changes NPO;Will continue Vital HP via OGT at goal rate of 70mL/hour w/ 50mL H2O flush every 4 hours to provide 1680 calories , 146 g protein, and 1704mL total fluid/day. Continue to increase by 15mL/hour every 8- 12 hours as tolerated until goal rate is achieved. Lab / Micro Data Result Diagrams: 10/04/21 04:20 10/04/21 04:20 Labs: Laboratory Results - last 24 hr 10/03/21 11:27: POC Glucose 178 H 10/03/21 17:25: POC Glucose 257 H 10/03/21 22:33: POC Glucose 221 H 10/04/21 04:20: WBC 13.6 H, RBC 3.76 L, Hgb 12.4 L, Hct 38.4 L, MCV 102.1 H, MCH 33.0 H, MCHC 32.3 D, RDW Std Deviation 55.3 H, RDW Coeff of Will 14.7 H, Plt Count 228, MPV 11.2, Immature Gran % (Auto) 2.900 H, Neut % (Auto) 86.2 H, Lymph % (Auto) 2.1 L, [place] % (Auto) 8.5, Eos % (Auto) 0.1, Baso % (Auto) 0.2, Absolute Neuts (auto) 11.7 H, Absolute Lymphs (auto) 0.29 L, Nucleated RBC % 0.1, Differential Comment SCANNED 10/04/21 04:20: Sodium 138, Potassium 4.1, Chloride 100, Carbon Dioxide 29.0, Anion Gap 9, BUN 45 H, Creatinine 1.86 H, Estim Creat Clear Calc 37.28, Est GFR (MDRD) Af Amer 47 L, Est GFR (MDRD) Non-Af 39 L, BUN/Creatinine Ratio 24.2 H, Glucose 198 H, Calcium 7.5 L, Total Bilirubin 0.80, AST 17, ALT 19, Alkaline Phosphatase 46, Total Protein 5.9 L, Albumin 1.9 L, Globulin 4.0, Albumin/Globulin Ratio 0.5 L 10/04/21 06:39: POC Glucose 194 H Micro: Microbiology 10/01/21 10:00 Sputum, Induced/Lukens Gram Stain - Final 10/01/21 10:00 Sputum, Induced/Lukens Respiratory Culture - Final Staphylococcus aureus Serratia marcescens 09/27/21 11:26 Blood Culture (Wb) - Anticubital Left Blood Culture - Final No growth in 5 days. 09/28/21 10:00 Sputum, Expectorated/Coughed Gram Stain - Final 09/28/21 10:00 Sputum, Expectorated/Coughed Respiratory Culture - Final Staphylococcus aureus Streptococcus pneumoniae 09/27/21 17:30 Urine, Clean Catch Legionella Antigen - Final 09/27/21 17:30 Urine, Clean Catch Streptococcus pneumoniae Antigen (M - Final Physical Exam Const Constitutional Narrative: intubated and sedated. Resp Resp Narrative: coarse breath sounds bilaterally. Cardio regular rate, regular rhythm, S1 normal heart sound and S2 normal heart sound GI normal to inspection, nondistended, normoactive bowel sounds, soft to palpation, non-tender and non-distended Extremity Extremity Narrative: decreased edema in LE Skin Skin Narrative: venous stasis dermatitis. Psych affect normal Assessment & Plan Assessment/Plan (1) COVID-19: (2) Acute respiratory failure with hypoxia: (3) Gram-negative pneumonia: (4) Staphylococcus aureus pneumonia: PLAN: 1. Acute hypoxic respiratory failure * multifactorial: due to COVID-19 pneumonia (rapid negative, PCR +) + MSSA pneumonia, strep pneumonia and Seratia pneumonia + obesity hypoventilation +/- CHF * Titrate oxygen to maintain saturation above 90%. * 10/01: intubated * 10/02: 100% FiO2 * 10/04: 90% FiO2 2. Acute COVID 19 pneumonia * vaccinated w Moderna, but no booster * as above * ID following * on dexamethasone 3. bacterial pneumonia * 2/2 MSSA, seratia, strep * continue pip/tazo 3. A. fib: Currently rate controlled. On amiodarone and carvedilol. Also on Xarelto 5. GERD: On PPI 6. Type 2 diabetes mellitus: On Lantus 12 units nightly. Insulin sliding scale. Accu-Cheks AC at bedtime. 7. Acute HFpEF * EF 55% * Chest x-ray showed evidence of mild congestive heart failure. * BNP was only 29, so no evidence of heart failure though CXR showed fluid overload * diuresis 8. Super morbid obesity: * Complicates acute care, recovery and expected prognosis 9. BPH: on flomax 10. Hyperlipidemia: On statin 11. DVT prophylaxis: Not indicated as patient is on Xarelto 12. CODE STATUS: Full code previously verified with patient that is what he wants. Charges/Coding Visit Charges Inpatient E&M: 08645 Subs Hosp L2
[2021-10-04 12:10] LABS: Bedside Glucose 269 mg/dL (70-110)
[2021-10-04] MEDS: Vital High Protein 1,000 ML 70 ML GT (13:37)
[2021-10-04] MEDS: Rivaroxaban 20 MG Tablet GT (17:13)
[2021-10-04 17:50] LABS: Bedside Glucose 300 mg/dL (70-110)
[2021-10-04] MEDS: 0.9% Saline Lock 10 ML Syringe IV (22:49)
[2021-10-04] MEDS: Allopurinol 100 MG Tablet 200 MG GT (22:52)
[2021-10-04] MEDS: Atorvastatin Calcium 10 MG Tablet GT (22:53)
[2021-10-05] VITALS (32 sets, daily range): BP systolic 100–130; BP diastolic 55–72; PULSE 62–83; RESP 14–28; TEMP 37.8–38.9; O2SAT 84–96
[2021-10-05 00:06] LABS: Bedside Glucose 237 mg/dL (70-110)
[2021-10-05] MEDS: Propofol 10MG/Ml 1,000 MG/100 ML Bottle 25 MG CONT INF (02:39)
[2021-10-05] MEDS: Vital High Protein 1,000 ML 70 ML GT ×2 (05:00→20:00)
[2021-10-05] MEDS: Insulin Lispro 100 UNIT/ML INSULN.PEN SC ×4 (05:02→23:00)
[2021-10-05] MEDS: Menthol/Lanolin/Calamine/Znox 113 GM Tube 1 APPLIC TOPICAL ×3 (05:06→22:18)
[2021-10-05] MEDS: Nystatin Powder 15gm Bottle 1 APPLIC TOPICAL ×3 (05:07→22:19)
[2021-10-05] MEDS: Piperacil/Tazobactam 3.375 GM Q8 PREMIX IV ×3 (05:15→21:20)
[2021-10-05 05:26] LABS: Bedside Glucose 172 mg/dL (70-110)
[2021-10-05] MEDS: CHLORHEXIDINE GLUC 2% CLOTH 1 EACH TOWELETTE TOPICAL (05:30)
[2021-10-05 05:36] LABS: Absolute Lymphocyte Count 0.34 X10^3/uL (0.83-4.51); Basophil# 0.02 X10^3/uL; Basophil% 0.1 % (0-1); Eosinophil# 0.07 X10^3/uL; Eosinophils% 0.5 % (0-5); Hematocrit 36.5 % (40-54); Hemoglobin 11.7 g/dL (13.0-16.5); Lymphocyte # 0.34 X10^3/ul (0.83-4.51); Lymphocyte % 2.4 % (19-41); Mean Corp Hgb Conc 32.1 g/dL (32-36); Mean Corpuscular Hgb 32.6 pg (27.0-32.0); Mean Corpuscular Volume 101.7 fL (80-94); Monocyte# 1.35 X10^3/uL; Monocyte% 9.5 % (0-10); NRBC Flagged by Analyzer 0 % (0-5); Neutrophil # 12.01 X10^3/uL (2.7-7.7); Neutrophil % 84.1 % (47-70); POSITIVE DIFFERENTIAL YES; Platelet Count 233 K/mm3 (150-450); RBC Distribution Width CV 14.9 % (11.6-14.6); RBC Distribution Width SD 56.6 fl (35.1-43.9); Red Blood Count 3.59 M/mm3 (4.6-6.2); White Blood Count 14.3 K/mm3 (4.4-11.0)
[2021-10-05 05:48] LABS: Differential Indicated SCAN CRITERIA MET
[2021-10-05] MEDS: Acetaminophen 650 MG/20 ML UDC GT ×3 (05:57→22:41)
[2021-10-05] MEDS: TITRATION PARAMETER CHANGE 1 EACH IV (06:00)
--- NOTE | 2021-10-05 06:26 | PN.CC_ITS ---
Assessment & Plan Assessment/Plan (1) Acute respiratory failure with hypoxia: (2) COVID-19: (3) CHF (congestive heart failure): QUALIFIERS: Heart failure chronicity: chronic Heart failure type: unspecified Qualified Code(s): I50.9 - Heart failure, unspecified (4) Morbid obesity: (5) Staphylococcus aureus pneumonia: (6) Sleep apnea: QUALIFIERS: Sleep apnea type: unspecified type Qualified Code(s): G47.30 - Sleep apnea, unspecified (7) PAF (paroxysmal atrial fibrillation): PLAN: RECOMMENDATIONS: 1. Continue Decadron (10/12/2021). 2. Continue antimicrobials per ID recommendations. 3. Consider diuresis if renal function improves. 4. Continue tube feeds as tolerated. 5. Continue appropriate GI prophylaxis. 6. Ongoing goals of care discussion with the patient's family. IMPRESSIONS: 1. Acute hypoxic respiratory failure secondary to COVID-19 combined with superimposed bacterial pneumonia The patient was initially admitted to the hospital in September 27 with worsening shortness of breath. His hospital course was complicated by worsening hypoxemia, ultimately requiring intubation and invasive mechanical ventilatory support. The patient was initially treated with remdesivir, but was not felt to be a candidate for baricitinib. He has been maintained on Decadron, which will be continued to complete 10 days of therapy. The patient remains therapeutically anticoagulated on Xarelto per home regimen. Sputum culture was positive for staph aureus and Streptococcus pneumonia, for which antimicrobials will be continued per ID recommendations. Underlying renal insufficiency complicates the use of diuretics. Continue to wean FiO2 as tolerated for saturations greater than 90%. 2. Acute diastolic CHF/A. fib Continue amiodarone as ordered. No indication for diuretics in the setting of acute kidney injury. 3. Acute kidney injury Likely secondary to acute presentation/ischemic ATN coupled with recent attempts at diuresis. Creatinine remains elevated above baseline. Plan to continue to hold diuretic therapy for now. Avoid nephrotoxic medications. Continue to monitor urine output. No current indication for renal replacement therapy. 4. Diabetes mellitus type 2?insulin-dependent Continue tube feeds as tolerated along with Lantus and sliding scale insulin coverage. 5. BPH/hyperlipidemia/super morbid obesity/psoriasis/ABI/chronic pain syndrome/decreased mobility Complicates care, management, recovery and prognosis. Continue supportive measures as noted above. Overall prognosis is quite poor. TIME: 38 minutes of critical care time, independent of procedures, was spent addressing the patient's acute hypoxemic respiratory failure secondary to COVID- 19 pneumonia, superimposed bacterial pneumonia, acute kidney injury, review of all data and collaboration with the care team. Subjective Subjective The patient was seen and examined at the bedside this morning. Events from the last 24 hours have been reviewed. Today is day #4. The patient currently has a low-grade fever but remains otherwise hemodynamically stable. The patient remains on assist control mode of mechanical ventilation with an FiO2 requirement of 85% and PEEP of 16. He is currently sedated on propofol and fentanyl. The patient has been tolerant of tube feeds. He is currently documented to be overall net +5.3 L for the hospitalization. The patient remains on Decadron and Xarelto. Objective Data Objective Data The patient's most recent lab work, culture data and imaging studies have all been personally reviewed. Coronavirus PCR was positive on September 27. Sputum culture dated September 28 was positive for staph aureus and Streptococcus pneumonia. Sputum culture dated October 01 was positive for staph aureus and Serratia marcescens. Vital Signs: Vital Signs Temp Pulse Resp BP Pulse Ox 100.5 F H 66 17 121/60 H 87 10/05/21 04:00 10/05/21 04:00 10/05/21 04:00 10/05/21 04:00 10/05/21 04:00 Oxygen Flow Rate (L/min) 15 Oxygen Delivery Method Mechanical Ventilator Weight: 164.4 kg Body Mass Index (BMI) 55.9 Intake & Output: Intake and Output for Last 24 Hours 10/03/21 10/04/21 10/05/21 23:59 23:59 23:59 Intake Total 3637.16 / 3677.16 3484.50 / 3882.50 935.50 / 935.50 Output Total 2009 1025 / 1425 750 / 750 Balance 1627.16 / 1667.16 2459.50 / 2457.50 185.50 / 185.50 Medical Nutrition Assessment Dietitian: Malnutrition Criteria Met Start: 09/28/21 11:48 Freq: Status: Active Protocol: Document 10/02/21 10:09 LAZ (Rec: 10/02/21 10:09 LAZ [id number]) Nutrition Malnutrition Evidence of Malnutrition Exists Yes Malnutrition (severe): Acute Illness/Injury Evidenced By Suboptimal Energy Intake ( Severe),Weight Loss (Severe) Clinical Problem Acute Disease or Injury Related Malnutrition Etiology related to decreased appetite w/ acute illness, Signs/Symptoms as evidenced by estimated PO intake meeting less than <50% of estimated nutritional needs >5 days; unintentional wt loss of ~10.9kg/6.3% since onset of acute illness (less than 2 weeks) Status Active Problem Altered Nutrient-Related Laboratory Values Etiology - Signs/Symptoms - Status Inactive Problem Recommendation Dietitian Recommendations/Changes NPO;Will continue Vital HP via OGT at goal rate of 70mL/hour w/ 50mL H2O flush every 4 hours to provide 1680 calories , 146 g protein, and 1704mL total fluid/day. Continue to increase by 15mL/hour every 8- 12 hours as tolerated until goal rate is achieved. Lab / Micro Data Attestation: I reviewed the patient's lab results. Result Diagrams: 10/05/21 05:10 10/05/21 05:10 Labs: Laboratory Results - last 24 hr 10/04/21 04:20: WBC 13.6 H, RBC 3.76 L, Hgb 12.4 L, Hct 38.4 L, MCV 102.1 H, MCH 33.0 H, MCHC 32.3 D, RDW Std Deviation 55.3 H, RDW Coeff of Will 14.7 H, Plt Count 228, MPV 11.2, Immature Gran % (Auto) 2.900 H, Neut % (Auto) 86.2 H, Lymph % (Auto) 2.1 L, [place] % (Auto) 8.5, Eos % (Auto) 0.1, Baso % (Auto) 0.2, Absolute Neuts (auto) 11.7 H, Absolute Lymphs (auto) 0.29 L, Nucleated RBC % 0.1, Differential Comment SCANNED 10/04/21 04:20: Sodium 138, Potassium 4.1, Chloride 100, Carbon Dioxide 29.0, Anion Gap 9, BUN 45 H, Creatinine 1.86 H, Estim Creat Clear Calc 37.28, Est GFR (MDRD) Af Amer 47 L, Est GFR (MDRD) Non-Af 39 L, BUN/Creatinine Ratio 24.2 H, Glucose 198 H, Calcium 7.5 L, Total Bilirubin 0.80, AST 17, ALT 19, Alkaline Phosphatase 46, Total Protein 5.9 L, Albumin 1.9 L, Globulin 4.0, Albumin/Globulin Ratio 0.5 L 10/04/21 06:39: POC Glucose 194 H 10/04/21 11:55: POC Glucose 269 H 10/04/21 17:07: POC Glucose 300 H 10/04/21 23:01: POC Glucose 237 H 10/05/21 05:00: POC Glucose 172 H 10/05/21 05:10: WBC 14.3 H, RBC 3.59 L, Hgb 11.7 L, Hct 36.5 L, MCV 101.7 H, MCH 32.6 H, MCHC 32.1, RDW Std Deviation 56.6 H, RDW Coeff of Will 14.9 H, Plt Count 233, MPV 11.0, Immature Gran % (Auto) 3.400 H, Neut % (Auto) 84.1 H, Lymph % (Auto) 2.4 L, [place] % (Auto) 9.5, Eos % (Auto) 0.5, Baso % (Auto) 0.1, Absolute Neuts (auto) 12.0 H, Absolute Lymphs (auto) 0.34 L, Nucleated RBC % 0 Micro: Microbiology 10/01/21 10:00 Sputum, Induced/Lukens Gram Stain - Final 10/01/21 10:00 Sputum, Induced/Lukens Respiratory Culture - Final Staphylococcus aureus Serratia marcescens 09/27/21 11:26 Blood Culture (Wb) - Anticubital Left Blood Culture - Final No growth in 5 days. 09/28/21 10:00 Sputum, Expectorated/Coughed Gram Stain - Final 09/28/21 10:00 Sputum, Expectorated/Coughed Respiratory Culture - Final Staphylococcus aureus Streptococcus pneumoniae 09/27/21 17:30 Urine, Clean Catch Legionella Antigen - Final 09/27/21 17:30 Urine, Clean Catch Streptococcus pneumoniae Antigen (M - Final Physical Exam Const General Appearance: ill appearing, intubated and patient mechanically ventilated Nutritional Appearance: morbidly obese HEENT normocephalic and head/scalp atraumatic Mouth: endotracheal tube in place and OG tube in place Eyes PERRL and EOMs intact bilaterally Neck supple General: trachea midline Chest inspection of chest normal Resp Auscultation: diminished lung sounds Cardio regular rate and regular rhythm GI normal to inspection, nondistended, normoactive bowel sounds Extremity General Extremity: edema bilateral lower extremity; Negative for clubbing Skin General Skin Exam: erythema and lichenification Neuro Sensorium / Orientation: sedated on vent Charges/Coding Procedures Hospitalists Procedures: 28825 Critial Care 1st Hr
[2021-10-05 06:37] LABS: ALB/GLOB Ratio 0.4 RATIO (0.9-2.4); AST(SGOT) 16 U/L (15-37); Alanine Aminotransfer ALT/SGPT 16 U/L (16-61); Albumin, Serum 1.7 g/dL (3.2-5.0); Alkaline Phosphatase 45 U/L (45-117); Anion Gap 6 (5-15); BUN 53 mg/dL (7-18); BUN/Creat Ratio 27.3 RATIO (10-20); Calcium,Total 7.6 mg/dL (8.5-10.1); Chloride 100 mmol/L (98-107); Creatinine, Serum 1.94 mg/dL (0.70-1.30); EST Glomerular Filtration Rate 37 mL/min (>60); Est Glom Filt Rate - Afr Amer 45 mL/min (>60); Estimated Creatinine Clearance 35.75 ml/min; Glucose 181 mg/dL (74-106); Potassium 4.4 mmol/L (3.5-5.1); Protein, Total 5.7 g/dL (6.4-8.2); Sodium Level 137 mmol/L (136-145)
[2021-10-05] MEDS: Propofol 10MG/Ml 1,000 MG/100 ML Bottle 24.7 MG CONT INF ×3 (06:41→17:12)
--- NOTE | 2021-10-05 07:30 | PN.HOSP_ITS ---
Subjective Subjective Patient is a 66-year-old admitted with shortness of breath diagnosed with COVID- 19. Hospital stay complicated by acute respiratory failure resulting in patient being intubated. Objective Data Objective Data Vital Signs: Vital Signs Temp Pulse Resp BP Pulse Ox 100.4 F H 76 20 H 100/56 L 89 10/05/21 07:00 10/05/21 07:00 10/05/21 07:00 10/05/21 07:00 10/05/21 07:00 Oxygen Flow Rate (L/min) 15 Oxygen Delivery Method Mechanical Ventilator Weight: 164.4 kg Body Mass Index (BMI) 55.9 Intake & Output: Intake and Output for Last 24 Hours 10/03/21 10/04/21 10/05/21 23:59 23:59 23:59 Intake Total 3637.16 / 3677.16 3484.50 / 3882.50 1144.57 / 1144.57 Output Total 2009 1025 / 1425 750 / 750 Balance 1627.16 / 1667.16 2459.50 / 2457.50 394.57 / 394.57 Medical Nutrition Assessment Dietitian: Malnutrition Criteria Met Start: 09/28/21 11:48 Freq: Status: Active Protocol: Document 10/02/21 10:09 LAZ (Rec: 10/02/21 10:09 LAZ [id number]) Nutrition Malnutrition Evidence of Malnutrition Exists Yes Malnutrition (severe): Acute Illness/Injury Evidenced By Suboptimal Energy Intake ( Severe),Weight Loss (Severe) Clinical Problem Acute Disease or Injury Related Malnutrition Etiology related to decreased appetite w/ acute illness, Signs/Symptoms as evidenced by estimated PO intake meeting less than <50% of estimated nutritional needs >5 days; unintentional wt loss of ~10.9kg/6.3% since onset of acute illness (less than 2 weeks) Status Active Problem Altered Nutrient-Related Laboratory Values Etiology - Signs/Symptoms - Status Inactive Problem Recommendation Dietitian Recommendations/Changes NPO;Will continue Vital HP via OGT at goal rate of 70mL/hour w/ 50mL H2O flush every 4 hours to provide 1680 calories , 146 g protein, and 1704mL total fluid/day. Continue to increase by 15mL/hour every 8- 12 hours as tolerated until goal rate is achieved. Lab / Micro Data Result Diagrams: 10/05/21 05:10 10/05/21 05:10 Labs: Laboratory Results - last 24 hr 10/04/21 04:20: Differential Comment SCANNED 10/04/21 04:20: Sodium 138, Potassium 4.1, Chloride 100, Carbon Dioxide 29.0, Anion Gap 9, BUN 45 H, Creatinine 1.86 H, Estim Creat Clear Calc 37.28, Est GFR (MDRD) Af Amer 47 L, Est GFR (MDRD) Non-Af 39 L, BUN/Creatinine Ratio 24.2 H, Glucose 198 H, Calcium 7.5 L, Total Bilirubin 0.80, AST 17, ALT 19, Alkaline Phosphatase 46, Total Protein 5.9 L, Albumin 1.9 L, Globulin 4.0, Albumin/Glob ulin Ratio 0.5 L 10/04/21 06:39: POC Glucose 194 H 10/04/21 11:55: POC Glucose 269 H 10/04/21 17:07: POC Glucose 300 H 10/04/21 23:01: POC Glucose 237 H 10/05/21 05:00: POC Glucose 172 H 10/05/21 05:10: WBC 14.3 H, RBC 3.59 L, Hgb 11.7 L, Hct 36.5 L, MCV 101.7 H, MCH 32.6 H, MCHC 32.1, RDW Std Deviation 56.6 H, RDW Coeff of Will 14.9 H, Plt Count 233, MPV 11.0, Immature Gran % (Auto) 3.400 H, Neut % (Auto) 84.1 H, Lymph % (Auto) 2.4 L, [place] % (Auto) 9.5, Eos % (Auto) 0.5, Baso % (Auto) 0.1, Absolute Neuts (auto) 12.0 H, Absolute Lymphs (auto) 0.34 L, Nucleated RBC % 0 10/05/21 05:10: Sodium 137, Potassium 4.4, Chloride 100, Carbon Dioxide 31.0, Anion Gap 6, BUN 53 H, Creatinine 1.94 H, Estim Creat Clear Calc 35.75, Est GFR (MDRD) Af Amer 45 L, Est GFR (MDRD) Non-Af 37 L, BUN/Creatinine Ratio 27.3 H, Glucose 181 H, Calcium 7.6 L, Total Bilirubin 0.60, AST 16, ALT 16, Alkaline Phosphatase 45, Total Protein 5.7 L, Albumin 1.7 L, Globulin 4.0, Albumin/Globulin Ratio 0.4 L Micro: Microbiology 10/01/21 10:00 Sputum, Induced/Lukens Gram Stain - Final 10/01/21 10:00 Sputum, Induced/Lukens Respiratory Culture - Final Staphylococcus aureus Serratia marcescens 09/27/21 11:26 Blood Culture (Wb) - Anticubital Left Blood Culture - Final No growth in 5 days. 09/28/21 10:00 Sputum, Expectorated/Coughed Gram Stain - Final 09/28/21 10:00 Sputum, Expectorated/Coughed Respiratory Culture - Final Staphylococcus aureus Streptococcus pneumoniae 09/27/21 17:30 Urine, Clean Catch Legionella Antigen - Final 09/27/21 17:30 Urine, Clean Catch Streptococcus pneumoniae Antigen (M - Final Physical Exam Narrative GENERAL: Patient on the vent HEENT: Atraumatic; EYES; Anicteric, Normal Conjunctiva NECK; supple, normal thyroid, RESPIRATORY: Diminished to auscultation CARDIOVASCULAR: Regular S1 S2, GI: soft, normoactive bowel sounds, : No Renal angle tenderness; EXTREMITIES: Bilateral stasis dermatitis MUSCULOSKELETAL: no muscle waisting NEURO: Patient on the vent SKIN: No Rash Assessment & Plan Assessment/Plan (1) COVID-19: (2) Acute respiratory failure with hypoxia: (3) Gram-negative pneumonia: (4) Staphylococcus aureus pneumonia: PLAN: Patient is a 66-year-old admitted with shortness of breath diagnosed with COVID-19. Hospital stay complicated by acute respiratory failure resulting in patient being intubated. 1. Acute hypoxic respiratory failure ?Secondary to COVID-19 pneumonia with superimposed bacterial pneumonia. Patient currently on the vent. Pulmonary on case vent management deferred to pulmonary medicine 2. Acute COVID 19 pneumonia -Patient managed with Decadron. ID was consulted baricitinib was not recommended 3. Superimposed bacterial pneumonia ?Cultures grew MSSA strep pneumo and Serratia pneumonia. Patient is currently on Zosyn 4. Acute congestive heart failure with preserved ejection fraction ?Echo demonstrated EF of 55% checks x-ray showed evidence of mild CHF patient on diuresis 5. Obesity hypoventilation syndrome ?Complicating care 6. Paroxysmal A. fib ?Rate controlled on amiodarone and carvedilol also on systemic anticoagulation with Xarelto 6. GERD ?On PPI 7. Diabetes mellitus type II -patient's oral hypoglycemics held. Placed on long acting insulin, Accu-Cheks a.c. and at bedtime and covered with sliding scale insulin 8. Class III obesity with BMI 55.1 ?Also complicating care 9. BPH ?Patient is on Flomax 10. Dyslipidemia -Patient is on statin therapy, continued at home dose 11. DVT prophylaxis ?Xarelto Charges/Coding Visit Charges Inpatient E&M: 99588 Subs Hosp L3
[2021-10-05] MEDS: DULoxetine Hcl 60 MG Capsule PO (08:34)
[2021-10-05] MEDS: Senna/Docusate Sodium 1 Tablet 2 TABLET GT ×2 (08:34→22:23)
[2021-10-05] MEDS: Cholecalciferol (VIT D3) 25 MCG TABLET (1,000 UNITS) GT (08:34)
[2021-10-05] MEDS: Allopurinol 300 MG Tablet GT (08:34)
[2021-10-05] MEDS: Gabapentin 400 MG Capsule GT ×2 (08:34→17:18)
[2021-10-05] MEDS: Amiodarone 200 MG Tablet GT (08:35)
[2021-10-05] MEDS: Carvedilol 12.5 MG Tablet GT ×2 (08:35→22:23)
[2021-10-05] MEDS: Multivitamins,Therapeutic Tablet 1 TABLET GT (08:35)
[2021-10-05] MEDS: Ferrous Sulfate 325 MG Tablet GT ×2 (08:35→17:18)
[2021-10-05] MEDS: Calcium (Elemental) 500 MG Tablet GT ×2 (08:35→17:18)
[2021-10-05] MEDS: dexAMETHasone 10 MG/ML Vial 6 MG IV (08:37)
[2021-10-05] MEDS: Chlorhexidine 15 ML PO ×2 (08:38→22:22)
[2021-10-05] MEDS: Propofol 10MG/Ml 1,000 MG/100 ML Bottle 19.7 MG CONT INF (11:13)
[2021-10-05 11:55] LABS: Bedside Glucose 250 mg/dL (70-110)
[2021-10-05] MEDS: Rivaroxaban 20 MG Tablet GT (17:18)
[2021-10-05 18:11] LABS: Bedside Glucose 325 mg/dL (70-110)
[2021-10-05] MEDS: 0.9% Saline Lock 10 ML Syringe IV (22:22)
[2021-10-05] MEDS: Allopurinol 100 MG Tablet 200 MG GT (22:24)
[2021-10-05] MEDS: Atorvastatin Calcium 10 MG Tablet GT (22:24)
[2021-10-05] MEDS: Propofol 10MG/Ml 1,000 MG/100 ML Bottle 14.8 MG CONT INF (23:31)
[2021-10-06] VITALS (32 sets, daily range): BP systolic 111–168; BP diastolic 64–97; PULSE 71–112; RESP 20–47; TEMP 38.8–39.8; O2SAT 89–96
[2021-10-06 00:16] LABS: Bedside Glucose 199 mg/dL (70-110)
[2021-10-06] MEDS: Propofol 10MG/Ml 1,000 MG/100 ML Bottle 14.8 MG CONT INF (02:57)
[2021-10-06 04:17] LABS: Absolute Lymphocyte Count 0.36 X10^3/uL (0.83-4.51); Absolute Neutrophil Count 13.1 X10^3/uL (2.0-7.7); Basophil# 0.05 X10^3/uL; Basophil% 0.3 % (0-1); Eosinophil# 0.06 X10^3/uL; Eosinophils% 0.4 % (0-5); Hematocrit 38.8 % (40-54); Hemoglobin 12.4 g/dL (13.0-16.5); Lymphocyte # 0.36 X10^3/ul (0.83-4.51); Lymphocyte % 2.3 % (19-41); Mean Corpuscular Hgb 32.5 pg (27.0-32.0); Mean Corpuscular Volume 101.8 fL (80-94); Mean Platelet Vol. 10.9 fl (6.2-12.0); Monocyte# 1.44 X10^3/uL; Monocyte% 9.2 % (0-10); NRBC Flagged by Analyzer 0 % (0-5); Neutrophil # 13.06 X10^3/uL (2.7-7.7); Neutrophil % 83.7 % (47-70); POSITIVE DIFFERENTIAL YES; Platelet Count 261 K/mm3 (150-450); RBC Distribution Width CV 15.1 % (11.6-14.6); Red Blood Count 3.81 M/mm3 (4.6-6.2); White Blood Count 15.6 K/mm3 (4.4-11.0)
[2021-10-06 04:19] LABS: Differential Indicated SCAN CRITERIA MET
[2021-10-06 04:39] LABS: Basophilic Stippling RARE; Tear Drop Cell 1+
[2021-10-06 04:42] LABS: CPK Total, Creatine Kinase 86 U/L (39-308); Triglycerides 979 mg/dL
[2021-10-06 04:46] LABS: Allen Test Positive; Base Excess 6 mmol/L (-2 to +2); Bicarbonate 31.5 mmol/L (22-26); Blood Gas Specimen Type ART; FI02 75; Mode BiLevel; O2 Delivery Device Adult Vent; PO2 58 mmHG (75-100); RR 12; SITE L Radial; SO2 88 % (95-99); Total Carbon Dioxide 33 mmol/L; pCO2 55.2 mmHg (35-45); pH 7.36 (7.35-7.45)
[2021-10-06 05:27] LABS: ALB/GLOB Ratio 0.4 RATIO (0.9-2.4); AST(SGOT) 19 U/L (15-37); Alanine Aminotransfer ALT/SGPT 19 U/L (16-61); Albumin, Serum 1.7 g/dL (3.2-5.0); Alkaline Phosphatase 58 U/L (45-117); Anion Gap 7 (5-15); BUN 61 mg/dL (7-18); BUN/Creat Ratio 27.5 RATIO (10-20); Calcium,Total 8.1 mg/dL (8.5-10.1); Chloride 103 mmol/L (98-107); Creatinine, Serum 2.22 mg/dL (0.70-1.30); EST Glomerular Filtration Rate 32 mL/min (>60); Est Glom Filt Rate - Afr Amer 38 mL/min (>60); Estimated Creatinine Clearance 31.24 ml/min; Globulin 4.6 g/dL (2.2-4.2); Glucose 206 mg/dL (74-106); Magnesium 2.7 mg/dL (1.6-2.6); Potassium 4.5 mmol/L (3.5-5.1); Protein, Total 6.3 g/dL (6.4-8.2); Sodium Level 141 mmol/L (136-145)
--- NOTE | 2021-10-06 06:33 | NURSING ---
10/06/21- Patient gold wedding band placed into [employer] applications patient rooms in labeled denture cup.
[2021-10-06] MEDS: Acetaminophen 650 MG/20 ML UDC GT ×3 (06:34→21:50)
[2021-10-06] MEDS: Insulin Lispro 100 UNIT/ML INSULN.PEN SC ×3 (06:35→17:06)
[2021-10-06] MEDS: Menthol/Lanolin/Calamine/Znox 113 GM Tube 1 APPLIC TOPICAL ×3 (06:36→21:30)
[2021-10-06] MEDS: Nystatin Powder 15gm Bottle 1 APPLIC TOPICAL ×3 (06:36→21:29)
[2021-10-06] MEDS: Dexmedetomidine 1,000 mcg in 0.9% NS 240 mL 20.6 MCG CONT INF (06:39)
[2021-10-06] MEDS: Piperacil/Tazobactam 3.375 GM Q8 PREMIX IV (06:40)
--- NOTE | 2021-10-06 06:52 | PCM.PN.INT ---
Assessment & Plan Assessment/Plan (1) Acute respiratory failure with hypoxia: (2) COVID-19: (3) CHF (congestive heart failure): QUALIFIERS: Heart failure chronicity: chronic Heart failure type: unspecified Qualified Code(s): I50.9 - Heart failure, unspecified (4) Morbid obesity: (5) Staphylococcus aureus pneumonia: (6) Sleep apnea: QUALIFIERS: Sleep apnea type: unspecified type Qualified Code(s): G47.30 - Sleep apnea, unspecified (7) PAF (paroxysmal atrial fibrillation): PLAN: RECOMMENDATIONS: 1. Continue APRV and wean FiO2 for saturations greater than 90%. 2. Continue Decadron (10/12/2021). 3. Continue antimicrobials per ID recommendations. 4. Consider diuresis if renal function improves. 5. Continue tube feeds as tolerated. 6. Continue appropriate GI prophylaxis. IMPRESSIONS: 1. Acute hypoxic respiratory failure secondary to COVID-19 combined with superimposed bacterial pneumonia The patient was initially admitted to the hospital in September 27 with worsening shortness of breath. His hospital course was complicated by worsening hypoxemia, ultimately requiring intubation and invasive mechanical ventilatory support. The patient was initially treated with remdesivir, but was not felt to be a candidate for baricitinib. He has been maintained on Decadron, which will be continued to complete 10 days of therapy. The patient remains therapeutically anticoagulated on Xarelto per home regimen. Sputum culture was positive for staph aureus and Streptococcus pneumonia, for which antimicrobials will be continued per ID recommendations. Underlying renal insufficiency complicates the use of diuretics. Continue to wean FiO2 as tolerated for saturations greater than 90%. 2. Acute diastolic CHF/A. fib Continue amiodarone as ordered. No indication for diuretics in the setting of acute kidney injury. 3. Acute kidney injury Likely secondary to acute presentation/ischemic ATN coupled with recent attempts at diuresis. Creatinine remains elevated above baseline. Plan to continue to hold diuretic therapy for now. Avoid nephrotoxic medications. Continue to monitor urine output. No current indication for renal replacement therapy. 4. Diabetes mellitus type 2?insulin-dependent Continue tube feeds as tolerated along with Lantus and sliding scale insulin coverage. 5. BPH/hyperlipidemia/super morbid obesity/psoriasis/ABI/chronic pain syndrome/decreased mobility Complicates care, management, recovery and prognosis. Continue supportive measures as noted above. Overall prognosis is poor. TIME: 34 minutes of critical care time, independent of procedures, was spent addressing the patient's acute hypoxemic respiratory failure secondary to COVID-19 pneumonia, superimposed bacterial pneumonia, acute kidney injury, review of all data and collaboration with the care team. Subjective Subjective The patient was seen and examined at the bedside this morning. Events from the last 24 hours have been reviewed. Today is vent day #5. The patient remains febrile with a T-max of 103 ?F. He is otherwise hemodynamically stable. Yesterday, due to refractory hypoxemia, the patient was transitioned to APRV, which he is currently tolerating, with a P high of 30 and FiO2 of 75%. The patient is currently documented to be overall net +7.2 L for the hospitalization. The patient is tolerating tube feeds. Creatinine has increased to 2.2 this morning. Unfortunately, the patient's triglycerides were elevated at 979. Therefore, his propofol had to be discontinued and the patient transitioned to Precedex. The patient remains on antimicrobials, Decadron and Xarelto. Objective Data Objective Data The patient's most recent lab work, culture data and imaging studies have all been personally reviewed. Coronavirus PCR was positive on September 27. Sputum culture dated September 28 was positive for staph aureus and Streptococcus pneumonia. Sputum culture dated October 01 was positive for staph aureus and Serratia marcescens. Vital Signs: Vital Signs Temp Pulse Resp BP Pulse Ox 103.0 F H 93 37 H 123/71 H 92 10/06/21 06:00 10/06/21 06:45 10/06/21 06:45 10/06/21 06:00 10/06/21 06:45 Oxygen Flow Rate (L/min) 15 Oxygen Delivery Method Mechanical Ventilator Weight: 165.6 kg Body Mass Index (BMI) 55.9 Intake & Output: Intake and Output for Last 24 Hours 10/04/21 10/05/21 10/06/21 23:59 23:59 23:59 Intake Total 3484.50 / 3882.50 3818.81 / 4215.96 751.15 / 751.15 Output Total 1025 / 1425 1900 / 1900 450 / 450 Balance 2459.50 / 2457.50 1918.81 / 2315.96 301.15 / 301.15 Medical Nutrition Assessment Dietitian: Malnutrition Criteria Met Start: 09/28/21 11:48 Freq: Status: Active Protocol: Document 10/02/21 10:09 LAZ (Rec: 10/02/21 10:09 [facility] [id number]) Nutrition Malnutrition Evidence of Malnutrition Exists Yes Malnutrition (severe): Acute Illness/Injury Evidenced By Suboptimal Energy Intake ( Severe),Weight Loss (Severe) Clinical Problem Acute Disease or Injury Related Malnutrition Etiology related to decreased appetite w/ acute illness, Signs/Symptoms as evidenced by estimated PO intake meeting less than <50% of estimated nutritional needs >5 days; unintentional wt loss of ~10.9kg/6.3% since onset of acute illness (less than 2 weeks) Status Active Problem Altered Nutrient-Related Laboratory Values Etiology - Signs/Symptoms - Status Inactive Problem Recommendation Dietitian Recommendations/Changes NPO;Will continue Vital HP via OGT at goal rate of 70mL/hour w/ 50mL H2O flush every 4 hours to provide 1680 calories , 146 g protein, and 1704mL total fluid/day. Continue to increase by 15mL/hour every 8- 12 hours as tolerated until goal rate is achieved. Lab / Micro Data Attestation: I reviewed the patient's lab results. Result Diagrams: 10/06/21 04:10 10/06/21 04:10 Labs: Laboratory Results - last 24 hr 10/05/21 11:12: POC Glucose 250 H 10/05/21 16:53: POC Glucose 325 H 10/05/21 23:00: POC Glucose 199 H 10/06/21 04:10: WBC 15.6 H, RBC 3.81 L, Hgb 12.4 L, Hct 38.8 L, MCV 101.8 H, MCH 32.5 H, MCHC 32.0, RDW Std Deviation 57.0 H, RDW Coeff of Will 15.1 H, Plt Count 261, MPV 10.9, Immature Gran % (Auto) 4.100 H, Neut % (Auto) 83.7 H, Lymph % (Auto) 2.3 L, Tripp % (Auto) 9.2, Eos % (Auto) 0.4, Baso % (Auto) 0.3, Absolute Neuts (auto) 13.1 H, Absolute Lymphs (auto) 0.36 L, Nucleated RBC % 0, Basophilic Stippling RARE, Tear Drop Cells 1+ 10/06/21 04:10: Sodium 141, Potassium 4.5, Chloride 103, Carbon Dioxide 31.0, Anion Gap 7, BUN 61 H, Creatinine 2.22 H, Estim Creat Clear Calc 31.24, Est GFR (MDRD) Af Amer 38 L, Est GFR (MDRD) Non-Af 32 L, BUN/Creatinine Ratio 27.5 H, Glucose 206 H, Calcium 8.1 L, Magnesium 2.7 H, Total Bilirubin 0.70, AST 19, ALT 19, Alkaline Phosphatase 58, Total Protein 6.3 L, Albumin 1.7 L, Globulin 4.6 H, Albumin/Globulin Ratio 0.4 L 10/06/21 04:10: Total Creatine Kinase 86, Triglycerides 979 H Micro: Microbiology 10/01/21 10:00 Sputum, Induced/Lukens Gram Stain - Final 10/01/21 10:00 Sputum, Induced/Lukens Respiratory Culture - Final Staphylococcus aureus Serratia marcescens 09/27/21 11:26 Blood Culture (Wb) - Anticubital Left Blood Culture - Final No growth in 5 days. 09/28/21 10:00 Sputum, Expectorated/Coughed Gram Stain - Final 09/28/21 10:00 Sputum, Expectorated/Coughed Respiratory Culture - Final Staphylococcus aureus Streptococcus pneumoniae 09/27/21 17:30 Urine, Clean Catch Legionella Antigen - Final 09/27/21 17:30 Urine, Clean Catch Streptococcus pneumoniae Antigen (M - Final ABG Data ABG results: ABG 10/06/21 04:42 Specimen Type ART Sample Site L Radial pH 7.36 Bicarbonate Actual 31.5 H Total CO2 33 Base Excess 6 H O2 Saturation 88 L O2 % 75 ABG pCO2 55.2 H ABG pO2 58 L Enmanuel Test Positive Respiration Rate 12 O2 Delivery Device Adult Vent Vent Mode BiLevel Physical Exam Const General Appearance: ill appearing, intubated and patient mechanically ventilated Nutritional Appearance: morbidly obese HEENT normocephalic and head/scalp atraumatic Mouth: endotracheal tube in place and OG tube in place Eyes PERRL and EOMs intact bilaterally Neck supple General: trachea midline Chest inspection of chest normal Resp Auscultation: diminished lung sounds Cardio regular rate and regular rhythm GI normal to inspection, nondistended, normoactive bowel sounds Extremity General Extremity: edema bilateral lower extremity; Negative for clubbing Skin General Skin Exam: erythema and lichenification Neuro Sensorium / Orientation: sedated on vent Charges/Coding Procedures Hospitalists Procedures: 52628 Critial Care 1st Hr
[2021-10-06 07:00] LABS: Bedside Glucose 195 mg/dL (70-110)
[2021-10-06] MEDS: TITRATION PARAMETER CHANGE 1 EACH IV (07:15)
--- NOTE | 2021-10-06 07:20 | PN.HOSP_ITS ---
Subjective Subjective Patient seen remains on the vent patient continues to spike fever with a T-max of 103 in the past 24 hours. Objective Data Objective Data Vital Signs: Vital Signs Temp Pulse Resp BP Pulse Ox 103.0 F H 93 37 H 123/71 H 92 10/06/21 06:00 10/06/21 06:45 10/06/21 06:45 10/06/21 06:00 10/06/21 06:45 Oxygen Flow Rate (L/min) 15 Oxygen Delivery Method Mechanical Ventilator Weight: 165.6 kg Body Mass Index (BMI) 55.9 Intake & Output: Intake and Output for Last 24 Hours 10/04/21 10/05/21 10/06/21 23:59 23:59 23:59 Intake Total 3484.50 / 3882.50 3818.81 / 4215.96 751.15 / 751.15 Output Total 1025 / 1425 1900 / 1900 450 / 450 Balance 2459.50 / 2457.50 1918.81 / 2315.96 301.15 / 301.15 Medical Nutrition Assessment Dietitian: Malnutrition Criteria Met Start: 09/28/21 11:48 Freq: Status: Active Protocol: Document 10/02/21 10:09 LAZ (Rec: 10/02/21 10:09 [facility] [id number]) Nutrition Malnutrition Evidence of Malnutrition Exists Yes Malnutrition (severe): Acute Illness/Injury Evidenced By Suboptimal Energy Intake ( Severe),Weight Loss (Severe) Clinical Problem Acute Disease or Injury Related Malnutrition Etiology related to decreased appetite w/ acute illness, Signs/Symptoms as evidenced by estimated PO intake meeting less than <50% of estimated nutritional needs >5 days; unintentional wt loss of ~10.9kg/6.3% since onset of acute illness (less than 2 weeks) Status Active Problem Altered Nutrient-Related Laboratory Values Etiology - Signs/Symptoms - Status Inactive Problem Recommendation Dietitian Recommendations/Changes NPO;Will continue Vital HP via OGT at goal rate of 70mL/hour w/ 50mL H2O flush every 4 hours to provide 1680 calories , 146 g protein, and 1704mL total fluid/day. Continue to increase by 15mL/hour every 8- 12 hours as tolerated until goal rate is achieved. Lab / Micro Data Result Diagrams: 10/06/21 04:10 10/06/21 04:10 Labs: Laboratory Results - last 24 hr 10/05/21 11:12: POC Glucose 250 H 10/05/21 16:53: POC Glucose 325 H 10/05/21 23:00: POC Glucose 199 H 10/06/21 04:10: WBC 15.6 H, RBC 3.81 L, Hgb 12.4 L, Hct 38.8 L, MCV 101.8 H, MCH 32.5 H, MCHC 32.0, RDW Std Deviation 57.0 H, RDW Coeff of Will 15.1 H, Plt Count 261, MPV 10.9, Immature Gran % (Auto) 4.100 H, Neut % (Auto) 83.7 H, Lymph % (Auto) 2.3 L, [place] % (Auto) 9.2, Eos % (Auto) 0.4, Baso % (Auto) 0.3, Absolute Neuts (auto) 13.1 H, Absolute Lymphs (auto) 0.36 L, Nucleated RBC % 0, Basophilic Stippling RARE, Tear Drop Cells 1+ 10/06/21 04:10: Sodium 141, Potassium 4.5, Chloride 103, Carbon Dioxide 31.0, A nion Gap 7, BUN 61 H, Creatinine 2.22 H, Estim Creat Clear Calc 31.24, Est GFR (MDRD) Af Amer 38 L, Est GFR (MDRD) Non-Af 32 L, BUN/Creatinine Ratio 27.5 H, Glucose 206 H, Calcium 8.1 L, Magnesium 2.7 H, Total Bilirubin 0.70, AST 19, ALT 19, Alkaline Phosphatase 58, Total Protein 6.3 L, Albumin 1.7 L, Globulin 4.6 H, Albumin/Globulin Ratio 0.4 L 10/06/21 04:10: Total Creatine Kinase 86, Triglycerides 979 H 10/06/21 06:32: POC Glucose 195 H Micro: Microbiology 10/01/21 10:00 Sputum, Induced/Lukens Gram Stain - Final 10/01/21 10:00 Sputum, Induced/Lukens Respiratory Culture - Final Staphylococcus aureus Serratia marcescens 09/27/21 11:26 Blood Culture (Wb) - Anticubital Left Blood Culture - Final No growth in 5 days. 09/28/21 10:00 Sputum, Expectorated/Coughed Gram Stain - Final 09/28/21 10:00 Sputum, Expectorated/Coughed Respiratory Culture - Final Staphylococcus aureus Streptococcus pneumoniae 09/27/21 17:30 Urine, Clean Catch Legionella Antigen - Final 09/27/21 17:30 Urine, Clean Catch Streptococcus pneumoniae Antigen (M - Final ABG Data ABG results: ABG 10/06/21 04:42 Specimen Type ART Sample Site L Radial pH 7.36 Bicarbonate Actual 31.5 H Total CO2 33 Base Excess 6 H O2 Saturation 88 L O2 % 75 ABG pCO2 55.2 H ABG pO2 58 L Enmanuel Test Positive Respiration Rate 12 O2 Delivery Device Adult Vent Vent Mode BiLevel Physical Exam Narrative GENERAL: Patient on the vent HEENT: Atraumatic; EYES; Anicteric, Normal Conjunctiva NECK; supple, normal thyroid, RESPIRATORY: Diminished to auscultation CARDIOVASCULAR: Regular S1 S2, GI: soft, normoactive bowel sounds, : No Renal angle tenderness; EXTREMITIES: Bilateral stasis dermatitis MUSCULOSKELETAL: no muscle waisting NEURO: Patient on the vent SKIN: No Rash Assessment & Plan Assessment/Plan (1) COVID-19: (2) Acute respiratory failure with hypoxia: (3) Gram-negative pneumonia: (4) Staphylococcus aureus pneumonia: PLAN: Patient is a 66-year-old admitted with shortness of breath diagnosed with COVID-19. Hospital stay complicated by acute respiratory failure resulting in patient being intubated. 1. Acute hypoxic respiratory failure ?Secondary to COVID-19 pneumonia with superimposed bacterial pneumonia. Patient currently on the vent. Pulmonary on case vent management deferred to pulmonary medicine - 10/06/2021; Patient seen remains on the vent patient continues to spike fever with a T-max of 103 in the past 24 hours. 2. Acute COVID 19 pneumonia -Patient managed with Decadron. ID was consulted baricitinib was not recommended 3. Superimposed bacterial pneumonia ?Cultures grew MSSA strep pneumo and Serratia pneumonia. Patient is currently on Zosyn 4. Acute congestive heart failure with preserved ejection fraction ?Echo demonstrated EF of 55% checks x-ray showed evidence of mild CHF patient on diuresis 5. Obesity hypoventilation syndrome ?Complicating care 6. Paroxysmal A. fib ?Rate controlled on amiodarone and carvedilol also on systemic anticoagulation with Xarelto 6. GERD ?On PPI 7. Diabetes mellitus type II -patient's oral hypoglycemics held. Placed on long acting insulin, Accu-Cheks a.c. and at bedtime and covered with sliding scale insulin 8. Class III obesity with BMI 55.1 ?Also complicating care 9. BPH ?Patient is on Flomax 10. Dyslipidemia -Patient is on statin therapy, continued at home dose 11. DVT prophylaxis ?Xarelto 12. Severe protein calorie nutrition As a result of acute illness and energy this is evidenced by intake meeting less than <50% of estimated nutritional needs, >5 days; unintentional wt, loss of ~ 10.9kg/6.3% since onset of acute illness (less than 2 weeks). Dietitian subsequently consulted plan as documented by the dietitian Charges/Coding Visit Charges Inpatient E&M: 20846 Subs Hosp L3
[2021-10-06] MEDS: Ferrous Sulfate 325 MG Tablet GT ×2 (08:01→17:05)
[2021-10-06] MEDS: Gabapentin 400 MG Capsule GT ×2 (08:02→17:05)
[2021-10-06] MEDS: Calcium (Elemental) 500 MG Tablet GT ×2 (08:02→17:05)
[2021-10-06] MEDS: Cholecalciferol (VIT D3) 25 MCG TABLET (1,000 UNITS) GT (08:02)
[2021-10-06] MEDS: Senna/Docusate Sodium 1 Tablet 2 TABLET GT ×2 (08:02→21:29)
[2021-10-06] MEDS: Carvedilol 12.5 MG Tablet GT ×2 (08:02→21:29)
[2021-10-06] MEDS: DULoxetine Hcl 60 MG Capsule PO (08:02)
[2021-10-06] MEDS: Amiodarone 200 MG Tablet GT (08:02)
[2021-10-06] MEDS: Multivitamins,Therapeutic Tablet 1 TABLET GT (08:02)
[2021-10-06] MEDS: dexAMETHasone 10 MG/ML Vial 6 MG IV (08:03)
[2021-10-06] MEDS: Polyethylene Glycol 3350 17 GM PACKET PO (08:03)
[2021-10-06] MEDS: CHLORHEXIDINE GLUC 2% CLOTH 1 EACH TOWELETTE TOPICAL (08:04)
[2021-10-06] MEDS: Chlorhexidine 15 ML PO ×2 (08:04→21:39)
[2021-10-06] MEDS: Allopurinol 300 MG Tablet GT (08:04)
[2021-10-06] MEDS: Vital High Protein 1,000 ML 70 ML GT (12:32)
[2021-10-06 12:40] LABS: Bedside Glucose 300 mg/dL (70-110)
--- NOTE | 2021-10-06 13:25 | PCM.RX.CS ---
Consult Pharmacy has been consulted to manage selected antiobiotic: Vancomycin Type of Consult: New start Labs: Sodium 141 mmol/L (136-145) 10/06/21 04:10 Potassium 4.5 mmol/L (3.5-5.1) 10/06/21 04:10 Chloride 103 mmol/L (98-107) 10/06/21 04:10 Carbon Dioxide 31.0 mmol/L (21.0-32.0) 10/06/21 04:10 Anion Gap 7 (5-15) 10/06/21 04:10 BUN 61 mg/dL (7-18) H 10/06/21 04:10 Creatinine 2.22 mg/dL (0.70-1.30) H 10/06/21 04:10 Est GFR (MDRD) Af Amer 38 mL/min (>60) L 10/06/21 04:10 Est GFR (MDRD) Non-Af 32 mL/min (>60) L 10/06/21 04:10 BUN/Creatinine Ratio 27.5 RATIO (10-20) H 10/06/21 04:10 Glucose 206 mg/dL (74-106) H 10/06/21 04:10 Vancomycin Trough 19.9 ug/mL (5.0-15.0) H 10/01/21 15:30 Microbiology: Microbiology 10/01/21 10:00 Sputum, Induced/Lukens Gram Stain - Final 10/01/21 10:00 Sputum, Induced/Lukens Respiratory Culture - Final Staphylococcus aureus Serratia marcescens 09/27/21 11:26 Blood Culture (Wb) - Anticubital Left Blood Culture - Final No growth in 5 days. 09/28/21 10:00 Sputum, Expectorated/Coughed Gram Stain - Final 09/28/21 10:00 Sputum, Expectorated/Coughed Respiratory Culture - Final Staphylococcus aureus Streptococcus pneumoniae 09/27/21 17:30 Urine, Clean Catch Legionella Antigen - Final 09/27/21 17:30 Urine, Clean Catch Streptococcus pneumoniae Antigen (M - Final Goal Trough: 15-20 mcg/mL Pharmacy Plan for Drug Dosing: NEW START IV VANCOMYCIN Consulting Physician: Dr. Felicia Munoz Indication: Goal Trough: 15-20 SrCr: 2.22 CrCl: 49 mls/min (using an adjusted body weight of 107kg) Comments: pt received a loading dose of 2000mg on 10/06/21 at 1308 Vancomcyin Dose: based on pts weight and renal function, recommend an initial dose of 1750mg q24h starting 10/07/21 at 1300. trough before the 3rd dose. note: dose calculated from clinical pharmacology Pending Level: 10/08/21 at 1230 Pharmacy Service will continue to monitor and adjust dosing as required. Follow-Up Labs: Trough Vancomycin - 10/08/21 at 1230
[2021-10-06] MEDS: Rivaroxaban 20 MG Tablet GT (17:05)
--- NOTE | 2021-10-06 17:24 | RAD_ITS ---
EXAM: XR ABDOMEN, 1 VIEW CLINICAL INDICATION: og placement TECHNIQUE: Frontal supine view of the abdomen/pelvis. This report was created using [employer] report generation technology. COMPARISON: None. FINDINGS: LOWER THORAX: Diffuse bilateral pneumonia. GASTROINTESTINAL TRACT: Unremarkable. Non-obstructive. No bowel or stomach distention. ORGANS: Unremarkable as visualized. No organomegaly. No abnormal calcifications. BONES/JOINTS: No acute pathology. SOFT TISSUES: No acute pathology. TUBES, LINES AND DEVICES: There is a feeding tube/ nasogastric tube noted. The tip is in the region of the stomach. RAD/Abdomen Single View (Portable) IMPRESSION: There is a feeding tube/ nasogastric tube noted. The tip is in the region of the stomach. Electronically Signed: Hilario Valdez MD at 18:28 EST , Service support ,
[2021-10-06 18:00] LABS: Bedside Glucose 329 mg/dL (70-110)
--- NOTE | 2021-10-06 18:00 | RAD_ITS ---
EXAM: XR ABDOMEN, 1 VIEW CLINICAL INDICATION: og placement TECHNIQUE: Frontal supine view of the abdomen/pelvis. This report was created using [employer] report generation technology. COMPARISON: Study done earlier. FINDINGS: LOWER THORAX: Diffuse bilateral pneumonia. GASTROINTESTINAL TRACT: Unremarkable. Non-obstructive. No bowel or stomach distention. ORGANS: Unremarkable as visualized. No organomegaly. No abnormal calcifications. BONES/JOINTS: No acute pathology. SOFT TISSUES: No acute pathology. TUBES, LINES AND DEVICES: There is a feeding tube/ nasogastric tube noted. The tip is in the region of the stomach. RAD/Abdomen Single View (Portable) IMPRESSION: There is a feeding tube/ nasogastric tube noted. The tip is in the region of the stomach. Electronically Signed: Hilario Valdez MD at 18:28 EST , Service support ,
[2021-10-06] MEDS: Allopurinol 100 MG Tablet 200 MG GT (21:29)
[2021-10-06] MEDS: Atorvastatin Calcium 10 MG Tablet GT (21:29)
[2021-10-07] VITALS (48 sets, daily range): BP systolic 73–146; BP diastolic 46–78; PULSE 90–113; RESP 13–43; TEMP 37.8–40.9; O2SAT 90–100
[2021-10-07] MEDS: Insulin Lispro 100 UNIT/ML INSULN.PEN SC ×5 (00:09→23:17)
[2021-10-07 02:10] LABS: Bedside Glucose 276 mg/dL (70-110)
[2021-10-07] MEDS: Dexmedetomidine 1,000 mcg in 0.9% NS 240 mL 4.1 MCG CONT INF (03:20)
[2021-10-07] MEDS: Acetaminophen 650 MG/20 ML UDC GT ×2 (04:33→10:30)
[2021-10-07 04:59] LABS: Absolute Neutrophil Count 13.7 X10^3/uL (2.0-7.7); Basophil# 0.03 X10^3/uL; Basophil% 0.2 % (0-1); Hematocrit 39.4 % (40-54); Hemoglobin 12.2 g/dL (13.0-16.5); Lymphocyte % 2.4 % (19-41); Mean Corpuscular Hgb 31.7 pg (27.0-32.0); Mean Corpuscular Volume 102.3 fL (80-94); Mean Platelet Vol. 10.8 fl (6.2-12.0); Monocyte# 1.69 X10^3/uL; Monocyte% 10.3 % (0-10); NRBC Flagged by Analyzer 0.1 % (0-5); Neutrophil # 13.73 X10^3/uL (2.7-7.7); Neutrophil % 83.9 % (47-70); POSITIVE DIFFERENTIAL YES; Platelet Count 260 K/mm3 (150-450); RBC Distribution Width CV 15.4 % (11.6-14.6); Red Blood Count 3.85 M/mm3 (4.6-6.2); White Blood Count 16.4 K/mm3 (4.4-11.0)
[2021-10-07 05:05] LABS: Differential Indicated SCAN CRITERIA MET
[2021-10-07 05:28] LABS: ALB/GLOB Ratio 0.4 RATIO (0.9-2.4); AST(SGOT) 19 U/L (15-37); Alanine Aminotransfer ALT/SGPT 29 U/L (16-61); Albumin, Serum 1.7 g/dL (3.2-5.0); Alkaline Phosphatase 65 U/L (45-117); Anion Gap 7 (5-15); BUN 72 mg/dL (7-18); BUN/Creat Ratio 30.9 RATIO (10-20); Calcium,Total 8.1 mg/dL (8.5-10.1); Chloride 106 mmol/L (98-107); Creatinine, Serum 2.33 mg/dL (0.70-1.30); EST Glomerular Filtration Rate 30 mL/min (>60); Est Glom Filt Rate - Afr Amer 36 mL/min (>60); Estimated Creatinine Clearance 29.76 ml/min; Globulin 4.8 g/dL (2.2-4.2); Glucose 275 mg/dL (74-106); Potassium 4.7 mmol/L (3.5-5.1); Protein, Total 6.5 g/dL (6.4-8.2); Sodium Level 145 mmol/L (136-145)
--- NOTE | 2021-10-07 05:39 | PCM.PN.INT ---
Assessment & Plan Assessment/Plan (1) Acute respiratory failure with hypoxia: (2) COVID-19: (3) CHF (congestive heart failure): QUALIFIERS: Heart failure chronicity: chronic Heart failure type: unspecified Qualified Code(s): I50.9 - Heart failure, unspecified (4) Morbid obesity: (5) Staphylococcus aureus pneumonia: (6) Sleep apnea: QUALIFIERS: Sleep apnea type: unspecified type Qualified Code(s): G47.30 - Sleep apnea, unspecified (7) PAF (paroxysmal atrial fibrillation): PLAN: RECOMMENDATIONS: 1. Continue APRV and wean FiO2 for saturations greater than 90%. 2. Continue antimicrobials per ID recommendations. 3. Consider diuresis if renal function improves. 4. Continue tube feeds as tolerated. 5. Continue appropriate GI prophylaxis. 6. Obtain CT head. 7. Hold all sedating medications. IMPRESSIONS: 1. Acute hypoxic respiratory failure secondary to COVID-19 combined with superimposed bacterial pneumonia The patient was initially admitted to the hospital in September 27 with worsening shortness of breath. His hospital course was complicated by worsening hypoxemia, ultimately requiring intubation and invasive mechanical ventilatory support. The patient was initially treated with remdesivir, but was not felt to be a candidate for baricitinib. The patient has completed a treatment course of Decadron. He remains therapeutically anticoagulated on Xarelto per home regimen. Sputum culture was positive for staph aureus and Streptococcus pneumonia, for which antimicrobials will be continued per ID recommendations. Underlying renal insufficiency complicates the use of diuretics. Continue to wean FiO2 as tolerated for saturations greater than 90%. 2. Encephalopathy Likely metabolic in etiology. CT head was negative for an acute intracranial process. ABG demonstrated mild CO2 retention. I would recommend that all sedating medications be held. It is certainly plausible that the patient's altered mentation may be secondary to impaired renal clearance in the setting of sedative medication use. 3. Acute diastolic CHF/A. fib Continue amiodarone as ordered. No indication for diuretics in the setting of acute kidney injury. 4. Acute kidney injury Likely secondary to acute presentation/ischemic ATN coupled with recent attempts at diuresis. Creatinine remains elevated above baseline. Plan to continue to hold diuretic therapy for now. Avoid nephrotoxic medications. Continue to monitor urine output. No current indication for renal replacement therapy. 5. Diabetes mellitus type 2?insulin-dependent Continue tube feeds as tolerated along with Lantus and sliding scale insulin coverage. 6. BPH/hyperlipidemia/super morbid obesity/psoriasis/ABI/chronic pain syndrome/decreased mobility Complicates care, management, recovery and prognosis. Continue supportive measures as noted above. Overall prognosis is poor. TIME: 33 minutes of critical care time, independent of procedures, was spent addressing the patient's acute hypoxemic respiratory failure secondary to COVID-19 pneumonia, superimposed bacterial pneumonia, encephalopathy, acute kidney injury, review of all data and collaboration with the care team. Subjective Subjective The patient was seen and examined at the bedside this morning. Events from the last 24 hours have been reviewed. Today is vent day #6. The patient remains febrile with a T-max of 102.8 ?F. He is otherwise hemodynamically stable. The patient remains on APRV mode of mechanical ventilation with a P high of 30 and FiO2 of 80%. He continues to tolerate tube feeds. The patient is currently sedated on low-dose Precedex and fentanyl. The overnight nursing staff did report a change in the patient's neurological status. They noted a lack of cough or gag reflex and the patient has been unresponsive to painful stimuli. He is currently documented to be overall net +9.4 L for the hospitalization. The patient remains on broad-spectrum antimicrobials and Xarelto. He has completed a treatment course of Decadron. In light of the patient's neurological status, a CT head was obtained this morning and found to be negative. Objective Data Objective Data The patient's most recent lab work, culture data and imaging studies have all been personally reviewed. Coronavirus PCR was positive on September 27. Sputum culture dated September 28 was positive for staph aureus and Streptococcus pneumonia. Sputum culture dated October 01 was positive for staph aureus and Serratia marcescens. Vital Signs: Vital Signs Temp Pulse Resp BP Pulse Ox 102.8 F H 98 43 H 130/70 H 94 10/07/21 02:00 10/07/21 03:39 10/07/21 03:39 10/07/21 02:00 10/07/21 03:39 Oxygen Flow Rate (L/min) 15 Oxygen Delivery Method Mechanical Ventilator Weight: 166.4 kg Body Mass Index (BMI) 55.9 Intake & Output: Intake and Output for Last 24 Hours 10/05/21 10/06/21 10/07/21 23:59 23:59 23:59 Intake Total 3818.81 / 4215.96 3850.45 / 4444.05 720.2 / 720.2 Output Total 1900 / 1900 1500 / 2125 625 / 625 Balance 1918.81 / 2315.96 2350.45 / 2319.05 95.2 / 95.2 Medical Nutrition Assessment Dietitian: Malnutrition Criteria Met Start: 09/28/21 11:48 Freq: Status: Active Protocol: Document 10/02/21 10:09 LAZ (Rec: 10/02/21 10:09 [facility] [id number]) Nutrition Malnutrition Evidence of Malnutrition Exists Yes Malnutrition (severe): Acute Illness/Injury Evidenced By Suboptimal Energy Intake ( Severe),Weight Loss (Severe) Clinical Problem Acute Disease or Injury Related Malnutrition Etiology related to decreased appetite w/ acute illness, Signs/Symptoms as evidenced by estimated PO intake meeting less than <50% of estimated nutritional needs >5 days; unintentional wt loss of ~10.9kg/6.3% since onset of acute illness (less than 2 weeks) Status Active Problem Altered Nutrient-Related Laboratory Values Etiology - Signs/Symptoms - Status Inactive Problem Recommendation Dietitian Recommendations/Changes NPO;Will continue Vital HP via OGT at goal rate of 70mL/hour w/ 50mL H2O flush every 4 hours to provide 1680 calories , 146 g protein, and 1704mL total fluid/day. Continue to increase by 15mL/hour every 8- 12 hours as tolerated until goal rate is achieved. Lab / Micro Data Attestation: I reviewed the patient's lab results. Result Diagrams: 10/07/21 04:37 10/07/21 04:37 Labs: Laboratory Results - last 24 hr 10/06/21 04:10: Sodium 141, Potassium 4.5, Chloride 103, Carbon Dioxide 31.0, Anion Gap 7, BUN 61 H, Creatinine 2.22 H, Estim Creat Clear Calc 31.24, Est GFR (MDRD) Af Amer 38 L, Est GFR (MDRD) Non-Af 32 L, BUN/Creatinine Ratio 27.5 H, Glucose 206 H, Calcium 8.1 L, Magnesium 2.7 H, Total Bilirubin 0.70, AST 19, ALT 19, Alkaline Phosphatase 58, Total Protein 6.3 L, Albumin 1.7 L, Globulin 4.6 H, Albumin/Globulin Ratio 0.4 L 10/06/21 06:32: POC Glucose 195 H 10/06/21 12:27: POC Glucose 300 H 10/06/21 17:04: POC Glucose 329 H 10/07/21 00:08: POC Glucose 276 H 10/07/21 04:37: WBC 16.4 H, RBC 3.85 L, Hgb 12.2 L, Hct 39.4 L, MCV 102.3 H, MCH 31.7, MCHC 31.0 L, RDW Std Deviation 59.0 H, RDW Coeff of Will 15.4 H, Plt Count 260, MPV 10.8, Immature Gran % (Auto) 3.200 H, Neut % (Auto) 83.9 H, Lymph % (Auto) 2.4 L, [place] % (Auto) 10.3 H, Eos % (Auto) 0.0, Baso % (Auto) 0.2, Absolute Neuts (auto) 13.7 H, Absolute Lymphs (auto) 0.40 L, Nucleated RBC % 0.1 10/07/21 04:37: Sodium 145, Potassium 4.7, Chloride 106, Carbon Dioxide 32.0, Anion Gap 7, BUN 72 H, Creatinine 2.33 H, Estim Creat Clear Calc 29.76, Est GFR (MDRD) Af Amer 36 L, Est GFR (MDRD) Non-Af 30 L, BUN/Creatinine Ratio 30.9 H, Glucose 275 H, Calcium 8.1 L, Total Bilirubin 0.50, AST 19, ALT 29, Alkaline Phosphatase 65, Total Protein 6.5, Albumin 1.7 L, Globulin 4.8 H, Albumin/Globulin Ratio 0.4 L Micro: Microbiology 10/06/21 11:10 Sputum, Induced/Lukens Gram Stain - Final 10/01/21 10:00 Sputum, Induced/Lukens Gram Stain - Final 10/01/21 10:00 Sputum, Induced/Lukens Respiratory Culture - Final Staphylococcus aureus Serratia marcescens 09/27/21 11:26 Blood Culture (Wb) - Anticubital Left Blood Culture - Final No growth in 5 days. 09/28/21 10:00 Sputum, Expectorated/Coughed Gram Stain - Final 09/28/21 10:00 Sputum, Expectorated/Coughed Respiratory Culture - Final Staphylococcus aureus Streptococcus pneumoniae 09/27/21 17:30 Urine, Clean Catch Legionella Antigen - Final 09/27/21 17:30 Urine, Clean Catch Streptococcus pneumoniae Antigen (M - Final Radiography Diagnostic Testing: Radiology Impression KUB X-Ray 10/06/21 17:24 IMPRESSION: There is a feeding tube/ nasogastric tube noted. The tip is in the region of the stomach. Electronically Signed: Hilario Valdez MD at 18:28 EST , Service support , KUB X-Ray 10/06/21 18:00 IMPRESSION: There is a feeding tube/ nasogastric tube noted. The tip is in the region of the stomach. Electronically Signed: Hilario Valdez MD at 18:28 EST , Service support , Physical Exam Const General Appearance: ill appearing, intubated and patient mechanically ventilated Nutritional Appearance: morbidly obese HEENT normocephalic and head/scalp atraumatic Mouth: endotracheal tube in place and OG tube in place Eyes PERRL and EOMs intact bilaterally Neck supple General: trachea midline Chest inspection of chest normal Resp Auscultation: rhonchi and diminished lung sounds Cardio S1 normal heart sound and S2 normal heart sound Rate: tachycardic GI normal to inspection, nondistended, normoactive bowel sounds Extremity General Extremity: edema bilateral lower extremity; Negative for clubbing Skin General Skin Exam: erythema and lichenification Neuro Neuro Narrative: Sedation is currently on hold. Currently nonresponsive to noxious stimulation. Charges/Coding Procedures Hospitalists Procedures: 18035 Critial Care 1st Hr
[2021-10-07 05:41] LABS: Base Excess 4 mmol/L (-2 to +2); Bicarbonate 30.3 mmol/L (22-26); Blood Gas Specimen Type ART; FI02 75; Mode BiLevel; O2 Delivery Device Adult Vent; PO2 61 mmHG (75-100); RR 12; SITE L Radial; SO2 88 % (95-99); Total Carbon Dioxide 32 mmol/L; pCO2 58.2 mmHg (35-45); pH 7.33 (7.35-7.45)
[2021-10-07] MEDS: Menthol/Lanolin/Calamine/Znox 113 GM Tube 1 APPLIC TOPICAL ×3 (06:33→22:47)
[2021-10-07] MEDS: Vital High Protein 1,000 ML 70 ML GT (06:43)
[2021-10-07] MEDS: Nystatin Powder 15gm Bottle 1 APPLIC TOPICAL ×3 (06:43→22:46)
[2021-10-07] MEDS: CHLORHEXIDINE GLUC 2% CLOTH 1 EACH TOWELETTE TOPICAL (06:45)
--- NOTE | 2021-10-07 07:11 | CT_ITS ---
We are attempting to reach an attending provider to discuss findings. An addendum with communication details will be sent when the communication is complete. HISTORY: Change in mental status. TECHNIQUE: Multiple axial images were obtained of the brain without intravenous contrast. A radiation dose optimization technique was used for this scan. # of images incl. paperwork: 263. COMPARISON: 08/26/2018. FINDINGS: BRAIN PARENCHYMA:Multiple small foci and zones of low attenuation in the cerebral white matter most compatible with chronic small vessel ischemic gliosis. Chronic left basal ganglia infarct. INTRACRANIAL HEMORRHAGE: No acute intracranial hemorrhage. CSF SPACES/MASS EFFECT: Diffuse atrophy with compensatory ventricular enlargement. No midline shift or other significant mass effect. ORBITS: Bilateral lens resections. CALVARIUM: Intact. PARANASAL SINUSES AND MASTOID AIR CELLS: Mild fluid in the paranasal sinuses. Intubated patient. Bilateral mastoid effusions. ASPECTS Score for Acute Strokes: 10. CT/STROKE Brain/Head without Cont IMPRESSION: No acute intracranial process identified. Chronic small vessel ischemic gliosis. Individualized dose optimization techniques were used for this CT. at 0810 Reported and signed by: Kelsie Palomo MD Electronically Signed: Kelsie Palomo MD at 8:09 EST Tel , Service support ,
[2021-10-07 07:25] LABS: Bedside Glucose 248 mg/dL (70-110)
--- NOTE | 2021-10-07 07:39 | PN.HOSP_ITS ---
Subjective Subjective High-grade fever, T-max 103.8 Fahrenheit. Patient intubated. Heart rate in 100s, regular Objective Data Objective Data Vital Signs: Vital Signs Temp Pulse Resp BP Pulse Ox 103.7 F H 102 H 36 H 127/73 H 95 10/07/21 07:00 10/07/21 07:14 10/07/21 07:14 10/07/21 07:00 10/07/21 07:14 Oxygen Flow Rate (L/min) 15 Oxygen Delivery Method Mechanical Ventilator Weight: 366 lb 13.587 oz Body Mass Index (BMI) 55.9 Intake & Output: Intake and Output for Last 24 Hours 10/05/21 10/06/21 10/07/21 23:59 23:59 23:59 Intake Total 3818.81 / 4215.96 3850.45 / 4444.05 1146.02 / 1146.02 Output Total 1900 / 1900 1500 / 2125 975 / 975 Balance 1918.81 / 2315.96 2350.45 / 2319.05 171.02 / 171.02 Medical Nutrition Assessment Dietitian: Malnutrition Criteria Met Start: 09/28/21 11:48 Freq: Status: Active Protocol: Document 10/02/21 10:09 LAZ (Rec: 10/02/21 10:09 LAZ [id number]) Nutrition Malnutrition Evidence of Malnutrition Exists Yes Malnutrition (severe): Acute Illness/Injury Evidenced By Suboptimal Energy Intake ( Severe),Weight Loss (Severe) Clinical Problem Acute Disease or Injury Related Malnutrition Etiology related to decreased appetite w/ acute illness, Signs/Symptoms as evidenced by estimated PO intake meeting less than <50% of estimated nutritional needs >5 days; unintentional wt loss of ~10.9kg/6.3% since onset of acute illness (less than 2 weeks) Status Active Problem Altered Nutrient-Related Laboratory Values Etiology - Signs/Symptoms - Status Inactive Problem Recommendation Dietitian Recommendations/Changes NPO;Will continue Vital HP via OGT at goal rate of 70mL/hour w/ 50mL H2O flush every 4 hours to provide 1680 calories , 146 g protein, and 1704mL total fluid/day. Continue to increase by 15mL/hour every 8- 12 hours as tolerated until goal rate is achieved. Lab / Micro Data Result Diagrams: 10/07/21 04:37 10/07/21 04:37 Labs: Laboratory Results - last 24 hr 10/06/21 12:27: POC Glucose 300 H 10/06/21 17:04: POC Glucose 329 H 10/07/21 00:08: POC Glucose 276 H 10/07/21 04:37: WBC 16.4 H, RBC 3.85 L, Hgb 12.2 L, Hct 39.4 L, MCV 102.3 H, MCH 31.7, MCHC 31.0 L, RDW Std Deviation 59.0 H, RDW Coeff of Will 15.4 H, Plt Count 260, MPV 10.8, Immature Gran % (Auto) 3.200 H, Neut % (Auto) 83.9 H, Lymph % (Auto) 2.4 L, [place] % (Auto) 10.3 H, Eos % (Auto) 0.0, Baso % (Auto) 0.2, Absolute Neuts (auto) 13.7 H, Absolute Lymphs (auto) 0.40 L, Nucleated RBC % 0.1, Diff Path Review February10/07/21 04:37: Sodium 145, Potassium 4.7, Chloride 106, Carbon Dioxide 32.0, Anion Gap 7, BUN 72 H, Creatinine 2.33 H, Estim Creat Clear Calc 29.76, Est GFR (MDRD) Af Amer 36 L, Est GFR (MDRD) Non-Af 30 L, BUN/Creatinine Ratio 30.9 H, Glucose 275 H, Calcium 8.1 L, Total Bilirubin 0.50, AST 19, ALT 29, Alkaline Phosphatase 65, Total Protein 6.5, Albumin 1.7 L, Globulin 4.8 H, Albumin/Globulin Ratio 0.4 L 10/07/21 06:31: POC Glucose 248 H Micro: Microbiology 10/06/21 11:10 Sputum, Induced/Lukens Gram Stain - Final 10/01/21 10:00 Sputum, Induced/Lukens Gram Stain - Final 10/01/21 10:00 Sputum, Induced/Lukens Respiratory Culture - Final Staphylococcus aureus Serratia marcescens 09/27/21 11:26 Blood Culture (Wb) - Anticubital Left Blood Culture - Final No growth in 5 days. 09/28/21 10:00 Sputum, Expectorated/Coughed Gram Stain - Final 09/28/21 10:00 Sputum, Expectorated/Coughed Respiratory Culture - Final Staphylococcus aureus Streptococcus pneumoniae 09/27/21 17:30 Urine, Clean Catch Legionella Antigen - Final 09/27/21 17:30 Urine, Clean Catch Streptococcus pneumoniae Antigen (M - Final ABG Data ABG results: ABG 10/07/21 05:36 Specimen Type ART Sample Site L Radial pH 7.33 L Bicarbonate Actual 30.3 H Total CO2 32 Base Excess 4 H O2 Saturation 88 L O2 % 75 ABG pCO2 58.2 H ABG pO2 61 L [place] Test N/A Respiration Rate 12 O2 Delivery Device Adult Vent Vent Mode BiLevel Radiography Diagnostic Testing: Radiology Impression KUB X-Ray 10/06/21 17:24 IMPRESSION: There is a feeding tube/ nasogastric tube noted. The tip is in the region of the stomach. Electronically Signed: Hilario Valdez MD at 18:28 EST , Service support , KUB X-Ray 10/06/21 18:00 IMPRESSION: There is a feeding tube/ nasogastric tube noted. The tip is in the region of the stomach. Electronically Signed: Hilario Valdez MD at 18:28 EST , Service support , Physical Exam Narrative General: Intubated, sedated HEENT: Atraumatic, PERRLA, EOMI, Normocephalic Oral: ET and OG tube. Neck: Supple, No JVD, Negative Carotid Bruits Lungs: Air entry diminished in bilateral lung bases. On vent support Cardiovascular: Sinus tachycardia, Normal S1, Normal S2, No murmurs Abdomen: Bowel Sounds Present, Soft, Non Tender, Non-Distended : [place] catheter. Clear. No renal angle tenderness. No suprapubic tenderness. Extremities: No edema, Capillary Refill Less than 3 Seconds Skin: No rashes, No breakdown Musculoskeletal: No Tenderness to Palpation of Joints or Extremities Neurological: Cannot assess neurological, sedated Psych/Mental Status: Sedated Assessment & Plan Assessment/Plan (1) COVID-19: (2) Acute respiratory failure with hypoxia: (3) Gram-negative pneumonia: (4) Staphylococcus aureus pneumonia: PLAN: Patient is a 66-year-old admitted with shortness of breath diagnosed with COVID-19. Hospital stay complicated by acute respiratory failure resulting in patient being intubated. 1. Acute hypoxic respiratory failure ?Secondary to COVID-19 pneumonia with superimposed bacterial pneumonia. Patient currently on the vent. Regional Director consulted for vent management 2. Acute COVID 19 pneumonia with bacterial superinfection: -Patient managed with Decadron. ID was consulted baricitinib was not recomm ended 3. Superimposed bacterial pneumonia 10/07:?Cultures grew MSSA, strep pneumo and Serratia pneumonia. On vancomycin and meropenem 4. Acute congestive heart failure with preserved ejection fraction ?Echo demonstrated EF of 55%. Checks x-ray showed evidence of mild CHF patient on diuresis 5. Obesity hypoventilation syndrome ?Complicating care 6. Paroxysmal A. fib ?Rate controlled on amiodarone and carvedilol also on systemic anticoagulation with Xarelto 6. GERD ?On PPI 7. Diabetes mellitus type II -patient's oral hypoglycemics held. Placed on long acting insulin, Accu-Cheks a .c. and at bedtime and covered with sliding scale insulin 8. Class III obesity with BMI 55.1 9. BPH ?Patient is on Flomax 10. Dyslipidemia -Patient is on statin therapy, continued at home dose 11. DVT prophylaxis ?Xarelto 12. Severe protein calorie nutrition As a result of acute illness and energy this is evidenced by intake meeting less than <50% of estimated nutritional needs, >5 days; unintentional wt, loss of ~10.9kg/6.3% since onset of acute illness (less than 2 weeks). Dietitian subsequently consulted plan as documented by the dietitian Active Medications Acetaminophen (Acetaminophen 650 Mg/20 Ml Udc) 650 mg GT Q6H PRN PRN PRN Reason: Pain Score 1-10/Temp > 100.7 F Last Admin: 10/07/21 10:30 Dose: 650 mg Documented by: Allopurinol (Allopurinol 100 Mg Tablet) 200 mg GT QHS [facility] Last Admin: 10/06/21 21:29 Dose: 200 mg Documented by: Allopurinol (Allopurinol 300 Mg Tablet) 300 mg GT DAILY [facility] Last Admin: 10/07/21 10:18 Dose: 300 mg Documented by: Amiodarone HCl (Amiodarone 200 Mg Tablet) 200 mg GT DAILY [facility] Last Admin: 10/07/21 10:16 Dose: 200 mg Documented by: Atorvastatin Calcium (Atorvastatin Calcium 10 Mg Tablet) 10 mg GT QHS [facility] Last Admin: 10/06/21 21:29 Dose: 10 mg Documented by: Benzonatate (Benzonatate 100 Mg Capsule) 200 mg PO TID PRN PRN PRN Reason: cough Last Admin: 09/28/21 10:04 Dose: 200 mg Documented by: Calamine/Phenol (Menthol/Lanolin/Calamine/Znox 113 Gm Tube) 1 applic TOPICAL TID [facility]; Protocol Last Admin: 10/07/21 06:33 Dose: 1 applic Documented by: Calcium Carbonate (Calcium (Elemental) 500 Mg Tablet) 500 mg GT BIDCM [facility] Last Admin: 10/07/21 10:17 Dose: 500 mg Documented by: Calcium Carbonate (Calcium Carbonate 500 Mg Tablet) 1,000 mg GT Q6H PRN PRN PRN Reason: INDIGESTION Carvedilol (Carvedilol 12.5 Mg Tablet) 12.5 mg GT BID [facility] Last Admin: 10/07/21 10:16 Dose: 12.5 mg Documented by: Chlorhexidine Gluconate (Chlorhexidine 15 Ml) 15 ml PO BID [facility] Last Admin: 10/07/21 10:18 Dose: 15 ml Documented by: Chlorhexidine Gluconate (Chlorhexidine Gluc 2% Cloth 1 Each Towelette) 1 each TOPICAL DAILY [facility] Last Admin: 10/07/21 06:45 Dose: 1 each Documented by: Cholecalciferol (Cholecalciferol (Vit D3) 25 Mcg Tablet (1,000 Units)) 25 mcg GT DAILY [facility] Last Admin: 10/07/21 10:17 Dose: 25 mcg Documented by: Duloxetine HCl (Duloxetine Hcl 60 Mg Capsule) 60 mg PO DAILY [facility] Last Admin: 10/07/21 10:17 Dose: 60 mg Documented by: Ferrous Sulfate (Ferrous Sulfate 325 Mg Tablet) 325 mg GT BIDCM [facility] Last Admin: 10/07/21 10:16 Dose: 325 mg Documented by: Sodium Chloride () 250 mls @ 15 mls/hr IV .[id number] PRN PRN Reason: Saline Flush Last Infusion: 10/06/21 06:40 Dose: 0 mls/hr Documented by: Sodium Chloride () 250 mls @ 15 mls/hr IV .[id number] PRN PRN Reason: Additional IVPB Infusion Fentanyl Citrate 1,000 mcg/ (Sodium Chloride) 100 mls @ 5 mls/hr CONT INF .Q20H [facility]; Protocol Last Titration: 10/07/21 07:45 Dose: 0 mcg/hr, 0 mls/hr Documented by: Pantoprazole Sodium 40 mg/ (Sodium Chloride) 110 mls @ 330 mls/hr IV Q12 [facility] Last Infusion: 10/07/21 10:35 Dose: Infused Documented by: Enteral Nutritional Formula (Vital High Protein) 1,000 mls @ 70 mls/hr GT .[id number] [facility] Last Admin: 10/07/21 06:43 Dose: 70 mls/hr Documented by: Dexmedetomidine HCl 1,000 mcg/ (Sodium Chloride) 250 mls @ 20.7 mls/hr CONT INF .Q12H5M [facility]; Protocol Last Titration: 10/07/21 07:45 Dose: 0 mcg/kg/hr, 0 mls/hr Documented by: Meropenem 1 gm/ Sodium (Chloride) 120 mls @ 33 mls/hr IV Q12 [facility] Last Admin: 10/07/21 10:51 Dose: 33 mls/hr Documented by: Vancomycin IV-PHARMACY TO DOSE (1 each/ Sodium Chloride) 500 mls @ 250 mls/hr IV X1 PRN; Protocol PRN Reason: Rx to Dose Vancomycin HCl 1,750 mg/ (Sodium Chloride) 535 mls @ 250 mls/hr IV Q24H [facility] Insulin Glargine (Insulin Glargine 100 Units/Ml Pen) 12 units SC QHS [facility] Last Admin: 10/07/21 00:09 Dose: 12 units Documented by: Insulin Human Lispro (Insulin Lispro 100 Unit/Ml Insuln.Pen) 0 unit SC Q6 [facility]; Protocol Last Admin: 10/07/21 06:32 Dose: 3 u Documented by: Multivitamins (Multivitamins,Therapeutic Tablet) 1 tablet GT DAILYCM [facility] Last Admin: 10/07/21 10:16 Dose: 1 tablet Documented by: Nitroglycerin (Nitroglycerin (Inpatient Use) 0.4 Mg Tab.Subl) 0.4 mg SL Q5M PRN PRN Reason: CARDIAC/CHEST PAIN Nystatin (Nystatin Powder 15gm Bottle) 1 applic TOPICAL TID [facility]; Protocol Last Admin: 10/07/21 06:43 Dose: 1 applic Documented by: Ondansetron HCl (Ondansetron 4 Mg/2 Ml Vial) 4 mg IV Q8H PRN PRN PRN Reason: NAUSEA/VOMITING Polyethylene Glycol (Polyethylene Glycol 3350 17 Gm Packet) 17 gm PO DAILY PRN PRN Reason: CONSTIPATION Last Admin: 10/06/21 08:03 Dose: 17 gm Documented by: Rivaroxaban (Rivaroxaban 20 Mg Tablet) 20 mg GT DINNER [facility] Last Admin: 10/06/21 17:05 Dose: 20 mg Documented by: Senna/Docusate Sodium (Senna/Docusate Sodium 1 Tablet) 2 tablet GT BID [facility] Last Admin: 10/07/21 10:17 Dose: 2 tablet Documented by: Sodium Chloride (0.9% Saline Lock 10 Ml Syringe) 10 - 40 ml IV UD PRN PRN Reason: SALINE FLUSH Last Admin: 10/05/21 22:22 Dose: 40 ml Documented by: Charges/Coding Visit Charges Inpatient E&M: 10373 Subs Hosp L3
--- NOTE | 2021-10-07 08:42 | NURSING ---
Unable to complete CAM d/t RASS -5
[2021-10-07] MEDS: Ferrous Sulfate 325 MG Tablet GT ×2 (10:16→18:33)
[2021-10-07] MEDS: Multivitamins,Therapeutic Tablet 1 TABLET GT (10:16)
[2021-10-07] MEDS: Carvedilol 12.5 MG Tablet GT (10:16)
[2021-10-07] MEDS: Amiodarone 200 MG Tablet GT (10:16)
[2021-10-07] MEDS: Cholecalciferol (VIT D3) 25 MCG TABLET (1,000 UNITS) GT (10:17)
[2021-10-07] MEDS: Senna/Docusate Sodium 1 Tablet 2 TABLET GT ×2 (10:17→22:46)
[2021-10-07] MEDS: Calcium (Elemental) 500 MG Tablet GT ×2 (10:17→18:33)
[2021-10-07] MEDS: DULoxetine Hcl 60 MG Capsule PO (10:17)
[2021-10-07] MEDS: Allopurinol 300 MG Tablet GT (10:18)
[2021-10-07] MEDS: Chlorhexidine 15 ML PO ×2 (10:18→22:52)
--- NOTE | 2021-10-07 13:22 | CHAPLAIN ---
Type of Pastoral Visit ___ Initial Visit ___ Follow-up Visit ___ On-call Visit ___ General Patient Visit ___ Spiritual Assessment ___ Family Conference ___ Bereavement ___ Rapid Response ___ Code Blue _x__ Other (describe below) Pastoral Care Referral From ___ Patient _x__ Family ___ Nurse ___ Physician ___ Set Off Press Operator ___ Director Executive Communications ___ Other (describe below) Sacrament/Intervention _x__ Active listening ___ Anointing ___ Shinto ___ Bereavement ___ Communion ___ Sarah exploration ___ ___ Life review ___ Prayer ___ Reconciliation ___ Sacrament of Sick ___ Supportive presence ___ Wedding ___ Other (describe below) Pastoral Comments patient in on ventilator; daughter of pt has been coming to sit with him; daughter was in hallway and tearful; offer of support and listening ear; daughter asks for prayers
[2021-10-07 13:55] LABS: Bedside Glucose 301 mg/dL (70-110)
[2021-10-07 14:13] LABS: Thyroid Stim Hormone (TSH) 0.54 uIU/mL (0.358-3.74)
[2021-10-07] MEDS: LORazepam 2 MG/ML Syringe IV (15:35)
[2021-10-07 15:45] LABS: Pathologist Review Reviewed
--- NOTE | 2021-10-07 17:24 | TELEMED_ITS ---
[facility] Tele[facility] has confirmed receipt of a request for visit. This document confirms receipt of the order initiating the consult. To find the results of the consultation, please view the patient's reports for the scanned Telemed Consult.
[2021-10-07] MEDS: Rivaroxaban 20 MG Tablet GT (18:33)
[2021-10-07 19:31] LABS: Bedside Glucose 319 mg/dL (70-110)
[2021-10-07] MEDS: Atorvastatin Calcium 10 MG Tablet GT (22:46)
[2021-10-07 23:25] LABS: Bedside Glucose 270 mg/dL (70-110)
[2021-10-08] VITALS (23 sets, daily range): BP systolic 69–125; BP diastolic 45–75; PULSE 0–108; RESP 12–26; TEMP 39.7–40.5; O2SAT 91–95
[2021-10-08] MEDS: Acetaminophen 650 MG/20 ML UDC GT (01:07)
--- NOTE | 2021-10-08 04:39 | PCM.HOSP.N ---
Hospitalist Note Patient with worsening mental status and declining cerebral function as well as worsening hypotension and the need for initiating higher doses of pressors including the addition of vasopressin. He also has stopped breathing over the ventilator. His initial rate was 30s to 40s and is now breathing 12. Given this information, a stat ABG was obtained. His ABG from yesterday morning at 536 was reviewed and showed a pH of 7.33/PCO2 of 58.2 and a PO2 of 61 with an SPO2 of 88%. His ABG this morning at approximately 4:30 AM showed a pH of 7.06/PCO2 of 107/PO2 of 58.8. This is reflective of him not breathing over the ventilator anymore with a respiratory rate of 12. I discussed the case with respiratory therapy and they are going to notify the mail carrier and clerk on-call for ventilator changes as I do anticipate he will need to be on AC VC with high PEEP to promote ventilation and oxygenation as he is clearly not ventilating well at this time. However this could result in acute decompensation. Family is at the bedside and persists to want full CODE STATUS despite being informed on multiple occasions of his likely poor outcome.
[2021-10-08 04:41] LABS: Base Excess 1 mmol/L (-2 to +2); Bicarbonate 30.9 mmol/L (22-26); Blood Gas Specimen Type ART; FI02 90; Mode BiLevel; O2 Delivery Device Adult Vent; PO2 59 mmHG (75-100); RR 12; SITE L Radial; SO2 75 % (95-99); Total Carbon Dioxide 34 mmol/L; pCO2 107.4 mmHg (35-45); pH 7.07 (7.35-7.45)
[2021-10-08 04:53] LABS: Absolute Neutrophil Count 15.4 X10^3/uL (2.0-7.7); Basophil# 0.07 X10^3/uL; Basophil% 0.4 % (0-1); Hematocrit 40.7 % (40-54); Hemoglobin 11.7 g/dL (13.0-16.5); Mean Corp Hgb Conc 28.7 g/dL (32-36); Mean Corpuscular Hgb 31.2 pg (27.0-32.0); Mean Corpuscular Volume 108.5 fL (80-94); Mean Platelet Vol. 10.9 fl (6.2-12.0); Monocyte# 2.84 X10^3/uL; Monocyte% 14.4 % (0-10); NRBC Flagged by Analyzer 0.9 % (0-5); Neutrophil # 15.38 X10^3/uL (2.7-7.7); Neutrophil % 77.7 % (47-70); POSITIVE DIFFERENTIAL YES; Platelet Count 323 K/mm3 (150-450); RBC Distribution Width CV 15.9 % (11.6-14.6); RBC Distribution Width SD 64.3 fl (35.1-43.9); Red Blood Count 3.75 M/mm3 (4.6-6.2); White Blood Count 19.8 K/mm3 (4.4-11.0)
[2021-10-08 04:55] LABS: Differential Indicated SCAN CRITERIA MET
[2021-10-08] MEDS: Sodium Bicarbonate 8.4% 50 ML Syringe 50 MEQ IV (05:09)
[2021-10-08 05:19] LABS: ALB/GLOB Ratio 0.3 RATIO (0.9-2.4); AST(SGOT) 39 U/L (15-37); Alanine Aminotransfer ALT/SGPT 35 U/L (16-61); Albumin, Serum 1.5 g/dL (3.2-5.0); Alkaline Phosphatase 53 U/L (45-117); Anion Gap 5 (5-15); BUN 112 mg/dL (7-18); BUN/Creat Ratio 21.5 RATIO (10-20); Calcium,Total 7.5 mg/dL (8.5-10.1); Chloride 107 mmol/L (98-107); Creatinine, Serum 5.22 mg/dL (0.70-1.30); EST Glomerular Filtration Rate 12 mL/min (>60); Est Glom Filt Rate - Afr Amer 14 mL/min (>60); Estimated Creatinine Clearance 13.29 ml/min; Globulin 4.6 g/dL (2.2-4.2); Glucose 272 mg/dL (74-106); Potassium 5.7 mmol/L (3.5-5.1); Protein, Total 6.1 g/dL (6.4-8.2); Sodium Level 143 mmol/L (136-145)
[2021-10-08 05:30] LABS: Anisocytosis 2+
--- NOTE | 2021-10-08 06:35 | PN.CC_ITS ---
Assessment & Plan Assessment/Plan (1) Acute respiratory failure with hypoxia: (2) COVID-19: (3) CHF (congestive heart failure): QUALIFIERS: Heart failure chronicity: chronic Heart failure type: unspecified Qualified Code(s): I50.9 - Heart failure, unspecified (4) Morbid obesity: (5) Staphylococcus aureus pneumonia: (6) Sleep apnea: QUALIFIERS: Sleep apnea type: unspecified type Qualified Code(s): G47.30 - Sleep apnea, unspecified (7) PAF (paroxysmal atrial fibrillation): PLAN: RECOMMENDATIONS: 1. In light of the consensus of the family meeting this morning, will proceed with initiation of comfort care measures and terminal extubation. 2. CODE STATUS updated to DNR comfort care. 3. Orders for palliative medications have been placed. IMPRESSIONS: 1. Acute hypoxic respiratory failure secondary to COVID-19 combined with supe rimposed bacterial pneumonia The patient was initially admitted to the hospital in September 27 with worsening shortness of breath. His hospital course was complicated by worsening hypoxem ia, ultimately requiring intubation and invasive mechanical ventilatory support. The patient was initially treated with remdesivir, but was not felt to be a candidate for baricitinib. The patient has completed a treatment course of Decadron. He remains therapeutically anticoagulated on Xarelto per home regimen. Sputum culture was positive for staph aureus and Streptococcus pneumonia, for which antimicrobials will be continued per ID recommendations. Underlying renal insufficiency complicates the use of diuretics. Continue to wean FiO2 as tolerated for saturations greater than 90%. ABG this morning demonstrated worsening CO2 retention on APRV, as the patient was no longer overbreathing the set rate. Therefore, the patient was transitioned to assist control. However, following a family discussion this morning, the decision was made to proceed with palliative withdrawal of life support. 2. Encephalopathy Likely metabolic in etiology. CT head was negative for an acute intracranial process. I would recommend that all sedating medications be held. It is certainly plausible that the patient's altered mentation may be secondary to impaired renal clearance in the setting of sedative medication use. 3. Acute diastolic CHF/A. fib Continue amiodarone as ordered. No indication for diuretics in the setting of acute kidney injury. 4. Acute kidney injury Likely secondary to acute presentation/ischemic ATN coupled with recent attempts at diuresis. Renal function continues to worsen. 5. Diabetes mellitus type 2?insulin-dependent Continue tube feeds as tolerated along with Lantus and sliding scale insulin coverage. 6. BPH/hyperlipidemia/super morbid obesity/psoriasis/ABI/chronic pain syndrome/decreased mobility Complicates care, management, recovery and prognosis. Continue supportive measures as noted above. Overall prognosis is poor. TIME: 35 minutes of critical care time, independent of procedures, was spent addressing the patient's acute hypoxemic respiratory failure secondary to COVID- 19 pneumonia, superimposed bacterial pneumonia, encephalopathy, acute kidney injury, review of all data and collaboration with the care team. Subjective Subjective The patient was seen and examined at the bedside this morning. Events from the last 24 hours have been reviewed. Today is vent day #7. Yesterday, the patient had significantly elevated temperatures to 105.7 ?F. The patient's core temperature Conway catheter was replaced. The patient has been off of all sedation since yesterday and is not doing anything meaningful from a neurologic perspective. The patient had been maintained on APRV, but was noted this morning to no longer be overbreathing the ventilator. ABG demonstrated worsening CO2 retention. Therefore, the patient was transitioned to conventional assist control. In addition to the aforementioned, the patient became hemodynamically unstable yesterday and had to be started on vasopressor support. He is currently requiring Levophed and vasopressin in an attempt to maintain hemodynamic stability. His tube feeds are currently on hold. The patient is currently documented to be overall net +11 L for the hospitalization. The patient remains on broad-spectrum antimicrobials and Xarelto. White count is elevated at 20,000. Potassium is increased to 5.7. BUN is elevated at 112. Creatinine has increased to 5.2. I spoke at length yesterday with the patient's family over concerns for his clinical decompensation. I had a very alex discussion with him regarding his prognosis. Overall goals of plan was discussed. The patient's family was reluctant to make any changes in his CODE STATUS at that time. In light of the patient's continued clinical decompensation, I once again met with the patient's family this morning and again had a discussion regarding his further clinical decompensation, including worsening renal function. After an extensive family discussion, they came to a consensus as a group to proceed with palliative withdrawal of life support and initiation of comfort care measures. CODE STATUS was updated to DNR comfort care. The patient was removed from invasive mechanical ventilatory support and subsequently at 9:19 AM. Objective Data Objective Data The patient's most recent lab work, culture data and imaging studies have all been personally reviewed. Coronavirus PCR was positive on September 27. Sputum culture dated September 28 was positive for staph aureus and Streptococcus pneumonia. Sputum culture dated October 01 was positive for staph aureus and Serratia marcescens. Repeat sputum culture dated October 06 is positive for gram-negative leslie. Blood cultures have not demonstrated any growth to date. Vital Signs: Vital Signs Temp Pulse Resp BP Pulse Ox 103.5 F H 106 H 20 H 114/65 95 10/08/21 05:00 10/08/21 05:00 10/08/21 05:00 10/08/21 05:00 10/08/21 05:00 Oxygen Flow Rate (L/min) 15 Oxygen Delivery Method Mechanical Ventilator Weight: 166.4 kg Body Mass Index (BMI) 55.9 Intake & Output: Intake and Output for Last 24 Hours 10/06/21 10/07/21 10/08/21 23:59 23:59 23:59 Intake Total 3850.45 / 4444.05 2210.22 / 3318.95 1502.80 / 1502.80 Output Total 1500 / 2125 1725 / 1850 125 / 125 Balance 2350.45 / 2319.05 485.22 / 1468.95 1377.80 / 1377.80 Medical Nutrition Assessment Dietitian: Malnutrition Criteria Met Start: 09/28/21 11:48 Freq: Status: Active Protocol: Document 10/07/21 11:11 (Rec: 10/07/21 11:11 [id number]) Nutrition Malnutrition Evidence of Malnutrition Exists No Clinical Problem Acute Disease or Injury Related Malnutrition Etiology related to decreased appetite w/ acute illness, Signs/Symptoms as evidenced by estimated PO intake meeting less than <50% of estimated nutritional needs >5 days; unintentional wt loss of ~10.9kg/6.3% since onset of acute illness (less than 2 weeks) Status Resolved Problem Altered Nutrient-Related Laboratory Values Etiology - Signs/Symptoms - Status Inactive Problem Recommendation Dietitian Recommendations/Changes NPO;Will continue Vital HP via OGT at goal rate of 70mL/hour w/ 50mL H2O flush every 4 hours to provide 1680 calories , 146 g protein, and 1704mL total fluid/day. Lab / Micro Data Result Diagrams: 10/08/21 04:40 10/08/21 04:40 Labs: Laboratory Results - last 24 hr 10/07/21 04:37: Diff Path Review Reviewed 10/07/21 04:37: TSH 0.54 10/07/21 06:31: POC Glucose 248 H 10/07/21 13:49: POC Glucose 301 H 10/07/21 14:35: Ammonia 42.0 H 10/07/21 18:31: POC Glucose 319 H 10/07/21 23:15: POC Glucose 270 H 10/08/21 04:40: WBC 19.8 H, RBC 3.75 L, Hgb 11.7 L, Hct 40.7, MCV 108.5 H D, MCH 31.2, MCHC 28.7 L D, RDW Std Deviation 64.3 H, RDW Coeff of Will 15.9 H, Plt Count 323, MPV 10.9, Immature Gran % (Auto) 3.500 H, Neut % (Auto) 77.7 H, Lymph % (Auto) 4.0 L, Murray % (Auto) 14.4 H, Eos % (Auto) 0.0, Baso % (Auto) 0.4, Absolute Neuts (auto) 15.4 H, Absolute Lymphs (auto) 0.80 L, Nucleated RBC % 0.9, Diff Path Review May foll, Anisocytosis 2+ 10/08/21 04:40: Sodium 143, Potassium 5.7 H, Chloride 107, Carbon Dioxide 31.0, Anion Gap 5, BUN 112 H*, Creatinine 5.22 H, Estim Creat Clear Calc 13.29, Est GFR (MDRD) Af Amer 14 L, Est GFR (MDRD) Non-Af 12 L, BUN/Creatinine Ratio 21.5 H , Glucose 272 H, Calcium 7.5 L, Total Bilirubin 0.50, AST 39 H, ALT 35, Alkaline Phosphatase 53, Total Protein 6.1 L, Albumin 1.5 L, Globulin 4.6 H, Albumin/Globulin Ratio 0.3 L Micro: Microbiology 10/06/21 11:10 Sputum, Induced/Lukens Gram Stain - Final 10/06/21 11:10 Sputum, Induced/Lukens Respiratory Culture - Preliminary Gram negative leslie 10/01/21 10:00 Sputum, Induced/Lukens Gram Stain - Final 10/01/21 10:00 Sputum, Induced/Lukens Respiratory Culture - Final Staphylococcus aureus Serratia marcescens 09/27/21 11:26 Blood Culture (Wb) - Anticubital Left Blood Culture - Final No growth in 5 days. 09/28/21 10:00 Sputum, Expectorated/Coughed Gram Stain - Final 09/28/21 10:00 Sputum, Expectorated/Coughed Respiratory Culture - Final Staphylococcus aureus Streptococcus pneumoniae 09/27/21 17:30 Urine, Clean Catch Legionella Antigen - Final 09/27/21 17:30 Urine, Clean Catch Streptococcus pneumoniae Antigen (M - Final ABG Data ABG results: ABG 10/08/21 04:31 Specimen Type ART Sample Site L Radial pH 7.07 L* Bicarbonate Actual 30.9 H Total CO2 34 Base Excess 1 O2 Saturation 75 L O2 % 90 ABG pCO2 107.4 H* ABG pO2 59 L Enmanuel Test N/A Respiration Rate 12 O2 Delivery Device Adult Vent Vent Mode BiLevel Crit Call To/Read Back Yes Blood Gas Notified Whom Dr Mackay Radiography Diagnostic Testing: Radiology Impression Brain CT 10/07/21 07:11 IMPRESSION: No acute intracranial process identified. Chronic small vessel ischemic gliosis. Individualized dose optimization techniques were used for this CT. at 0810 Reported and signed by: Kelsie Palomo MD Electronically Signed: Kelsie Palomo MD at 8:09 EST Tel , Service support , ADDENDUM: 10/07/21 0818 IMPRESSION: No acute intracranial process identified. Chronic small vessel ischemic gliosis. Individualized dose optimization techniques were used for this CT. at 0810 Reported and signed by: Kelsie Palomo MD N.B. : The above Results were Read Back by Kelsie Palomo MD to Toi Santana DO, and understanding confirmed on 10/07/2021 08:11:52 (ET). Electronically Signed: Kelsie Palomo MD at 8:09 EST Tel , Service support , Physical Exam Const General Appearance: ill appearing, intubated and patient mechanically ventilated Nutritional Appearance: morbidly obese HEENT normocephalic and head/scalp atraumatic Mouth: endotracheal tube in place and OG tube in place Eyes PERRL and EOMs intact bilaterally Neck supple General: trachea midline Chest inspection of chest normal Resp Effort and Inspection: tachypneic and labored Auscultation: rhonchi and diminished lung sounds Cardio S1 normal heart sound and S2 normal heart sound Rate: tachycardic GI normal to inspection, nondistended, normoactive bowel sounds Extremity General Extremity: edema bilateral lower extremity; Negative for clubbing Skin General Skin Exam: erythema and lichenification Neuro Neuro Narrative: Sedation remains on hold. Currently nonresponsive to noxious stimulation. Charges/Coding Procedures Hospitalists Procedures: [id number] Critial Care 1st Hr
[2021-10-08] MEDS: Insulin Lispro 100 UNIT/ML INSULN.PEN SC (06:46)
--- NOTE | 2021-10-08 07:47 | PCM.PN.HOSP ---
Subjective Subjective Family member inside the room. Patient on maximal on Levophed and vasopressin running. T-max 105.7 Fahrenheit. Family member contemplating withdrawal of care. Objective Data Objective Data Vital Signs: Vital Signs Temp Pulse Resp BP Pulse Ox 103.5 F H 106 H 20 H 123/66 H 93 10/08/21 05:00 10/08/21 07:00 10/08/21 07:00 10/08/21 07:00 10/08/21 07:00 Oxygen Flow Rate (L/min) 15 Oxygen Delivery Method Mechanical Ventilator Weight: 366 lb 13.587 oz Body Mass Index (BMI) 55.9 Intake & Output: Intake and Output for Last 24 Hours 10/06/21 10/07/21 10/08/21 23:59 23:59 23:59 Intake Total 3850.45 / 4444.05 2210.22 / 3318.95 1615.40 / 1615.40 Output Total 1500 / 2125 1725 / 1850 125 / 125 Balance 2350.45 / 2319.05 485.22 / 1468.95 1490.40 / 1490.40 Medical Nutrition Assessment Dietitian: Malnutrition Criteria Met Start: 09/28/21 11:48 Freq: Status: Active Protocol: Document 10/07/21 11:11 AG (Rec: 10/07/21 11:11 AG [id number]) Nutrition Malnutrition Evidence of Malnutrition Exists No Clinical Problem Acute Disease or Injury Related Malnutrition Etiology related to decreased appetite w/ acute illness, Signs/Symptoms as evidenced by estimated PO intake meeting less than <50% of estimated nutritional needs >5 days; unintentional wt loss of ~10.9kg/6.3% since onset of acute illness (less than 2 weeks) Status Resolved Problem Altered Nutrient-Related Laboratory Values Etiology - Signs/Symptoms - Status Inactive Problem Recommendation Dietitian Recommendations/Changes NPO;Will continue Vital HP via OGT at goal rate of 70mL/hour w/ 50mL H2O flush every 4 hours to provide 1680 calories , 146 g protein, and 1704mL total fluid/day. Lab / Micro Data Result Diagrams: 10/08/21 04:40 10/08/21 04:40 Labs: Laboratory Results - last 24 hr 10/07/21 04:37: Diff Path Review Reviewed 10/07/21 04:37: TSH 0.54 10/07/21 13:49: POC Glucose 301 H 10/07/21 14:35: Ammonia 42.0 H 10/07/21 18:31: POC Glucose 319 H 10/07/21 23:15: POC Glucose 270 H 10/08/21 04:40: WBC 19.8 H, RBC 3.75 L, Hgb 11.7 L, Hct 40.7, MCV 108.5 H D, MCH 31.2, MCHC 28.7 L D, RDW Std Deviation 64.3 H, RDW Coeff of Will 15.9 H, Plt Count 323, MPV 10.9, Immature Gran % (Auto) 3.500 H, Neut % (Auto) 77.7 H, Lymph % (Auto) 4.0 L, [place] % (Auto) 14.4 H, Eos % (Auto) 0.0, Baso % (Auto) 0.4, Absolute Neuts (auto) 15.4 H, Absolute Lymphs (auto) 0.80 L, Nucleated RBC % 0.9, Diff Path Review May foll, Anisocytosis 2+ 10/08/21 04:40: Sodium 143, Potassium 5.7 H, Chloride 107, Carbon Dioxide 31.0, Anion Gap 5, BUN 112 H*, Creatinine 5.22 H, Estim Creat Clear Calc 13.29, Est GFR (MDRD) Af Amer 14 L, Est GFR (MDRD) Non-Af 12 L, BUN/Creatinine Ratio 21.5 H, Glucose 272 H, Calcium 7.5 L, Total Bilirubin 0.50, AST 39 H, ALT 35, Alkaline Phosphatase 53, Total Protein 6.1 L, Albumin 1.5 L, Globulin 4.6 H, Albumin/Globulin Ratio 0.3 L Micro: Microbiology 10/06/21 11:10 Sputum, Induced/Lukens Gram Stain - Final 10/06/21 11:10 Sputum, Induced/Lukens Respiratory Culture - Preliminary Gram negative leslie 10/01/21 10:00 Sputum, Induced/Lukens Gram Stain - Final 10/01/21 10:00 Sputum, Induced/Lukens Respiratory Culture - Final Staphylococcus aureus Serratia marcescens 09/27/21 11:26 Blood Culture (Wb) - Anticubital Left Blood Culture - Final No growth in 5 days. 09/28/21 10:00 Sputum, Expectorated/Coughed Gram Stain - Final 09/28/21 10:00 Sputum, Expectorated/Coughed Respiratory Culture - Final Staphylococcus aureus Streptococcus pneumoniae 09/27/21 17:30 Urine, Clean Catch Legionella Antigen - Final 09/27/21 17:30 Urine, Clean Catch Streptococcus pneumoniae Antigen (M - Final ABG Data ABG results: ABG 10/08/21 04:31 Specimen Type ART Sample Site L Radial pH 7.07 L* Bicarbonate Actual 30.9 H Total CO2 34 Base Excess 1 O2 Saturation 75 L O2 % 90 ABG pCO2 107.4 H* ABG pO2 59 L Enmanuel Test N/A Respiration Rate 12 O2 Delivery Device Adult Vent Vent Mode BiLevel Crit Call To/Read Back Yes Blood Gas Notified Whom Dr Mackay Radiography Diagnostic Testing: Radiology Impression Brain CT 10/07/21 07:11 IMPRESSION: No acute intracranial process identified. Chronic small vessel ischemic gliosis. Individualized dose optimization techniques were used for this CT. at 0810 Reported and signed by: Kelsie Palomo MD Electronically Signed: Kelsie Palomo MD at 8:09 EST Tel , Service support , ADDENDUM: 10/07/21 0818 IMPRESSION: No acute intracranial process identified. Chronic small vessel ischemic gliosis. Individualized dose optimization techniques were used for this CT. at 0810 Reported and signed by: Kelsie Palomo MD N.B. : The above Results were Read Back by Kelsie Palomo MD to Toi Santana DO, and understanding confirmed on 10/07/2021 08:11:52 (ET). Electronically Signed: Kelsie Palomo MD at 8:09 EST Tel , Service support , Physical Exam Narrative General: Intubated, off sedation. Unconscious, unresponsive HEENT: Atraumatic, PERRLA, EOMI, Normocephalic Oral: ET and OG tube. Neck: Supple, No JVD, Negative Carotid Bruits Lungs: Air entry diminished in bilateral lung bases. On vent support Cardiovascular: Sinus tachycardia, on vasopressor. Muffled heart sound. Abdomen: Bowel Sounds Present, Soft, Non Tender, Non-Distended : [place] catheter. BUN and creatinine high no renal angle tenderness. Extremities: No edema, Capillary Refill Less than 3 Seconds Skin: No rashes, No breakdown Musculoskeletal: No Tenderness to Palpation of Joints or Extremities Neurological: Off sedation, not waking up. Psych/Mental Status: Not awake, unconscious Assessment & Plan Assessment/Plan (1) COVID-19: (2) Acute respiratory failure with hypoxia: (3) Gram-negative pneumonia: (4) Staphylococcus aureus pneumonia: PLAN: Patient is a 66-year-old admitted with shortness of breath diagnosed with COVID-19. Hospital stay complicated by acute respiratory failure resulting in patient being intubated. 1. Acute hypoxic respiratory failure ?Secondary to COVID-19 pneumonia with superimposed bacterial pneumonia. Patient currently on the vent. Sampling Expert consulted for vent management 10/08: TEE with mixed acid base abnormality most probably due to ischemic ATN: ABG 7.07/107.4/59 on vent support APRV mode. Off sedation. Patient on Levophed and vasopressin. 5.7, BUN/creatinine 112/5.2. Urine output is low. Patient also has progressive subacute encephalopathy most probably metabolic due to retained CO2, metabolic and respiratory acidosis. Sedating medications on hold. Patient's family contemplating of withdrawal of care. Family member in patient's room. 2. Acute COVID 19 pneumonia with bacterial superinfection with metabolic encephalopathy: -Patient managed with Decadron. ID was consulted baricitinib was not recommended 3. Superimposed bacterial pneumonia 10/07:?Cultures grew MSSA, strep pneumo and Serratia pneumonia. On vancomycin and meropenem 4. Acute congestive heart failure with preserved ejection fraction ?Echo demonstrated EF of 55%. Checks x-ray showed evidence of mild CHF patient on diuresis 5. Obesity hypoventilation syndrome ?Complicating care 6. Paroxysmal A. fib ?Rate controlled on amiodarone and carvedilol also on systemic anticoagulation with Xarelto 6. GERD ?On PPI 7. Diabetes mellitus type II -patient's oral hypoglycemics held. Placed on long acting insulin, Accu-Cheks a.c. and at bedtime and covered with sliding scale insulin 8. Class III obesity with BMI 55.1 9. BPH ?Patient is on Flomax 10. Dyslipidemia -Patient is on statin therapy, continued at home dose 11. DVT prophylaxis ?Xarelto 12. Severe protein calorie nutrition As a result of acute illness and energy this is evidenced by intake meeting less than <50% of estimated nutritional needs, >5 days; unintentional wt, loss of ~10.9kg/6.3% since onset of acute illness (less than 2 weeks). Dietitian subsequently consulted plan as documented by the dietitian Active Medications Acetaminophen (Acetaminophen 650 Mg/20 Ml Udc) 650 mg GT Q6H PRN PRN PRN Reason: Pain Score 1-10/Temp > 100.7 F Last Admin: 10/08/21 01:07 Dose: 650 mg Documented by: Amiodarone HCl (Amiodarone 200 Mg Tablet) 200 mg GT DAILY [facility] Last Admin: 10/07/21 10:16 Dose: 200 mg Documented by: Atorvastatin Calcium (Atorvastatin Calcium 10 Mg Tablet) 10 mg GT QHS [facility] Last Admin: 10/07/21 22:46 Dose: 10 mg Documented by: Calamine/Phenol (Menthol/Lanolin/Calamine/Znox 113 Gm Tube) 1 applic TOPICAL TID [facility]; Protocol Last Admin: 10/08/21 07:00 Dose: Not Given Documented by: Calcium Carbonate (Calcium (Elemental) 500 Mg Tablet) 500 mg GT BIDCM [facility] Last Admin: 10/07/21 18:33 Dose: 500 mg Documented by: Calcium Carbonate (Calcium Carbonate 500 Mg Tablet) 1,000 mg GT Q6H PRN PRN PRN Reason: INDIGESTION Chlorhexidine Gluconate (Chlorhexidine 15 Ml) 15 ml PO BID [facility] Last Admin: 10/07/21 22:52 Dose: 15 ml Documented by: Chlorhexidine Gluconate (Chlorhexidine Gluc 2% Cloth 1 Each Towelette) 1 each TOPICAL DAILY [facility] Last Admin: 10/07/21 06:45 Dose: 1 each Documented by: Cholecalciferol (Cholecalciferol (Vit D3) 25 Mcg Tablet (1,000 Units)) 25 mcg GT DAILY [facility] Last Admin: 10/07/21 10:17 Dose: 25 mcg Documented by: Ferrous Sulfate (Ferrous Sulfate 325 Mg Tablet) 325 mg GT BIDCM [facility] Last Admin: 10/07/21 18:33 Dose: 325 mg Documented by: Sodium Chloride () 250 mls @ 15 mls/hr IV .[id number] PRN PRN Reason: Saline Flush Last Infusion: 10/06/21 06:40 Dose: 0 mls/hr Documented by: Sodium Chloride () 250 mls @ 15 mls/hr IV .[id number] PRN PRN Reason: Additional IVPB Infusion Pantoprazole Sodium 40 mg/ (Sodium Chloride) 110 mls @ 330 mls/hr IV Q12 [facility] Last Infusion: 10/07/21 23:03 Dose: Infused Documented by: Enteral Nutritional Formula (Vital High Protein) 1,000 mls @ 70 mls/hr GT .[id number] [facility] Last Admin: 10/08/21 04:43 Dose: Not Given Documented by: Meropenem 1 gm/ Sodium (Chloride) 120 mls @ 33 mls/hr IV Q12 [facility] Last Infusion: 10/08/21 02:49 Dose: Infused Documented by: Vancomycin IV-PHARMACY TO DOSE (1 each/ Sodium Chloride) 500 mls @ 250 mls/hr IV X1 PRN; Protocol PRN Reason: Rx to Dose Vancomycin HCl 1,750 mg/ (Sodium Chloride) 535 mls @ 250 mls/hr IV Q24H [facility] Last Infusion: 10/07/21 15:54 Dose: Infused Documented by: Norepinephrine Bitartrate 8 mg (/ Sodium Chloride) 250 mls @ 9.375 mls/hr CONT INF .[id number] [facility]; Protocol Last Titration: 10/08/21 07:00 Dose: 30 mcg/min, 56.3 mls/hr Documented by: Vasopressin 20 units/ Sodium (Chloride) 25 mls @ 3 mls/hr IV .[id number] [facility] Last Admin: 10/08/21 05:21 Dose: 0.04 units/min, 3 mls/hr Documented by: Insulin Glargine (Insulin Glargine 100 Units/Ml Pen) 12 units SC QHS [facility] Last Admin: 10/07/21 23:16 Dose: 12 units Documented by: Insulin Human Lispro (Insulin Lispro 100 Unit/Ml Insuln.Pen) 0 unit SC Q6 [facility]; Protocol Last Admin: 10/08/21 06:46 Dose: 3 u Documented by: Multivitamins (Multivitamins,Therapeutic Tablet) 1 tablet GT DAILYCM [facility] Last Admin: 10/07/21 10:16 Dose: 1 tablet Documented by: Nitroglycerin (Nitroglycerin (Inpatient Use) 0.4 Mg Tab.Subl) 0.4 mg SL Q5M PRN PRN Reason: CARDIAC/CHEST PAIN Nystatin (Nystatin Powder 15gm Bottle) 1 applic TOPICAL TID [facility]; Protocol Last Admin: 10/08/21 07:01 Dose: Not Given Documented by: Ondansetron HCl (Ondansetron 4 Mg/2 Ml Vial) 4 mg IV Q8H PRN PRN PRN Reason: NAUSEA/VOMITING Polyethylene Glycol (Polyethylene Glycol 3350 17 Gm Packet) 17 gm PO DAILY PRN PRN Reason: CONSTIPATION Last Admin: 10/06/21 08:03 Dose: 17 gm Documented by: Rivaroxaban (Rivaroxaban 20 Mg Tablet) 20 mg GT DINNER [facility] Last Admin: 10/07/21 18:33 Dose: 20 mg Documented by: Senna/Docusate Sodium (Senna/Docusate Sodium 1 Tablet) 2 tablet GT BID [facility] Last Admin: 10/07/21 22:46 Dose: 2 tablet Documented by: Sodium Chloride (0.9% Saline Lock 10 Ml Syringe) 10 - 40 ml IV UD PRN PRN Reason: SALINE FLUSH Last Admin: 10/05/21 22:22 Dose: 40 ml Documented by: Charges/Coding Visit Charges Inpatient E&M: 79025 [facility] Hosp L3
[2021-10-08] MEDS: Morphine 2 MG/ML Syringe IV (09:10)
[2021-10-08] MEDS: LORazepam 2 MG/ML Syringe IV (09:11)
[2021-10-08] MEDS: 0.9% Saline Lock 10 ML Syringe IV (09:11)
[2021-10-08 09:26] LABS: Bedside Glucose 249 mg/dL (70-110)
--- NOTE | 2021-10-08 10:18 | NURSING ---
in patient room with Hope RT, family at bedside to withdraw care, medicated for comfort, time of [id number]
--- NOTE | 2021-10-08 10:36 | CM.ED ---
SW Note SW was present for interdisciplinary rounds for patient. Patient . SW met with patient's daughter, nAali, and patient's brother. Provided emotional support for family. Family stated to tell the Nurses and MD thank you and SW relayed this message. Anali said that she was comfortable driving home. SW spoke to Anali about bereavement programming through [facility] that is available. Anali and patient's brother voiced no other issues or concerns. Plan: Emotional support Rachel ESCALONA
[2021-10-08 13:47] LABS: Pathologist Review Reviewed
--- NOTE | 2021-10-08 15:08 | EXP.PCM_ITS ---
Preliminary Cause of Preliminary Cause of Preliminary Cause of : 1. Acute hypoxic respiratory failure secondary to COVID-19 with superimposed bacterial pneumonia 2. Acute encephalopathy most likely metabolic encephalopathy 3. Acute diastolic heart failure, paroxysmal A. fib 4. Acute kidney injury 5. Diabetes mellitus type 2, insulin-dependent 6. Multiple other comorbidities BPH, dyslipidemia, super morbid obesity, psoriasis, sleep apnea, chronic pain syndrome. 7. Severe protein calorie malnutrition Date of Admission: 09/27/21 Date of : 10/08/21 Principle Diagnosis Bilateral COVID-19 pneumonia with superimposed bacterial pneumonia Problem List: Active and Suspected Problems (Updated 10/02/21 @ 13:[address] Nithin Garner, DO) Gram-negative pneumonia (Acute) Staphylococcus aureus pneumonia (Acute) Acute respiratory failure with hypoxia (Acute) CHF (congestive heart failure) (Acute) COVID-19 (Acute) Hypoxemia (Acute) Hospital Course Patient is a 66-year-old admitted with shortness of breath diagnosed with COVID-19. Hospital stay complicated by acute respiratory failure resulting in patient being intubated. Hospital course admission will 1. Acute hypoxic respiratory failure ?Secondary to COVID-19 pneumonia with superimposed bacterial pneumonia. Patient currently on the vent. Gis Administrator consulted for vent management TEE with mixed acid base abnormality most probably due to ischemic ATN: ABG 7.07/107.4/59 on vent support APRV mode suggestive of mixed metabolic and respiratory acidosis. Off sedation. Patient on Levophed and vasopressin. 5.7, BUN/creatinine 112/5.2. Urine output is low. Patient also has progressive subacute encephalopathy most probably metabolic due to retained CO2, metabolic and respiratory acidosis. Sedating medications on hold. Patient's family in the room and decided on terminal extubation. Patient DNR CC. Patient finally at 9:19 AM on 10/08. 2. Acute COVID 19 pneumonia with bacterial superinfection with metabolic encephalopathy: -Patient managed with Decadron. ID was consulted baricitinib was not recommended 3. Superimposed bacterial pneumonia Sputum cultures grew MSSA, strep pneumo and Serratia pneumonia. On vancomycin and meropenem 4. Acute congestive heart failure with preserved ejection fraction ?Echo demonstrated EF of 55%. Checks x-ray showed evidence of mild CHF patient on diuresis 5. Obesity hypoventilation syndrome ?Complicating care 6. Paroxysmal A. fib ?Rate controlled on amiodarone and carvedilol also on systemic anticoagulation with Xarelto 6. GERD ?On PPI 7. Diabetes mellitus type II -patient's oral hypoglycemics held. Placed on long acting insulin, Accu-Cheks a.c. and at bedtime and covered with sliding scale insulin 8. Class III obesity with BMI 55.1 9. BPH ?Patient is on Flomax 10. Dyslipidemia -Patient is on statin therapy, continued at home dose 11. DVT prophylaxis ?Xarelto 12. Severe protein calorie nutrition As a result of acute illness and energy this is evidenced by intake meeting less than <50% of estimated nutritional needs, >5 days; unintentional wt, loss of ~10.9kg/6.3% since onset of acute illness (less than 2 weeks). Dietitian was consulted. After withdrawal of care, patient had medication for comfort. Patient peacefully. Patient declared at 9:19 AM on 10/08 Visit Charges Inpatient E&M: 11109 Disch Hosp
== END 2021-10-08 12:00 | DRG 207 ==
LOC: ED 13:17 → MS3 13:28 → PCU 13:38 → ICU 09-30 08:36
PROVIDERS: Hospitalist; Internal Medicine; Internal Medicine Critical Care Medicine; Admitting Provider Student in an Organized Health Care Education/Training Program; Emergency Provider Emergency Medicine; Visit Provider Internal Medicine
DX: U07.1 COVID-19 (principal); J12.82 Pneumonia due to coronavirus disease 2019; J96.01 Acute respiratory failure with hypoxia; I50.31 Acute diastolic (congestive) heart failure; E43 Unspecified severe protein-calorie malnutrition; J15.211 Pneumonia due to Methicillin susceptible Staphylococcus aureus; J15.4 Pneumonia due to other streptococci; J15.6 Pneumonia due to other Gram-negative bacteria; N17.0 Acute kidney failure with tubular necrosis; G93.41 Metabolic encephalopathy; E66.2 Morbid (severe) obesity with alveolar hypoventilation; Z68.43 Body mass index [BMI] 50.0-59.9, adult; E87.4 Mixed disorder of acid-base balance; I11.0 Hypertensive heart disease with heart failure; I48.0 Paroxysmal atrial fibrillation; E11.65 Type 2 diabetes mellitus with hyperglycemia; L40.9 Psoriasis, unspecified; E78.5 Hyperlipidemia, unspecified; G89.4 Chronic pain syndrome; M50.30 Other cervical disc degeneration, unspecified cervical region; N40.0 Benign prostatic hyperplasia without lower urinary tract symptoms; K21.9 Gastro-esophageal reflux disease without esophagitis; M51.36 Other intervertebral disc degeneration, lumbar region; Z79.01 Long term (current) use of anticoagulants; Z79.4 Long term (current) use of insulin; Z79.899 Other long term (current) drug therapy; Z87.891 Personal history of nicotine dependence
CPT/HCPCS: 31500; 31720; 36415; 36569; 36600; 70450; 71045; 74018; 80048; 80053; 80202; 82140; 82550; 82803; 82962; 83605; 83615; 83735; 83880; 84100; 84145; 84443; 84478; 84484; 85025; 86140; 87040; 87070; 87077; 87186; 87205; 87449; 87635; 93005; 93308; 94002; 94003; 94640; 94762; 95819; 97162; 97166; 97530; 97802; 97803; 99251; 99285; J2185; J7040; J7050; Q9957; U0005; A4216; C8924; G0463; J1940; J3010; J3490; U0003